=== PATIENT | female | born 1985 | race Caucasian/White ===

== ENCOUNTER 2017-03-15 10:36 | Inpatient (IN) | payer OTHER ==
[2017-03-15] MEDS ORDERED: Sodium Chloride 0.9% 1000 ML 1,000 ML IV STA ×2 (10:55→11:39)
[2017-03-15] MEDS ORDERED: Zofran 4 MG/2 ML VIAL IV ONE (10:57)
[2017-03-15] MEDS ORDERED: Sodium Chloride 0.9% 1000 ML 1,000 ML ONE ×2 (10:57→11:47)
--- NOTE | 2017-03-15 11:00 | ERPHSYRPT ---
- History of Present Illness Time Seen by Provider: 03/15/17 10:54 Source: patient Exam Limitations: no limitations Patient Subjective Stated Complaint: pt here for n/v today and high blood sugar over 400, has not been checking her blood sugar at home, took 6 u of humalog at home, co abd pain, and dizziness Triage Nursing Assessment: pt alert, walked in,sob, skin w/d,pink,abd soft Physician History: The patient is a 31-year-old female complaining of abdominal pain, nausea, and vomiting today. She didn't feel well yesterday either. She is a type I diabetic for several years and states that her blood glucose monitoring machine broke several weeks ago. She has not been taking her daily blood glucose readings. She has been taking her routine Lantus 40 units in the morning. She did not take Lantus this morning. She was afraid she would bottom out. She borrowed her sister's blood glucose machine and found her blood glucose to be in the 400s this morning. She has been in DKA in the past as well as being hypoglycemic in the past. Her past medical history is significant for diabetes. Timing/Duration: today Severity: moderate Modifying Factors: Improves With: nothing Associated Symptoms: nausea, vomiting Allergies/Adverse Reactions: No Known Drug Allergies Allergy (Verified 02/28/15 18:26) Home Medications: Insulin Glargine,Hum.rec.anlog [Lantus] 40 units SQ HS 06/02/12 [History] Insulin Lispro [Humalog] 1 units SQ UD 06/02/12 [History] Hx Tetanus, Diphtheria Vaccination/Date Given: Yes Hx Influenza Vaccination/Date Given: No Hx Pneumococcal Vaccination/Date Given: No Immunizations Up to Date: Yes - Review of Systems Constitutional: No Fever, No Chills Eyes: No Symptoms Ears, Nose, & Throat: No Symptoms Respiratory: No Cough, No Dyspnea Cardiac: No Chest Pain, No Edema, No Syncope Abdominal/Gastrointestinal: Abdominal Pain, Nausea, Vomiting Genitourinary Symptoms: No Dysuria Musculoskeletal: No Back Pain, No Neck Pain Skin: No Rash Neurological: No Dizziness, No Focal Weakness, No Sensory Changes Psychological: No Symptoms Endocrine: No Symptoms Hematologic/Lymphatic: No Symptoms Immunological/Allergic: No Symptoms All Other Systems: Reviewed and Negative - Past Medical History Pertinent Past Medical History: Yes Neurological History: No Pertinent History ENT History: No Pertinent History Cardiac History: No Pertinent History Respiratory History: No Pertinent History Endocrine Medical History: Diabetes Type I Musculoskeletal History: No Pertinent History GI Medical History: No Pertinent History History: No Pertinent History Psycho-Social History: Depression Female Reproductive Disorders: No Pertinent History Other Medical History: HAS BEEN TYPE 1 SINCE 10 MONTHS OLD. - Past Surgical History Past Surgical History: Yes Neuro Surgical History: No Pertinent History Cardiac: No Pertinent History Respiratory: No Pertinent History Gastrointestinal: No Pertinent History Genitourinary: No Pertinent History Musculoskeletal: Orthopedic Surgery Female Surgical History: Section, Tubal Ligation Other Surgical History: TONSILS. X 4 - Social History Smoking Status: Never smoker Exposure to second hand smoke: No Drug Use: none Patient Lives Alone: No - Female History Hx Last Menstrual Period: feb Hx Now: Yes (18 weeks) - Nursing Vital Signs Nursing Vital Signs: Initial Vital Signs Temperature 97.5 F 03/15/17 10:45 Pulse Rate 104 H 03/15/17 10:45 Respiratory Rate 30 H 03/15/17 10:45 Blood Pressure 118/84 03/15/17 10:45 O2 Sat by Pulse Oximetry 100 03/15/17 10:45 Pain Scale Pain Intensity 3 - Physical Exam General Appearance: moderate distress Eye Exam: PERRL/EOMI, eyes nml inspection Ears, Nose, Throat Exam: normal ENT inspection, TMs normal, pharynx normal, moist mucous membranes Neck Exam: normal inspection, non-tender, supple, full range of motion Respiratory Exam: normal breath sounds, lungs clear, No respiratory distress Cardiovascular Exam: tachycardia Gastrointestinal/Abdomen Exam: tenderness Pelvic Exam: not done Rectal Exam: not done Back Exam: normal inspection, normal range of motion, No CVA tenderness, No vertebral tenderness Extremity Exam: normal inspection, normal range of motion, pelvis stable Neurologic Exam: alert, oriented x 3, cooperative, normal mood/affect, nml cerebellar function, nml station & gait, sensation nml, No motor deficits Skin Exam: normal color, warm, dry, No rash Lymphatic Exam: No adenopathy SpO2 Interpretation: normal SpO2: 100 Oxygen Delivery: Room Air Ordered Tests: Active Orders 24 hr Category Date Time Status ACCUCHECK [Accucheck] STAT Care 03/15/17 11:37 Active IV Insertion STAT Care 03/15/17 10:55 Active IV Insertion-2nd Peripheral STAT Care 03/15/17 10:55 Active ARTERIAL BLOOD GASES Urgent Lab 03/15/17 10:58 Completed CBC W DIFF Stat Lab 03/15/17 10:59 Completed CMP Stat Lab 03/15/17 10:59 Completed ETHYL ALCOHOL Stat Lab 03/15/17 10:59 Completed HCG QUALITATIVE,SERUM Stat Lab 03/15/17 10:59 Completed LIPASE Stat Lab 03/15/17 10:59 Completed Lactic Acid Urgent Lab 03/15/17 10:58 Completed MAGNESIUM Stat Lab 03/15/17 10:59 Completed UA W/ MICROSCOPIC Stat Lab 03/15/17 10:45 Completed Urine Triage Profile Stat Lab 03/15/17 10:45 Completed Medication Summary Discontinued Medications Generic Name Dose Route Start Last Admin Trade Name Freq PRN Reason Stop Dose Admin Sodium Chloride 1,000 mls @ 999 mls/hr 03/15/17 10:55 03/15/17 10:59 Sodium Chloride 0.9% 1000 Ml IV 03/15/17 11:55 999 mls/hr .Q1H1M STA Administration Sodium Chloride Confirm 03/15/17 10:57 Sodium Chloride 0.9% 1000 Ml Administered 03/15/17 10:58 Dose 1,000 mls @ ud .ROUTE .STK-MED ONE Sodium Chloride 1,000 mls @ 999 mls/hr 03/15/17 11:39 03/15/17 11:49 Sodium Chloride 0.9% 1000 Ml IV 03/15/17 12:39 999 mls/hr .Q1H1M STA Administration Sodium Chloride Confirm 03/15/17 11:47 Sodium Chloride 0.9% 1000 Ml Administered 03/15/17 11:48 Dose 1,000 mls @ ud .ROUTE .STK-MED ONE Ondansetron HCl 4 mg 03/15/17 10:57 03/15/17 11:02 Zofran 4 Mg/2 Ml Vial IV 03/15/17 10:58 4 mg STAT ONE Administration Ondansetron HCl Confirm 03/15/17 11:01 Zofran 4 Mg/2 Ml Vial Administered 03/15/17 11:02 Dose 4 mg .ROUTE .STK-MED ONE Lab/Rad Data: Laboratory Result Diagrams 03/15/17 10:59 03/15/17 10:59 Laboratory Results 03/15/17 03/15/17 03/15/17 Range/Units 10:59 10:59 10:59 WBC 5.4 (4.0-10.5) K/mm3 RBC 5.99 H (4.1-5.4) M/mm3 Hgb 15.7 (12.0-16.0) gm/dl Hct 47.8 H (35-47) % MCV 79.8 (78-100) fl MCH 26.2 (26-32) pg MCHC 32.8 (32-36) g/dl RDW 13.3 (11.5-14.0) % Plt Count 324 (150-450) K/mm3 MPV 11.2 H (6-9.5) fl Gran % 67.5 H (36.0-66.0) % Lymphocytes % 24.4 (24.0-44.0) % Monocytes % 6.9 (0.0-12.0) % Eosinophils % 0.6 (0.00-5.0) % Basophils % 0.6 (0.0-0.4) % Basophils # 0.03 (0-0.4) Puncture Site pCO2 (35-45) mmHg pO2 (75-100) mmHg Base Excess (-2.0-2.0) O2 Saturation (94-100) g/dF ABG pH (7.35-7.45) ABG HCO3 (22-28) ABG O2 Sat (Measured) (95-100) % Ruel Test A-a Gradient a/A Ratio Hemoglobin Carboxyhemoglobin (0.0-6.9) % THgb Methemoglobin (1.4-1.5) % Potassium 5.0 (3.5-5.1) Temperature C POC O2 Flow Rate % Sodium 128 L (136-145) mEq/L Chloride 91 L (98-107) mEq/L Carbon Dioxide 10.3 L* (21-32) mEq/L Anion Gap 31.7 H (5-15) MEQ/L BUN 16 (9-20) mg/dL Creatinine 1.14 (0.55-1.30) mg/dl Estimated GFR 59 ML/MIN Glucose 417 H (70-110) MG/DL Lactic Acid (0.4-2.0) Calcium 9.2 (8.5-10.1) mg/dL Magnesium 1.9 (1.8-2.4) mg/dL Total Bilirubin 0.80 (0.2-1.0) mg/dL AST 23 (15-37) U/L ALT 21 (12-78) U/L Alkaline Phosphatase 99 (46-116) U/L Serum Total Protein 8.7 H (6.4-8.2) gm/dL Albumin 4.9 (3.4-5.0) g/dL Lipase 77 (73-393) U/L Serum , Qual NEGATIVE (Negative) Ur Collection Type Urine Color (YELLOW) Urine Appearance (CLEAR) Urine pH (5-6) Ur Specific [place] (1.005-1.025) Urine Protein (Negative) Urine Ketones (NEGATIVE) Urine Blood (0-5) Shashank/ul Urine Nitrite (NEGATIVE) Urine Bilirubin (NEGATIVE) Urine Urobilinogen (0-1) mg/dL Ur Leukocyte Esterase (NEGATIVE) Urine Microscopic RBC (0-2) /HPF Urine Microscopic WBC (0-5) /HPF Ur Epithelial Cells (FEW) /HPF Urine Bacteria (NEGATIVE) /HPF Urine Culture Reflexed (NO) Urine Glucose (NEGATIVE) mg/dL Urine Opiates Level (NEGATIVE) Ur Methadone (NEGATIVE) Urine Barbiturates (NEGATIVE) Ur Phencyclidine (PCP) (NEGATIVE) Urine Amphetamine (NEGATIVE) U Benzodiazepine Level (NEGATIVE) Urine Cocaine (NEGATIVE) Urine Marijuana (THC) (NEGATIVE) Ethyl Alcohol < 0.010 (0.00-0.01) % Specimen Received 03/15/17 03/15/17 03/15/17 Range/Units 10:58 10:45 10:45 WBC (4.0-10.5) K/mm3 RBC (4.1-5.4) M/mm3 Hgb (12.0-16.0) gm/dl Hct (35-47) % MCV (78-100) fl MCH (26-32) pg MCHC (32-36) g/dl RDW (11.5-14.0) % Plt Count (150-450) K/mm3 MPV (6-9.5) fl Gran % (36.0-66.0) % Lymphocytes % (24.0-44.0) % Monocytes % (0.0-12.0) % Eosinophils % (0.00-5.0) % Basophils % (0.0-0.4) % Basophils # (0-0.4) Puncture Site LEFT RADIAL pCO2 17 L* (35-45) mmHg pO2 120 H (75-100) mmHg Base Excess -19.3 L (-2.0-2.0) O2 Saturation 96.7 (94-100) g/dF ABG pH 7.19 L* (7.35-7.45) ABG HCO3 6.5 L* (22-28) ABG O2 Sat (Measured) 98.8 (95-100) % Ruel Test YES A-a Gradient 8 a/A Ratio 0.94 Hemoglobin 15.3 Carboxyhemoglobin 1.2 (0.0-6.9) % THgb Methemoglobin 1.0 L (1.4-1.5) % Potassium 5.0 (3.5-5.1) Temperature 37.0 C POC O2 Flow Rate 21 % Sodium (136-145) mEq/L Chloride (98-107) mEq/L Carbon Dioxide (21-32) mEq/L Anion Gap (5-15) MEQ/L BUN (9-20) mg/dL Creatinine (0.55-1.30) mg/dl Estimated GFR ML/MIN Glucose (70-110) MG/DL Lactic Acid 1.6 (0.4-2.0) Calcium (8.5-10.1) mg/dL Magnesium (1.8-2.4) mg/dL Total Bilirubin (0.2-1.0) mg/dL AST (15-37) U/L ALT (12-78) U/L Alkaline Phosphatase (46-116) U/L Serum Total Protein (6.4-8.2) gm/dL Albumin (3.4-5.0) g/dL Lipase (73-393) U/L Serum , Qual (Negative) Ur Collection Type CCMS Urine Color YELLOW (YELLOW) Urine Appearance CLEAR (CLEAR) Urine pH 5.0 (5-6) Ur Specific [place] 1.020 (1.005-1.025) Urine Protein TRACE (Negative) Urine Ketones LARGE (NEGATIVE) Urine Blood TRACE NON-HEM (0-5) Shashank/ul Urine Nitrite NEGATIVE (NEGATIVE) Urine Bilirubin NEGATIVE (NEGATIVE) Urine Urobilinogen NORMAL (0-1) mg/dL Ur Leukocyte Esterase NEGATIVE (NEGATIVE) Urine Microscopic RBC 0-2 (0-2) /HPF Urine Microscopic WBC 0-2 (0-5) /HPF Ur Epithelial Cells FEW (FEW) /HPF Urine Bacteria RARE (NEGATIVE) /HPF Urine Culture Reflexed NO (NO) Urine Glucose 1000 (NEGATIVE) mg/dL Urine Opiates Level NEG. (NEGATIVE) Ur Methadone NEG. (NEGATIVE) Urine Barbiturates NEG. (NEGATIVE) Ur Phencyclidine (PCP) NEG. (NEGATIVE) Urine Amphetamine NEG. (NEGATIVE) U Benzodiazepine Level NEG. (NEGATIVE) Urine Cocaine NEG. (NEGATIVE) Urine Marijuana (THC) NEG. (NEGATIVE) Ethyl Alcohol (0.00-0.01) % Specimen Received 03/15/17 1100 - Progress Progress: improved Discussed with : Vidal Will see patient in: hospital (full admit) Counseled pt/family regarding: lab results, diagnosis, rad results - Departure Time of Disposition: 12:51 Departure Disposition: In-patient Admission Clinical Impression: DKA (diabetic ketoacidoses) Condition: Stable Critical Care Time: No Referrals: STU KEATING [Primary Care Provider] -
[2017-03-15] MEDS ORDERED: Zofran 4 MG/2 ML VIAL ONE (11:01)
[2017-03-15 11:05] LABS: A-aADO2 8; ARTERIAL BLD GAS O2 SATURATION 98.8 % (95-100); ARTERIAL BLOOD GAS BASE EXCESS -19.3 (-2.0-2.0); ARTERIAL BLOOD GAS FIO2 21 %; ARTERIAL BLOOD GAS PO2 120 mmHg (75-100); ARTERIAL BLOOD GAS pH 7.19 (7.35-7.45); Lactic Acid 1.6 (0.4-2.0)
[2017-03-15 11:06] LABS: ALLEN TEST OK? YES
[2017-03-15 11:06] LABS: BASOPHIL % 0.6 % (0.0-0.4); Eosinophil % 0.6 % (0.00-5.0); Granulocytes % 67.5 % (36.0-66.0); Lymphocytes % 24.4 % (24.0-44.0); Mean Cell Volume 79.8 fl (78-100); Mean Corpuscular Hemoglobin 26.2 pg (26-32); Mean Platelet Volume 11.2 fl (6-9.5); Monocytes % 6.9 % (0.0-12.0); Platelet Count 324 K/mm3 (150-450); Red Blood Count 5.99 M/mm3 (4.1-5.4); Red Cell Distribution Width 13.3 % (11.5-14.0); White Blood Count 5.4 K/mm3 (4.0-10.5)
[2017-03-15 11:14] LABS: Collection Type CCMS; Glucose 1000 mg/dL (NEGATIVE); Leukocyte Esterase NEGATIVE (NEGATIVE)
[2017-03-15 11:15] LABS: Bilirubin NEGATIVE (NEGATIVE); Blood TRACE NON-HEM Ery/ul (0-5)
[2017-03-15 11:16] LABS: COMPLETE URINE MICROSCOPIC? YES; Epithelial Cells FEW /HPF (FEW); WBC 0-2 /HPF (0-5)
[2017-03-15 11:17] LABS: ADD URINE CULTURE? NO (NO); Bacteria RARE /HPF (NEGATIVE)
[2017-03-15 11:33] LABS: ALBUMIN 4.9 g/dL (3.4-5.0); ALKALINE PHOSPHATASE 99 U/L (46-116); ANION GAP 31.7 MEQ/L (5-15); BLOOD UREA NITROGEN 16 mg/dL (9-20); CHLORIDE 91 mEq/L (98-107); ETHYL ALCOHOL < 0.010 % (0.00-0.01); Glucose 417 MG/DL (70-110); LIPASE 77 U/L (73-393); MAGNESIUM 1.9 mg/dL (1.8-2.4); SGOT/AST 23 U/L (15-37); SGPT/ALT 21 U/L (12-78); SODIUM 128 mEq/L (136-145); Total Protein 8.7 gm/dL (6.4-8.2)
[2017-03-15 11:36] LABS: Carbon Dioxide 10.3 mEq/L (21-32)
[2017-03-15] MEDS: Sodium Chloride 0.9% 1000 ML 1,000 ML IV SCH ×3 (14:23→23:22)
[2017-03-15] MEDS: Zofran 4 MG/2 ML VIAL IV PRN (14:26)
[2017-03-15] MEDS: NovoLOG Insulin SQ PRN ×5 (16:23→23:19)
[2017-03-15] MEDS: Norco 10/325 MG Tablet PO PRN ×2 (16:30→21:18)
[2017-03-15 16:41] LABS: ANION GAP 24.3 MEQ/L (5-15); BLOOD UREA NITROGEN 11 mg/dL (9-20); CHLORIDE 100 mEq/L (98-107); Glucose 212 MG/DL (70-110); Potassium 5.3 mEq/L (3.5-5.1); SODIUM 133 mEq/L (136-145)
[2017-03-15 16:42] LABS: Carbon Dioxide 14.4 mEq/L (21-32)
[2017-03-15 21:02] LABS: ANION GAP 15.7 MEQ/L (5-15); BLOOD UREA NITROGEN 11 mg/dL (9-20); CHLORIDE 106 mEq/L (98-107); Carbon Dioxide 18.5 mEq/L (21-32); Glucose 157 MG/DL (70-110); Potassium 4.2 mEq/L (3.5-5.1); SODIUM 136 mEq/L (136-145)
[2017-03-16] MEDS: NovoLOG Insulin SQ PRN ×3 (01:18→11:21)
[2017-03-16 03:28] LABS: ANION GAP 11.8 MEQ/L (5-15); BLOOD UREA NITROGEN 11 mg/dL (9-20); CHLORIDE 109 mEq/L (98-107); Carbon Dioxide 20.4 mEq/L (21-32); Glucose 114 MG/DL (70-110); Potassium 3.9 mEq/L (3.5-5.1); SODIUM 137 mEq/L (136-145)
[2017-03-16] MEDS: Norco 10/325 MG Tablet PO PRN (04:59)
[2017-03-16 06:05] LABS: BASOPHIL % 0.5 % (0.0-0.4); Granulocytes % 47.4 % (36.0-66.0); Lymphocytes % 38.8 % (24.0-44.0); Mean Cell Volume 80.6 fl (78-100); Mean Platelet Volume 11.4 fl (6-9.5); Monocytes % 11.3 % (0.0-12.0); Platelet Count 215 K/mm3 (150-450); Red Blood Count 4.17 M/mm3 (4.1-5.4); White Blood Count 4.1 K/mm3 (4.0-10.5)
[2017-03-16 06:17] LABS: Mean Corpuscular Hemoglobin 26.8 pg (26-32)
[2017-03-16] MEDS: Zofran 4 MG/2 ML VIAL IV PRN (07:26)
[2017-03-16] MEDS ORDERED: TYLENOL 325 MG PO PRN (08:34)
[2017-03-16] MEDS ORDERED: Phenergan 25 MG INJ IV PRN (08:34)
[2017-03-16] MEDS ORDERED: DIFLUCAN PO SCH (09:00)
[2017-03-16] MEDS: Lantus Insulin SQ SCH (09:19)
[2017-03-16] MEDS: Sodium Chloride 0.9% 1000 ML 1,000 ML IV SCH ×2 (09:25→20:40)
--- NOTE | 2017-03-16 09:41 | HP ---
HISTORY OF PRESENT ILLNESS: This is a 31 year-old patient with diabetes mellitus type 1. I last saw her in October 2015 and asked her to see an clearance cutter at that time. She was given a list and was to pick out a name. However she never got back to us. It appears that she has been getting her insulin refilled by nurse practitioner, Haydee Haile, this year. The patient is unsure when her last hemoglobin A1C was checked. She thinks it may have been last year. She states that she was not feeling well for the past two to three days and also reported that her blood glucose meter was not working for one and a half weeks so she was not checking her blood sugars. She reports yesterday she started feeling dizzy, lightheaded, nauseated and started vomiting. I checked her blood sugar and it 452. I am not sure how she checked that if her meter was not working but she told me that both that her meter was not working and that she checked her blood sugar. She states she has not seen an clearance cutter and would like a referral for one. She reports that she is feeling better now. She has a little bit of breakfast in front of her. The pharmacy reports that she has not received any Lantus yet. She usually gets 40 units every evening. She has received 27 units of sliding scale coverage since her admission yesterday. REVIEW OF SYSTEMS: She reports abdominal pain, vaginal itching otherwise the review of systems is negative. PAST MEDICAL HISTORY: Diabetes mellitus type 1. PAST SURGICAL HISTORY: Bilateral carpal tunnel surgery. Tonsillectomy. section x4. MEDICATIONS: Lantus 40 units q.h.s. and she also reports that she uses a sliding scale and counts carbs 15 to 1 for short-acting insulin which was Humalog. ALLERGIES: NKDA. SOCIAL HISTORY: No tobacco use. No alcohol use. FAMILY HISTORY: Mother has anemia. PHYSICAL EXAMINATION: VITAL SIGNS: Temperature current 97.5F, temperature max 97.5F, heart rate 69 to 104 currently 69, respiratory rate 12 to 30 currently 12, blood pressure 103 to 122 over 55 to 77 currently 110/61. GENERAL: The patient is lying in bed in no acute distress. CVS: She has a regular rate and rhythm. No murmurs, gallops or rubs are appreciated. CHEST: Clear to auscultation bilaterally. No crackles or wheezes. ABDOMEN: Soft, nontender, nondistended with normal bowel sounds. EXTREMITIES: No clubbing, cyanosis or edema. SKIN: Warm, dry and intact without rashes. LABORATORY DATA AND TESTS: Her most recent BMP revealed carbon dioxide of 20.4, sodium 137, glucose 114, calcium 7.1. These are from 0245 hours today. White blood cell count within normal limits. Hemoglobin 11.2. Urine tox is negative. UA revealed 1,000 glucose on admission and large ketones. On admission she was asked acidotic with a pH of 7.19 and a pCO2 of 17. ASSESSMENT AND PLAN: 1) DIABETES MELLITUS TYPE 1 WITH KETOACIDOSIS: The patient was given fluids overnight as well as short-acting insulin. She was not on a drip. It appears she has corrected. She has not yet been restarted on her home dose of Lantus so will have to change that to the morning. Will continue to check her blood sugars before meals and q.h.s. I have ordered 6 units of NovoLog before meals. She reports she usually gives herself somewhere around 8 units at her meals she thinks on average. Again, she uses a sliding scale that she does on her own. I have also ordered a low dose sliding scale to help cover for hyperglycemia. I have asked the patient to see an clearance cutter. The discharge plan is to get her a list of endocrinologists so she can pick one that she is comfortable with going to. Will check her hemoglobin A1C, will check her fasting lipid profile if she is still here in the morning. Continue with IV fluids. 2) VAGINAL YEAST INFECTION: Will give her Diflucan 150 mg p.o. once.
[2017-03-16] MEDS ORDERED: NovoLOG Insulin SQ SCH (11:30)
[2017-03-16 15:26] LABS: ANION GAP 14.6 MEQ/L (5-15); BLOOD UREA NITROGEN 9 mg/dL (9-20); CHLORIDE 106 mEq/L (98-107); Carbon Dioxide 21.9 mEq/L (21-32); Glucose 245 MG/DL (70-110); Potassium 4.3 mEq/L (3.5-5.1); SODIUM 138 mEq/L (136-145)
[2017-03-16] MEDS: NovoLOG Insulin SQ SCH (17:09)
[2017-03-17 03:29] LABS: ANION GAP 10.9 MEQ/L (5-15); BLOOD UREA NITROGEN 9 mg/dL (9-20); CHLORIDE 106 mEq/L (98-107); Carbon Dioxide 27.8 mEq/L (21-32); Glucose 78 MG/DL (70-110); Potassium 3.5 mEq/L (3.5-5.1); SODIUM 141 mEq/L (136-145)
[2017-03-17] MEDS: Sodium Chloride 0.9% 1000 ML 1,000 ML IV SCH (06:41)
[2017-03-17] MEDS: Lantus Insulin SQ SCH (07:49)
[2017-03-17] MEDS: NovoLOG Insulin SQ SCH (07:51)
[2017-03-17] MEDS: NovoLOG Insulin SQ PRN (07:51)
[2017-03-17 08:00] VITALS: O2SAT 97
[2017-03-17] MEDS ORDERED: MORPHINE SULFATE 4 MG INJ IV ONE (10:17)
[2017-03-17] MEDS ORDERED: Augmentin 875-125 Tablet PO SCH (11:45)
[2017-03-17] MEDS ORDERED: NovoLOG Insulin SQ SCH (11:46)
[2017-03-17] MEDS ORDERED: TORAdol 30 mg Injection IV ONE (12:00)
[2017-03-17 12:04] VITALS: BP 141/86; PULSE 103
--- NOTE | 2017-03-17 15:39 | PCM.DCORD ---
- Discharge Discharge Date: 03/17/17 Disposition: Home, Self-Care Condition: Good Prescriptions: New Amox Tr/Potass Clav. 875 mg [Augmentin 875-125 Tablet] 875 mg PO BID # 19 tablet Acetaminophen 325 mg [Tylenol 325 mg] 650 mg PO Q4H PRN PRN tablet PRN Reason: Pain And/Or Fever Continue Insulin Lispro [Humalog] 1 units SQ UD Insulin Glargine,Hum.rec.anlog [Lantus] 40 units SQ HS Additional Instructions: Take 6 units short acting insulin with each of your meals. Follow up with: STU KEATING [Primary Care Provider] -
[2017-03-17] MEDS ORDERED: Adacel Vial IM ONE (16:00)
--- NOTE | 2017-03-19 13:41 | DS ---
DISCHARGE DIAGNOSES: 1) DIABETIC KETOACIDOSIS NOW RESOLVED. 2) DIABETES MELLITUS TYPE 1 OUT OF CONTROL. 3) A 1 CM LACERATION OF HER LOWER LIP NOT INVOLVING THE REYNOLD BORDER. DISCHARGE PHYSICAL EXAMINATION: VITALS: Temperature current 98.4F, temperature max 99F, heart rate 69 to 103, respiratory rate 16, blood pressure 97 to 141 over 58 to 86. Oxygen saturation 94 to 97% on room air. GENERAL: The patient is lying in bed in no acute distress. She has an abrasion over her right eye with some bruising and nose has a small abrasion. Her lower lip just above her chin had a 1 cm laceration of the skin on the outside all the way through approximately 0.5 cm in length all the way through full thickness. CVS: Her heart has a regular rate and rhythm. No murmurs, gallops or rubs. CHEST: Clear to auscultation bilaterally. No crackles or wheezes. ABDOMEN: Soft, nontender, nondistended with normal bowel sounds. EXTREMITIES: No clubbing, cyanosis or edema. NEURO: Cranial nerves II-XII intact. Strength 5/5 in all four extremities. Finger to nose normal. Gait normal. HOSPITAL COURSE: 1) DIABETIC KETOACIDOSIS. She was given subcutaneous insulin in the ICU under the management of Dr. Drake when she first came in. The diabetic ketoacidosis corrected well. The morning I saw her she was eating breakfast. She started long-acting insulin 40 units daily which is what she takes at home and continued short-acting insulin ranging from 4 to 8 units with each of her meals. At the time of discharge she ate all of her lunch without any problems and her blood sugar was 72. 2) DIABETES MELLITUS TYPE 1 OUT OF CONTROL: She has not been following up with repairer welding equipment and plan to make this referral as an outpatient. Her hemoglobin A1C was over 10. The importance of good glycemic control was stressed with the patient. 3) FALL: She had a fall when she was taking a shower and said she had gotten out of the bath tub and was getting back in and fell and hit her chin and face on the grab bar in the shower. She cried immediately. Her boyfriend was in the room and came and got the nurse and then I also saw her once her pain was under better control and the laceration could be better examined it was evident that it was deeper than we initially thought. After informed consent the area was numbed and three sutures were placed on the inside of her lower lip with 4-0 Vicryl after numbing with 1% Lidocaine 1 ml without any complications. The 1 cm laceration on the outside of her lip was cleaned, numbed and three sutures were placed with 4-0 Prolene in a sterile manner without any complications after being numbed with 1 ml of Lidocaine. The edges were well approximated after suturing. The case had also been discussed with ENT doctor service station attendant, Dr. Che, [place] [facility] She had already been started on Augmentin after her fall at 875 mg b.i.d. which will plan to finish out a ten day course. I will also give her a TDAP before her discharge. 4) A 1 CM LACERATION OF HER LOWER LIP NOT INVOLVING THE REYNOLD BORDER: This was sutured as explained above without complications after informed consent was obtained. DISCHARGE MEDICATIONS: She is to resume her home medications as well as take Augmentin 875 mg p.o. b.i.d. for nine and a half more days. She has already received her first dose here. FOLLOW UP: She is to follow up with myself this coming Sunday for suture removal and follow up and also work on getting her endocrinology follow up. DISPOSITION: The patient was discharged to home in good condition.
== END 2017-03-17 14:15 | disposition home or self-care (01) | DRG 989 ==
LOC: ED 10:36 → ICU 13:41 → MED SURG 03-16 09:40
PROVIDERS: ADMIT Internal Medicine; ATTEND Internal Medicine
PROC: 0CQ10ZZ Repair Lower Lip, Open Approach (ICD-10-PCS; principal; 2017-03-17)
DX: E10.10 Type 1 diabetes mellitus with ketoacidosis without coma (principal); Z79.4 Long term (current) use of insulin; B37.3 Candidiasis of vulva and vagina; W18.2XXA Fall in (into) shower or empty bathtub, initial encounter; Y92.231 Patient bathroom in hospital as the place of occurrence of the external cause; S01.511A Laceration without foreign body of lip, initial encounter
CPT/HCPCS: 36000; 36415; 36600; 80048; 80053; 80061; 80307; 81000; 82375; 82803; 82962; 83036; 83605; 83690; 83721; 83735; 84443; 84703; 85025; 90471; 90715; 96360; 96361; 96374; 99285; G0481; J1885; J2270; J2405; A9270-GY

== ENCOUNTER 2017-05-23 16:58 | Emergency (ER) | payer OTHER ==
--- NOTE | 2017-05-23 17:23 | ERPHSYRPT ---
- History of Present Illness Source: patient, EMS Exam Limitations: no limitations Patient Subjective Stated Complaint: pt co high blood sugar today, aches, headache, nausea and vomited x1 .last blood sugar 348 Triage Nursing Assessment: pt alert, mild distress, resp easy, skin w/d pink. abd soft. lips dry Timing/Duration: day(s) (4) Severity: moderate Associated Symptoms: nausea, vomiting, malaise Hx Tetanus, Diphtheria Vaccination/Date Given: Yes Hx Influenza Vaccination/Date Given: No Hx Pneumococcal Vaccination/Date Given: No Immunizations Up to Date: Yes <DERIK HAHN - Last Filed: 05/23/17 19:02> <JORGE CODY - Last Filed: 05/23/17 20:31> - History of Present Illness Time Seen by Provider: 05/23/17 17:17 Physician History: The patient is a 31-year-old female brought in by MS from home where she complains of feeling nauseated since Sunday. She also had a sore throat on Sunday. Sunday and today she has been nauseated. She did vomit once today. She's not eating or drinking very much. Her abdomen doesn't hurt, it just feels queasy. She is a type I diabetic. She took very little insulin this morning because she wasn't eating. EMS says her blood sugar is 348. EMS gave her Zofran. She has muscle aches and pains. She did not receive an influenza vaccination this year. Her past medical history is significant for diabetes, diabetic ketoacidosis. (DERIK HAHN) Allergies/Adverse Reactions: No Known Drug Allergies Allergy (Verified 05/23/17 17:05) Home Medications: Insulin Glargine,Hum.rec.anlog [Lantus] 40 units SQ HS 06/02/12 [History] Insulin Lispro [Humalog] 1 units SQ UD 06/02/12 [History] - Review of Systems Constitutional: Malaise Eyes: No Symptoms Ears, Nose, & Throat: Throat Pain Respiratory: No Cough, No Dyspnea Cardiac: No Chest Pain, No Edema, No Syncope Abdominal/Gastrointestinal: Nausea, Vomiting, No Diarrhea, No Constipation Genitourinary Symptoms: No Dysuria Musculoskeletal: Myalgias, No Back Pain, No Neck Pain Skin: No Rash Neurological: No Dizziness, No Focal Weakness, No Sensory Changes Psychological: No Symptoms Endocrine: No Symptoms Hematologic/Lymphatic: No Symptoms Immunological/Allergic: No Symptoms All Other Systems: Reviewed and Negative <DERIK HAHN - Last Filed: 05/23/17 19:02> - Past Medical History Pertinent Past Medical History: Yes Neurological History: No Pertinent History ENT History: No Pertinent History Cardiac History: No Pertinent History Respiratory History: No Pertinent History Endocrine Medical History: Diabetes Type I Musculoskeletal History: No Pertinent History GI Medical History: No Pertinent History History: No Pertinent History Psycho-Social History: Anxiety, Depression Female Reproductive Disorders: No Pertinent History Other Medical History: HAS BEEN TYPE 1 SINCE 11 MONTHS OLD. - Past Surgical History Past Surgical History: Yes Neuro Surgical History: No Pertinent History Cardiac: No Pertinent History Respiratory: No Pertinent History Gastrointestinal: No Pertinent History Genitourinary: No Pertinent History Musculoskeletal: Orthopedic Surgery Female Surgical History: Section, Tubal Ligation Other Surgical History: TONSILS. X 4 - Social History Smoking Status: Never smoker Exposure to second hand smoke: No Drug Use: none Patient Lives Alone: No - Female History Hx Last Menstrual Period: nov Hx Now: No <DERIK HAHN - Last Filed: 05/23/17 19:02> - Physical Exam General Appearance: mild distress Eye Exam: PERRL/EOMI, eyes nml inspection Ears, Nose, Throat Exam: normal ENT inspection, TMs normal, pharynx normal, moist mucous membranes Neck Exam: normal inspection, non-tender, supple, full range of motion Respiratory Exam: normal breath sounds, lungs clear, No respiratory distress Cardiovascular Exam: regular rate/rhythm, normal heart sounds, normal peripheral pulses Gastrointestinal/Abdomen Exam: soft, normal bowel sounds, No tenderness, No mass Pelvic Exam: not done Rectal Exam: not done Back Exam: normal inspection, normal range of motion, No CVA tenderness, No vertebral tenderness Extremity Exam: normal inspection, normal range of motion, pelvis stable Neurologic Exam: alert, oriented x 3, cooperative, normal mood/affect, nml cerebellar function, nml station & gait, sensation nml, No motor deficits Skin Exam: normal color, warm, dry, No rash Lymphatic Exam: No adenopathy SpO2 Interpretation: normal SpO2: 100 Oxygen Delivery: Room Air <DERIK HAHN - Last Filed: 05/23/17 19:02> - Nursing Vital Signs Nursing Vital Signs: Initial Vital Signs Temperature 97.5 F 05/23/17 17:00 Pulse Rate 96 H 05/23/17 17:00 Respiratory Rate 16 05/23/17 17:00 Blood Pressure 118/68 05/23/17 17:00 O2 Sat by Pulse Oximetry 100 05/23/17 17:00 Pain Scale Pain Intensity 0 - Radiology Exams Abdomen X-ray Interpretation: Interpreted by me, Negative, No Pneumonia <JORGE CODY - Last Filed: 05/23/17 20:31> Ordered Tests: Active Orders 24 hr Category Date Time Status Accucheck STAT Care 05/23/17 17:28 Active Clean Catch Urine Specimen STAT Care 05/23/17 19:22 Active IV Insertion STAT Care 05/23/17 17:28 Active Pulse Oximetry (ED) STAT Care 05/23/17 17:28 Active OBSTR/ACUTE ABDOMEN SERIES Stat Exams 05/23/17 19:24 Ordered ARTERIAL BLOOD GASES Urgent Lab 05/23/17 17:28 Ordered CBC W DIFF Stat Lab 05/23/17 17:50 Completed CMP Stat Lab 05/23/17 17:50 Completed CULTURE, THROAT Stat Lab 05/23/17 17:50 Received ETHYL ALCOHOL Stat Lab 05/23/17 17:50 Completed HCG QUALITATIVE,SERUM Stat Lab 05/23/17 17:50 Completed Lactic Acid Stat Lab 05/23/17 18:11 Completed Lactic Acid Urgent Lab 05/23/17 17:28 Ordered STREP SCREEN-BETA A Stat Lab 05/23/17 17:50 Completed UA W/ MICROSCOPIC Stat Lab 05/23/17 20:00 Completed VBG [VENOUS BLOOD GAS] Stat Lab 05/23/17 18:11 Completed Medication Summary Generic Name Dose Route Start Last Admin Trade Name Freq PRN Reason Stop Dose Admin Cephalexin HCl 500 mg 05/23/17 20:24 Keflex 500 Mg PO 05/23/17 20:25 STAT ONE Discontinued Medications Generic Name Dose Route Start Last Admin Trade Name Freq PRN Reason Stop Dose Admin Sodium Chloride 1,000 mls @ 999 mls/hr 05/23/17 17:28 05/23/17 17:35 Sodium Chloride 0.9% 1000 Ml IV 05/23/17 18:28 999 mls/hr .Q1H1M STA Administration Sodium Chloride Confirm 05/23/17 17:34 Sodium Chloride 0.9% 1000 Ml Administered 05/23/17 17:35 Dose 1,000 mls @ ud .ROUTE .STK-MED ONE Sodium Chloride 1,000 mls @ 999 mls/hr 05/23/17 19:23 05/23/17 19:29 Sodium Chloride 0.9% 1000 Ml IV 05/23/17 20:23 999 mls/hr .Q1H1M STA Administration Sodium Chloride Confirm 05/23/17 19:28 Sodium Chloride 0.9% 1000 Ml Administered 05/23/17 19:29 Dose 1,000 mls @ ud .ROUTE .STK-MED ONE Promethazine HCl 12.5 mg 05/23/17 17:28 05/23/17 17:35 Phenergan 25 Mg Inj IV 05/23/17 17:29 12.5 mg STAT ONE Administration Promethazine HCl Confirm 05/23/17 17:33 Phenergan 25 Mg Inj Administered 05/23/17 17:34 Dose 25 mg .ROUTE .STK-MED ONE Lab/Rad Data: Laboratory Result Diagrams 05/23/17 17:50 05/23/17 17:50 Laboratory Results 05/23/17 05/23/17 05/23/17 Range/Units 20:00 18:11 18:11 WBC (4.0-10.5) K/mm3 RBC (4.1-5.4) M/mm3 Hgb (12.0-16.0) gm/dl Hct (35-47) % MCV (78-100) fl MCH (26-32) pg MCHC (32-36) g/dl RDW (11.5-14.0) % Plt Count (150-450) K/mm3 MPV (6-9.5) fl Gran % (36.0-66.0) % Lymphocytes % (24.0-44.0) % Monocytes % (0.0-12.0) % Eosinophils % (0.00-5.0) % Basophils % (0.0-0.4) % Basophils # (0-0.4) VBG pH 7.37 (7.32-7.42) VBG pCO2 at Pat Temp 49 (42-55) mm/Hg VBG pO2 at Pat Temp 25 (25-40) mm/Hg VBG HCO3 28.3 H (22-28) meq/L VBG O2 Sat (Kali) 45.7 L (95-100) VBG Base Excess 2.2 H (-2.0-2.0) VBG Hemoglobin 13.5 VBG Carboxyhemoglobin 3.1 (0.0-6.9) % T HGB POC Potassium 4.3 (3.5-5.1) Sodium (136-145) mEq/L Potassium (3.5-5.1) mEq/L Chloride (98-107) mEq/L Carbon Dioxide (21-32) mEq/L Anion Gap (5-15) MEQ/L BUN (9-20) mg/dL Creatinine (0.55-1.30) mg/dl Estimated GFR ML/MIN Glucose (70-110) MG/DL Lactic Acid 1.2 (0.4-2.0) Calcium (8.5-10.1) mg/dL Total Bilirubin (0.2-1.0) mg/dL AST (15-37) U/L ALT (12-78) U/L Alkaline Phosphatase (46-116) U/L Serum Total Protein (6.4-8.2) gm/dL Albumin (3.4-5.0) g/dL Serum , Qual (Negative) Ur Collection Type CCMS Urine Color YELLOW (YELLOW) Urine Appearance CLEAR (CLEAR) Urine pH 6.0 (5-6) Ur Specific [place] 1.010 (1.005-1.025) Urine Protein NEGATIVE (Negative) Urine Ketones NEGATIVE (NEGATIVE) Urine Blood NEGATIVE (0-5) Shashank/ul Urine Nitrite NEGATIVE (NEGATIVE) Urine Bilirubin NEGATIVE (NEGATIVE) Urine Urobilinogen NORMAL (0-1) mg/dL Ur Leukocyte Esterase TRACE (NEGATIVE) Urine Microscopic WBC 2-5 (0-5) /HPF Ur Epithelial Cells FEW (FEW) /HPF Urine Bacteria RARE (NEGATIVE) /HPF Urine Culture Reflexed NO (NO) Urine Glucose 50 (NEGATIVE) mg/dL Ethyl Alcohol (0.00-0.01) % Influenza Type A Ag (NEGATIVE) Influenza Type B Ag (NEGATIVE) RSV (PCR) (Negative) Streptococcus Screen (Negative) Specimen Received 05-23-17199905/23/17 05/23/17 05/23/17 Range/Units 17:50 17:50 17:50 WBC (4.0-10.5) K/mm3 RBC (4.1-5.4) M/mm3 Hgb (12.0-16.0) gm/dl Hct (35-47) % MCV (78-100) fl MCH (26-32) pg MCHC (32-36) g/dl RDW (11.5-14.0) % Plt Count (150-450) K/mm3 MPV (6-9.5) fl Gran % (36.0-66.0) % Lymphocytes % (24.0-44.0) % Monocytes % (0.0-12.0) % Eosinophils % (0.00-5.0) % Basophils % (0.0-0.4) % Basophils # (0-0.4) VBG pH (7.32-7.42) VBG pCO2 at Pat Temp (42-55) mm/Hg VBG pO2 at Pat Temp (25-40) mm/Hg VBG HCO3 (22-28) meq/L VBG O2 Sat (Kali) (95-100) VBG Base Excess (-2.0-2.0) VBG Hemoglobin VBG Carboxyhemoglobin (0.0-6.9) % T HGB POC Potassium (3.5-5.1) Sodium (136-145) mEq/L Potassium (3.5-5.1) mEq/L Chloride (98-107) mEq/L Carbon Dioxide (21-32) mEq/L Anion Gap (5-15) MEQ/L BUN (9-20) mg/dL Creatinine (0.55-1.30) mg/dl Estimated GFR ML/MIN Glucose (70-110) MG/DL Lactic Acid (0.4-2.0) Calcium (8.5-10.1) mg/dL Total Bilirubin (0.2-1.0) mg/dL AST (15-37) U/L ALT (12-78) U/L Alkaline Phosphatase (46-116) U/L Serum Total Protein (6.4-8.2) gm/dL Albumin (3.4-5.0) g/dL Serum , Qual NEGATIVE (Negative) Ur Collection Type Urine Color (YELLOW) Urine Appearance (CLEAR) Urine pH (5-6) Ur Specific [place] (1.005-1.025) Urine Protein (Negative) Urine Ketones (NEGATIVE) Urine Blood (0-5) Shashank/ul Urine Nitrite (NEGATIVE) Urine Bilirubin (NEGATIVE) Urine Urobilinogen (0-1) mg/dL Ur Leukocyte Esterase (NEGATIVE) Urine Microscopic WBC (0-5) /HPF Ur Epithelial Cells (FEW) /HPF Urine Bacteria (NEGATIVE) /HPF Urine Culture Reflexed (NO) Urine Glucose (NEGATIVE) mg/dL Ethyl Alcohol (0.00-0.01) % Influenza Type A Ag NEGATIVE (NEGATIVE) Influenza Type B Ag NEGATIVE (NEGATIVE) RSV (PCR) NEGATIVE (Negative) Streptococcus Screen NEGATIVE (Negative) Specimen Received 05/23/17 05/23/17 Range/Units 17:50 17:50 WBC 6.5 (4.0-10.5) K/mm3 RBC 4.89 (4.1-5.4) M/mm3 Hgb 12.5 (12.0-16.0) gm/dl Hct 38.9 (35-47) % MCV 79.6 (78-100) fl MCH 25.6 L (26-32) pg MCHC 32.1 (32-36) g/dl RDW 13.4 (11.5-14.0) % Plt Count 265 (150-450) K/mm3 MPV 10.4 H (6-9.5) fl Gran % 71.4 H (36.0-66.0) % Lymphocytes % 20.0 L (24.0-44.0) % Monocytes % 7.7 (0.0-12.0) % Eosinophils % 0.6 (0.00-5.0) % Basophils % 0.3 (0.0-0.4) % Basophils # 0.02 (0-0.4) VBG pH (7.32-7.42) VBG pCO2 at Pat Temp (42-55) mm/Hg VBG pO2 at Pat Temp (25-40) mm/Hg VBG HCO3 (22-28) meq/L VBG O2 Sat (Kali) (95-100) VBG Base Excess (-2.0-2.0) VBG Hemoglobin VBG Carboxyhemoglobin (0.0-6.9) % T HGB POC Potassium (3.5-5.1) Sodium 136 (136-145) mEq/L Potassium 4.2 (3.5-5.1) mEq/L Chloride 101 (98-107) mEq/L Carbon Dioxide 25.8 (21-32) mEq/L Anion Gap 13.0 (5-15) MEQ/L BUN 12 (9-20) mg/dL Creatinine 0.80 (0.55-1.30) mg/dl Estimated GFR > 60 ML/MIN Glucose 261 H (70-110) MG/DL Lactic Acid (0.4-2.0) Calcium 8.5 (8.5-10.1) mg/dL Total Bilirubin 0.90 (0.2-1.0) mg/dL AST 13 L (15-37) U/L ALT 11 L (12-78) U/L Alkaline Phosphatase 76 (46-116) U/L Serum Total Protein 7.0 (6.4-8.2) gm/dL Albumin 3.5 (3.4-5.0) g/dL Serum , Qual (Negative) Ur Collection Type Urine Color (YELLOW) Urine Appearance (CLEAR) Urine pH (5-6) Ur Specific [place] (1.005-1.025) Urine Protein (Negative) Urine Ketones (NEGATIVE) Urine Blood (0-5) Shashank/ul Urine Nitrite (NEGATIVE) Urine Bilirubin (NEGATIVE) Urine Urobilinogen (0-1) mg/dL Ur Leukocyte Esterase (NEGATIVE) Urine Microscopic WBC (0-5) /HPF Ur Epithelial Cells (FEW) /HPF Urine Bacteria (NEGATIVE) /HPF Urine Culture Reflexed (NO) Urine Glucose (NEGATIVE) mg/dL Ethyl Alcohol < 0.010 (0.00-0.01) % Influenza Type A Ag (NEGATIVE) Influenza Type B Ag (NEGATIVE) RSV (PCR) (Negative) Streptococcus Screen (Negative) Specimen Received <DERIK HAHN - Last Filed: 05/23/17 19:02> - Progress Progress: improved <JORGE CODY - Last Filed: 05/23/17 20:31> - Progress Progress Note: 05/23/17 18:41 Pt care discussed and care transferred to Dr Baird at 19:00. (DERIK HAHN) 05/23/17 20:25 Improved, did not vomit, afebrile, BS 136, denies abdominal pain, or nausea, feels much better. Abdomen re-examined: soft, nontender, no mass or guarding, normal bowel sounds. (JORGE CODY) <DERIK HAHN - Last Filed: 05/23/17 19:02> - Departure Time of Disposition: 20:26 Departure Disposition: Home Critical Care Time: No <JORGE CODY - Last Filed: 05/23/17 20:31> - Departure Clinical Impression: Hyperglycemia Vomiting Qualifiers: Vomiting type: unspecified Vomiting Intractability: non-intractable Nausea presence: with nausea Qualified Code(s): R11.2 - Nausea with vomiting, unspecified UTI (urinary tract infection) Qualifiers: Urinary tract infection type: site unspecified Hematuria presence: without hematuria Qualified Code(s): N39.0 - Urinary tract infection, site not specified Condition: Stable Referrals: STU KEATING [Primary Care Provider] - Additional Instructions: Rest x 1-2 days, drink plenty of fluids, return if severe pain, vomiting, fever > 103F, or blood sugar> 400, < 60, severe dizziness, weakness! Prescriptions: Cephalexin Mh 500 mg [Keflex 500 mg] 500 mg PO QID 7 Days #28 capsule Promethazine HCl 25 mg [Phenergan 25 mg] 25 mg PO Q6-8HPRN PRN 5 Days #10 tablet PRN Reason: Nausea/Vomiting
[2017-05-23] MEDS ORDERED: Sodium Chloride 0.9% 1000 ML 1,000 ML IV STA ×2 (17:28→19:23)
[2017-05-23] MEDS ORDERED: Phenergan 25 MG INJ IV ONE (17:28)
[2017-05-23] MEDS ORDERED: Phenergan 25 MG INJ ONE (17:33)
[2017-05-23] MEDS ORDERED: Sodium Chloride 0.9% 1000 ML 1,000 ML ONE ×2 (17:34→19:28)
[2017-05-23 18:00] LABS: BASOPHIL % 0.3 % (0.0-0.4); Eosinophil % 0.6 % (0.00-5.0); Granulocytes % 71.4 % (36.0-66.0); Mean Cell Volume 79.6 fl (78-100); Mean Corpuscular Hemoglobin 25.6 pg (26-32); Mean Platelet Volume 10.4 fl (6-9.5); Monocytes % 7.7 % (0.0-12.0); Platelet Count 265 K/mm3 (150-450); Red Blood Count 4.89 M/mm3 (4.1-5.4); Red Cell Distribution Width 13.4 % (11.5-14.0); White Blood Count 6.5 K/mm3 (4.0-10.5)
[2017-05-23 18:16] LABS: VBG BASE EXCESS 2.2 (-2.0-2.0); VBG CARBOXYHEMOGLOBIN 3.1 % T HGB (0.0-6.9); VBG HCO3- 28.3 meq/L (22-28); VBG HEMOGLOBIN 13.5; VBG O2 SATURATION 45.7 (95-100); VBG POTASSIUM 4.3 (3.5-5.1); VBG pH 7.37 (7.32-7.42)
[2017-05-23 18:39] LABS: ALBUMIN 3.5 g/dL (3.4-5.0); ALKALINE PHOSPHATASE 76 U/L (46-116); BLOOD UREA NITROGEN 12 mg/dL (9-20); CHLORIDE 101 mEq/L (98-107); Carbon Dioxide 25.8 mEq/L (21-32); ETHYL ALCOHOL < 0.010 % (0.00-0.01); Glucose 261 MG/DL (70-110); Potassium 4.2 mEq/L (3.5-5.1); SGOT/AST 13 U/L (15-37); SGPT/ALT 11 U/L (12-78); SODIUM 136 mEq/L (136-145)
[2017-05-23 20:13] LABS: ADD URINE CULTURE? NO (NO); Bacteria RARE /HPF (NEGATIVE); Bilirubin NEGATIVE (NEGATIVE); Blood NEGATIVE Ery/ul (0-5); COMPLETE URINE MICROSCOPIC? YES; Collection Type CCMS; Epithelial Cells FEW /HPF (FEW); Glucose 50 mg/dL (NEGATIVE); Leukocyte Esterase TRACE (NEGATIVE)
[2017-05-23] MEDS ORDERED: KEFLEX 500 MG PO ONE (20:24)
[2017-05-23 20:26] VITALS: BP 99/59; PULSE 89; O2SAT 99
[2017-05-23] MEDS ORDERED: KEFLEX 500 MG ONE (20:27)
--- NOTE | 2017-05-24 08:49 | XRAY ---
Indication: High blood sugar. Comparison: Chest exam August 07, 2012. 2 views of the abdomen nonacute nonobstructed. Tiny right pelvic phlebolith. Solid organs and osseous structures unremarkable. Single PA chest again demonstrates normal heart, lungs, and bony thorax with incidental new bilateral nipple ornaments. Impression: Negative abdomen. Normal 1 view chest.
== END 2017-05-23 20:42 | disposition home or self-care (01) ==
LOC: ED 16:58
DX: R11.2 Nausea with vomiting, unspecified (principal); N39.0 Urinary tract infection, site not specified; R73.9 Hyperglycemia, unspecified
CPT/HCPCS: 36415; 74022; 80053; 81000; 82805; 82962; 83605; 84703; 85025; 87070; 87430; 87631; 96360; 96361; 96374; 99284; G0481; J2550; A9270-GY

== ENCOUNTER 2017-07-24 19:25 | Emergency (ER) | payer OTHER ==
[2017-07-24] MEDS ORDERED: Sodium Chloride 0.9% 1000 ML 1,000 ML IV STA (20:41)
[2017-07-24] MEDS ORDERED: Phenergan 25 MG INJ IV ONE (20:41)
[2017-07-24] MEDS ORDERED: SUBLIMAZE 100 MCG/2 ML IV ONE ×2 (20:41→22:20)
[2017-07-24] MEDS ORDERED: Phenergan 25 MG INJ ONE (20:44)
[2017-07-24] MEDS ORDERED: SUBLIMAZE 100 MCG/2 ML ONE ×2 (20:45→22:24)
[2017-07-24] MEDS ORDERED: Sodium Chloride 0.9% 1000 ML 1,000 ML ONE (20:45)
--- NOTE | 2017-07-24 20:46 | ERPHSYRPT ---
- History of Present Illness Time Seen by Provider: 07/24/17 20:36 Historian: patient Exam Limitations: no limitations Patient Subjective Stated Complaint: Flank Pain Triage Nursing Assessment: Pt presents to the ED with complaints of right flank pain x2 weeks. Pt states she believes she had a UTI but states no improvement since onset. Pt is A&O x4, bed in low position, call light in reach, no distress noted. Physician History: FOR THE PAST 2 WEEKS PT HAS HAD INTERMITTENT RIGHT SIDED FLANK/MID BACK PAIN, INCREASED URINARY FREQUENCY AND CLOUDY URINE; FOR THE PAST 2 DAYS DIAPHORESIS; TODAY VOMITING X1 WITHOUT BLOOD. LAST BM WAS TODAY & WNL. Allergies/Adverse Reactions: No Known Drug Allergies Allergy (Verified 05/23/17 17:05) Home Medications: Insulin Glargine,Hum.rec.anlog [Lantus] 40 units SQ HS 06/02/12 [History] Insulin Lispro [Humalog] 1 units SQ UD 06/02/12 [History] Aripiprazole 10 mg [Abilify 10 MG] 5 mg PO 07/24/17 [History] Levothyroxine Sodium 50 Mcg [Synthroid 50 Mcg] 50 mcg PO DAILY 07/24/17 [ History] Hx Tetanus, Diphtheria Vaccination/Date Given: Yes Hx Influenza Vaccination/Date Given: No Hx Pneumococcal Vaccination/Date Given: No Immunizations Up to Date: No - Review of Systems Abdominal/Gastrointestinal: Vomiting Genitourinary Symptoms: Frequency, Other (CLOUDY URINE) Musculoskeletal: Back Pain Endocrine: Excessive Sweating All Other Systems: Reviewed and Negative - Past Medical History Pertinent Past Medical History: Yes Neurological History: No Pertinent History ENT History: No Pertinent History Cardiac History: No Pertinent History Respiratory History: No Pertinent History Endocrine Medical History: Diabetes Type I Musculoskeletal History: No Pertinent History GI Medical History: No Pertinent History History: No Pertinent History Psycho-Social History: Anxiety, Depression Female Reproductive Disorders: No Pertinent History Other Medical History: HAS BEEN TYPE 1 SINCE 11 MONTHS OLD. - Past Surgical History Past Surgical History: Yes Neuro Surgical History: No Pertinent History Cardiac: No Pertinent History Respiratory: No Pertinent History Gastrointestinal: No Pertinent History Genitourinary: No Pertinent History Musculoskeletal: Orthopedic Surgery Female Surgical History: Section, Tubal Ligation Other Surgical History: TONSILS. X 4 - Social History Smoking Status: Never smoker Exposure to second hand smoke: No Drug Use: none Patient Lives Alone: No - Female History Hx Last Menstrual Period: 07/05/2017 Hx Now: No - Nursing Vital Signs Nursing Vital Signs: Initial Vital Signs Temperature 97.6 F 07/24/17 19:35 Pulse Rate 116 H 07/24/17 19:35 Respiratory Rate 16 07/24/17 19:35 Blood Pressure 132/89 07/24/17 19:35 O2 Sat by Pulse Oximetry 99 07/24/17 19:35 Pain Scale Pain Intensity 7 - Physical Exam General Appearance: alert Eye Exam: PERRL/EOMI Ears, Nose, Throat Exam: TMs normal, dry mucous membranes Neck Exam: normal inspection Respiratory Exam: lungs clear Cardiovascular Exam: normal heart sounds Gastrointestinal/Abdomen Exam: soft, other (B.S. MODERATELY HYPERACTIVE AND NORMOTONIC) Back Exam: normal range of motion, CVA tenderness (MILD RIGHT CVA TENDERNESS) Extremity Exam: normal inspection, No pedal edema Neurologic Exam: alert, cooperative Skin Exam: warm, dry SpO2 Interpretation: normal SpO2: 97 Oxygen Delivery: Room Air - Course Nursing assessment & vital signs reviewed: Yes Ordered Tests: Active Orders 24 hr Category Date Time Status Clean Catch Urine Specimen STAT Care 07/24/17 20:15 Active IV Insertion STAT Care 07/24/17 20:15 Active AMYLASE Stat Lab 07/24/17 20:00 Completed CBC W DIFF Stat Lab 07/24/17 20:00 Completed CMP Stat Lab 07/24/17 20:00 Completed CULTURE,URINE Stat Lab 07/24/17 21:00 Received HCG QUALITATIVE,SERUM Stat Lab 07/24/17 20:00 Completed LIPASE Stat Lab 07/24/17 20:00 Completed MAG [MAGNESIUM] Stat Lab 07/24/17 20:00 Completed UA W/ MICROSCOPIC Stat Lab 07/24/17 21:00 Completed Medication Summary Generic Name Dose Route Start Last Admin Trade Name Freq PRN Reason Stop Dose Admin Ceftriaxone Sodium/Dextrose 1 g in 50 mls @ 100 mls/hr 07/24/17 22:15 Rocephin 1 Gm-D5w 50 Ml Bag IV 07/24/17 22:44 STAT STA Discontinued Medications Generic Name Dose Route Start Last Admin Trade Name Freq PRN Reason Stop Dose Admin Dextrose 50 ml 07/24/17 21:27 07/24/17 21:35 D50w 50 Ml Abboject IV 07/24/17 21:28 Not Given STAT ONE Fentanyl Citrate 50 mcg 07/24/17 20:41 07/24/17 20:46 Sublimaze 100 Mcg/2 Ml IV 07/24/17 20:42 50 mcg STAT ONE Administration Fentanyl Citrate Confirm 07/24/17 20:45 Sublimaze 100 Mcg/2 Ml Administered 07/24/17 20:46 Dose 100 mcg .ROUTE .STK-MED ONE Sodium Chloride 1,000 mls @ 999 mls/hr 07/24/17 20:41 07/24/17 20:46 Sodium Chloride 0.9% 1000 Ml IV 07/24/17 21:41 999 mls/hr .Q1H1M STA Administration Sodium Chloride Confirm 07/24/17 20:45 Sodium Chloride 0.9% 1000 Ml Administered 07/24/17 20:46 Dose 1,000 mls @ ud .ROUTE .STK-MED ONE Promethazine HCl 12.5 mg 07/24/17 20:41 07/24/17 20:46 Phenergan 25 Mg Inj IV 07/24/17 20:42 12.5 mg STAT ONE Administration Promethazine HCl Confirm 07/24/17 20:44 Phenergan 25 Mg Inj Administered 07/24/17 20:45 Dose 25 mg .ROUTE .STK-MED ONE Lab/Rad Data: Laboratory Result Diagrams 07/24/17 20:00 07/24/17 20:00 Laboratory Results 07/24/17 07/24/17 07/24/17 Range/Units 21:00 20:00 20:00 WBC (4.0-10.5) K/mm3 RBC (4.1-5.4) M/mm3 Hgb (12.0-16.0) gm/dl Hct (35-47) % MCV (78-100) fl MCH (26-32) pg MCHC (32-36) g/dl RDW (11.5-14.0) % Plt Count (150-450) K/mm3 MPV (6-9.5) fl Gran % (36.0-66.0) % Lymphocytes % (24.0-44.0) % Monocytes % (0.0-12.0) % Eosinophils % (0.00-5.0) % Basophils % (0.0-0.4) % Basophils # (0-0.4) Sodium (136-145) mEq/L Potassium (3.5-5.1) mEq/L Chloride (98-107) mEq/L Carbon Dioxide (21-32) mEq/L Anion Gap (5-15) MEQ/L BUN (9-20) mg/dL Creatinine (0.55-1.30) mg/dl Estimated GFR ML/MIN Glucose (70-110) MG/DL Calcium (8.5-10.1) mg/dL Magnesium 1.9 (1.8-2.4) mg/dL Total Bilirubin (0.2-1.0) mg/dL AST (15-37) U/L ALT (12-78) U/L Alkaline Phosphatase (46-116) U/L Serum Total Protein (6.4-8.2) gm/dL Albumin (3.4-5.0) g/dL Amylase (25-115) U/L Lipase (73-393) U/L Serum , Qual NEGATIVE (Negative) Ur Collection Type CCMS Urine Color YELLOW (YELLOW) Urine Appearance SLIGHTLY CLOUDY (CLEAR) Urine pH 7.0 (5-6) Ur Specific [place] 1.010 (1.005-1.025) Urine Protein NEGATIVE (Negative) Urine Ketones NEGATIVE (NEGATIVE) Urine Blood NEGATIVE (0-5) Shashank/ul Urine Nitrite POSITIVE (NEGATIVE) Urine Bilirubin NEGATIVE (NEGATIVE) Urine Urobilinogen NORMAL (0-1) mg/dL Ur Leukocyte Esterase 1+ (NEGATIVE) Urine Microscopic WBC >100 (0-5) /HPF Ur Epithelial Cells FEW (FEW) /HPF Urine Bacteria RARE (NEGATIVE) /HPF Urine Culture Reflexed YES (NO) Urine Glucose NEGATIVE (NEGATIVE) mg/dL Specimen Received [id number]/17 07/24/17 Range/Units 20:00 20:00 WBC 7.8 (4.0-10.5) K/mm3 RBC 4.85 (4.1-5.4) M/mm3 Hgb 12.2 (12.0-16.0) gm/dl Hct 39.3 (35-47) % MCV 81.0 (78-100) fl MCH 25.2 L (26-32) pg MCHC 31.0 L (32-36) g/dl RDW 13.7 (11.5-14.0) % Plt Count 393 (150-450) K/mm3 MPV 10.3 H (6-9.5) fl Gran % 63.7 (36.0-66.0) % Lymphocytes % 25.5 (24.0-44.0) % Monocytes % 10.8 (0.0-12.0) % Eosinophils % 0.0 (0.00-5.0) % Basophils % 0.0 (0.0-0.4) % Basophils # 0 (0-0.4) Sodium 139 (136-145) mEq/L Potassium 4.2 (3.5-5.1) mEq/L Chloride 104 (98-107) mEq/L Carbon Dioxide 26.6 (21-32) mEq/L Anion Gap 12.9 (5-15) MEQ/L BUN 13 (9-20) mg/dL Creatinine 1.28 (0.55-1.30) mg/dl Estimated GFR 51 ML/MIN Glucose 49 L (70-110) MG/DL Calcium 8.5 (8.5-10.1) mg/dL Magnesium (1.8-2.4) mg/dL Total Bilirubin 0.40 (0.2-1.0) mg/dL AST 18 (15-37) U/L ALT 17 (12-78) U/L Alkaline Phosphatase 78 (46-116) U/L Serum Total Protein 7.2 (6.4-8.2) gm/dL Albumin 3.6 (3.4-5.0) g/dL Amylase 54 (25-115) U/L Lipase 96 (73-393) U/L Serum , Qual (Negative) Ur Collection Type Urine Color (YELLOW) Urine Appearance (CLEAR) Urine pH (5-6) Ur Specific [place] (1.005-1.025) Urine Protein (Negative) Urine Ketones (NEGATIVE) Urine Blood (0-5) Shashank/ul Urine Nitrite (NEGATIVE) Urine Bilirubin (NEGATIVE) Urine Urobilinogen (0-1) mg/dL Ur Leukocyte Esterase (NEGATIVE) Urine Microscopic WBC (0-5) /HPF Ur Epithelial Cells (FEW) /HPF Urine Bacteria (NEGATIVE) /HPF Urine Culture Reflexed (NO) Urine Glucose (NEGATIVE) mg/dL Specimen Received - Departure Time of Disposition: 22:20 Departure Disposition: Home Clinical Impression: UTI, HYPOGLYCEMIA Condition: Stable Critical Care Time: No Referrals: STU KEATING [Primary Care Provider] - Instructions: Urinary Tract Infections in Adults, Low Blood Sugar, Adult (DC) Additional Instructions: FOLLOW UP WITH PRIVATE DOCTOR TOMORROW. Prescriptions: Promethazine HCl 25 mg [Phenergan 25 mg] 25 mg PO Q4H PRN PRN #14 tablet PRN Reason: Nausea/Vomiting Smz/Tmp Ds Tablet [Bactrim Ds Tablet] 1 udtab PO BID #20 tablet
[2017-07-24 20:50] LABS: Basophil (Absolute #) 0 (0-0.4); Eosinophil (Absolute #) 0 (0-0.5); Granulocyte Absolute (ANC) 4.97 (1.4-6.9); Granulocytes % 63.7 % (36.0-66.0); Hematocrit 39.3 % (35-47); Hemoglobin 12.2 gm/dl (12.0-16.0); Lymphocyte (Absolute #) 1.99 (1.0-4.6); Lymphocytes % 25.5 % (24.0-44.0); Mean Corpuscular Hemoglobin 25.2 pg (26-32); Mean Platelet Volume 10.3 fl (6-9.5); Monocyte (Absolute #) 0.84 (0.0-1.3); Monocytes % 10.8 % (0.0-12.0); Platelet Count 393 K/mm3 (150-450); Red Blood Count 4.85 M/mm3 (4.1-5.4); Red Cell Distribution Width 13.7 % (11.5-14.0); White Blood Count 7.8 K/mm3 (4.0-10.5)
[2017-07-24 21:03] LABS: ALBUMIN 3.6 g/dL (3.4-5.0); ANION GAP 12.9 MEQ/L (5-15); BILIRUBIN,TOTAL 0.4 mg/dL (0.2-1.0); Calcium 8.5 mg/dL (8.5-10.1); Carbon Dioxide 26.6 mEq/L (21-32); Creatinine 1 1.28 mg/dl (0.55-1.30); Potassium 4.2 mEq/L (3.5-5.1); Total Protein 7.2 gm/dL (6.4-8.2)
[2017-07-24] MEDS ORDERED: D50W 50 ml Abboject IV ONE ×3 (21:27→22:21)
[2017-07-24 21:45] LABS: Appearance SLIGHTLY CLOUDY (CLEAR); Bilirubin NEGATIVE (NEGATIVE); Blood NEGATIVE Ery/ul (0-5); Glucose NEGATIVE (NEGATIVE); Ketones NEGATIVE (NEGATIVE); Leukocyte Esterase 1+ (NEGATIVE); Nitrite POSITIVE (NEGATIVE); Protein,Urine Dip NEGATIVE (Negative); Urobilinogen NORMAL mg/dL (0-1)
[2017-07-24 21:46] LABS: Bacteria RARE /HPF (NEGATIVE); Epithelial Cells FEW /HPF (FEW); WBC >100 /HPF (0-5)
[2017-07-24] MEDS ORDERED: ROCEPHIN 1 Gm-D5w 50 ml Bag** 1 G/50 ML IVPB IV STA (22:15)
[2017-07-24] MEDS ORDERED: ROCEPHIN 1 Gm-D5w 50 ml Bag** 1 G/50 ML IVPB IV ONE (22:19)
[2017-07-24 22:20] VITALS: O2SAT 97
[2017-07-24] MEDS ORDERED: Zofran 4 MG/2 ML VIAL IV ONE (22:20)
[2017-07-24] MEDS ORDERED: Zofran 4 MG/2 ML VIAL ONE (22:24)
[2017-07-24 23:06] VITALS: BP 102/65; PULSE 116
== END 2017-07-24 23:10 | disposition home or self-care (01) ==
LOC: ED 19:25
DX: N39.0 Urinary tract infection, site not specified (principal); E16.2 Hypoglycemia, unspecified; Z79.4 Long term (current) use of insulin
CPT/HCPCS: 36000; 36415; 80053; 81000; 82150; 82962; 83690; 83735; 84703; 85025; 87077; 87086; 87186; 96360; 96365; 96374; 96375; 96376; 99284; J0696; J2405; J2550; J3010

== ENCOUNTER 2017-08-01 13:04 | Inpatient (IN) | payer OTHER ==
--- NOTE | 2017-08-01 13:34 | ERPHSYRPT ---
- History of Present Illness Time Seen by Provider: 08/01/17 13:20 Source: patient Exam Limitations: no limitations Patient Subjective Stated Complaint: pt states that her accu check was 486 at [place] today-took 10 units-states that ehr blood sugars have been running high -currenlty taking antibiotics for a uti-states that she feels sob at times- states she has been in dka before and feels like she is now Triage Nursing Assessment: pt pink warm and [id number]-mwhp fast but nonlabored- lungs clear-pt answering all questions with no signs of confusion-pt ambulatory with no difficulty to ed rm Physician History: 31 y/o female with history of DM comes to the ER with complaints of having high blood glucose. Pt states that she has been having multiple episodes of nausea and vomiting and unable to keep anything down. Pt is currently on cipro for a UTI. Pt says she has been having shortness of breath but believes that it is from being in DKA. Pt has noemy compliant on her diabetes medications. Today, patient checked her finger stick and it was 486 at which time, she gave herself 10 units of regular insulin. Timing/Duration: day(s) Severity: severe Associated Symptoms: nausea, vomiting, loss of appetite Allergies/Adverse Reactions: No Known Drug Allergies Allergy (Verified 08/01/17 13:28) Home Medications: Insulin Glargine,Hum.rec.anlog [Lantus] 40 units SQ HS 06/02/12 [History] Insulin Lispro [Humalog] 1 units SQ UD 06/02/12 [History] Aripiprazole 10 mg [Abilify 10 MG] 5 mg PO UD 07/24/17 [History] Levothyroxine Sodium 50 Mcg [Synthroid 50 Mcg] 50 mcg PO DAILY 07/24/17 [ History] Hx Tetanus, Diphtheria Vaccination/Date Given: Yes Hx Influenza Vaccination/Date Given: No Hx Pneumococcal Vaccination/Date Given: No - Review of Systems Constitutional: Fatigue, Lethargy, Weakness, No Fever, No Chills Eyes: No Symptoms Ears, Nose, & Throat: No Symptoms Respiratory: No Cough, No Dyspnea Cardiac: No Chest Pain, No Edema, No Syncope Abdominal/Gastrointestinal: Nausea, Vomiting, No Abdominal Pain, No Diarrhea Genitourinary Symptoms: No Dysuria Musculoskeletal: No Back Pain, No Neck Pain Skin: No Rash Neurological: No Dizziness, No Focal Weakness, No Sensory Changes Psychological: No Symptoms Endocrine: No Symptoms All Other Systems: Reviewed and Negative - Past Medical History Pertinent Past Medical History: Yes Neurological History: No Pertinent History ENT History: No Pertinent History Cardiac History: No Pertinent History Respiratory History: No Pertinent History Endocrine Medical History: Diabetes Type I Musculoskeletal History: No Pertinent History GI Medical History: No Pertinent History History: No Pertinent History Psycho-Social History: Anxiety, Depression Female Reproductive Disorders: No Pertinent History Other Medical History: HAS BEEN TYPE 1 SINCE 11 MONTHS OLD. - Past Surgical History Past Surgical History: Yes Neuro Surgical History: No Pertinent History Cardiac: No Pertinent History Respiratory: No Pertinent History Gastrointestinal: No Pertinent History Genitourinary: No Pertinent History Musculoskeletal: Orthopedic Surgery Female Surgical History: Section, Tubal Ligation Other Surgical History: TONSILS. X 4 - Social History Smoking Status: Never smoker Exposure to second hand smoke: No Drug Use: none Patient Lives Alone: No - Female History Hx Last Menstrual Period: month ago Hx Now: No (tubal) - Nursing Vital Signs Nursing Vital Signs: Initial Vital Signs Temperature 98.1 F 08/01/17 13:23 Pulse Rate 115 H 08/01/17 13:23 Respiratory Rate 22 08/01/17 13:23 Blood Pressure 132/87 08/01/17 13:23 O2 Sat by Pulse Oximetry 100 08/01/17 13:23 Pain Scale Pain Intensity 4 - Physical Exam General Appearance: alert, lethargy Eye Exam: PERRL/EOMI, eyes nml inspection Ears, Nose, Throat Exam: normal ENT inspection, TMs normal, pharynx normal, moist mucous membranes Neck Exam: normal inspection, non-tender, supple, full range of motion Respiratory Exam: normal breath sounds, lungs clear, No respiratory distress Cardiovascular Exam: regular rate/rhythm, normal heart sounds, normal peripheral pulses, tachycardia Gastrointestinal/Abdomen Exam: soft, normal bowel sounds, No tenderness, No distention, No mass Back Exam: normal inspection, normal range of motion, No CVA tenderness, No vertebral tenderness Extremity Exam: normal inspection, normal range of motion, pelvis stable Neurologic Exam: alert, oriented x 3, cooperative, normal mood/affect, nml cerebellar function, nml station & gait, sensation nml, No motor deficits Skin Exam: normal color, warm, dry, No rash Lymphatic Exam: No adenopathy SpO2: 100 Oxygen Delivery: Room Air - Course Nursing assessment & vital signs reviewed: Yes Ordered Tests: Active Orders 24 hr Category Date Time Status EKG-ER Only STAT Care 08/01/17 13:36 Active IV Insertion STAT Care 08/01/17 13:54 Active CHEST 1 VIEW (PORTABLE) Stat Exams 08/01/17 13:37 Completed BLOOD CULTURE Stat Lab 08/01/17 14:05 Received CBC W DIFF Stat Lab 08/01/17 14:05 Completed CK-Creatinine Phosphokinase Stat Lab 08/01/17 14:05 Results CMP Stat Lab 08/01/17 14:05 Results HCG,QUALITATIVE URINE Routine Lab 08/01/17 14:05 Completed HCG,QUALITATIVE URINE Stat Lab 08/01/17 Uncollected Lactic Acid Stat Lab 08/01/17 13:35 Results Manual Differential NC Stat Lab 08/01/17 14:05 Completed UA W/RFX UR CULTURE Stat Lab 08/01/17 14:05 Completed Medication Summary Generic Name Dose Route Start Last Admin Trade Name Freq PRN Reason Stop Dose Admin Insulin Human Regular 100 101 mls @ 6.87 mls/hr 08/01/17 14:43 units/ Sodium Chloride IV 08/31/17 14:42 .[id number] PRN DKA/HYPERGYCEMIA Protocol 0.1 UNITS/KG/HR Discontinued Medications Generic Name Dose Route Start Last Admin Trade Name Freq PRN Reason Stop Dose Admin Sodium Chloride 1,000 mls @ 999 mls/hr 08/01/17 13:36 08/01/17 13:57 Sodium Chloride 0.9% 1000 Ml IV 08/01/17 14:36 999 mls/hr .[id number] STA Administration Sodium Chloride Confirm 08/01/17 13:56 Sodium Chloride 0.9% 1000 Ml Administered 08/01/17 13:57 Dose 1,000 mls @ ud .ROUTE .STK-MED ONE Insulin Human Regular 10 unit 08/01/17 14:43 Novolin R IV 08/01/17 14:44 STAT ONE Lab/Rad Data: Laboratory Result Diagrams 08/01/17 14:05 08/01/17 14:05 Laboratory Results 08/01/17 08/01/17 08/01/17 Range/Units 14:05 14:05 14:05 WBC (4.0-10.5) K/mm3 RBC (4.1-5.4) M/mm3 Hgb (12.0-16.0) gm/dl Hct (35-47) % MCV (78-100) fl MCH (26-32) pg MCHC (32-36) g/dl RDW (11.5-14.0) % Plt Count (150-450) K/mm3 MPV (6-9.5) fl Sodium 125 L (136-145) mEq/L Potassium 5.8 H (3.5-5.1) mEq/L Chloride 90 L (98-107) mEq/L Carbon Dioxide 8.0 L* (21-32) mEq/L Anion Gap 32.0 H (5-15) MEQ/L BUN 14 (9-20) mg/dL Creatinine 1.21 (0.55-1.30) mg/dl Estimated GFR 55 ML/MIN Glucose Pending Lactic Acid (0.4-2.0) Calcium 9.0 (8.5-10.1) mg/dL Total Bilirubin 0.80 (0.2-1.0) mg/dL AST 21 (15-37) U/L ALT 15 (12-78) U/L Alkaline Phosphatase 119 H (46-116) U/L Creatine Kinase 62 (26-192) U/L Serum Total Protein 8.5 H (6.4-8.2) gm/dL Albumin 4.4 (3.4-5.0) g/dL Ur Collection Type VOID Urine Color YELLOW (YELLOW) Urine Appearance CLEAR (CLEAR) Urine pH 5.0 (5-6) Ur Specific [place] 1.010 (1.005-1.025) Urine Protein NEGATIVE (Negative) Urine Ketones LARGE (NEGATIVE) Urine Blood NEGATIVE (0-5) Shashank/ul Urine Nitrite NEGATIVE (NEGATIVE) Urine Bilirubin NEGATIVE (NEGATIVE) Urine Urobilinogen NORMAL (0-1) mg/dL Ur Leukocyte Esterase NEGATIVE (NEGATIVE) Urine Culture Reflexed NO (NO) Urine Glucose 1000 (NEGATIVE) mg/dL Urine HCG, Qual NEGATIVE (Negative) Specimen Received 08/01/17 1336 08/01/17 08/01/17 Range/Units 14:05 13:35 WBC 6.6 (4.0-10.5) K/mm3 RBC 5.40 (4.1-5.4) M/mm3 Hgb 14.2 (12.0-16.0) gm/dl Hct 44.6 (35-47) % MCV 82.6 (78-100) fl MCH 26.3 (26-32) pg MCHC 31.8 L (32-36) g/dl RDW 14.2 H (11.5-14.0) % Plt Count 341 (150-450) K/mm3 MPV 10.3 H (6-9.5) fl Sodium (136-145) mEq/L Potassium (3.5-5.1) mEq/L Chloride (98-107) mEq/L Carbon Dioxide (21-32) mEq/L Anion Gap (5-15) MEQ/L BUN (9-20) mg/dL Creatinine (0.55-1.30) mg/dl Estimated GFR ML/MIN Glucose Lactic Acid 2.5 H (0.4-2.0) Calcium (8.5-10.1) mg/dL Total Bilirubin (0.2-1.0) mg/dL AST (15-37) U/L ALT (12-78) U/L Alkaline Phosphatase (46-116) U/L Creatine Kinase (26-192) U/L Serum Total Protein (6.4-8.2) gm/dL Albumin (3.4-5.0) g/dL Ur Collection Type Urine Color (YELLOW) Urine Appearance (CLEAR) Urine pH (5-6) Ur Specific [place] (1.005-1.025) Urine Protein (Negative) Urine Ketones (NEGATIVE) Urine Blood (0-5) Shashank/ul Urine Nitrite (NEGATIVE) Urine Bilirubin (NEGATIVE) Urine Urobilinogen (0-1) mg/dL Ur Leukocyte Esterase (NEGATIVE) Urine Culture Reflexed (NO) Urine Glucose (NEGATIVE) mg/dL Urine HCG, Qual (Negative) Specimen Received - Progress Progress: improved Progress Note: 08/01/17 14:47 Pt has a glucose over 500, an anion gap of 27, bicarb of 8 and a lactic acid of 2.5. Pt has received a liter of NS fluids and will be started on insulin drip. The CXR and the UA is negative. The patient has been admitted to Dr Keating for DKA. - Departure Time of Disposition: 14:50 Departure Disposition: In-patient Admission Clinical Impression: DKA (diabetic ketoacidoses) Qualifiers: Diabetes mellitus type: type 1 Diabetes mellitus complication detail: without coma Qualified Code(s): E10.10 - Type 1 diabetes mellitus with ketoacidosis without coma Condition: Serious Critical Care Time: Yes Critical Care Time(excluding separately billable procedures): 30-74 minutes Referrals: STU KEATING [Primary Care Provider] -
[2017-08-01] MEDS ORDERED: Sodium Chloride 0.9% 1000 ML 1,000 ML IV STA ×2 (13:36→17:01)
[2017-08-01] MEDS ORDERED: Sodium Chloride 0.9% 1000 ML 1,000 ML ONE (13:56)
--- NOTE | 2017-08-01 13:57 | XRAY ---
Indication: Possible diabetic ketoacidosis. Comparison: May 23, 2017. Portable chest again demonstrates normal heart, lungs, and bony thorax with incidental bilateral nipple ornaments.
[2017-08-01 14:02] LABS: Lactic Acid 2.5 (0.4-2.0)
[2017-08-01 14:14] LABS: Granulocyte Absolute (ANC) 5.53 (1.4-6.9); Hematocrit 44.6 % (35-47); Hemoglobin 14.2 gm/dl (12.0-16.0); Mean Cell Volume 82.6 fl (78-100); Mean Corpuscular Hemoglobin 26.3 pg (26-32); Mean Corpuscular Hgb Concent. 31.8 g/dl (32-36); Mean Platelet Volume 10.3 fl (6-9.5); Platelet Count 341 K/mm3 (150-450); Red Cell Distribution Width 14.2 % (11.5-14.0); White Blood Count 6.6 K/mm3 (4.0-10.5)
[2017-08-01 14:24] LABS: Appearance CLEAR (CLEAR); Bilirubin NEGATIVE (NEGATIVE); Blood NEGATIVE Ery/ul (0-5); Glucose 1000 mg/dL (NEGATIVE); Ketones LARGE (NEGATIVE); Leukocyte Esterase NEGATIVE (NEGATIVE); Nitrite NEGATIVE (NEGATIVE); Protein,Urine Dip NEGATIVE (Negative); Urobilinogen NORMAL mg/dL (0-1)
[2017-08-01 14:33] LABS: ALBUMIN 4.4 g/dL (3.4-5.0); BILIRUBIN,TOTAL 0.8 mg/dL (0.2-1.0); Creatinine 1 1.21 mg/dl (0.55-1.30); Potassium 5.8 mEq/L (3.5-5.1); Total Protein 8.5 gm/dL (6.4-8.2)
[2017-08-01] MEDS ORDERED: NovoLIN R IV ONE (14:43)
[2017-08-01] MEDS ORDERED: NOVOLIN R INSULIN (FOR DRIPS)** 100 UNITS in Sodium Chloride 0.9% 100 ML IVPB 100 ML IV PRN (14:43)
[2017-08-01 14:47] LABS: Lymphocytes 11 % (24-44); Neutrophils 89 % (36.0-66.0); Platelet Estimate NORMAL (NORMAL); Total Cells Counted 100; Toxic Granulation 1+
[2017-08-01] MEDS ORDERED: NovoLOG Insulin SQ PRN (14:50)
[2017-08-01] MEDS ORDERED: Zofran 4 MG/2 ML VIAL IV PRN (14:50)
[2017-08-01] MEDS ORDERED: NovoLIN R ONE (14:53)
[2017-08-01] MEDS ORDERED: Sodium Chloride 0.9% 1000 ML 1,000 ML IV SCH ×2 (15:00)
[2017-08-01 16:45] LABS: A-aADO2 3; ABG HEMOGLOBIN 13.2; ABG POTASSIUM 4.2 (3.5-5.1); ARTERIAL BLD GAS O2 SATURATION 97.1 % (95-100); ARTERIAL BLOOD GAS BASE EXCESS -18.8 (-2.0-2.0); ARTERIAL BLOOD GAS FIO2 21 %; ARTERIAL BLOOD GAS PO2 124 mmHg (75-100); HGB O2 SAT 96.9 g/dF (94-100); Methhemoglobin 0.3 % (1.4-1.5); paO2 pAO1 0.98
[2017-08-01] MEDS ORDERED: PHARMACY DOSING REQUEST MC ONE (16:45)
[2017-08-01 16:46] LABS: ABG SITE LEFT RADIAL; ALLEN TEST OK? YES; ARTERIAL BLOOD GAS PCO2 18 mmHg (35-45)
[2017-08-01] MEDS ORDERED: TYLENOL 325 MG PO PRN (16:55)
[2017-08-01] MEDS ORDERED: MEDICATION INTERVENTION PO SCH (17:15)
[2017-08-01] MEDS: Levofloxacin 500MG/100ML D5W 500 MG/100 ML BAG IV SCH (17:24)
[2017-08-01 19:01] LABS: ANION GAP 21.2 MEQ/L (5-15); BLOOD UREA NITROGEN 10 mg/dL (9-20); CHLORIDE 102 mEq/L (98-107); Calcium 7.4 mg/dL (8.5-10.1); Creatinine 1 0.98 mg/dl (0.55-1.30); EST GLOMERULAR FILTRATION RATE > 60 ML/MIN; Glucose 116 MG/DL (70-110); Potassium 4.7 mEq/L (3.5-5.1); SODIUM 133 mEq/L (136-145)
[2017-08-01] MEDS ORDERED: D50W 50 ml Abboject IV ONE (19:01)
[2017-08-01 19:04] LABS: Carbon Dioxide 14.9 mEq/L (21-32)
[2017-08-01] MEDS: D5W/0.45NS W/ 20mEq KCl 1000 ML 1,000 ML IV SCH (19:10)
[2017-08-01] MEDS: D50W 50 ml Abboject IV PRN ×2 (19:12→23:52)
[2017-08-01] MEDS: Magnesium 1 Gm / 100 Ml D5W*** 100 ML IV SCH ×2 (19:31→20:50)
[2017-08-01] MEDS ORDERED: CLOMIPRAMINE HCL 75 MG PO SCH (22:00)
[2017-08-01] MEDS ORDERED: Lantus Insulin SQ SCH (22:00)
[2017-08-01 22:24] LABS: ANION GAP 18.2 MEQ/L (5-15); BLOOD UREA NITROGEN 7 mg/dL (9-20); CHLORIDE 100 mEq/L (98-107); Calcium 7.1 mg/dL (8.5-10.1); Carbon Dioxide 16.1 mEq/L (21-32); Creatinine 1 0.99 mg/dl (0.55-1.30); EST GLOMERULAR FILTRATION RATE > 60 ML/MIN; Glucose 173 MG/DL (70-110); Potassium 4.3 mEq/L (3.5-5.1); SODIUM 130 mEq/L (136-145)
[2017-08-02] MEDS: D5W/0.45NS W/ 20mEq KCl 1000 ML 1,000 ML IV SCH ×2 (01:08→05:58)
[2017-08-02 02:54] LABS: ANION GAP 18.8 MEQ/L (5-15); BLOOD UREA NITROGEN 4 mg/dL (9-20); CHLORIDE 103 mEq/L (98-107); Calcium 7.1 mg/dL (8.5-10.1); Carbon Dioxide 16.2 mEq/L (21-32); Creatinine 1 1.06 mg/dl (0.55-1.30); EST GLOMERULAR FILTRATION RATE > 60 ML/MIN; Glucose 285 MG/DL (70-110); Potassium 4.4 mEq/L (3.5-5.1); SODIUM 134 mEq/L (136-145)
[2017-08-02 06:21] LABS: Basophil (Absolute #) 0 (0-0.4); Eosinophil (Absolute #) 0 (0-0.5); Granulocyte Absolute (ANC) 3.22 (1.4-6.9); Granulocytes % 71.1 % (36.0-66.0); Hematocrit 34.9 % (35-47); Hemoglobin 11.3 gm/dl (12.0-16.0); Lymphocyte (Absolute #) 0.76 (1.0-4.6); Lymphocytes % 16.8 % (24.0-44.0); Mean Cell Volume 79.7 fl (78-100); Mean Corpuscular Hgb Concent. 32.4 g/dl (32-36); Mean Platelet Volume 9.7 fl (6-9.5); Monocyte (Absolute #) 0.55 (0.0-1.3); Monocytes % 12.1 % (0.0-12.0); Platelet Count 346 K/mm3 (150-450); Red Blood Count 4.38 M/mm3 (4.1-5.4); Red Cell Distribution Width 14.2 % (11.5-14.0); White Blood Count 4.5 K/mm3 (4.0-10.5)
[2017-08-02 06:27] LABS: ALKALINE PHOSPHATASE 84 U/L (46-116); ANION GAP 12.5 MEQ/L (5-15); BLOOD UREA NITROGEN 3 mg/dL (9-20); CHLORIDE 105 mEq/L (98-107); Calcium 7.4 mg/dL (8.5-10.1); Carbon Dioxide 22.8 mEq/L (21-32); Creatinine 1 0.96 mg/dl (0.55-1.30); EST GLOMERULAR FILTRATION RATE > 60 ML/MIN; Glucose 138 MG/DL (70-110); Potassium 4.4 mEq/L (3.5-5.1); SGOT/AST 15 U/L (15-37); SGPT/ALT 13 U/L (12-78); SODIUM 136 mEq/L (136-145); Total Protein 5.9 gm/dL (6.4-8.2)
[2017-08-02 06:29] LABS: Mean Corpuscular Hemoglobin 25.7 pg (26-32)
[2017-08-02] MEDS ORDERED: Lantus Insulin SQ ONE (06:47)
--- NOTE | 2017-08-02 07:50 | HP ---
HISTORY OF PRESENT ILLNESS: This is a 31 year-old with long standing diabetes type 1. She recently started following with Dr. Sheppard. She reports that he decreased her Lantus from 40 units to 20 units and also changed her Humalog. She reports her blood sugars have been running high. Over the past two days she started to feel worse. She was recently in the emergency department 07/24/2017 and diagnosed with a urinary tract infection. She was originally started on Bactrim but the culture the bacteria it grew was resistant to this so we changed her to ciprofloxacin. She reports that over the past two days she started vomiting at home. She gave herself 10 units of short-acting insulin at home when her blood sugar was in the mid-400 range but then when she came to the emergency room it was even higher she reports in the 500's. She just generally felt poorly. She also reports some sharp chest pain which she states started yesterday, too. She said she had some chills and felt like she had a fever at home yesterday. She has been unable to keep fluids down. REVIEW OF SYSTEMS: No shortness of breath. No cough. No diarrhea. She had some abdominal pain. No lower extremity edema. No rashes. PAST MEDICAL HISTORY: Diabetes mellitus type 1, depression, hypothyroidism. PAST SURGICAL HISTORY: Bilateral carpal tunnel, tonsillectomy, section x4. MEDICATIONS: Abilify 5 mg daily, clomipramine 75 mg p.o. b.i.d., Lantus she reports 20 units subcutaneously q.h.s. but told the nurses 40 units. Humalog on a sliding scale but she is unsure of the exact scale that she uses. Levothyroxine 50 mcg p.o. daily, Phenergan 25 mg p.o. every four hours as needed. She told the nurses that she was on Bactrim but that was discontinued because she was resistant to it and she was started on Cipro. ALLERGIES: NKDA. SOCIAL HISTORY: She denies tobacco or alcohol use. She is and lives at home with her and four children. FAMILY HISTORY: Her mother is and had leukemia. Her father is living and healthy. PHYSICAL EXAMINATION: VITAL SIGNS: Temperature current 99.8F, temperature max 99.8F, heart rate 100 to 123, respiratory rate 18 to 20, blood pressure 105 to 132 over 81 to 89, weight 61.3 kg. Oxygen saturation 99 to 100% on room air. GENERAL: The patient is a lying in bed a pleasant talkative lady in no acute distress although she appears she is tired. CVS: She has a regular rate and rhythm. No murmurs, gallops or rubs. CHEST: Clear to auscultation bilaterally. No crackles or wheezes. ABDOMEN: Soft, nontender, nondistended with normal bowel sounds. EXTREMITIES: No clubbing, cyanosis or edema. SKIN: Warm, dry and intact. LABORATORY DATA AND TESTS: On admission her glucose was 478, carbon dioxide 8, sodium 125, potassium 5.8, chloride 90, alkaline phosphatase 119. UA with 1,000 glucose. The pH was 7.2 that was ABG done at 1644 hours, pCO2 18, pO2 124, HCO3 of 7.0. Chest x-ray was read as normal. Blood cultures are in lab. Urine culture is ordered. ASSESSMENT AND PLAN: 1) DIABETES MELLITUS TYPE 1 UNCONTROLLED CURRENTLY IN DIABETIC KETOACIDOSIS: She has been placed on diabetic ketoacidosis protocol. The emergency room reported they gave her a liter of fluids. She has normal saline running at 100 ml/hour. She is on insulin drip at 4 units/hour currently. Will plan to check BMP every four hours the magnesium. I plan to change her to D5 half normal at 20 mEq potassium chloride when her blood sugar is less than 250. Will keep her NPO until she is out of diabetic ketoacidosis. 2) URINARY TRACT INFECTION: Will ask pharmacy to dose Levaquin for her and will check troponin and EKG. 3) DEPRESSION: Will continue with her home dose of medication.
--- NOTE | 2017-08-02 08:34 | PCM.NOTE ---
Date and Time: 08/02/17828 Subjective Assessment: Patient reports she feels tired but her chest no longer hurts. She would like to eat. She denies abdominal pain. She reports before her lantus was cut in half, she would usually give herself 40 units of lantus and also 40-60 units of short acting insulin a day to cover her meals. - Review of Systems Constitutional: Fatigue Eyes: No Symptoms Ears, Nose, & Throat: No Symptoms Respiratory: No Symptoms Cardiac: No Symptoms Abdominal/Gastrointestinal: No Symptoms Genitourinary Symptoms: No Symptoms Musculoskeletal: No Symptoms Objective Exam General Appearance: no apparent distress, alert Neurologic Exam: alert, cooperative, normal mood/affect Skin Exam: normal color, warm, dry, No rash Respiratory Exam: normal breath sounds, lungs clear, No crackles/rales, No rhonchi, No wheezing Cardiovascular Exam: regular rate/rhythm, No murmur, No friction rub, No gallop Gastrointestinal/Abdomen Exam: soft, normal bowel sounds, No tenderness, No distention, No mass, No guarding Extremity Exam: other (no c/c/e) OBJECTIVE DATA Vital Signs: Vital Signs - 24 hr Temp Pulse Resp BP Pulse Ox 08/02/17 07:00 98.7 F 98 H 17 119/77 99 08/02/17 05:55 91 H 15 112/72 99 08/02/17 04:56 99 H 14 97/62 98 08/02/17 04:00 103 H 17 97/62 97 08/02/17 03:00 99 H 16 115/57 98 08/02/17 02:00 98.4 F 106 H 19 98/60 97 08/02/17 01:00 105 H 18 104/58 96 08/02/17 00:01 106 H 08/02/17 00:00 98.2 F 105 H 16 106/62 99 08/01/17 23:00 115 H 16 106/63 99 08/01/17 22:00 104 H 19 109/67 100 08/01/17 21:00 108 H 18 94/44 100 08/01/17 20:00 98.5 F 112 H 22 111/58 100 08/01/17 19:55 15 08/01/17 18:58 113 H 23 113/71 100 08/01/17 17:50 119 H 19 114/71 100 08/01/17 17:00 120 H 18 124/72 99 08/01/17 16:32 122 H 18 105/89 99 08/01/17 16:05 99.8 F 123 H 20 129/85 100 08/01/17 15:19 100 H 20 118/81 99 08/01/17 14:50 100 08/01/17 13:23 98.1 F 115 H 22 132/87 100 Pain Assessment - Last Documented Pain Intensity 0 Pain Scale Used 0-10 Pain Scale Intake and Output: Intake & Output 07/31/17 08/01/17 08/02/17 08/03/17 06:59 06:59 06:59 06:59 Intake Total 3866 452 Output Total 3200 900 Balance 666 -448 Weight 61.3 kg Lab Results: Accuchecks Date 08/02/17 Date 08/02/17 Date 08/02/17 Date 08/02/17 Date 08/02/17 Date 08/02/17 Date 08/02/17 Date 08/02/17 Date 08/02/17 Date 08/01/17 Date 08/01/17 Date 08/01/17 Date 08/01/17 Date 08/01/17 Date 08/01/17 Date 08/01/17 Time 08:00 Time 07:06 Time 05:55 Time 05:06 Time 00:17 Time 23:03 Time 22:10 Time 21:13 Time 20:19 Time 18:58 Time 17:50 Time 16:20 Accucheck Value: 201 Accucheck Value: 146 Accucheck Value: 132 Accucheck Value: 142 Accucheck Value: 161 Accucheck Value: 219 Accucheck Value: 254 Accucheck Value: 281 Accucheck Value: 91 Accucheck Value: 101 Accucheck Value: 173 Accucheck Value: 162 Accucheck Value: 171 Accucheck Value: 81 Accucheck Value: 126 Accucheck Value: 219 Lab Results-Last 24 Hours 08/01/17 08/01/17 08/01/17 Range/Units 16:02 16:44 18:30 WBC (4.0-10.5) K/mm3 RBC (4.1-5.4) M/mm3 Hgb (12.0-16.0) gm/dl Hct (35-47) % MCV (78-100) fl MCH (26-32) pg MCHC (32-36) g/dl RDW (11.5-14.0) % Plt Count (150-450) K/mm3 MPV (6-9.5) fl Gran % (36.0-66.0) % Lymphocytes % (24.0-44.0) % Monocytes % (0.0-12.0) % Eosinophils % (0.00-5.0) % Basophils % (0.0-0.4) % Basophils # (0-0.4) Puncture Site LEFT RADIAL pCO2 18 L* (35-45) mmHg pO2 124 H* (75-100) mmHg Base Excess -18.8 L (-2.0-2.0) O2 Saturation 96.9 (94-100) g/dF ABG pH 7.20 L* (7.35-7.45) ABG HCO3 7.0 L* (22-28) ABG O2 Sat (Measured) 97.1 (95-100) % Ruel Test YES A-a Gradient 3 a/A Ratio 0.98 Hemoglobin 13.2 Carboxyhemoglobin 0.0 (0.0-6.9) % THgb Methemoglobin 0.3 L (1.4-1.5) % Potassium 4.2 4.7 (3.5-5.1) Temperature 37.0 C POC O2 Flow Rate 21 % Sodium 133 L (136-145) mEq/L Chloride 102 (98-107) mEq/L Carbon Dioxide 14.9 L* (21-32) mEq/L Anion Gap 21.2 H (5-15) MEQ/L BUN 10 (9-20) mg/dL Creatinine 0.98 (0.55-1.30) mg/dl Estimated GFR > 60 ML/MIN Glucose 116 H (70-110) MG/DL Lactic Acid 1.2 (0.4-2.0) Calcium 7.4 L (8.5-10.1) mg/dL Magnesium 1.7 L (1.8-2.4) mg/dL Total Bilirubin (0.2-1.0) mg/dL AST (15-37) U/L ALT (12-78) U/L Alkaline Phosphatase (46-116) U/L Troponin I (0.000-0.056) ng/ml Serum Total Protein (6.4-8.2) gm/dL Albumin (3.4-5.0) g/dL Urine HCG, Qual (Negative) 08/01/17 08/01/17 08/01/17 Range/Units 22:00 Unknown Unknown WBC (4.0-10.5) K/mm3 RBC (4.1-5.4) M/mm3 Hgb (12.0-16.0) gm/dl Hct (35-47) % MCV (78-100) fl MCH (26-32) pg MCHC (32-36) g/dl RDW (11.5-14.0) % Plt Count (150-450) K/mm3 MPV (6-9.5) fl Gran % (36.0-66.0) % Lymphocytes % (24.0-44.0) % Monocytes % (0.0-12.0) % Eosinophils % (0.00-5.0) % Basophils % (0.0-0.4) % Basophils # (0-0.4) Puncture Site pCO2 (35-45) mmHg pO2 (75-100) mmHg Base Excess (-2.0-2.0) O2 Saturation (94-100) g/dF ABG pH (7.35-7.45) ABG HCO3 (22-28) ABG O2 Sat (Measured) (95-100) % Ruel Test A-a Gradient a/A Ratio Hemoglobin Carboxyhemoglobin (0.0-6.9) % THgb Methemoglobin (1.4-1.5) % Potassium 4.3 (3.5-5.1) Temperature C POC O2 Flow Rate % Sodium 130 L (136-145) mEq/L Chloride 100 (98-107) mEq/L Carbon Dioxide 16.1 L (21-32) mEq/L Anion Gap 18.2 H (5-15) MEQ/L BUN 7 L (9-20) mg/dL Creatinine 0.99 (0.55-1.30) mg/dl Estimated GFR > 60 ML/MIN Glucose 173 H (70-110) MG/DL Lactic Acid (0.4-2.0) Calcium 7.1 L (8.5-10.1) mg/dL Magnesium (1.8-2.4) mg/dL Total Bilirubin (0.2-1.0) mg/dL AST (15-37) U/L ALT (12-78) U/L Alkaline Phosphatase (46-116) U/L Troponin I < 0.017 (0.000-0.056) ng/ml Serum Total Protein (6.4-8.2) gm/dL Albumin (3.4-5.0) g/dL Urine HCG, Qual NEGATIVE (Negative) 08/02/17 08/02/17 08/02/17 Range/Units 02:30 05:50 05:50 WBC 4.5 (4.0-10.5) K/mm3 RBC 4.38 (4.1-5.4) M/mm3 Hgb 11.3 L (12.0-16.0) gm/dl Hct 34.9 L (35-47) % MCV 79.7 (78-100) fl MCH 25.7 L (26-32) pg MCHC 32.4 (32-36) g/dl RDW 14.2 H (11.5-14.0) % Plt Count 346 (150-450) K/mm3 MPV 9.7 H (6-9.5) fl Gran % 71.1 H (36.0-66.0) % Lymphocytes % 16.8 L (24.0-44.0) % Monocytes % 12.1 H (0.0-12.0) % Eosinophils % 0.0 (0.00-5.0) % Basophils % 0.0 (0.0-0.4) % Basophils # 0 (0-0.4) Puncture Site pCO2 (35-45) mmHg pO2 (75-100) mmHg Base Excess (-2.0-2.0) O2 Saturation (94-100) g/dF ABG pH (7.35-7.45) ABG HCO3 (22-28) ABG O2 Sat (Measured) (95-100) % Ruel Test A-a Gradient a/A Ratio Hemoglobin Carboxyhemoglobin (0.0-6.9) % THgb Methemoglobin (1.4-1.5) % Potassium 4.4 4.4 (3.5-5.1) Temperature C POC O2 Flow Rate % Sodium 134 L 136 (136-145) mEq/L Chloride 103 105 (98-107) mEq/L Carbon Dioxide 16.2 L 22.8 (21-32) mEq/L Anion Gap 18.8 H 12.5 (5-15) MEQ/L BUN 4 L 3 L (9-20) mg/dL Creatinine 1.06 0.96 (0.55-1.30) mg/dl Estimated GFR > 60 > 60 ML/MIN Glucose 285 H 138 H (70-110) MG/DL Lactic Acid (0.4-2.0) Calcium 7.1 L 7.4 L (8.5-10.1) mg/dL Magnesium (1.8-2.4) mg/dL Total Bilirubin 0.30 (0.2-1.0) mg/dL AST 15 (15-37) U/L ALT 13 (12-78) U/L Alkaline Phosphatase 84 (46-116) U/L Troponin I (0.000-0.056) ng/ml Serum Total Protein 5.9 L (6.4-8.2) gm/dL Albumin 3.0 L (3.4-5.0) g/dL Urine HCG, Qual (Negative) 08/02/17 Range/Units 06:40 WBC (4.0-10.5) K/mm3 RBC (4.1-5.4) M/mm3 Hgb (12.0-16.0) gm/dl Hct (35-47) % MCV (78-100) fl MCH (26-32) pg MCHC (32-36) g/dl RDW (11.5-14.0) % Plt Count (150-450) K/mm3 MPV (6-9.5) fl Gran % (36.0-66.0) % Lymphocytes % (24.0-44.0) % Monocytes % (0.0-12.0) % Eosinophils % (0.00-5.0) % Basophils % (0.0-0.4) % Basophils # (0-0.4) Puncture Site pCO2 (35-45) mmHg pO2 (75-100) mmHg Base Excess (-2.0-2.0) O2 Saturation (94-100) g/dF ABG pH (7.35-7.45) ABG HCO3 (22-28) ABG O2 Sat (Measured) (95-100) % Ruel Test A-a Gradient a/A Ratio Hemoglobin Carboxyhemoglobin (0.0-6.9) % THgb Methemoglobin (1.4-1.5) % Potassium (3.5-5.1) Temperature C POC O2 Flow Rate % Sodium (136-145) mEq/L Chloride (98-107) mEq/L Carbon Dioxide (21-32) mEq/L Anion Gap (5-15) MEQ/L BUN (9-20) mg/dL Creatinine (0.55-1.30) mg/dl Estimated GFR ML/MIN Glucose (70-110) MG/DL Lactic Acid (0.4-2.0) Calcium (8.5-10.1) mg/dL Magnesium 2.1 (1.8-2.4) mg/dL Total Bilirubin (0.2-1.0) mg/dL AST (15-37) U/L ALT (12-78) U/L Alkaline Phosphatase (46-116) U/L Troponin I (0.000-0.056) ng/ml Serum Total Protein (6.4-8.2) gm/dL Albumin (3.4-5.0) g/dL Urine HCG, Qual (Negative) Assessment/Plan (1) DKA (diabetic ketoacidoses) Current Visit: Yes Status: Acute Qualifiers: Diabetes mellitus type: type 1 Diabetes mellitus complication detail: without coma Qualified Code(s): E10.10 - Type 1 diabetes mellitus with ketoacidosis without coma Assessment & Plan: She will be coming off the insulin drip today. Her gap closed. She was given 40 units of lantus this AM. Will give short acting insulin with meals. I called Dr. Sheppard's office and spoke with his PA, Sandra Wayne, as he was not in the office. She reports that she is the one that saw her and had cut her lantus in half. She reports she can see her tomorrow at 1:45 pm if she is discharged tomorrow. Code(s): E13.10 - OTH DIABETES MELLITUS WITH KETOACIDOSIS WITHOUT COMA (2) UTI (urinary tract infection) Current Visit: Yes Status: Acute Assessment & Plan: Continue levofloxacin, urine culture in lab. Code(s): N39.0 - URINARY TRACT INFECTION, SITE NOT SPECIFIED (3) Depression Current Visit: Yes Status: Acute Assessment & Plan: Continue home medication. Code(s): F32.9 - MAJOR DEPRESSIVE DISORDER, SINGLE EPISODE, UNSPECIFIED
[2017-08-02] MEDS: Abilify 10 MG PO SCH (09:25)
[2017-08-02] MEDS: SYNTHROID 50 MCG PO SCH (09:27)
[2017-08-02] MEDS: NovoLOG Insulin SQ SCH ×3 (09:27→16:52)
[2017-08-02] MEDS: Levofloxacin 500MG/100ML D5W 500 MG/100 ML BAG IV SCH (09:29)
[2017-08-02] MEDS: NovoLOG Insulin SQ PRN ×2 (16:53→20:17)
[2017-08-03 00:21] VITALS: O2SAT 97
[2017-08-03] MEDS: NovoLOG Insulin SQ PRN (06:51)
[2017-08-03] MEDS ORDERED: NovoLOG Insulin SQ SCH (07:19)
[2017-08-03 07:29] VITALS: BP 127/68
[2017-08-03] MEDS ORDERED: Sodium Chloride 0.9% 10 ML FLUSH Syringe IV PRN (07:29)
--- NOTE | 2017-08-03 07:31 | PCM.DCORD ---
- Discharge Discharge Date: 08/03/17 Disposition: Home, Self-Care Condition: Good Prescriptions: New Insulin Lispro [Humalog] 10 unit SQ TID #1 ml Continue Insulin Glargine,Hum.rec.anlog [Lantus] 40 units SQ HS Aripiprazole 10 mg [Abilify 10 MG] 5 mg PO DAILY Promethazine HCl 25 mg [Phenergan 25 mg] 25 mg PO Q4H PRN PRN #14 tablet PRN Reason: Nausea/Vomiting Clomipramine HCl 75 mg PO BID Levothyroxine Sodium 50 Mcg [Synthroid 50 Mcg] 50 mcg PO DAILY #30 tablet Discontinued Insulin Lispro [Humalog] 1 units SQ UD Smz/Tmp Ds Tablet [Bactrim Ds Tablet] 1 tab PO Q12H Additional Instructions: Finish the ciprofloxacin that you have at home for your UTI. Please keep appointment with Boris ZAVALA at Dr Sheppard's office today () at 1:45 pm. Follow up with: BORIS WHITE PA [NON-STAFF PHY W/O PRIVILEGES] - 08/03/17 1:45 pm (At Dr Sheppard's office)
[2017-08-03 07:35] VITALS: PULSE 95
[2017-08-03] MEDS: Abilify 10 MG PO SCH (08:16)
[2017-08-03] MEDS: Levofloxacin 500MG/100ML D5W 500 MG/100 ML BAG IV SCH (08:16)
[2017-08-03] MEDS: SYNTHROID 50 MCG PO SCH (08:16)
[2017-08-03] MEDS ORDERED: Lantus Insulin SQ SCH (10:00)
[2017-08-03] MEDS ORDERED: Sodium Chloride 0.9% 10 ML FLUSH Syringe IV SCH (14:00)
--- NOTE | 2017-08-07 15:08 | DS ---
DISCHARGE DIAGNOSES: 1) DIABETIC KETOACIDOSIS AND UNCONTROLLED TYPE 1 DIABETIC. 2) URINARY TRACT INFECTION. 3) HYPOTHYROIDISM. 4) DEPRESSION. DISCHARGE PHYSICAL EXAMINATION: VITALS: Temperature current 99.0F, temperature max 99.0F, heart rate 82 to 112 currently 95, respiratory rate 18 to 20, blood pressure 106 to 125 over 65 to 94. Oxygen saturation 97% on room air. GENERAL: The patient is a pleasant talkative lady lying in bed in no acute distress. CVS: She has a regular rate and rhythm. No murmurs, gallops or rubs are appreciated. CHEST: Clear to auscultation bilaterally. No crackles or wheezes. ABDOMEN: Soft, nontender, nondistended with normal bowel sounds. EXTREMITIES: No clubbing, cyanosis or edema. SKIN: Warm, dry and intact. HOSPITAL COURSE: 1) DIABETIC KETOACIDOSIS AND UNCONTROLLED TYPE 1 DIABETIC: The patient was initially placed on insulin drip and also given fluids. She started out with 2 liter normal saline bolus. The insulin drip was titrated. She did have two episodes of hypoglycemia that were non-symptomatic but she was given amp of D54. She was taken off the insulin drip when her anion gap closed in the a.m. of 07/02/2017. She was transitioned to Lantus. She was given 40 units of Lantus in the morning and started on NovoLog 4 units subcutaneously with meals along with her low dose sliding scale. She did well yesterday. Her blood sugar was 400 this a.m. I changed her short-acting insulin to 10 units with her meals and continue the Lantus 40 units subcutaneously daily in the a.m. She is going to see her endocrinology provider who is a physician nurses assistant at Dr[facility] today. She has an appointment already set up. The patient states that she can get to that appointment. 2) HYPOTHYROIDISM: She requested a refill on her Synthroid and so this was written. 3) URINARY TRACT INFECTION: She had a urine culture that has been no growth to date. I asked her to finish out her ciprofloxacin at home. 4) DEPRESSION: She was continued on her home medication. DISCHARGE MEDICATIONS: Please see the discharge list. FOLLOW UP: She is to follow up with myself in one week and her appointment with her endocrinology provider. DISPOSITION: The patient was discharged home in fair condition.
== END 2017-08-03 09:10 | disposition home or self-care (01) | DRG 638 ==
LOC: ED 13:04 → ICU 15:46
PROVIDERS: ADMIT Internal Medicine; ATTEND Internal Medicine
DX: E10.10 Type 1 diabetes mellitus with ketoacidosis without coma (principal); N39.0 Urinary tract infection, site not specified; E03.9 Hypothyroidism, unspecified; F32.9 Major depressive disorder, single episode, unspecified; Z79.899 Other long term (current) drug therapy
CPT/HCPCS: 36000; 36415; 36600; 71045; 80048; 80053; 81002; 82375; 82550; 82803; 82962; 83605; 83735; 84484; 84703; 85025; 87040; 87086; 93005; 96360; 96361; 96365; 96374; 99285; J1815; J1956; J2405; J3475; A9270-GY

== ENCOUNTER 2018-03-12 05:49 | Observation (INO) | payer BC ==
[2018-03-12] MEDS ORDERED: MORPHINE SULFATE 4 MG INJ IV ONE (06:14)
[2018-03-12] MEDS ORDERED: Pepcid 20 MG VIAL IV ONE ×2 (06:14→06:19)
[2018-03-12] MEDS ORDERED: Sodium Chloride 0.9% 1000 ML 1,000 ML IV STA (06:14)
[2018-03-12] MEDS ORDERED: D50W 50ML Vial IV ONE (06:16)
[2018-03-12] MEDS ORDERED: D50W 50 ml Abboject IV ONE (06:16)
[2018-03-12] MEDS ORDERED: Reglan 10 MG/2 ML IV ONE (06:16)
[2018-03-12] MEDS ORDERED: MORPHINE SULFATE 4 MG INJ ONE (06:19)
[2018-03-12] MEDS ORDERED: Sodium Chloride 0.9% 1000 ML 1,000 ML ONE ×2 (06:19→08:02)
[2018-03-12] MEDS ORDERED: Reglan 10 MG/2 ML ONE (06:19)
--- NOTE | 2018-03-12 06:43 | ERPHSYRPT ---
- History of Present Illness Historian: patient Exam Limitations: no limitations Patient Subjective Stated Complaint: N&V for 2 days Triage Nursing Assessment: Pt c/o of hurting all over and having nausea and vomiting for 2 days, diarrhea, pain with palpation of upper right quadrant of abdomen, denies fever, type 1 diabetic, BS 66, rates pain 9/10, headache, pulses normal, bowel sounds heard in all 4 quadrants, appears to be very uncomfortable Timing/Duration: day(s) (2) Activities at Onset: none Quality: cramping Abdominal Pain Onset Location: generalized abdomen Pain Radiation: no radiation Severity of Pain-Max: severe Severity of Pain-Current: moderate Modifying Factors: Improves With: nothing Associated Symptoms: diarrhea, loss of appetite, nausea, vomiting Previous symptoms: no prior history Hx Tetanus, Diphtheria Vaccination/Date Given: Yes Hx Influenza Vaccination/Date Given: No Hx Pneumococcal Vaccination/Date Given: No <JORGE CODY - Last Filed: 03/12/18 07:00> <ELA LOVE - Last Filed: 03/12/18 08:06> - History of Present Illness Time Seen by Provider: 03/12/18 06:10 Physician History: Pt started c/o diffuse abdominal pain, nausea , vomiting and diarrhea 2-3 days ago, denies fever, chills, bloody or back stools, or vomiting coffee ground material, denies urinary complaints. She is insulin dependent diabetic her current BS is 66. (JORGE CODY) Allergies/Adverse Reactions: No Known Drug Allergies Allergy (Verified 03/12/18 06:06) Home Medications: Insulin Glargine,Hum.rec.anlog [Lantus] 50 units SQ HS 06/02/12 [History] Clonazepam 1 mg PO DAILY 03/12/18 [History] Fluoxetine HCl 20 mg [Prozac 20 MG] 20 mg PO DAILY 03/12/18 [History] Gabapentin 300 mg PO TID 03/12/18 [History] - Review of Systems Constitutional: No Symptoms Abdominal/Gastrointestinal: Abdominal Pain, Nausea, Vomiting, Diarrhea All Other Systems: Reviewed and Negative <JORGE CODY - Last Filed: 03/12/18 07:00> - Past Medical History Pertinent Past Medical History: Yes Neurological History: No Pertinent History ENT History: No Pertinent History Cardiac History: No Pertinent History Respiratory History: No Pertinent History Endocrine Medical History: Diabetes Type I Musculoskeletal History: No Pertinent History GI Medical History: No Pertinent History History: No Pertinent History Psycho-Social History: Anxiety, Depression Female Reproductive Disorders: No Pertinent History Other Medical History: HAS BEEN TYPE 1 SINCE 10 MONTHS OLD. - Past Surgical History Past Surgical History: Yes Neuro Surgical History: No Pertinent History Cardiac: No Pertinent History Respiratory: No Pertinent History Gastrointestinal: No Pertinent History Genitourinary: No Pertinent History Musculoskeletal: Orthopedic Surgery Female Surgical History: Section, Tubal Ligation Other Surgical History: TONSILS. X 4 - Social History Smoking Status: Never smoker Exposure to second hand smoke: No Drug Use: none Patient Lives Alone: No - Female History Hx Last Menstrual Period: 03/02/2018 Hx Now: No <JORGE CODY - Last Filed: 03/12/18 07:00> - Physical Exam General Appearance: no apparent distress Eye Exam: eyes nml inspection Ears, Nose, Throat Exam: normal ENT inspection, pharynx normal, moist mucous membranes Neck Exam: normal inspection, non-tender, supple Respiratory Exam: normal breath sounds, lungs clear Cardiovascular Exam: regular rate/rhythm, normal heart sounds, normal peripheral pulses, No murmur Gastrointestinal/Abdomen Exam: soft, tenderness (RUQ, mild), other (diminished bowel sounds), No distention, No mass, No guarding, No ecchymosis, No pulsatile mass, No rebound, No hernia, No organomegaly Back Exam: normal inspection, No CVA tenderness, No vertebral tenderness Extremity Exam: normal inspection, No calf tenderness Neurologic Exam: alert, oriented x 3, normal mood/affect Skin Exam: normal color, warm, dry, No rash Lymphatic Exam: No adenopathy SpO2 Interpretation: normal SpO2: 100 Oxygen Delivery: Room Air <JORGE CODY - Filed: 03/12/18 07:00> - Nursing Vital Signs Nursing Vital Signs: Initial Vital Signs Temperature 98.3 F 03/12/18 05:51 Pulse Rate 102 H 03/12/18 05:51 Blood Pressure 106/83 03/12/18 05:51 O2 Sat by Pulse Oximetry 100 03/12/18 05:51 Pain Scale Pain Intensity 9 - Course Nursing assessment & vital signs reviewed: Yes EKG Interpreted by Me: RATE (68/min), NORMAL AXIS, NORMAL INTERVALS, Non- specific ST Changes <JILLFRANKLINJORGE - Last Filed: 03/12/18 07:00> - Radiology Exams Chest X-ray Interpretation: Interpreted by me (no acute disease process) - CT Exams Abdomen/Pelvis CT Interpretation: Discussed w/radiologist (negative ct abdomen and pelvis) <ELA LOVE - Last Filed: 03/12/18 08:06> Ordered Tests: Active Orders 24 hr Category Date Time Status Accucheck STAT Care 03/12/18 07:45 Active EKG-ER Only STAT Care 03/12/18 06:14 Active IV Insertion STAT Care 03/12/18 06:14 Active NPO (ED) STAT Care 03/12/18 06:14 Active ABDOMEN AND PELVIS W CONTRAST [CT] Stat Exams 03/12/18 06:43 Taken CHEST 1 VIEW (PORTABLE) Stat Exams 03/12/18 06:15 Taken ABG [ARTERIAL BLOOD GASES] Stat Lab 03/12/18 06:43 Ordered AMYLASE Stat Lab 03/12/18 06:25 Completed CBC W DIFF Stat Lab 03/12/18 06:25 Completed CMP Stat Lab 03/12/18 06:25 Completed CULTURE,URINE Stat Lab 03/12/18 06:38 Received LIPASE Stat Lab 03/12/18 06:25 Completed Lactic Acid Stat Lab 03/12/18 06:14 Ordered Manual Differential NC Stat Lab 03/12/18 06:25 Completed TROPONIN Q3H Lab 03/12/18 06:25 Completed TROPONIN Q3H Lab 03/12/18 09:15 Ordered TROPONIN Q3H Lab 03/12/18 12:15 Ordered TROPONIN Q3H Lab 03/12/18 15:15 Ordered TROPONIN Q3H Lab 03/12/18 18:15 Ordered UA W/RFX UR CULTURE Stat Lab 03/12/18 06:38 Completed Urine Triage Profile Stat Lab 03/12/18 06:38 Completed Transfer Order Routine Transfer 03/12/18 Ordered Medication Summary Discontinued Medications Generic Name Dose Route Start Last Admin Trade Name Freq PRN Reason Stop Dose Admin Dextrose 50 ml 03/12/18 06:16 03/12/18 06:25 D50w 50ml Vial IV 03/12/18 06:17 50 ml ONCE ONE Administration Dextrose Confirm 03/12/18 06:16 D50w 50 Ml Abboject Administered 03/12/18 06:17 Dose 50 ml IV .STK-MED ONE Famotidine 20 mg 03/12/18 06:14 03/12/18 06:25 Pepcid 20 Mg Vial IV 03/12/18 06:15 20 mg STAT ONE Administration Famotidine Confirm 03/12/18 06:19 Pepcid 20 Mg Vial Administered 03/12/18 06:20 Dose 20 mg IV .STK-MED ONE Sodium Chloride 1,000 mls @ 999 mls/hr 03/12/18 06:14 03/12/18 08:01 Sodium Chloride 0.9% 1000 Ml IV 03/12/18 07:14 Infused .Q1H1M STA Infusion Sodium Chloride Confirm 03/12/18 06:19 Sodium Chloride 0.9% 1000 Ml Administered 03/12/18 06:20 Dose 1,000 mls @ ud .ROUTE .STK-MED ONE Metoclopramide HCl 10 mg 03/12/18 06:16 03/12/18 06:25 Reglan 10 Mg/2 Ml IV 03/12/18 06:17 10 mg STAT ONE Administration Metoclopramide HCl Confirm 03/12/18 06:19 Reglan 10 Mg/2 Ml Administered 03/12/18 06:20 Dose 10 mg .ROUTE .STK-MED ONE Morphine Sulfate 4 mg 03/12/18 06:14 03/12/18 06:25 Morphine Sulfate 4 Mg Inj IV 03/12/18 06:15 4 mg STAT ONE Administration Morphine Sulfate Confirm 03/12/18 06:19 Morphine Sulfate 4 Mg Inj Administered 03/12/18 06:20 Dose 4 mg .ROUTE .STK-MED ONE Lab/Rad Data: Laboratory Result Diagrams 03/12/18 06:25 03/12/18 06:25 Laboratory Results 03/12/18 03/12/18 03/12/18 Range/Units 06:38 06:38 06:25 WBC (4.0-10.5) K/mm3 RBC (4.1-5.4) M/mm3 Hgb (12.0-16.0) gm/dl Hct (35-47) % MCV (78-100) fl MCH (26-32) pg MCHC (32-36) g/dl RDW (11.5-14.0) % Plt Count (150-450) K/mm3 MPV (6-9.5) fl Absolute Granulocytes (1.4-6.9) Segmented Neutrophils (36.0-66.0) % Lymphocytes (Manual) (24-44) % Monocytes (Manual) (0.0-12.0) % Platelet Estimate (NORMAL) RBC Morphology Sodium (137-145) mmol/L Potassium (3.5-5.1) mmol/L Chloride (98-107) mmol/L Carbon Dioxide (22-30) mmol/L Anion Gap (5-15) MEQ/L BUN (7-17) mg/dL Creatinine (0.52-1.04) mg/dL Estimated GFR ML/MIN Glucose (74-106) mg/dL Calcium (8.4-10.2) mg/dL Total Bilirubin (0.2-1.3) mg/dL AST (14-36) U/L ALT (0-35) U/L Alkaline Phosphatase (38-126) U/L Troponin I < 0.012 (0.000-0.034) ng/mL Serum Total Protein (6.3-8.2) g/dL Albumin (3.5-5.0) g/dL Amylase (30-110) U/L Lipase (23-300) U/L Urine Color YELLOW (YELLOW) Urine Appearance SLIGHTLY CLOUDY (CLEAR) Urine pH 6.0 (5-6) Ur Specific Thelma 1.018 (1.005-1.025) Urine Protein NEGATIVE (Negative) Urine Ketones SMALL (NEGATIVE) Urine Blood NEGATIVE (0-5) Shashank/ul Urine Nitrite NEGATIVE (NEGATIVE) Urine Bilirubin NEGATIVE (NEGATIVE) Urine Urobilinogen 4 (0-1) mg/dL Ur Leukocyte Esterase NEGATIVE (NEGATIVE) Urine WBC (Auto) 0-2 (0-5) /HPF Urine RBC (Auto) 0-2 (0-2) /HPF U Epithel Cells (Auto) RARE (FEW) /HPF Urine Mucus (Auto) SLIGHT (NEGATIVE) /HPF Urine Culture Reflexed YES (NO) Urine Glucose NEGATIVE (NEGATIVE) mg/dL Urine Opiates Level NEGATIVE (NEGATIVE) Ur Methadone NEGATIVE (NEGATIVE) Urine Barbiturates NEGATIVE (NEGATIVE) Ur Phencyclidine (PCP) NEGATIVE (NEGATIVE) Urine Amphetamine NEGATIVE (NEGATIVE) U Benzodiazepine Level NEGATIVE (NEGATIVE) Urine Cocaine NEGATIVE (NEGATIVE) Urine Marijuana (THC) POSITIVE (NEGATIVE) 03/12/18 03/12/18 Range/Units 06:25 06:25 WBC 8.8 (4.0-10.5) K/mm3 RBC 5.64 H (4.1-5.4) M/mm3 Hgb 14.5 (12.0-16.0) gm/dl Hct 44.6 (35-47) % MCV 79.1 (78-100) fl MCH 25.7 L (26-32) pg MCHC 32.5 (32-36) g/dl RDW 14.1 H (11.5-14.0) % Plt Count 95 L (150-450) K/mm3 MPV 12.6 H (6-9.5) fl Absolute Granulocytes 7.03 H (1.4-6.9) Segmented Neutrophils 75 H (36.0-66.0) % Lymphocytes (Manual) 22 L (24-44) % Monocytes (Manual) 3 (0.0-12.0) % Platelet Estimate NORMAL (NORMAL) RBC Morphology NORMAL Sodium 139 (137-145) mmol/L Potassium 4.4 (3.5-5.1) mmol/L Chloride 102 (98-107) mmol/L Carbon Dioxide 23 (22-30) mmol/L Anion Gap 18.7 H (5-15) MEQ/L BUN 13 (7-17) mg/dL Creatinine 0.64 (0.52-1.04) mg/dL Estimated GFR > 60.0 ML/MIN Glucose 63 L (74-106) mg/dL Calcium 9.5 (8.4-10.2) mg/dL Total Bilirubin 0.70 (0.2-1.3) mg/dL AST 28 (14-36) U/L ALT 15 (0-35) U/L Alkaline Phosphatase 77 (38-126) U/L Troponin I (0.000-0.034) ng/mL Serum Total Protein 7.8 (6.3-8.2) g/dL Albumin 4.8 (3.5-5.0) g/dL Amylase 65 (30-110) U/L Lipase 23 (23-300) U/L Urine Color (YELLOW) Urine Appearance (CLEAR) Urine pH (5-6) Ur Specific Thelma (1.005-1.025) Urine Protein (Negative) Urine Ketones (NEGATIVE) Urine Blood (0-5) Shashank/ul Urine Nitrite (NEGATIVE) Urine Bilirubin (NEGATIVE) Urine Urobilinogen (0-1) mg/dL Ur Leukocyte Esterase (NEGATIVE) Urine WBC (Auto) (0-5) /HPF Urine RBC (Auto) (0-2) /HPF U Epithel Cells (Auto) (FEW) /HPF Urine Mucus (Auto) (NEGATIVE) /HPF Urine Culture Reflexed (NO) Urine Glucose (NEGATIVE) mg/dL Urine Opiates Level (NEGATIVE) Ur Methadone (NEGATIVE) Urine Barbiturates (NEGATIVE) Ur Phencyclidine (PCP) (NEGATIVE) Urine Amphetamine (NEGATIVE) U Benzodiazepine Level (NEGATIVE) Urine Cocaine (NEGATIVE) Urine Marijuana (THC) (NEGATIVE) <JORGE CODY - Last Filed: 03/12/18 07:00> - Progress Progress: improved <ELA LOVE - Last Filed: 03/12/18 08:06> - Progress Progress Note: 03/12/18 07:47 This is a 32-year-old white female initially seen by Dr. Jimbo david, Patient arrives with complaint of nausea vomiting 2 -3 days today right upper quadrant abdominal pain states she's had a headache Patient arrives to noted to have a blood sugar of a 63 a noted to have right upper quadrant pain by Dr. Cody Patient given 1 L of normal saline, Reglan 10 mg morphine 4 mg and Pepcid. Also given one amp of D50 States she is somewhat better but still not feeling well Patient's physical examination Head atraumatic normocephalic. Eyes PERRLA EOMI fundi are unremarkable. Ears TMs avila intact bilaterally. Nose clear. Throat clear. Neck supple. Lungs clear. Heart regular rate and rhythm with out murmur. Abdomen mild right upper quadrant tenderness. Extremities full range of motion pulse equal symmetrical 2 over 4. Neuro cranial nerves II through XII are intact DTRs symmetrical 2 over 4 [place] Coma Scale is 15. Chest x-ray no acute disease process noted. CT abdomen and pelvis with contrast negative CT abdomen. EKG normal sinus rhythm 68 bpm normal axis no acute ST or T wave changes Labs CBC White blood cell 8.8 hemoglobin 14.5 hematocrit 44.6 platelets are 95 Chemistry sodium 139 potassium 4.4 chloride 102 bicarbonate 23 BUN 13 creatinine 0.64 glucose 63 Troponin less than 0.012 Amylase 65 lipase 23 Urinalysis is negative Repeat Accu-Chek after return from CT 133 Patient states she still doesn't feel well she states she feels nauseous. Patient initially was somnolent after being given her morphine and Reglan she is alert now. Will discuss case with Dr. keating 03/12/18 07:55 the patient's case was discussed with Dr keating will place on observation , provide antiemetics, iv fluids , monitor blood sugars. (ELA LOVE) <JORGE CODY - Last Filed: 03/12/18 07:00> - Departure Time of Disposition: 07:58 Departure Disposition: Observation Critical Care Time: No <ELA LOVE - Last Filed: 03/12/18 08:06> - Departure Clinical Impression: Hypoglycemia Nausea and vomiting Qualifiers: Vomiting type: unspecified Vomiting Intractability: unspecified Qualified Code( s): R11.2 - Nausea with vomiting, unspecified Abdominal pain Qualifiers: Abdominal location: right upper quadrant Qualified Code(s): R10.11 - Right upper quadrant pain Condition: Fair Referrals: STU KEATING [Primary Care Provider] -
[2018-03-12 06:46] LABS: Granulocyte Absolute (ANC) 7.03 (1.4-6.9); Hematocrit 44.6 % (35-47); Hemoglobin 14.5 gm/dl (12.0-16.0); Mean Cell Volume 79.1 fl (78-100); Mean Corpuscular Hemoglobin 25.7 pg (26-32); Mean Corpuscular Hgb Concent. 32.5 g/dl (32-36); Mean Platelet Volume 12.6 fl (6-9.5); Red Blood Count 5.64 M/mm3 (4.1-5.4); Red Cell Distribution Width 14.1 % (11.5-14.0); White Blood Count 8.8 K/mm3 (4.0-10.5)
[2018-03-12 06:52] LABS: Appearance SLIGHTLY CLOUDY (CLEAR); Bilirubin NEGATIVE (NEGATIVE); Blood NEGATIVE Ery/ul (0-5); Glucose NEGATIVE (NEGATIVE); Ketones SMALL (NEGATIVE); Leukocyte Esterase NEGATIVE (NEGATIVE); Nitrite NEGATIVE (NEGATIVE); Protein,Urine Dip NEGATIVE (Negative); Specific Gravity 1.018 (1.005-1.025); Urobilinogen 4 mg/dL (0-1)
[2018-03-12 06:58] LABS: ALBUMIN 4.8 g/dL (3.5-5.0); ALKALINE PHOSPHATASE 77 U/L (38-126); AMYLASE 65 U/L (30-110); ANION GAP 18.7 MEQ/L (5-15); BLOOD UREA NITROGEN 13 mg/dL (7-17); CHLORIDE 102 mmol/L (98-107); Calcium 9.5 mg/dL (8.4-10.2); Carbon Dioxide 23 mmol/L (22-30); Creatinine 1 0.64 mg/dL (0.52-1.04); Glucose 63 mg/dL (74-106); LIPASE 23 U/L (23-300); Potassium 4.4 mmol/L (3.5-5.1); SGOT/AST 28 U/L (14-36); SGPT/ALT 15 U/L (0-35); SODIUM 139 mmol/L (137-145); Total Protein 7.8 g/dL (6.3-8.2)
[2018-03-12 07:10] LABS: Amphetamine,Urine NEGATIVE (NEGATIVE); Barbiturate,Urine NEGATIVE (NEGATIVE); Benzodiazepine,Urine NEGATIVE (NEGATIVE); Cocaine,Urine NEGATIVE (NEGATIVE); Methadone,Urine NEGATIVE (NEGATIVE); Opiate,Urine NEGATIVE (NEGATIVE); PCP,Urine NEGATIVE (NEGATIVE); THC,Urine POSITIVE (NEGATIVE)
[2018-03-12 07:42] LABS: Lymphocytes 22 % (24-44); Monocyte 3 % (0.0-12.0); Neutrophils 75 % (36.0-66.0); Total Cells Counted 100
[2018-03-12 07:43] LABS: Platelet Estimate NORMAL (NORMAL)
[2018-03-12 07:45] LABS: Platelet Count 95 K/mm3 (150-450)
--- NOTE | 2018-03-12 08:49 | XRAY ---
Indication: Right upper quadrant pain with palpation. Bodyache, nausea, vomiting, and diarrhea. Multiple contiguous axial images obtained through the abdomen and pelvis using 80 cc Isovue 370 contrast only. Comparison: [place], 2013 Lung bases demonstrates minimal bibasilar dependent atelectasis with stable tiny right base calcified granuloma. No infiltrate or effusion. Heart is not enlarged. Noncontrasted stomach and bowel loops appear nonobstructed. Normal appendix. Small cul-de-sac fluid presumed physiologic from rupture/leaking cyst. Again calcified splenic granulomas. Remaining liver, gallbladder, pancreas, adrenal glands, kidneys, ureters, bladder, uterus, and aorta appear unremarkable. No pathologic retroperitoneal lymphadenopathy. Osseous structures intact. No ventral or inguinal hernias. Impression: 1. Cul-de-sac fluid presumed physiologic from rupture/leaking cyst. 2. Again evidence for old granulomatous disease. 2. Remaining CT abdomen/pelvis with contrast exam is negative. CTDI 13.27
--- NOTE | 2018-03-12 08:51 | XRAY ---
Indication: Emesis. Comparison: August 01, 2017. Portable chest again demonstrates normal heart, lungs, and bony thorax with bilateral nipple ornaments.
[2018-03-12] MEDS ORDERED: MORPHINE SULFATE 4 MG INJ IV PRN (08:54)
[2018-03-12] MEDS ORDERED: Zofran 4 MG/2 ML VIAL IV PRN (08:54)
[2018-03-12] MEDS ORDERED: Sodium Chloride 0.9% 1000 ML 1,000 ML IV SCH (08:54)
[2018-03-12] MEDS ORDERED: TYLENOL 325 MG PO PRN (09:22)
[2018-03-12] MEDS ORDERED: ANTIVERT 25 MG PO PRN (09:22)
[2018-03-12] MEDS ORDERED: GlucaGen 1 MG IM PRN (09:30)
[2018-03-12] MEDS ORDERED: D50W 50 ml Abboject IV PRN (09:30)
[2018-03-12] MEDS ORDERED: Glutose 15 GM ORAL GEL PO PRN (09:30)
--- NOTE | 2018-03-12 10:25 | XRAY ---
Indication: Right upper quadrant pain. Two-dimensional gallbladder sonogram performed. Comparison: None Gallbladder normally distended without gallstones, wall thickening, or pericholecystic fluid. Common bile duct measures 2.5 mm. Remaining visualized portions of the liver, pancreas, and right kidney appear sonographically normal. Right kidney measures 10.8 cm in length. No ascites. Impression: Negative gallbladder sonogram.
[2018-03-12] MEDS: NEURONTIN 300 MG PO SCH ×3 (11:10→21:21)
[2018-03-12] MEDS: PROTONIX 40 MG IV IV SCH (12:30)
[2018-03-12] MEDS: Dextrose 5%-NS IV Solution 1000 ML 1,000 ML IV SCH ×2 (12:36→21:21)
--- NOTE | 2018-03-12 13:35 | HP ---
HISTORY OF PRESENT ILLNESS: This is a 32 year-old patient with history of type 1 diabetes who presented to the emergency department complaining of stomach pain in the middle and radiating to the right for the past two to three days. She reports she has not eaten much and that she has been dizzy lately especially with changes in position. She reports nausea and some dry heaving. She reports diarrhea a few days ago. She reports her appetite has been down for one to two weeks. She reports she has continued to take her Lantus 50 units daily but has not been taking any other insulin due to not eating well. She reports that her periods have been regular and she had one last week. She denies any sick contacts. REVIEW OF SYSTEMS: No fever. No rashes. No increased stress. Otherwise review of systems as noted in the history of present illness. PAST MEDICAL HISTORY: Depression, diabetes mellitus type 1, anxiety, diabetic neuropathy. PAST SURGICAL HISTORY: section x4. Bilateral carpal tunnel surgery. Tonsillectomy. Tubal ligation. MEDICATIONS: Please see the medication reconciliation list which I have reviewed. ALLERGIES: NKDA. SOCIAL HISTORY: No tobacco use. She worked at [employer] but reports she has missed a lot of work. FAMILY HISTORY: Her mother is . Her father is living. PHYSICAL EXAMINATION: VITAL SIGNS: Temperature current 98.5F, temperature max 98.5F, heart rate 67 to 102 currently 72, respiratory rate 18, blood pressure 106 to 121 over 68 to 83 currently 119/68, weight 70.5 kg. Oxygen saturation 100% on room air. GENERAL: The patient is lying in bed in no acute distress. Her father is at the bedside. HEENT: Pupils are equal, round and reactive to light. NEURO: Strength is 5/5 in all four extremities. CVS: She has a regular rate and rhythm. No murmurs, gallops or rubs are appreciated. CHEST: Clear to auscultation bilaterally. No crackles or wheezes. ABDOMEN: Mildly tender in the epigastric and right upper quadrant. There is no guarding, no Rigidity. Normal bowel sounds. EXTREMITIES: No clubbing, cyanosis or edema. SKIN: Warm, dry. She has a scrape on her right foot without any surrounding erythema. LABORATORY DATA AND TESTS: On admission her white blood cell count was 8.8 with 75% neutrophils, 22% lymphocytes, 3% monocytes. Anion gap was 18.7. Glucose 63. Troponin negative. Amylase and lipase within normal limits. UA negative. Serum test was negative. Urine tox positive for marijuana. She has a urine culture in lab. She had CT scan of her abdomen and pelvis that was read as cul-de-sac fluid presumed physiologic from ruptured/leaking cyst. No acute findings. Please see the radiologist dictation for the full report. She had portable chest x-ray with no acute findings. Please see the radiologist dictation for full report. ASSESSMENT AND PLAN: 1) NAUSEA, VOMITING WITH ABDOMINAL PAIN: No etiology could be found. I ordered a gallbladder ultrasound that has already been done now and was read as negative. The emergency room doctor has ordered morphine for her as needed for pain. We started fluids and will continue with these and plan to repeat a CBC and BMP in the morning. 2) HYPOGLYCEMIA: Due to her poor oral intake. Currently has held her insulin. She does have a low dose sliding scale ordered if needed. If her blood sugars are better this evening I will probably start a low dose of Lantus once daily. She has diabetes type 1 so she will need some kind of insulin on board at baseline. 3) ILLICIT DRUG USE: Her urine tox came back positive for marijuana. I will need to discuss this with the [id number]. 4) HISTORY OF ANXIETY/DEPRESSION: She most recently saw Haydee Haile in the clinic on 03/04/2018 and was given a prescription fluoxetine as well as clonazepam. However her urine tox screen was negative for benzodiazepines.
[2018-03-12] MEDS ORDERED: Lantus Insulin SQ SCH (22:00)
[2018-03-13 06:13] LABS: ALBUMIN 2.9 g/dL (3.5-5.0); ALKALINE PHOSPHATASE 48 U/L (38-126); ANION GAP 9.3 MEQ/L (5-15); BLOOD UREA NITROGEN 7 mg/dL (7-17); CHLORIDE 108 mmol/L (98-107); Calcium 7.9 mg/dL (8.4-10.2); Carbon Dioxide 27 mmol/L (22-30); Creatinine 1 0.56 mg/dL (0.52-1.04); Glucose 72 mg/dL (74-106); Potassium 3.7 mmol/L (3.5-5.1); SGOT/AST 16 U/L (14-36); SGPT/ALT 12 U/L (0-35); SODIUM 140 mmol/L (137-145); Total Protein 5.3 g/dL (6.3-8.2)
[2018-03-13 06:39] LABS: BASOPHIL % 0.5 % (0.0-0.4); Basophil (Absolute #) 0.02 (0-0.4); Eosinophil (Absolute #) 0.08 (0-0.5); Granulocyte Absolute (ANC) 2.01 (1.4-6.9); Granulocytes % 50.6 % (36.0-66.0); Hematocrit 37.2 % (35-47); Hemoglobin 11.8 gm/dl (12.0-16.0); Lymphocyte (Absolute #) 1.48 (1.0-4.6); Lymphocytes % 37.3 % (24.0-44.0); Mean Cell Volume 81.8 fl (78-100); Mean Corpuscular Hemoglobin 25.9 pg (26-32); Mean Corpuscular Hgb Concent. 31.7 g/dl (32-36); Monocyte (Absolute #) 0.38 (0.0-1.3); Monocytes % 9.6 % (0.0-12.0); Platelet Count 206 K/mm3 (150-450); Red Blood Count 4.55 M/mm3 (4.1-5.4); Red Cell Distribution Width 13.7 % (11.5-14.0)
[2018-03-13] MEDS: Dextrose 5%-NS IV Solution 1000 ML 1,000 ML IV SCH ×2 (08:38→19:52)
--- NOTE | 2018-03-13 08:44 | PCM.NOTE ---
Date and Time: 03/13/18 08 Subjective Assessment: Patient reports her headache and abdominal pain are better. She continues to not have much of an appetite and feels nauseated and dizzy but not exactly like she is going to throw up. She reports she usually doesn't use THC but did to help with her anxiety. She reports feeling nauseated and dizzy before starting the fluoxetine that RAMONA Haile prescribed her last in February. - Review of Systems Constitutional: No Symptoms Eyes: Other (Patient reports some double vision but states she had eye exam 3 months ago that was normal; wears contacts) Ears, Nose, & Throat: No Symptoms Respiratory: No Symptoms Cardiac: No Symptoms Abdominal/Gastrointestinal: Nausea, No Vomiting, No Diarrhea Genitourinary Symptoms: No Symptoms Musculoskeletal: No Symptoms Neurological: Dizziness Objective Exam General Appearance: no apparent distress, alert Neurologic Exam: alert, cooperative, other (moving all 4 ext) Skin Exam: normal color, warm, dry, other (tatoos) Respiratory Exam: normal breath sounds, lungs clear, No crackles/rales, No rhonchi, No wheezing Cardiovascular Exam: regular rate/rhythm, normal heart sounds, No murmur, No friction rub, No gallop Gastrointestinal/Abdomen Exam: soft, normal bowel sounds, No tenderness, No distention, No mass Extremity Exam: other (no c/c/e) OBJECTIVE DATA Vital Signs: Vital Signs - 24 hr Temp Pulse Resp BP Pulse Ox 03/13/18 07:28 98.1 F 75 20 99/54 100 03/13/18 04:26 98.3 F 64 16 104/56 98 03/12/18 23:44 98.9 F 69 16 106/53 99 03/12/18 20:03 98.7 F 73 15 91/47 98 03/12/18 16:00 98.2 F 66 16 97/51 99 03/12/18 11:58 97.5 F 60 16 110/69 100 03/12/18 09:14 98.3 F 62 18 117/63 100 Pain Assessment - Last Documented Pain Intensity 4 Pain Scale Used 0-10 Pain Scale Intake and Output: Intake & Output 03/11/18 03/12/18 03/13/18 03/14/18 06:59 06:59 06:59 06:59 Intake Total 3899 Output Total 9930 Balance 1499 Weight 72.575 kg 70.5 kg 70.8 kg Lab Results: Accuchecks Date 03/13/18 Date 03/12/18 Date 03/12/18 Date 03/12/18 Time 07:30 Time 22:00 Time 16:30 Time 11:30 Accucheck Value: 174 Accucheck Value: 130 Accucheck Value: 52 Lab Results-Last 24 Hours 03/12/18 03/13/18 03/13/18 Range/Units 09:10 05:28 05:28 WBC 4.0 (4.0-10.5) K/mm3 RBC 4.55 (4.1-5.4) M/mm3 Hgb 11.8 L (12.0-16.0) gm/dl Hct 37.2 (35-47) % MCV 81.8 (78-100) fl MCH 25.9 L (26-32) pg MCHC 31.7 L (32-36) g/dl RDW 13.7 (11.5-14.0) % Plt Count 206 (150-450) K/mm3 MPV 12.0 H (6-9.5) fl Gran % 50.6 (36.0-66.0) % Eos # (Auto) 0.08 (0-0.5) Absolute Lymphs (auto) 1.48 (1.0-4.6) Absolute Monos (auto) 0.38 (0.0-1.3) Lymphocytes % 37.3 (24.0-44.0) % Monocytes % 9.6 (0.0-12.0) % Eosinophils % 2.0 (0.00-5.0) % Basophils % 0.5 (0.0-0.4) % Absolute Granulocytes 2.01 (1.4-6.9) Basophils # 0.02 (0-0.4) Sodium 140 (137-145) mmol/L Potassium 3.7 (3.5-5.1) mmol/L Chloride 108 H (98-107) mmol/L Carbon Dioxide 27 (22-30) mmol/L Anion Gap 9.3 (5-15) MEQ/L BUN 7 (7-17) mg/dL Creatinine 0.56 (0.52-1.04) mg/dL Estimated GFR > 60.0 ML/MIN Glucose 72 L (74-106) mg/dL Calcium 7.9 L (8.4-10.2) mg/dL Total Bilirubin 0.30 (0.2-1.3) mg/dL AST 16 (14-36) U/L ALT 12 (0-35) U/L Alkaline Phosphatase 48 (38-126) U/L Serum Total Protein 5.3 L (6.3-8.2) g/dL Albumin 2.9 L (3.5-5.0) g/dL Urine HCG, Qual NEGATIVE (Negative) Radiology Exams: Radiology Procedures Category Date Time Status ABDOMEN AND PELVIS W CONTRAST [CT] Stat Exams 03/12/18 06:43 Completed CHEST 1 VIEW (PORTABLE) Stat Exams 03/12/18 06:15 Completed GALLBLADDER [US] Routine Exams 03/12/18 09:56 Completed Assessment/Plan (1) Nausea and vomiting Current Visit: Yes Status: Acute Qualifiers: Vomiting type: unspecified Vomiting Intractability: unspecified Qualified Code(s): R11.2 - Nausea with vomiting, unspecified Assessment & Plan: Continue with IV fluids and zofran as needed. Patient is on a regular diet but not eating as much. Vomiting has resolved but still some nausea. Code(s): R11.2 - NAUSEA WITH VOMITING, UNSPECIFIED (2) Type 1 diabetes mellitus Current Visit: Yes Status: Acute Qualifiers: Diabetes mellitus complication status: with hypoglycemia Assessment & Plan: Continue with 20 units of lantus daily at night and low dose sliding scale ordered if needed. Her oral intake is still poor. (3) Illicit drug use Current Visit: Yes Status: Acute Assessment & Plan: Counseled to not use illicit drugs. Code(s): F19.90 - OTHER PSYCHOACTIVE SUBSTANCE USE, UNSPECIFIED, UNCOMPLICATED (4) Dizziness Current Visit: Yes Status: Acute Assessment & Plan: Check orthostatic blood pressures and hr. Code(s): R42 - DIZZINESS AND GIDDINESS (5) Anxiety Current Visit: Yes Status: Acute Code(s): F41.9 - ANXIETY DISORDER, UNSPECIFIED (6) Abdominal pain Current Visit: Yes Status: Resolved Qualifiers: Abdominal location: right upper quadrant Qualified Code(s): R10.11 - Right upper quadrant pain Assessment & Plan: Resolved. CT scan and gallbladder US normal. Code(s): R10.9 - UNSPECIFIED ABDOMINAL PAIN
[2018-03-13] MEDS: NEURONTIN 300 MG PO SCH ×3 (09:48→21:57)
[2018-03-13] MEDS: PROTONIX 40 MG IV IV SCH (12:35)
[2018-03-13] MEDS: NovoLOG Insulin SQ PRN ×2 (16:52→21:56)
[2018-03-13] MEDS ORDERED: Lantus Insulin SQ SCH (22:00)
[2018-03-14 04:08] VITALS: O2SAT 99
[2018-03-14 06:01] LABS: BASOPHIL % 0.4 % (0.0-0.4); Basophil (Absolute #) 0.02 (0-0.4); Eosinophil % 2.6 % (0.00-5.0); Eosinophil (Absolute #) 0.14 (0-0.5); Granulocytes % 58.5 % (36.0-66.0); Hematocrit 40.6 % (35-47); Hemoglobin 13.2 gm/dl (12.0-16.0); Lymphocyte (Absolute #) 1.57 (1.0-4.6); Lymphocytes % 28.8 % (24.0-44.0); Mean Cell Volume 80.4 fl (78-100); Mean Corpuscular Hemoglobin 26.1 pg (26-32); Mean Corpuscular Hgb Concent. 32.5 g/dl (32-36); Mean Platelet Volume 11.9 fl (6-9.5); Monocyte (Absolute #) 0.53 (0.0-1.3); Monocytes % 9.7 % (0.0-12.0); Platelet Count 236 K/mm3 (150-450); Red Blood Count 5.05 M/mm3 (4.1-5.4); Red Cell Distribution Width 13.7 % (11.5-14.0); White Blood Count 5.5 K/mm3 (4.0-10.5)
[2018-03-14 06:01] LABS: ANION GAP 10.2 MEQ/L (5-15); BLOOD UREA NITROGEN 11 mg/dL (7-17); CHLORIDE 103 mmol/L (98-107); Calcium 8.5 mg/dL (8.4-10.2); Carbon Dioxide 29 mmol/L (22-30); Creatinine 1 0.55 mg/dL (0.52-1.04); Glucose 162 mg/dL (74-106); Potassium 4.1 mmol/L (3.5-5.1); SODIUM 139 mmol/L (137-145)
[2018-03-14 07:30] VITALS: BP 109/59; PULSE 72
--- NOTE | 2018-03-14 08:54 | PCM.DCORD ---
- Discharge Discharge Date: 03/14/18 Disposition: Home, Self-Care Condition: Fair Prescriptions: New Meclizine HCl 25 mg [Antivert 25 mg] 12.5 mg PO Q4H PRN PRN #20 tablet PRN Reason: Dizziness Insulin Lispro [Humalog] 4 unit SQ TIDWM #1 ml Insulin Glargine,Hum.rec.anlog [Lantus] 20 unit SQ QPM #1 vial Continue Fluoxetine HCl 20 mg [Prozac 20 MG] 20 mg PO DAILY Gabapentin 300 mg PO TID Clonazepam 1 mg PO DAILY Discontinued Insulin Glargine,Hum.rec.anlog [Lantus] 50 units SQ HS Insulin Lispro [Humalog] 10 unit SQ TID #1 ml Follow up with: STU KEATING [Primary Care Provider] - 1 Week
--- NOTE | 2018-03-14 09:27 | DS ---
DISCHARGE DIAGNOSES: 1) NAUSEA AND VOMITING. 2) ABDOMINAL PAIN. 3) DIABETES MELLITUS TYPE 1. 4) HYPOGLYCEMIA. 5) ILLICIT DRUG USE. 6) HISTORY OF ANXIETY AND DEPRESSION. 7) DIZZINESS. DISCHARGE PHYSICAL EXAMINATION: VITALS: Temperature current 98.6F, temperature max 98.6F, heart rate 59 to 72, respiratory rate 14 to 18, blood pressure 93 to 117 over 50 to 59, weight 72.5 kg. Oxygen saturation 98 to 99% on room air. GENERAL: The patient is lying in bed a pleasant lady in no acute distress. CVS: She has a regular rate and rhythm. No murmurs, gallops or rubs are appreciated. CHEST: Clear to auscultation bilaterally. ABDOMEN: Soft, nontender, nondistended with normal bowel sounds. EXTREMITIES: No clubbing, cyanosis or edema. SKIN: Warm, dry and intact. HOSPITAL COURSE: 1) NAUSEA AND VOMITING: This has resolved during the hospitalization. She reports she has been able to tolerate her evening meal. She has not started her breakfast yet. 2) ABDOMINAL PAIN: This has completely resolved. She had a CT scan of her abdomen and gallbladder ultrasound which were both without any reason for her epigastric and right upper quadrant abdominal pain. Please see the radiologist dictation for the full report on both. 3) DIABETES MELLITUS TYPE 1: She uses Lantus at home and reports at home she had not been using much short-acting insulin. I suggested that she start back with about 20 units of Lantus each night and then use short-acting insulin with her meals. I have written her discharge order for 4 units with her meals, this will need to be adjusted as her diet changes. In the past I had recommended that she see an dynamics ax solution architect but she has declined to do this and has continued to ask me for her refills. 4) HYPOGLYCEMIA: This resolved during the hospitalization. Her blood sugars were good before her discharge. 5) HISTORY OF ANXIETY AND DEPRESSION: I will have her continue the clonazepam and fluoxetine as prescribed by nurse practitioner, Haydee Haile. 6) ILLICIT DRUG USE: The patient was counseled that she should not be using illicit drugs. 7) DIZZINESS: The patient reports that she continues to have dizziness. She is willing to try meclizine as an outpatient. We also had ordered this during her hospitalization as well. We discussed benign paroxysmal positional vertigo. DISCHARGE MEDICATIONS: Please see the discharge order. DISPOSITION: The patient was discharged to home in fair condition to follow up with myself in one week.
== END 2018-03-14 09:43 | disposition home or self-care (01) ==
LOC: ED 05:49 → MED SURG 08:51
PROVIDERS: ADMIT Internal Medicine; ATTEND Internal Medicine
DX: R11.2 Nausea with vomiting, unspecified (principal); E10.649 Type 1 diabetes mellitus with hypoglycemia without coma; F12.90 Cannabis use, unspecified, uncomplicated; F41.9 Anxiety disorder, unspecified; F32.9 Major depressive disorder, single episode, unspecified; R42 Dizziness and giddiness; R10.9 Unspecified abdominal pain
CPT/HCPCS: 36415; 71045; 74177; 76705; 80048; 80053; 80307; 81001; 82150; 82962; 83690; 84484; 84703; 85025; 87086; 93005; 93268; 96360; 96374; 96375; 99285; G0378; J2270; J2405; A9270-GY

== ENCOUNTER 2018-07-05 09:07 | Emergency (ER) | payer BC, OTHER ==
[2018-07-05] MEDS ORDERED: TYLENOL 325 MG PO STA (09:28)
[2018-07-05] MEDS ORDERED: TYLENOL 325 MG ONE (09:29)
[2018-07-05] MEDS ORDERED: Sodium Chloride 0.9% 1000 ML 1,000 ML IV STA ×2 (09:48→10:38)
[2018-07-05] MEDS ORDERED: Levofloxacin 500MG/100ML D5W 500 MG/100 ML BAG IV STA (09:48)
[2018-07-05] MEDS ORDERED: Sodium Chloride 0.9% 1000 ML 2,000 ML ONE (09:55)
[2018-07-05 10:11] LABS: Lactic Acid 1.7 (0.4-2.0); VBG BASE EXCESS 1.7 (-2.0-2.0); VBG CARBOXYHEMOGLOBIN 1.8 % T HGB (0.0-6.9); VBG HCO3- 26.6 meq/L (22-28); VBG O2 SATURATION 34.4 (95-100); VBG pH 7.41 (7.32-7.42)
--- NOTE | 2018-07-05 10:26 | XRAY ---
Indication: Fever and cough. Comparison: March 12, 2018. Portable chest again demonstrates normal heart, lungs, and bony thorax with bilateral nipple ornaments.
[2018-07-05 10:38] LABS: BASOPHIL % 0.3 % (0.0-0.4); Basophil (Absolute #) 0.01 (0-0.4); Eosinophil (Absolute #) 0 (0-0.5); Granulocyte Absolute (ANC) 2.39 (1.4-6.9); Granulocytes % 76.6 % (36.0-66.0); Hematocrit 45.7 % (35-47); Hemoglobin 14.6 gm/dl (12.0-16.0); Lymphocyte (Absolute #) 0.29 (1.0-4.6); Lymphocytes % 9.3 % (24.0-44.0); Mean Cell Volume 83.4 fl (78-100); Mean Corpuscular Hemoglobin 26.6 pg (26-32); Mean Corpuscular Hgb Concent. 31.9 g/dl (32-36); Monocyte (Absolute #) 0.43 (0.0-1.3); Monocytes % 13.8 % (0.0-12.0); Platelet Count 266 K/mm3 (150-450); Red Blood Count 5.48 M/mm3 (4.1-5.4); White Blood Count 3.1 K/mm3 (4.0-10.5)
--- NOTE | 2018-07-05 10:38 | ERPHSYRPT ---
- History of Present Illness Time Seen by Provider: 07/05/18 09:30 Source: patient Exam Limitations: clinical condition Patient Subjective Stated Complaint: Pt states "I hurt all over, I have had a fever, I am a bad diabetic, I cannot eat." Triage Nursing Assessment: Pt alert and oriented X 3, skin pwd. PT ambulates with an upright steady gait, able to speak in clear full sentences. PT in no apparent respiratory distress. Physician History: PATIENT WITH A HISTORY OF TYPE 1 DIABETES, AND DEPRESSION COMPLAINS OF FLU LIKE SYMPTOMS NONPRODUCTIVE COUGH, FEVER, CHILLS, SORE THROAT AND GENERALIZED ACHES ALL OVER FOR THE PAST 2 DAYS. PATIENT DENIES DIFFICULTY BREATHING, SHORTNESS OF BREATH, VOMITING, OR DIARRHEA. Timing/Duration: yesterday Activities at Onset: none Severity of Dyspnea-Max: mild Severity of Dyspnea-Current: mild Possible Cause: no prior episodes Modifying Factors: Improves With: coughing Associated Symptoms: fever, loss of appetite, chills International travel in last 2 weeks: No Allergies/Adverse Reactions: No Known Drug Allergies Allergy (Verified 03/12/18 06:06) Hx Tetanus, Diphtheria Vaccination/Date Given: Yes Hx Influenza Vaccination/Date Given: No Hx Pneumococcal Vaccination/Date Given: No Immunizations Up to Date: Yes - Review of Systems Constitutional: Fever, Chills Eyes: No Symptoms Ears, Nose, & Throat: Throat Pain Respiratory: Cough Cardiac: No Chest Pain, No Edema, No Syncope Abdominal/Gastrointestinal: Nausea Genitourinary Symptoms: No Dysuria Musculoskeletal: Arthralgias, Myalgias Skin: No Rash Neurological: No Dizziness, No Focal Weakness, No Sensory Changes Psychological: No Symptoms Endocrine: No Symptoms - Past Medical History Pertinent Past Medical History: Yes Neurological History: No Pertinent History ENT History: No Pertinent History Cardiac History: No Pertinent History Respiratory History: No Pertinent History Endocrine Medical History: Diabetes Type I, Hypothyroidism Musculoskeletal History: No Pertinent History GI Medical History: No Pertinent History History: No Pertinent History Psycho-Social History: Anxiety, Depression Female Reproductive Disorders: No Pertinent History Other Medical History: HAS BEEN TYPE 1 SINCE 10 MONTHS OLD. - Past Surgical History Past Surgical History: Yes Neuro Surgical History: No Pertinent History Cardiac: No Pertinent History Respiratory: No Pertinent History Gastrointestinal: No Pertinent History Genitourinary: No Pertinent History Musculoskeletal: Orthopedic Surgery Female Surgical History: Section, Tubal Ligation Other Surgical History: TONSILS. X 4. carpal tunnel surgery - Social History Smoking Status: Never smoker Exposure to second hand smoke: Yes Drug Use: none Patient Lives Alone: No - Female History Hx Last Menstrual Period: 06/04/2018 Hx Now: No - Nursing Vital Signs Nursing Vital Signs: Initial Vital Signs Temperature 101.9 F 07/05/18 09:13 Pulse Rate 130 H 07/05/18 09:13 Respiratory Rate 18 07/05/18 09:13 Blood Pressure 142/80 07/05/18 09:13 O2 Sat by Pulse Oximetry 99 07/05/18 09:13 Pain Scale Pain Intensity 8 - Physical Exam General Appearance: no apparent distress, alert Eye Exam: PERRL/EOMI Ears, Nose, Throat Exam: hearing grossly normal Neck Exam: normal inspection, supple Respiratory Exam: normal breath sounds Cardiovascular/Chest Exam: normal heart sounds, regular rate/rhythm, tachycardia Abdominal/Gastrointestinal Exam: soft, No tenderness, No distention, No mass Extremity Exam: non-tender, normal range of motion, normal inspection, no calf tenderness, no pedal edema Peripheral Pulses Exam: carotid (R): 2+, carotid (L): 2+, femoral (R): 2+, femoral (L): 2+, dorsalis-pedis (R): 2+, dorsalis-pedis (L): 2+ Neurologic Exam: alert, oriented x 3, cooperative, dust handler II-XII nml as tested, sensation nml, No motor deficits Skin Exam: normal color, warm, No dry SpO2 Interpretation: normal SpO2: 99 - Course EKG Interpreted by Me: RATE, Sinus Rhythm, Sinus Tach - Radiology Exams Chest X-ray Interpretation: Discussed w/ radiologist, Negative Ordered Tests: Active Orders 24 hr Category Date Time Status Clinic Licensed Practical Nurse STAT Care 07/05/18 09:49 Active Clinic Licensed Practical Nurse STAT Care 07/05/18 09:50 Active Clean Catch Urine Specimen STAT Care 07/05/18 09:48 Active EKG-ER Only STAT Care 07/05/18 09:48 Active IV Insertion STAT Care 07/05/18 09:50 Active Pulse Oximetry (ED) STAT Care 07/05/18 09:50 Active CHEST 1 VIEW (PORTABLE) Stat Exams 07/05/18 09:51 Completed BLOOD CULTURE Stat Lab 07/05/18 10:10 Received CBC W DIFF Stat Lab 07/05/18 10:03 Completed CMP Stat Lab 07/05/18 10:03 Completed Lactic Acid Stat Lab 07/05/18 10:08 Completed PROTIME WITH INR Stat Lab 07/05/18 10:03 Completed PTT Stat Lab 07/05/18 10:03 Completed TROPONIN Q3H Lab 07/05/18 10:03 Completed TROPONIN Q3H Lab 07/05/18 13:00 Ordered TROPONIN Q3H Lab 07/05/18 16:00 Ordered TROPONIN Q3H Lab 07/05/18 19:00 Ordered TROPONIN Q3H Lab 07/05/18 22:00 Ordered UA W/RFX UR CULTURE Stat Lab 07/05/18 10:56 Completed VENOUS BLOOD GAS Stat Lab 07/05/18 10:08 Completed Medication Summary Discontinued Medications Generic Name Dose Route Start Last Admin Trade Name Freq PRN Reason Stop Dose Admin Acetaminophen 650 mg 07/05/18 09:28 07/05/18 09:51 Tylenol 325 Mg PO 07/05/18 09:29 650 mg STAT STA Administration Acetaminophen Confirm 07/05/18 09:29 Tylenol 325 Mg Administered 07/05/18 09:30 Dose 650 mg .ROUTE .STK-MED ONE Levofloxacin/Dextrose 500 mg in 100 mls @ 100 mls/hr 07/05/18 09:48 07/05/18 10:42 Levofloxacin 500mg/100ml D5w IV 07/05/18 10:47 100 mls/hr STAT STA 100 mls/hr Administration Sodium Chloride 1,000 mls @ 999 mls/hr 07/05/18 09:48 07/05/18 09:55 Sodium Chloride 0.9% 1000 Ml IV 07/05/18 10:48 999 mls/hr .Q1H1M STA Administration Sodium Chloride Confirm 07/05/18 09:55 Sodium Chloride 0.9% 1000 Ml Administered 07/05/18 09:56 Dose 2,000 mls @ ud .ROUTE .STK-MED ONE Sodium Chloride 1,000 mls @ 999 mls/hr 07/05/18 10:38 07/05/18 10:43 Sodium Chloride 0.9% 1000 Ml IV 07/05/18 11:38 999 mls/hr .Q1H1M STA Administration Levofloxacin/Dextrose Confirm 07/05/18 10:41 Levofloxacin 500mg/100ml D5w Administered 07/05/18 10:42 Dose 500 mg in 100 mls @ ud IV .K-MED ONE Ketorolac Tromethamine 30 mg 07/05/18 10:49 07/05/18 10:51 Toradol 30 Mg Injection IV 07/05/18 10:50 30 mg STAT ONE Administration Ketorolac Tromethamine Confirm 07/05/18 10:51 Toradol 30 Mg Injection Administered 07/05/18 10:52 Dose 30 mg .ROUTE .[facility] ONE Lab/Rad Data: Laboratory Result Diagrams 07/05/18 10:03 07/05/18 10:03 Laboratory Results 07/05/18 07/05/18 07/05/18 Range/Units 10:56 10:08 10:03 WBC (4.0-10.5) K/mm3 RBC (4.1-5.4) M/mm3 Hgb (12.0-16.0) gm/dl Hct (35-47) % MCV (78-100) fl MCH (26-32) pg MCHC (32-36) g/dl RDW (11.5-14.0) % Plt Count (150-450) K/mm3 MPV (6-9.5) fl Gran % (36.0-66.0) % Eos # (Auto) (0-0.5) Absolute Lymphs (auto) (1.0-4.6) Absolute Monos (auto) (0.0-1.3) Lymphocytes % (24.0-44.0) % Monocytes % (0.0-12.0) % Eosinophils % (0.00-5.0) % Basophils % (0.0-0.4) % Absolute Granulocytes (1.4-6.9) Basophils # (0-0.4) PT (9.95-12.35) SECONDS INR (0.8-3.0) APTT (25.3-37.0) SECONDS pO2/FiO2 Ratio 21.0 % VBG pH 7.41 (7.32-7.42) VBG pCO2 at Pat Temp 42 (42-55) mm/Hg VBG pO2 at Pat Temp 17 L (25-40) mm/Hg VBG HCO3 26.6 (22-28) meq/L VBG O2 Sat (Kali) 34.4 L (95-100) VBG Base Excess 1.7 (-2.0-2.0) VBG Hemoglobin 15.0 VBG Carboxyhemoglobin 1.8 (0.0-6.9) % T HGB POC Potassium 4.0 (3.5-5.1) Sodium (137-145) mmol/L Potassium (3.5-5.1) mmol/L Chloride (98-107) mmol/L Carbon Dioxide (22-30) mmol/L Anion Gap (5-15) MEQ/L BUN (7-17) mg/dL Creatinine (0.52-1.04) mg/dL Estimated GFR ML/MIN Glucose (74-106) mg/dL Lactic Acid 1.7 (0.4-2.0) Calcium (8.4-10.2) mg/dL Total Bilirubin (0.2-1.3) mg/dL AST (14-36) U/L ALT (0-35) U/L Alkaline Phosphatase (38-126) U/L Troponin I < 0.012 (0.000-0.034) ng/mL Serum Total Protein (6.3-8.2) g/dL Albumin (3.5-5.0) g/dL Urine Color YELLOW (YELLOW) Urine Appearance CLEAR (CLEAR) Urine pH 7.0 (5-6) Ur Specific Wesley 1.017 (1.005-1.025) Urine Protein 30 (Negative) Urine Ketones SMALL (NEGATIVE) Urine Blood NEGATIVE (0-5) Shashank/ul Urine Nitrite NEGATIVE (NEGATIVE) Urine Bilirubin NEGATIVE (NEGATIVE) Urine Urobilinogen 2 (0-1) mg/dL Ur Leukocyte Esterase NEGATIVE (NEGATIVE) Urine WBC (Auto) 0-2 (0-5) /HPF Urine RBC (Auto) NONE (0-2) /HPF U Epithel Cells (Auto) RARE (FEW) /HPF Urine Bacteria (Auto) NONE SEEN (NEGATIVE) /HPF Urine Mucus (Auto) SLIGHT (NEGATIVE) /HPF Urine Culture Reflexed NO (NO) Urine Glucose NEGATIVE (NEGATIVE) mg/dL Influenza Type A Ag (NEGATIVE) Influenza Type B Ag (NEGATIVE) RSV (PCR) (Negative) Group A Strep Antibody (NEGATIVE) 07/05/18 07/05/18 07/05/18 Range/Units 10:03 10:03 10:03 WBC 3.1 L (4.0-10.5) K/mm3 RBC 5.48 H (4.1-5.4) M/mm3 Hgb 14.6 (12.0-16.0) gm/dl Hct 45.7 (35-47) % MCV 83.4 (78-100) fl MCH 26.6 (26-32) pg MCHC 31.9 L (32-36) g/dl RDW 14.0 (11.5-14.0) % Plt Count 266 (150-450) K/mm3 MPV 11.0 H (6-9.5) fl Gran % 76.6 H (36.0-66.0) % Eos # (Auto) 0 (0-0.5) Absolute Lymphs (auto) 0.29 L (1.0-4.6) Absolute Monos (auto) 0.43 (0.0-1.3) Lymphocytes % 9.3 L (24.0-44.0) % Monocytes % 13.8 H (0.0-12.0) % Eosinophils % 0.0 (0.00-5.0) % Basophils % 0.3 (0.0-0.4) % Absolute Granulocytes 2.39 (1.4-6.9) Basophils # 0.01 (0-0.4) PT 12.1 (9.95-12.35) SECONDS INR 1.04 (0.8-3.0) APTT 30.6 (25.3-37.0) SECONDS pO2/FiO2 Ratio % VBG pH (7.32-7.42) VBG pCO2 at Pat Temp (42-55) mm/Hg VBG pO2 at Pat Temp (25-40) mm/Hg VBG HCO3 (22-28) meq/L VBG O2 Sat (Kali) (95-100) VBG Base Excess (-2.0-2.0) VBG Hemoglobin VBG Carboxyhemoglobin (0.0-6.9) % T HGB POC Potassium (3.5-5.1) Sodium 136 L (137-145) mmol/L Potassium 4.3 (3.5-5.1) mmol/L Chloride 97 L (98-107) mmol/L Carbon Dioxide 26 (22-30) mmol/L Anion Gap 16.9 H (5-15) MEQ/L BUN 11 (7-17) mg/dL Creatinine 0.86 (0.52-1.04) mg/dL Estimated GFR > 60.0 ML/MIN Glucose 125 H (74-106) mg/dL Lactic Acid (0.4-2.0) Calcium 8.8 (8.4-10.2) mg/dL Total Bilirubin 0.60 (0.2-1.3) mg/dL AST 20 (14-36) U/L ALT 15 (0-35) U/L Alkaline Phosphatase 71 (38-126) U/L Troponin I (0.000-0.034) ng/mL Serum Total Protein 7.9 (6.3-8.2) g/dL Albumin 4.7 (3.5-5.0) g/dL Urine Color (YELLOW) Urine Appearance (CLEAR) Urine pH (5-6) Ur Specific Wesley (1.005-1.025) Urine Protein (Negative) Urine Ketones (NEGATIVE) Urine Blood (0-5) Shashank/ul Urine Nitrite (NEGATIVE) Urine Bilirubin (NEGATIVE) Urine Urobilinogen (0-1) mg/dL Ur Leukocyte Esterase (NEGATIVE) Urine WBC (Auto) (0-5) /HPF Urine RBC (Auto) (0-2) /HPF U Epithel Cells (Auto) (FEW) /HPF Urine Bacteria (Auto) (NEGATIVE) /HPF Urine Mucus (Auto) (NEGATIVE) /HPF Urine Culture Reflexed (NO) Urine Glucose (NEGATIVE) mg/dL Influenza Type A Ag (NEGATIVE) Influenza Type B Ag (NEGATIVE) RSV (PCR) (Negative) Group A Strep Antibody (NEGATIVE) 07/05/18 Range/Units 10:00 WBC (4.0-10.5) K/mm3 RBC (4.1-5.4) M/mm3 Hgb (12.0-16.0) gm/dl Hct (35-47) % MCV (78-100) fl MCH (26-32) pg MCHC (32-36) g/dl RDW (11.5-14.0) % Plt Count (150-450) K/mm3 MPV (6-9.5) fl Gran % (36.0-66.0) % Eos # (Auto) (0-0.5) Absolute Lymphs (auto) (1.0-4.6) Absolute Monos (auto) (0.0-1.3) Lymphocytes % (24.0-44.0) % Monocytes % (0.0-12.0) % Eosinophils % (0.00-5.0) % Basophils % (0.0-0.4) % Absolute Granulocytes (1.4-6.9) Basophils # (0-0.4) PT (9.95-12.35) SECONDS INR (0.8-3.0) APTT (25.3-37.0) SECONDS pO2/FiO2 Ratio % VBG pH (7.32-7.42) VBG pCO2 at Pat Temp (42-55) mm/Hg VBG pO2 at Pat Temp (25-40) mm/Hg VBG HCO3 (22-28) meq/L VBG O2 Sat (Kali) (95-100) VBG Base Excess (-2.0-2.0) VBG Hemoglobin VBG Carboxyhemoglobin (0.0-6.9) % T HGB POC Potassium (3.5-5.1) Sodium (137-145) mmol/L Potassium (3.5-5.1) mmol/L Chloride (98-107) mmol/L Carbon Dioxide (22-30) mmol/L Anion Gap (5-15) MEQ/L BUN (7-17) mg/dL Creatinine (0.52-1.04) mg/dL Estimated GFR ML/MIN Glucose (74-106) mg/dL Lactic Acid (0.4-2.0) Calcium (8.4-10.2) mg/dL Total Bilirubin (0.2-1.3) mg/dL AST (14-36) U/L ALT (0-35) U/L Alkaline Phosphatase (38-126) U/L Troponin I (0.000-0.034) ng/mL Serum Total Protein (6.3-8.2) g/dL Albumin (3.5-5.0) g/dL Urine Color (YELLOW) Urine Appearance (CLEAR) Urine pH (5-6) Ur Specific Wesley (1.005-1.025) Urine Protein (Negative) Urine Ketones (NEGATIVE) Urine Blood (0-5) Shashank/ul Urine Nitrite (NEGATIVE) Urine Bilirubin (NEGATIVE) Urine Urobilinogen (0-1) mg/dL Ur Leukocyte Esterase (NEGATIVE) Urine WBC (Auto) (0-5) /HPF Urine RBC (Auto) (0-2) /HPF U Epithel Cells (Auto) (FEW) /HPF Urine Bacteria (Auto) (NEGATIVE) /HPF Urine Mucus (Auto) (NEGATIVE) /HPF Urine Culture Reflexed (NO) Urine Glucose (NEGATIVE) mg/dL Influenza Type A Ag POSITIVE (NEGATIVE) Influenza Type B Ag NEGATIVE (NEGATIVE) RSV (PCR) NEGATIVE (Negative) Group A Strep Antibody NEGATIVE (NEGATIVE) - Progress Progress: improved, re-examined Progress Note: 07/05/18 10:36 PLACED ON SEPSIS PROTOCOL INITIALLY FOR FEVER, TACHYCARDIA, BOLUS NORMAL SALINE 2000ML OVER 2 HOURS, LACTIC ACID 1.6, AFTER 2 SETS OF BLOOD CULTURES ADMINISTERED LEVAQUIN 500MG IVPB 07/05/18 11:12, TORADOL 30MG IV Counseled pt/family regarding: drug and/or alcohol abuse, lab results, diagnosis , need for follow-up - Departure Time of Disposition: 11:45 Departure Disposition: Home Clinical Impression: INFLUENZA-A, Acute bronchitis Condition: Stable Critical Care Time: No Referrals: STU KEATING [Primary Care Provider] - Additional Instructions: ANTIBIOTIC LEVAQUIN 500MG DAILY FOR 7 DAYS. DRINK PLENTY OF FLUIDS. TYLENOL OR MOTRIN FOR FEVER AND GENERALIZED ACHES. FOLLOWUP WITH YOUR PRIMARY CARE PROVIDER IN 1 WEEK. Prescriptions: Levofloxacin [Levaquin] 500 mg PO DAILY #7 tablet
[2018-07-05] MEDS ORDERED: Levofloxacin 500MG/100ML D5W 500 MG/100 ML BAG IV ONE (10:41)
[2018-07-05 10:43] LABS: ALBUMIN 4.7 g/dL (3.5-5.0); ALKALINE PHOSPHATASE 71 U/L (38-126); ANION GAP 16.9 MEQ/L (5-15); BLOOD UREA NITROGEN 11 mg/dL (7-17); CHLORIDE 97 mmol/L (98-107); Calcium 8.8 mg/dL (8.4-10.2); Carbon Dioxide 26 mmol/L (22-30); Creatinine 1 0.86 mg/dL (0.52-1.04); Glucose 125 mg/dL (74-106); Potassium 4.3 mmol/L (3.5-5.1); SGOT/AST 20 U/L (14-36); SGPT/ALT 15 U/L (0-35); SODIUM 136 mmol/L (137-145); Total Protein 7.9 g/dL (6.3-8.2)
[2018-07-05 10:48] LABS: Group A Strep NEGATIVE (NEGATIVE)
[2018-07-05] MEDS ORDERED: TORAdol 30 mg Injection IV ONE (10:49)
[2018-07-05] MEDS ORDERED: TORAdol 30 mg Injection ONE (10:51)
[2018-07-05 11:00] LABS: INFLUENZA B NEGATIVE (NEGATIVE); RESPIRATORY SYNCTIAL VIRUS NEGATIVE (Negative)
[2018-07-05 11:00] LABS: INR 1.04 (0.8-3.0); PROTIME 12.1 SECONDS (9.95-12.35)
[2018-07-05 11:01] LABS: INFLUENZA A POSITIVE (NEGATIVE)
[2018-07-05 11:02] LABS: PTT 30.6 SECONDS (25.3-37.0)
[2018-07-05 11:05] LABS: Appearance CLEAR (CLEAR); Bilirubin NEGATIVE (NEGATIVE); Blood NEGATIVE Ery/ul (0-5); Epithelial Cells RARE /HPF (FEW); Glucose NEGATIVE (NEGATIVE); Ketones SMALL (NEGATIVE); Leukocyte Esterase NEGATIVE (NEGATIVE); Mucus SLIGHT /HPF (NEGATIVE); Nitrite NEGATIVE (NEGATIVE); Protein,Urine Dip 30 (Negative); Specific Gravity 1.017 (1.005-1.025); Urobilinogen 2 mg/dL (0-1); WBC 0-2 /HPF (0-5)
[2018-07-05 11:07] LABS: Bacteria NONE SEEN /HPF (NEGATIVE)
[2018-07-05 12:06] VITALS: BP 102/65; PULSE 100; O2SAT 98
== END 2018-07-05 12:17 | disposition home or self-care (01) ==
LOC: ED 09:07
DX: J10.1 Influenza due to other identified influenza virus with other respiratory manifestations (principal); J20.9 Acute bronchitis, unspecified; E10.9 Type 1 diabetes mellitus without complications; E03.9 Hypothyroidism, unspecified; F41.8 Other specified anxiety disorders
CPT/HCPCS: 36000; 36415; 71045; 80053; 81001; 82805; 83605; 84484; 85025; 85610; 85730; 87040; 87631; 87651; 93005; 93041; 96360; 96361; 96365; 96374; 96375; 99285; J1885; J1956; A9270-GY

== ENCOUNTER 2018-07-08 08:40 | Emergency (ER) | payer OTHER ==
[2018-07-08] MEDS ORDERED: Sodium Chloride 0.9% 1000 ML 1,000 ML IV STA ×2 (09:01→10:37)
[2018-07-08] MEDS ORDERED: Zofran 4 MG/2 ML VIAL IV ONE (09:01)
--- NOTE | 2018-07-08 09:07 | ERPHSYRPT ---
- History of Present Illness Time Seen by Provider: 07/08/18 09:03 Source: patient Exam Limitations: no limitations Physician History: 32-year-old white female with history of diabetes, hypothyroidism, anxiety, depression. Who was diagnosed with influenza A 3 days ago and placed on Rocephin. Arrives with complaint of general malaise and dizziness symptoms since today at work. Patient states she is having nauseousness. She states she had a fever several days ago none today. Past medical history includes diabetes type 1, hypothyroidism, anxiety, depression. Past surgical history includes , tubal ligation, tonsils, carpal tunnel. Timing/Duration: today Severity: moderate Modifying Factors: Improves With: other (patient diagnosed with influenza A 3 days ago on Cipro) Associated Symptoms: nausea, malaise, other (dizziness), No vomiting, No abdominal pain, No shortness of breath, No heartburn, No diaphoresis, No cough, No chills, No chest pain, No fever, No headaches, No loss of appetite, No rash, No syncope, No seizure, No weakness Allergies/Adverse Reactions: No Known Drug Allergies Allergy (Verified 03/12/18 06:06) Hx Tetanus, Diphtheria Vaccination/Date Given: Yes Hx Influenza Vaccination/Date Given: No Hx Pneumococcal Vaccination/Date Given: No - Review of Systems Constitutional: No Fever, No Chills Eyes: No Symptoms Ears, Nose, & Throat: No Symptoms Respiratory: No Cough, No Dyspnea Cardiac: No Chest Pain, No Edema, No Syncope Abdominal/Gastrointestinal: Nausea, No Abdominal Pain, No Vomiting, No Diarrhea , No Constipation, No Hematemesis, No Hematochezia, No Melena, No Dysphagia, No Appetite Changes Genitourinary Symptoms: No Dysuria Musculoskeletal: No Back Pain, No Neck Pain Skin: No Rash Neurological: Dizziness, No Focal Weakness, No Gait Changes, No Headache, No Irritability, No Lethargy, No Paralysis, No Parasthesia, No Seizure, No Sensory Changes, No Speech Changes, No Tics, No Tremors, No Vertigo Psychological: No Symptoms Endocrine: No Symptoms All Other Systems: Reviewed and Negative - Past Medical History Pertinent Past Medical History: Yes Neurological History: No Pertinent History ENT History: No Pertinent History Cardiac History: No Pertinent History Respiratory History: No Pertinent History Endocrine Medical History: Diabetes Type I, Hypothyroidism Musculoskeletal History: No Pertinent History GI Medical History: No Pertinent History History: No Pertinent History Psycho-Social History: Anxiety, Depression Female Reproductive Disorders: No Pertinent History Other Medical History: HAS BEEN TYPE 1 SINCE 11 MONTHS OLD. - Past Surgical History Past Surgical History: Yes Neuro Surgical History: No Pertinent History Cardiac: No Pertinent History Respiratory: No Pertinent History Gastrointestinal: No Pertinent History Genitourinary: No Pertinent History Musculoskeletal: Orthopedic Surgery Female Surgical History: Section, Tubal Ligation Other Surgical History: TONSILS. X 4. carpal tunnel surgery - Social History Smoking Status: Never smoker Exposure to second hand smoke: Yes Drug Use: none Patient Lives Alone: No - Nursing Vital Signs Nursing Vital Signs: Initial Vital Signs Temperature 97.0 F 07/08/18 08:54 Pulse Rate 93 H 07/08/18 08:54 Respiratory Rate 18 07/08/18 08:54 Blood Pressure 125/79 07/08/18 08:54 O2 Sat by Pulse Oximetry 100 07/08/18 08:54 Pain Scale Pain Intensity 4 - Physical Exam General Appearance: mild distress, alert Eye Exam: PERRL/EOMI, eyes nml inspection Ears, Nose, Throat Exam: normal ENT inspection, TMs normal, pharynx normal, moist mucous membranes Neck Exam: normal inspection, non-tender, supple, full range of motion Respiratory Exam: normal breath sounds, lungs clear, No respiratory distress Cardiovascular Exam: regular rate/rhythm, normal heart sounds, normal peripheral pulses, capillary refill <2 sec Gastrointestinal/Abdomen Exam: soft, normal bowel sounds, No tenderness, No mass Back Exam: normal inspection, normal range of motion, No CVA tenderness, No vertebral tenderness Extremity Exam: normal inspection, normal range of motion, pelvis stable Neurologic Exam: alert, oriented x 3, cooperative, 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, normal mood/affect, nml cerebellar function, nml station & gait, sensation nml, No motor deficits Skin Exam: normal color, warm, dry, No rash SpO2 Interpretation: normal (1 unit check10%) - Course Nursing assessment & vital signs reviewed: Yes EKG Interpreted by Me: RATE (84 bpm), Sinus Rhythm, NORMAL AXIS, Other (EKG: Sinus rhythm, 84 bpm, normal axis, no acute ST or T wave changes noted) Ordered Tests: Active Orders 24 hr Category Date Time Status EKG-ER Only STAT Care 07/08/18 09:01 Active IV Insertion STAT Care 07/08/18 09:01 Active Orthostatic Vital Signs STAT Care 07/08/18 09:01 Active CBC W DIFF Stat Lab 07/08/18 09:24 Completed CMP Stat Lab 07/08/18 09:24 Completed HCG QUALITATIVE,SERUM Stat Lab 07/08/18 09:24 Completed UA W/RFX UR CULTURE Stat Lab 07/08/18 09:24 Completed Medication Summary Generic Name Dose Route Start Last Admin Trade Name Freq PRN Reason Stop Dose Admin Sodium Chloride 1,000 mls @ 999 mls/hr 07/08/18 10:37 07/08/18 10:43 Sodium Chloride 0.9% 1000 Ml IV 07/08/18 11:37 999 mls/hr .Q1H1M STA Administration Discontinued Medications Generic Name Dose Route Start Last Admin Trade Name Luzmaria PRN Reason Stop Dose Admin Acetaminophen 650 mg 07/08/18 10:07 07/08/18 10:10 Tylenol 325 Mg PO 07/08/18 10:08 650 mg STAT ONE Administration Acetaminophen Confirm 07/08/18 10:09 Tylenol 325 Mg Administered 07/08/18 10:10 Dose 650 mg .ROUTE .STK-MED ONE Sodium Chloride 1,000 mls @ 999 mls/hr 07/08/18 09:01 07/08/18 09:35 Sodium Chloride 0.9% 1000 Ml IV 07/08/18 10:01 999 mls/hr .Q1H1M STA Administration Sodium Chloride Confirm 07/08/18 09:33 Sodium Chloride 0.9% 1000 Ml Administered 07/08/18 09:34 Dose 1,000 mls @ ud .ROUTE .STK-MED ONE Sodium Chloride Confirm 07/08/18 10:41 Sodium Chloride 0.9% 1000 Ml Administered 07/08/18 10:42 Dose 1,000 mls @ ud .ROUTE .STK-MED ONE Ondansetron HCl 4 mg 07/08/18 09:01 07/08/18 09:35 Zofran 4 Mg/2 Ml Vial IV 07/08/18 09:02 4 mg STAT ONE Administration Ondansetron HCl Confirm 07/08/18 09:33 Zofran 4 Mg/2 Ml Vial Administered 07/08/18 09:34 Dose 4 mg .ROUTE .STK-MED ONE Lab/Rad Data: Laboratory Result Diagrams 07/08/18 09:24 07/08/18 09:24 Laboratory Results 07/08/18 07/08/18 07/08/18 Range/Units 09:24 09:24 09:24 WBC (4.0-10.5) K/mm3 RBC (4.1-5.4) M/mm3 Hgb (12.0-16.0) gm/dl Hct (35-47) % MCV (78-100) fl MCH (26-32) pg MCHC (32-36) g/dl RDW (11.5-14.0) % Plt Count (150-450) K/mm3 MPV (6-9.5) fl Gran % (36.0-66.0) % Eos # (Auto) (0-0.5) Absolute Lymphs (auto) (1.0-4.6) Absolute Monos (auto) (0.0-1.3) Lymphocytes % (24.0-44.0) % Monocytes % (0.0-12.0) % Eosinophils % (0.00-5.0) % Basophils % (0.0-0.4) % Absolute Granulocytes (1.4-6.9) Basophils # (0-0.4) Sodium 136 L (137-145) mmol/L Potassium 4.5 (3.5-5.1) mmol/L Chloride 96 L (98-107) mmol/L Carbon Dioxide 27 (22-30) mmol/L Anion Gap 17.0 H (5-15) MEQ/L BUN 8 (7-17) mg/dL Creatinine 0.65 (0.52-1.04) mg/dL Estimated GFR > 60.0 ML/MIN Glucose 236 H (74-106) mg/dL Calcium 8.7 (8.4-10.2) mg/dL Total Bilirubin 0.40 (0.2-1.3) mg/dL AST 24 (14-36) U/L ALT 15 (0-35) U/L Alkaline Phosphatase 76 (38-126) U/L Serum Total Protein 7.4 (6.3-8.2) g/dL Albumin 4.3 (3.5-5.0) g/dL Serum , Qual NEGATIVE (Negative) Urine Color RED (YELLOW) Urine Appearance CLOUDY (CLEAR) Urine pH 6.0 (5-6) Ur Specific [place] 1.014 (1.005-1.025) Urine Protein 100 (Negative) Urine Ketones TRACE (NEGATIVE) Urine Blood LARGE (0-5) Shashank/ul Urine Nitrite NEGATIVE (NEGATIVE) Urine Bilirubin NEGATIVE (NEGATIVE) Urine Urobilinogen NEGATIVE (0-1) mg/dL Ur Leukocyte Esterase NEGATIVE (NEGATIVE) Urine WBC (Auto) 0-2 (0-5) /HPF Urine RBC (Auto) >101 (0-2) /HPF U Epithel Cells (Auto) RARE (FEW) /HPF Urine Bacteria (Auto) FEW (NEGATIVE) /HPF Unidentified Crystals 25-50 (NEGATIVE) /HPF Urine Culture Reflexed NO (NO) Urine Glucose >=500 (NEGATIVE) mg/dL 07/08/18 Range/Units 09:24 WBC 4.4 (4.0-10.5) K/mm3 RBC 5.20 (4.1-5.4) M/mm3 Hgb 13.8 (12.0-16.0) gm/dl Hct 43.4 (35-47) % MCV 83.5 (78-100) fl MCH 26.5 (26-32) pg MCHC 31.8 L (32-36) g/dl RDW 13.8 (11.5-14.0) % Plt Count 226 (150-450) K/mm3 MPV 11.0 H (6-9.5) fl Gran % 72.2 H (36.0-66.0) % Eos # (Auto) 0 (0-0.5) Absolute Lymphs (auto) 0.85 L (1.0-4.6) Absolute Monos (auto) 0.37 (0.0-1.3) Lymphocytes % 19.2 L (24.0-44.0) % Monocytes % 8.4 (0.0-12.0) % Eosinophils % 0.0 (0.00-5.0) % Basophils % 0.2 (0.0-0.4) % Absolute Granulocytes 3.19 (1.4-6.9) Basophils # 0.01 (0-0.4) Sodium (137-145) mmol/L Potassium (3.5-5.1) mmol/L Chloride (98-107) mmol/L Carbon Dioxide (22-30) mmol/L Anion Gap (5-15) MEQ/L BUN (7-17) mg/dL Creatinine (0.52-1.04) mg/dL Estimated GFR ML/MIN Glucose (74-106) mg/dL Calcium (8.4-10.2) mg/dL Total Bilirubin (0.2-1.3) mg/dL AST (14-36) U/L ALT (0-35) U/L Alkaline Phosphatase (38-126) U/L Serum Total Protein (6.3-8.2) g/dL Albumin (3.5-5.0) g/dL Serum , Qual (Negative) Urine Color (YELLOW) Urine Appearance (CLEAR) Urine pH (5-6) Ur Specific [place] (1.005-1.025) Urine Protein (Negative) Urine Ketones (NEGATIVE) Urine Blood (0-5) Shashank/ul Urine Nitrite (NEGATIVE) Urine Bilirubin (NEGATIVE) Urine Urobilinogen (0-1) mg/dL Ur Leukocyte Esterase (NEGATIVE) Urine WBC (Auto) (0-5) /HPF Urine RBC (Auto) (0-2) /HPF U Epithel Cells (Auto) (FEW) /HPF Urine Bacteria (Auto) (NEGATIVE) /HPF Unidentified Crystals (NEGATIVE) /HPF Urine Culture Reflexed (NO) Urine Glucose (NEGATIVE) mg/dL - Progress Progress: improved Progress Note: 07/08/18 11:33 Patient feeling better after 2 L of normal saline still some dizziness. Will discharge. Patient to return home plenty of fluids Cipro as prescribed 3 days ago. Follow-up with her family doctor. - Departure Time of Disposition: 11:34 Departure Disposition: Home Clinical Impression: Dizziness, Orthostatic hypotension, Influenza A Condition: Fair Critical Care Time: No Referrals: STU KEATING [Primary Care Provider] - Additional Instructions: Return home. Plenty of fluids. Tylenol every 4 hours as needed for pain. Finished Cipro as prescribed. Follow-up with your family doctor symptoms are worse, no better in 48 hours, or persist longer than 72 hours. Return for acute distress or for severe symptoms.
[2018-07-08] MEDS ORDERED: Zofran 4 MG/2 ML VIAL ONE (09:33)
[2018-07-08] MEDS ORDERED: Sodium Chloride 0.9% 1000 ML 1,000 ML ONE ×2 (09:33→10:41)
[2018-07-08 09:41] LABS: BASOPHIL % 0.2 % (0.0-0.4); Basophil (Absolute #) 0.01 (0-0.4); Eosinophil (Absolute #) 0 (0-0.5); Granulocyte Absolute (ANC) 3.19 (1.4-6.9); Granulocytes % 72.2 % (36.0-66.0); Hematocrit 43.4 % (35-47); Hemoglobin 13.8 gm/dl (12.0-16.0); Lymphocyte (Absolute #) 0.85 (1.0-4.6); Lymphocytes % 19.2 % (24.0-44.0); Mean Cell Volume 83.5 fl (78-100); Mean Corpuscular Hemoglobin 26.5 pg (26-32); Mean Corpuscular Hgb Concent. 31.8 g/dl (32-36); Monocyte (Absolute #) 0.37 (0.0-1.3); Monocytes % 8.4 % (0.0-12.0); Platelet Count 226 K/mm3 (150-450); Red Cell Distribution Width 13.8 % (11.5-14.0); White Blood Count 4.4 K/mm3 (4.0-10.5)
[2018-07-08 09:52] LABS: ALBUMIN 4.3 g/dL (3.5-5.0); ALKALINE PHOSPHATASE 76 U/L (38-126); BLOOD UREA NITROGEN 8 mg/dL (7-17); CHLORIDE 96 mmol/L (98-107); Calcium 8.7 mg/dL (8.4-10.2); Carbon Dioxide 27 mmol/L (22-30); Creatinine 1 0.65 mg/dL (0.52-1.04); Glucose 236 mg/dL (74-106); Potassium 4.5 mmol/L (3.5-5.1); SGOT/AST 24 U/L (14-36); SGPT/ALT 15 U/L (0-35); SODIUM 136 mmol/L (137-145); Total Protein 7.4 g/dL (6.3-8.2)
[2018-07-08 09:53] LABS: Bilirubin NEGATIVE (NEGATIVE); Crystals Unidentified 25-50 /HPF (NEGATIVE); Glucose >=500 mg/dL (NEGATIVE); Ketones TRACE (NEGATIVE); Nitrite NEGATIVE (NEGATIVE); Protein,Urine Dip 100 (Negative); Specific Gravity 1.014 (1.005-1.025); Urobilinogen NEGATIVE mg/dL (0-1); WBC 0-2 /HPF (0-5)
[2018-07-08 09:54] LABS: Appearance CLOUDY (CLEAR)
[2018-07-08 09:55] LABS: Bacteria FEW /HPF (NEGATIVE); Blood LARGE Ery/ul (0-5); Epithelial Cells RARE /HPF (FEW); Leukocyte Esterase NEGATIVE (NEGATIVE); RBC >101 /HPF (0-2)
[2018-07-08] MEDS ORDERED: TYLENOL 325 MG PO ONE (10:07)
[2018-07-08] MEDS ORDERED: TYLENOL 325 MG ONE (10:09)
[2018-07-08 11:55] VITALS: BP 128/74; PULSE 78; O2SAT 97
== END 2018-07-08 11:54 | disposition home or self-care (01) ==
LOC: ED 08:40
DX: R42 Dizziness and giddiness (principal); I95.1 Orthostatic hypotension; J10.1 Influenza due to other identified influenza virus with other respiratory manifestations; E10.9 Type 1 diabetes mellitus without complications; E03.9 Hypothyroidism, unspecified; F41.8 Other specified anxiety disorders; R53.81 Other malaise
CPT/HCPCS: 36000; 36415; 80053; 81001; 81025; 85025; 93005; 96360; 96361; 96374; 99284; J2405; A9270-GY

== ENCOUNTER 2018-11-14 15:06 | Emergency (ER) | payer OTHER ==
[2018-11-14] MEDS ORDERED: Zofran 4 MG/2 ML VIAL IV ONE ×2 (15:17→18:04)
[2018-11-14] MEDS ORDERED: Sodium Chloride 0.9% 1000 ML 1,000 ML IV STA ×2 (15:17→15:18)
--- NOTE | 2018-11-14 15:22 | ERPHSYRPT ---
- History of Present Illness Time Seen by Provider: 11/14/18 15:19 Source: patient Exam Limitations: no limitations Physician History: 33-year-old white female arrives with complaint of nausea vomiting dizziness symptoms since 9:00 last night when she took 75 mg of Topamax. Past medical history includes diabetes type 1, hypothyroidism, anxiety, depression. Past surgical history includes , tubal ligation, tonsillectomy, C- section x4. , Carpal tunnel Timing/Duration: yesterday Severity: moderate Modifying Factors: Improves With: medication (patient took Topamax for the first time last night) Associated Symptoms: nausea, vomiting, other (dizziness), No abdominal pain, No shortness of breath, No heartburn, No diaphoresis, No cough, No chills, No chest pain, No fever, No headaches, No loss of appetite, No malaise, No rash, No syncope, No seizure, No weakness Allergies/Adverse Reactions: No Known Drug Allergies Allergy (Verified 03/12/18 06:06) Hx Tetanus, Diphtheria Vaccination/Date Given: Yes Hx Influenza Vaccination/Date Given: No Hx Pneumococcal Vaccination/Date Given: No - Review of Systems Constitutional: No Fever, No Chills Eyes: No Symptoms Ears, Nose, & Throat: No Symptoms Respiratory: No Cough, No Dyspnea Cardiac: No Chest Pain, No Edema, No Syncope Abdominal/Gastrointestinal: Nausea, Vomiting, No Abdominal Pain, No Diarrhea, No Constipation, No Hematemesis, No Hematochezia, No Melena, No Dysphagia, No Appetite Changes Genitourinary Symptoms: No Dysuria Musculoskeletal: No Back Pain, No Neck Pain Skin: No Rash Neurological: Dizziness, No Focal Weakness, No Gait Changes, No Headache, No Irritability, No Lethargy, No Paralysis, No Parasthesia, No Seizure, No Sensory Changes, No Speech Changes, No Tics, No Tremors, No Vertigo Psychological: No Symptoms Endocrine: No Symptoms All Other Systems: Reviewed and Negative - Past Medical History Pertinent Past Medical History: Yes Neurological History: No Pertinent History ENT History: No Pertinent History Cardiac History: No Pertinent History Respiratory History: No Pertinent History Endocrine Medical History: Diabetes Type I, Hypothyroidism Musculoskeletal History: No Pertinent History GI Medical History: No Pertinent History History: No Pertinent History Psycho-Social History: Anxiety, Depression Female Reproductive Disorders: No Pertinent History Other Medical History: HAS BEEN TYPE 1 SINCE 11 MONTHS OLD. - Past Surgical History Past Surgical History: Yes Neuro Surgical History: No Pertinent History Cardiac: No Pertinent History Respiratory: No Pertinent History Gastrointestinal: No Pertinent History Genitourinary: No Pertinent History Musculoskeletal: Orthopedic Surgery Female Surgical History: Section, Tubal Ligation Other Surgical History: TONSILS. X 4. carpal tunnel surgery - Social History Smoking Status: Never smoker Exposure to second hand smoke: Yes Drug Use: none Patient Lives Alone: No - Nursing Vital Signs Nursing Vital Signs: Initial Vital Signs Temperature 97.5 F 11/14/18 15:15 Pulse Rate 107 H 11/14/18 15:15 Respiratory Rate 20 11/14/18 15:15 Blood Pressure 131/91 11/14/18 15:15 O2 Sat by Pulse Oximetry 100 11/14/18 15:15 Pain Scale Pain Intensity 0 - Physical Exam General Appearance: mild distress, alert Eye Exam: PERRL/EOMI, eyes nml inspection Ears, Nose, Throat Exam: normal ENT inspection, TMs normal, pharynx normal, moist mucous membranes Neck Exam: normal inspection, non-tender, supple, full range of motion Respiratory Exam: normal breath sounds, lungs clear, No respiratory distress Cardiovascular Exam: regular rate/rhythm, normal heart sounds, normal peripheral pulses, capillary refill <2 sec Gastrointestinal/Abdomen Exam: soft, normal bowel sounds, No tenderness, No mass Back Exam: normal inspection, normal range of motion, No CVA tenderness, No vertebral tenderness Extremity Exam: normal inspection, normal range of motion, pelvis stable Neurologic Exam: alert, oriented x 3, cooperative, 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, normal mood/affect, nml cerebellar function, nml station & gait, sensation nml, No motor deficits Skin Exam: normal color, warm, dry, No rash Lymphatic Exam: No adenopathy SpO2 Interpretation: normal (100%) - Course Nursing assessment & vital signs reviewed: Yes EKG Interpreted by Me: RATE (bpm), Sinus Rhythm, NORMAL AXIS, Other (EKG: Sinus rhythm, 86 beats per minute, normal axis, no acute ST or T wave changes, normal EKG) Ordered Tests: Active Orders 24 hr Category Date Time Status EKG-ER Only STAT Care 11/14/18 15:17 Active IV Insertion STAT Care 11/14/18 15:17 Active AMYLASE Stat Lab 11/14/18 15:45 Completed CBC W DIFF Stat Lab 11/14/18 15:45 Completed CMP Stat Lab 11/14/18 15:45 Completed HCG QUALITATIVE,SERUM Stat Lab 11/14/18 15:45 Completed LIPASE Stat Lab 11/14/18 15:45 Completed UA W/RFX UR CULTURE Stat Lab 11/14/18 17:30 Completed VENOUS BLOOD GAS Urgent Lab 11/14/18 15:40 Completed Medication Summary Discontinued Medications Generic Name Dose Route Start Last Admin Trade Name Luzmaria PRN Reason Stop Dose Admin Acetaminophen 650 mg 11/14/18 16:21 11/14/18 16:30 Tylenol 325 Mg PO 11/14/18 16:22 650 mg STAT ONE Administration Acetaminophen Confirm 11/14/18 16:30 Tylenol 325 Mg Administered 11/14/18 16:31 Dose 650 mg .ROUTE .STK-MED ONE Sodium Chloride 1,000 mls @ 999 mls/hr 11/14/18 15:17 11/14/18 15:49 Sodium Chloride 0.9% 1000 Ml IV 11/14/18 16:17 999 mls/hr .Q1H1M STA Administration Sodium Chloride 1,000 mls @ 999 mls/hr 11/14/18 15:18 11/14/18 16:44 Sodium Chloride 0.9% 1000 Ml IV 11/14/18 16:18 999 mls/hr .Q1H1M STA Administration Sodium Chloride Confirm 11/14/18 15:39 Sodium Chloride 0.9% 1000 Ml Administered 11/14/18 15:40 Dose 2,000 mls @ ud .ROUTE .STK-MED ONE Ondansetron HCl 4 mg 11/14/18 15:17 11/14/18 15:49 Zofran 4 Mg/2 Ml Vial IV 11/14/18 15:18 4 mg STAT ONE Administration Ondansetron HCl Confirm 11/14/18 15:39 Zofran 4 Mg/2 Ml Vial Administered 11/14/18 15:40 Dose 4 mg .ROUTE .STK-MED ONE Ondansetron HCl 4 mg 11/14/18 18:04 11/14/18 18:07 Zofran 4 Mg/2 Ml Vial IV 11/14/18 18:05 4 mg STAT ONE Administration Ondansetron HCl Confirm 11/14/18 18:06 Zofran 4 Mg/2 Ml Vial Administered 11/14/18 18:07 Dose 4 mg .ROUTE .STK-MED ONE Lab/Rad Data: Laboratory Result Diagrams 11/14/18 15:45 11/14/18 15:45 Laboratory Results 11/14/18 11/14/18 11/14/18 Range/Units 17:30 15:45 15:45 WBC (4.0-10.5) K/mm3 RBC (4.1-5.4) M/mm3 Hgb (12.0-16.0) gm/dl Hct (35-47) % MCV (78-100) fl MCH (26-32) pg MCHC (32-36) g/dl RDW (11.5-14.0) % Plt Count (150-450) K/mm3 MPV (6-9.5) fl Gran % (36.0-66.0) % Eos # (Auto) (0-0.5) Absolute Lymphs (auto) (1.0-4.6) Absolute Monos (auto) (0.0-1.3) Lymphocytes % (24.0-44.0) % Monocytes % (0.0-12.0) % Eosinophils % (0.00-5.0) % Basophils % (0.0-0.4) % Absolute Granulocytes (1.4-6.9) Basophils # (0-0.4) pO2/FiO2 Ratio % VBG pH (7.32-7.42) VBG pCO2 at Pat Temp (42-55) mm/Hg VBG pO2 at Pat Temp (25-40) mm/Hg VBG HCO3 (22-28) meq/L VBG O2 Sat (Kali) (95-100) VBG Base Excess (-2.0-2.0) VBG Hemoglobin VBG Carboxyhemoglobin (0.0-6.9) % T HGB POC Potassium (3.5-5.1) Sodium 136 L (137-145) mmol/L Potassium 4.1 (3.5-5.1) mmol/L Chloride 100 (98-107) mmol/L Carbon Dioxide 21 L (22-30) mmol/L Anion Gap 19.9 H (5-15) MEQ/L BUN 14 (7-17) mg/dL Creatinine 0.94 (0.52-1.04) mg/dL Estimated GFR > 60.0 ML/MIN Glucose 117 H (74-106) mg/dL Calcium 9.8 (8.4-10.2) mg/dL Total Bilirubin 1.00 (0.2-1.3) mg/dL AST 26 (14-36) U/L ALT 17 (0-35) U/L Alkaline Phosphatase 89 (38-126) U/L Serum Total Protein 8.5 H (6.3-8.2) g/dL Albumin 4.9 (3.5-5.0) g/dL Amylase 70 (30-110) U/L Lipase 56 (23-300) U/L Serum , Qual NEGATIVE (Negative) Urine Color YELLOW (YELLOW) Urine Appearance CLEAR (CLEAR) Urine pH 8.0 (5-6) Ur Specific [place] 1.013 (1.005-1.025) Urine Protein NEGATIVE (Negative) Urine Ketones SMALL (NEGATIVE) Urine Blood MODERATE (0-5) Shashank/ul Urine Nitrite NEGATIVE (NEGATIVE) Urine Bilirubin NEGATIVE (NEGATIVE) Urine Urobilinogen NEGATIVE (0-1) mg/dL Ur Leukocyte Esterase NEGATIVE (NEGATIVE) Urine WBC (Auto) NONE (0-5) /HPF Urine RBC (Auto) NONE (0-2) /HPF U Epithel Cells (Auto) RARE (FEW) /HPF Urine Bacteria (Auto) NONE (NEGATIVE) /HPF Urine Culture Reflexed NO (NO) Urine Glucose NEGATIVE (NEGATIVE) mg/dL 11/14/18 11/14/18 Range/Units 15:45 15:40 WBC 7.5 (4.0-10.5) K/mm3 RBC 6.30 H* (4.1-5.4) M/mm3 Hgb 16.3 H (12.0-16.0) gm/dl Hct 48.3 H (35-47) % MCV 76.7 L (78-100) fl MCH 25.8 L (26-32) pg MCHC 33.7 (32-36) g/dl RDW 15.5 H (11.5-14.0) % Plt Count 351 (150-450) K/mm3 MPV 11.5 H (6-9.5) fl Gran % 63.0 (36.0-66.0) % Eos # (Auto) 0.01 (0-0.5) Absolute Lymphs (auto) 2.18 (1.0-4.6) Absolute Monos (auto) 0.55 (0.0-1.3) Lymphocytes % 29.2 (24.0-44.0) % Monocytes % 7.4 (0.0-12.0) % Eosinophils % 0.1 (0.00-5.0) % Basophils % 0.3 (0.0-0.4) % Absolute Granulocytes 4.70 (1.4-6.9) Basophils # 0.02 (0-0.4) pO2/FiO2 Ratio 21.0 % VBG pH 7.41 (7.32-7.42) VBG pCO2 at Pat Temp 34 L (42-55) mm/Hg VBG pO2 at Pat Temp 23 L (25-40) mm/Hg VBG HCO3 21.6 L (22-28) meq/L VBG O2 Sat (Kali) 43.6 L (95-100) VBG Base Excess -2.2 L (-2.0-2.0) VBG Hemoglobin 16.4 VBG Carboxyhemoglobin 1.1 (0.0-6.9) % T HGB POC Potassium 4.1 (3.5-5.1) Sodium (137-145) mmol/L Potassium (3.5-5.1) mmol/L Chloride (98-107) mmol/L Carbon Dioxide (22-30) mmol/L Anion Gap (5-15) MEQ/L BUN (7-17) mg/dL Creatinine (0.52-1.04) mg/dL Estimated GFR ML/MIN Glucose (74-106) mg/dL Calcium (8.4-10.2) mg/dL Total Bilirubin (0.2-1.3) mg/dL AST (14-36) U/L ALT (0-35) U/L Alkaline Phosphatase (38-126) U/L Serum Total Protein (6.3-8.2) g/dL Albumin (3.5-5.0) g/dL Amylase (30-110) U/L Lipase (23-300) U/L Serum , Qual (Negative) Urine Color (YELLOW) Urine Appearance (CLEAR) Urine pH (5-6) Ur Specific [place] (1.005-1.025) Urine Protein (Negative) Urine Ketones (NEGATIVE) Urine Blood (0-5) Shashank/ul Urine Nitrite (NEGATIVE) Urine Bilirubin (NEGATIVE) Urine Urobilinogen (0-1) mg/dL Ur Leukocyte Esterase (NEGATIVE) Urine WBC (Auto) (0-5) /HPF Urine RBC (Auto) (0-2) /HPF U Epithel Cells (Auto) (FEW) /HPF Urine Bacteria (Auto) (NEGATIVE) /HPF Urine Culture Reflexed (NO) Urine Glucose (NEGATIVE) mg/dL - Progress Progress: improved Progress Note: 11/14/18 18:04 33-year-old white female arrives with complaint of nausea dizziness vomiting symptoms since taking Topamax last night. Patient's labs show increased hemoglobin hematocrit of 16.3 and 40.3 white count 7.5 platelets was 351 venous gases pH 7.41 PCO2 34 hCG is negative urinalysis is essentially normal chemistry essentially normal Patient EKG sinus rhythm 86 beats per minute normal axis no acute ST or T wave changes normal EKG. Patient is stable she sits still she has some nausea. Will give patient a second dose of Zofran she has received 2 L of normal saline. Patient is asking for a work slip we'll give her off today and tomorrow. 11/14/18 18:12 The patient's fianc had expressed concern about the patient going home he felt that she was not acting himself patient is alert oriented x3 she has a normal neurologic exam. Labs are as documented. I have offered to keep the patient here in the emergency room for several more hours if they're concerned however the patient states she wants to go home. Will go ahead and release patient. - Departure Departure Disposition: Home Clinical Impression: Dizziness, Dehydration, Nausea, Medication side effect Vomiting Qualifiers: Vomiting type: unspecified Vomiting Intractability: non-intractable Nausea presence: with nausea Qualified Code(s): R11.2 - Nausea with vomiting, unspecified Condition: Fair Critical Care Time: No Referrals: STU KEATING [Primary Care Provider] - Additional Instructions: Return home. Plenty of fluids. Clear fluids only 24-48 hours if nausea and vomiting. Zofran as prescribed. Contact your family doctor to discuss Topamax before taking further doses. Return for acute distress or for severe symptoms. Prescriptions: Ondansetron ODT 4 MG [Zofran Odt 4 mg] 4 mg PO Q6H PRN PRN #10 tab.rapdis PRN Reason: nausea and vomiting
[2018-11-14] MEDS ORDERED: Zofran 4 MG/2 ML VIAL ONE ×2 (15:39→18:06)
[2018-11-14] MEDS ORDERED: Sodium Chloride 0.9% 1000 ML 2,000 ML ONE (15:39)
[2018-11-14 15:43] LABS: VBG BASE EXCESS -2.2 (-2.0-2.0); VBG CARBOXYHEMOGLOBIN 1.1 % T HGB (0.0-6.9); VBG HCO3- 21.6 meq/L (22-28); VBG HEMOGLOBIN 16.4; VBG O2 SATURATION 43.6 (95-100); VBG POTASSIUM 4.1 (3.5-5.1); VBG pH 7.41 (7.32-7.42)
[2018-11-14 16:00] LABS: BASOPHIL % 0.3 % (0.0-0.4); Basophil (Absolute #) 0.02 (0-0.4); Eosinophil % 0.1 % (0.00-5.0); Eosinophil (Absolute #) 0.01 (0-0.5); Hematocrit 48.3 % (35-47); Hemoglobin 16.3 gm/dl (12.0-16.0); Lymphocyte (Absolute #) 2.18 (1.0-4.6); Lymphocytes % 29.2 % (24.0-44.0); Mean Cell Volume 76.7 fl (78-100); Mean Corpuscular Hgb Concent. 33.7 g/dl (32-36); Mean Platelet Volume 11.5 fl (6-9.5); Monocyte (Absolute #) 0.55 (0.0-1.3); Monocytes % 7.4 % (0.0-12.0); Platelet Count 351 K/mm3 (150-450); Red Cell Distribution Width 15.5 % (11.5-14.0); White Blood Count 7.5 K/mm3 (4.0-10.5)
[2018-11-14 16:02] LABS: Mean Corpuscular Hemoglobin 25.8 pg (26-32)
[2018-11-14 16:11] LABS: ALBUMIN 4.9 g/dL (3.5-5.0); ALKALINE PHOSPHATASE 89 U/L (38-126); AMYLASE 70 U/L (30-110); ANION GAP 19.9 MEQ/L (5-15); BLOOD UREA NITROGEN 14 mg/dL (7-17); CHLORIDE 100 mmol/L (98-107); Calcium 9.8 mg/dL (8.4-10.2); Carbon Dioxide 21 mmol/L (22-30); Creatinine 1 0.94 mg/dL (0.52-1.04); Glucose 117 mg/dL (74-106); LIPASE 56 U/L (23-300); Potassium 4.1 mmol/L (3.5-5.1); SGOT/AST 26 U/L (14-36); SGPT/ALT 17 U/L (0-35); SODIUM 136 mmol/L (137-145); Total Protein 8.5 g/dL (6.3-8.2)
[2018-11-14] MEDS ORDERED: TYLENOL 325 MG PO ONE (16:21)
[2018-11-14] MEDS ORDERED: TYLENOL 325 MG ONE (16:30)
[2018-11-14 17:59] LABS: Appearance CLEAR (CLEAR); Bilirubin NEGATIVE (NEGATIVE); Blood MODERATE Ery/ul (0-5); Epithelial Cells RARE /HPF (FEW); Glucose NEGATIVE (NEGATIVE); Ketones SMALL (NEGATIVE); Leukocyte Esterase NEGATIVE (NEGATIVE); Nitrite NEGATIVE (NEGATIVE); Protein,Urine Dip NEGATIVE (Negative); Specific Gravity 1.013 (1.005-1.025); Urobilinogen NEGATIVE mg/dL (0-1)
[2018-11-14 18:24] VITALS: BP 128/82; PULSE 82; O2SAT 100
== END 2018-11-14 18:25 | disposition home or self-care (01) ==
LOC: ED 15:06
DX: R42 Dizziness and giddiness (principal); E86.0 Dehydration; R11.2 Nausea with vomiting, unspecified; T42.6X5A Adverse effect of other antiepileptic and sedative-hypnotic drugs, initial encounter; E10.9 Type 1 diabetes mellitus without complications; E03.9 Hypothyroidism, unspecified; Z79.899 Other long term (current) drug therapy
CPT/HCPCS: 36000; 36415; 80053; 81001; 81025; 82150; 82805; 83690; 85025; 93005; 96360; 96361; 96374; 96375; 96376; 99284; J2405; A9270-GY

== ENCOUNTER 2019-01-27 22:39 | Emergency (ER) | payer OTHER ==
--- NOTE | 2019-01-27 23:39 | ERPHSYRPT ---
- History of Present Illness Time Seen by Provider: 01/27/19 23:00 Source: patient Exam Limitations: no limitations Patient Subjective Stated Complaint: suicidal ideation Triage Nursing Assessment: Patient brought into ED via EMS and transferred to bed per self. Patient A+O X 3. Patient complains of suicidal ideation. Patient states she took a loaded gun and locked herself into her bedroom but boyfriend broke into bedroom and took gun away. Patient stated lately she has been having daily suicidal thoughts. Patient states she also had goodbye letters written to her children. Patient denies pain or discomfort. Patient occasionally tearful. Physician History: 33 y/o white female presents with suicidal ideation. pt brought into ED by ems. pt wants to and has repeatedly said so in the ED. she has had these thoughts for several years. she states she has finally had enough so she took a loaded gun and was going to shoot herself in a locked bathroom but her sig other broke down door then called ems. no 911 call. pt has h/o diabetes and depression. pt has a headache but denies cp, denies soa and denies abd pain. Timing/Duration: today, worse Severity of Symptoms-Max: moderate Severity of Symptoms-Current: moderate Context related to: living circumstances Suicidal thoughts: gesture, specific plan Associated Symptoms: depressed, frustrated, impaired concentration, suicidal ideation Previous symptoms: same symptoms as today Allergies/Adverse Reactions: No Known Drug Allergies Allergy (Verified 01/27/19 23:19) Hx Tetanus, Diphtheria Vaccination/Date Given: Yes Hx Influenza Vaccination/Date Given: No Hx Pneumococcal Vaccination/Date Given: No Immunizations Up to Date: Yes - Past Medical History Pertinent Past Medical History: Yes Neurological History: No Pertinent History ENT History: No Pertinent History Cardiac History: No Pertinent History Respiratory History: No Pertinent History Endocrine Medical History: Diabetes Type I, Hypothyroidism Musculoskeletal History: No Pertinent History GI Medical History: No Pertinent History History: No Pertinent History Psycho-Social History: Anxiety, Depression Female Reproductive Disorders: No Pertinent History Other Medical History: HAS BEEN TYPE 1 SINCE 11 MONTHS OLD. - Past Surgical History Past Surgical History: Yes Neuro Surgical History: No Pertinent History Cardiac: No Pertinent History Respiratory: No Pertinent History Gastrointestinal: No Pertinent History Genitourinary: No Pertinent History Musculoskeletal: Orthopedic Surgery Female Surgical History: Section, Tubal Ligation Other Surgical History: TONSILS. X 4. carpal tunnel surgery - Social History Smoking Status: Never smoker Exposure to second hand smoke: No Drug Use: marijuana Patient Lives Alone: No - Female History Hx Last Menstrual Period: end of last month Hx Now: No - Review of Systems Constitutional: No Symptoms Eyes: No Symptoms Ears, Nose, & Throat: No Symptoms Respiratory: No Symptoms Cardiac: No Symptoms Abdominal/Gastrointestinal: No Symptoms Genitourinary Symptoms: No Symptoms Musculoskeletal: No Symptoms Skin: No Symptoms Neurological: No Symptoms Psychological: Depression, Suicidal Ideations Endocrine: No Symptoms Hematologic/Lymphatic: No Symptoms Immunological/Allergic: No Symptoms All Other Systems: Reviewed and Negative - Nursing Vital Signs Nursing Vital Signs: Initial Vital Signs Temperature 98.1 F 01/27/19 22:55 Pulse Rate 99 H 01/27/19 22:55 Respiratory Rate 18 01/27/19 22:55 Blood Pressure 109/79 01/27/19 22:55 O2 Sat by Pulse Oximetry 99 01/27/19 22:55 Pain Scale Pain Intensity 0 - Physical Exam General Appearance: mild distress, alert, anxiety Eyes, Ears, Nose, Throat Exam: normal ENT inspection, moist mucous membranes Neck Exam: normal inspection, non-tender, supple, full range of motion Respiratory Exam: normal breath sounds, lungs clear, airway intact, No chest tenderness, No respiratory distress Cardiovascular Exam: regular rate/rhythm, normal heart sounds, normal peripheral pulses Gastrointestinal/Abdominal Exam: soft, normal bowel sounds, No tenderness Extremities Exam: normal inspection, normal range of motion, No evidence of injury Current Suicidality: has suicide plan Neurological Exam: alert, calm, 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, anxious, depressed affect Appearance: appropriate appearance, appropriate insight Behavior/Eye Contact/Speech: alert & cooperative, cooperative, avoids eye contact Thoughts/Hallucinations: normal thought pattern, no apparent hallucination Skin Exam: normal color, warm, dry SpO2 Interpretation: normal SpO2: 99 O2 Delivery: Room Air Ordered Tests: Active Orders 24 hr Category Date Time Status ACCUCHECK [Accucheck] STAT Care 01/27/19 22:55 Active EKG-ER Only STAT Care 01/27/19 23:22 Active ACETAMINOPHEN Stat Lab 01/27/19 23:40 Completed CBC W DIFF Stat Lab 01/27/19 23:40 Completed CMP Stat Lab 01/27/19 23:40 Completed ETHYL ALCOHOL Stat Lab 01/27/19 23:40 Completed HCG,QUALITATIVE URINE Stat Lab 01/27/19 23:30 Completed SALICYLATE Stat Lab 01/27/19 23:40 Completed TROPONIN Q3H Lab 01/28/19 00:10 Completed TROPONIN Q3H Lab 01/28/19 05:00 Ordered TROPONIN Q3H Lab 01/28/19 08:00 Ordered TROPONIN Q3H Lab 01/28/19 11:00 Ordered TROPONIN Q3H Lab 01/28/19 14:00 Ordered TROPONIN Q3H Lab 01/28/19 17:00 Ordered TROPONIN Q3H Lab 01/28/19 20:00 Ordered TROPONIN Q3H Lab 01/28/19 23:00 Ordered UA W/RFX UR CULTURE Stat Lab 01/27/19 23:30 Completed Urine Triage Profile Stat Lab 01/27/19 23:30 Completed Lab/Rad Data: Laboratory Result Diagrams 01/27/19 23:40 01/27/19 23:40 Laboratory Results 01/28/19 01/27/19 01/27/19 Range/Units 00:10 23:40 23:40 WBC 9.3 (4.0-10.5) K/mm3 RBC 4.56 (4.1-5.4) M/mm3 Hgb 12.2 (12.0-16.0) gm/dl Hct 37.6 (35-47) % MCV 82.5 (78-100) fl MCH 26.8 (26-32) pg MCHC 32.4 (32-36) g/dl RDW 13.5 (11.5-14.0) % Plt Count 188 (150-450) K/mm3 MPV 10.8 H (6-9.5) fl Gran % 74.5 H (36.0-66.0) % Eos # (Auto) 0 (0-0.5) Absolute Lymphs (auto) 1.71 (1.0-4.6) Absolute Monos (auto) 0.66 (0.0-1.3) Lymphocytes % 18.4 L (24.0-44.0) % Monocytes % 7.1 (0.0-12.0) % Eosinophils % 0.0 (0.00-5.0) % Basophils % 0.0 (0.0-0.4) % Absolute Granulocytes 6.90 (1.4-6.9) Basophils # 0 (0-0.4) Sodium 137 (137-145) mmol/L Potassium 4.1 (3.5-5.1) mmol/L Chloride 102 (98-107) mmol/L Carbon Dioxide 27 (22-30) mmol/L Anion Gap 11.7 (5-15) MEQ/L BUN 13 (7-17) mg/dL Creatinine 0.55 (0.52-1.04) mg/dL Estimated GFR > 60.0 ML/MIN Glucose 255 H (74-106) mg/dL Calcium 8.9 (8.4-10.2) mg/dL Total Bilirubin 0.50 (0.2-1.3) mg/dL AST 19 (14-36) U/L ALT 14 (0-35) U/L Alkaline Phosphatase 63 (38-126) U/L Troponin I < 0.012 (0.000-0.034) ng/mL Serum Total Protein 6.4 (6.3-8.2) g/dL Albumin 3.6 (3.5-5.0) g/dL Urine Color (YELLOW) Urine Appearance (CLEAR) Urine pH (5-6) Ur Specific [place] (1.005-1.025) Urine Protein (Negative) Urine Ketones (NEGATIVE) Urine Blood (0-5) Shashank/ul Urine Nitrite (NEGATIVE) Urine Bilirubin (NEGATIVE) Urine Urobilinogen (0-1) mg/dL Ur Leukocyte Esterase (NEGATIVE) Urine WBC (Auto) (0-5) /HPF Urine RBC (Auto) (0-2) /HPF U Epithel Cells (Auto) (FEW) /HPF Urine Bacteria (Auto) (NEGATIVE) /HPF Urine Culture Reflexed (NO) Urine Glucose (NEGATIVE) mg/dL Urine HCG, Qual (Negative) Salicylates < 1.0 L (2-20) mg/dL Urine Opiates Level (NEGATIVE) Ur Methadone (NEGATIVE) Acetaminophen < 10 L (10-30) ug/ml Urine Barbiturates (NEGATIVE) Ur Phencyclidine (PCP) (NEGATIVE) Urine Amphetamine (NEGATIVE) U Benzodiazepine Level (NEGATIVE) Urine Cocaine (NEGATIVE) Urine Marijuana (THC) (NEGATIVE) Ethyl Alcohol < 10 (0-10) mg/dL 01/27/19 01/27/19 01/27/19 Range/Units 23:30 23:30 23:30 WBC (4.0-10.5) K/mm3 RBC (4.1-5.4) M/mm3 Hgb (12.0-16.0) gm/dl Hct (35-47) % MCV (78-100) fl MCH (26-32) pg MCHC (32-36) g/dl RDW (11.5-14.0) % Plt Count (150-450) K/mm3 MPV (6-9.5) fl Gran % (36.0-66.0) % Eos # (Auto) (0-0.5) Absolute Lymphs (auto) (1.0-4.6) Absolute Monos (auto) (0.0-1.3) Lymphocytes % (24.0-44.0) % Monocytes % (0.0-12.0) % Eosinophils % (0.00-5.0) % Basophils % (0.0-0.4) % Absolute Granulocytes (1.4-6.9) Basophils # (0-0.4) Sodium (137-145) mmol/L Potassium (3.5-5.1) mmol/L Chloride (98-107) mmol/L Carbon Dioxide (22-30) mmol/L Anion Gap (5-15) MEQ/L BUN (7-17) mg/dL Creatinine (0.52-1.04) mg/dL Estimated GFR ML/MIN Glucose (74-106) mg/dL Calcium (8.4-10.2) mg/dL Total Bilirubin (0.2-1.3) mg/dL AST (14-36) U/L ALT (0-35) U/L Alkaline Phosphatase (38-126) U/L Troponin I (0.000-0.034) ng/mL Serum Total Protein (6.3-8.2) g/dL Albumin (3.5-5.0) g/dL Urine Color STRAW (YELLOW) Urine Appearance CLEAR (CLEAR) Urine pH 6.0 (5-6) Ur Specific [place] 1.022 (1.005-1.025) Urine Protein NEGATIVE (Negative) Urine Ketones MODERATE (NEGATIVE) Urine Blood NEGATIVE (0-5) Shashank/ul Urine Nitrite NEGATIVE (NEGATIVE) Urine Bilirubin NEGATIVE (NEGATIVE) Urine Urobilinogen NEGATIVE (0-1) mg/dL Ur Leukocyte Esterase NEGATIVE (NEGATIVE) Urine WBC (Auto) NONE (0-5) /HPF Urine RBC (Auto) NONE (0-2) /HPF U Epithel Cells (Auto) RARE (FEW) /HPF Urine Bacteria (Auto) NONE (NEGATIVE) /HPF Urine Culture Reflexed NO (NO) Urine Glucose >=500 (NEGATIVE) mg/dL Urine HCG, Qual NEGATIVE (Negative) Salicylates (2-20) mg/dL Urine Opiates Level NEGATIVE (NEGATIVE) Ur Methadone NEGATIVE (NEGATIVE) Acetaminophen (10-30) ug/ml Urine Barbiturates NEGATIVE (NEGATIVE) Ur Phencyclidine (PCP) NEGATIVE (NEGATIVE) Urine Amphetamine NEGATIVE (NEGATIVE) U Benzodiazepine Level NEGATIVE (NEGATIVE) Urine Cocaine NEGATIVE (NEGATIVE) Urine Marijuana (THC) NEGATIVE (NEGATIVE) Ethyl Alcohol (0-10) mg/dL - Progress Progress: unchanged Counseled pt/family regarding: lab results, diagnosis, need for follow-up - Departure Departure Disposition: Home Clinical Impression: Suicide gesture, Suicidal ideation Condition: Stable Critical Care Time: No Referrals: STU KEATING [Primary Care Provider] -
[2019-01-27 23:46] LABS: Basophil (Absolute #) 0 (0-0.4); Eosinophil (Absolute #) 0 (0-0.5); Granulocytes % 74.5 % (36.0-66.0); Hematocrit 37.6 % (35-47); Hemoglobin 12.2 gm/dl (12.0-16.0); Lymphocyte (Absolute #) 1.71 (1.0-4.6); Lymphocytes % 18.4 % (24.0-44.0); Mean Cell Volume 82.5 fl (78-100); Mean Corpuscular Hemoglobin 26.8 pg (26-32); Mean Corpuscular Hgb Concent. 32.4 g/dl (32-36); Mean Platelet Volume 10.8 fl (6-9.5); Monocyte (Absolute #) 0.66 (0.0-1.3); Monocytes % 7.1 % (0.0-12.0); Platelet Count 188 K/mm3 (150-450); Red Blood Count 4.56 M/mm3 (4.1-5.4); Red Cell Distribution Width 13.5 % (11.5-14.0); White Blood Count 9.3 K/mm3 (4.0-10.5)
[2019-01-27 23:54] LABS: Appearance CLEAR (CLEAR); Bilirubin NEGATIVE (NEGATIVE); Blood NEGATIVE Ery/ul (0-5); Epithelial Cells RARE /HPF (FEW); Glucose >=500 mg/dL (NEGATIVE); Ketones MODERATE (NEGATIVE); Leukocyte Esterase NEGATIVE (NEGATIVE); Nitrite NEGATIVE (NEGATIVE); Protein,Urine Dip NEGATIVE (Negative); Specific Gravity 1.022 (1.005-1.025); Urobilinogen NEGATIVE mg/dL (0-1)
[2019-01-27 23:58] LABS: ALBUMIN 3.6 g/dL (3.5-5.0); ALKALINE PHOSPHATASE 63 U/L (38-126); ANION GAP 11.7 MEQ/L (5-15); BLOOD UREA NITROGEN 13 mg/dL (7-17); CHLORIDE 102 mmol/L (98-107); Calcium 8.9 mg/dL (8.4-10.2); Carbon Dioxide 27 mmol/L (22-30); Creatinine 1 0.55 mg/dL (0.52-1.04); Glucose 255 mg/dL (74-106); Potassium 4.1 mmol/L (3.5-5.1); SGOT/AST 19 U/L (14-36); SGPT/ALT 14 U/L (0-35); SODIUM 137 mmol/L (137-145); Total Protein 6.4 g/dL (6.3-8.2)
[2019-01-27 23:59] LABS: ACETAMINOPHEN < 10 ug/ml (10-30); ETHYL ALCOHOL < 10 mg/dL (0-10); SALICYLATE < 1.0 mg/dL (2-20)
[2019-01-28 00:09] LABS: Amphetamine,Urine NEGATIVE (NEGATIVE); Barbiturate,Urine NEGATIVE (NEGATIVE); Benzodiazepine,Urine NEGATIVE (NEGATIVE); Cocaine,Urine NEGATIVE (NEGATIVE); Methadone,Urine NEGATIVE (NEGATIVE); Opiate,Urine NEGATIVE (NEGATIVE); PCP,Urine NEGATIVE (NEGATIVE); THC,Urine NEGATIVE (NEGATIVE)
[2019-01-28 03:53] VITALS: BP 108/75; PULSE 107; O2SAT 98
== END 2019-01-28 04:15 | disposition short-term general hospital (02) ==
LOC: ED 22:39
DX: R45.851 Suicidal ideations (principal); F32.9 Major depressive disorder, single episode, unspecified
CPT/HCPCS: 36415; 80053; 80307; 81001; 82962; 84484; 84703; 85025; 93005; 99285; G0480; G0481

== ENCOUNTER 2019-07-19 13:05 | Emergency (ER) | payer BC, OTHER ==
[2019-07-19] MEDS ORDERED: Zofran 4 MG/2 ML VIAL IV STA (13:18)
[2019-07-19] MEDS ORDERED: TYLENOL 325 MG PO STA (13:18)
[2019-07-19] MEDS ORDERED: Sodium Chloride 0.9% 1000 ML 1,000 ML IV STA (13:18)
[2019-07-19] MEDS ORDERED: TYLENOL 325 MG ONE (13:24)
[2019-07-19] MEDS ORDERED: Sodium Chloride 0.9% 1000 ML 1,000 ML ONE (13:24)
[2019-07-19] MEDS ORDERED: Zofran 4 MG/2 ML VIAL ONE ×2 (13:24→14:41)
--- NOTE | 2019-07-19 13:30 | ERPHSYRPT ---
- History of Present Illness Time Seen by Provider: 07/19/19 13:29 Source: patient Exam Limitations: no limitations Patient Subjective Stated Complaint: pt here for headache, dizziness and vomiting for 2 days now, denies fever or sorethroatbut states he daughter has strep, she states her BS are running good Triage Nursing Assessment: pt alert, resp easy, walked in, skin w/d/p. has chills, no edema, pt has insulin pump, Physician History: pt here for headache, dizziness and vomiting for 2 days now, denies fever or sorethroatbut states he daughter has strep, she states her BS are running good Timing/Duration: day(s) (two days) Cough Quality/Degree: no cough Associated Symptoms: dizziness, headache, lightheadedness, muscle aches International travel in last 2 weeks: No Allergies/Adverse Reactions: No Known Drug Allergies Allergy (Verified 01/27/19 23:19) Home Medications: Clonazepam 0.5 mg [Klonopin 0.5 MG] 1 tab PO DAILY 01/28/19 [History] Insulin Lispro [Admelog Solostar] 1 unit SQ DAILY 01/28/19 [History] Trazodone HCl [Desyrel] 1 tab PO HS 01/28/19 [History] Venlafaxine HCl ER 75 mg [Effexor XR 75 MG] 75 mg PO DAILY 01/28/19 [ History] Venlafaxine HCl [Effexor Xr] 1 tab PO DAILY 01/28/19 [History] Oxcarbazepine [Trileptal] 150 mg BID 07/19/19 [History] Hx Tetanus, Diphtheria Vaccination/Date Given: Yes Hx Influenza Vaccination/Date Given: Yes Hx Pneumococcal Vaccination/Date Given: No Immunizations Up to Date: Yes - Review of Systems Constitutional: No Fever, No Chills Eyes: No Symptoms Ears, Nose, & Throat: No Symptoms Respiratory: No Cough, No Dyspnea Cardiac: No Chest Pain, No Edema, No Syncope Abdominal/Gastrointestinal: No Abdominal Pain, No Nausea, No Vomiting, No Diarrhea Genitourinary Symptoms: No Dysuria Musculoskeletal: No Back Pain, No Neck Pain Skin: No Rash Neurological: Headache, No Dizziness, No Focal Weakness, No Sensory Changes Psychological: No Symptoms Endocrine: No Symptoms All Other Systems: Reviewed and Negative - Past Medical History Pertinent Past Medical History: Yes Neurological History: No Pertinent History ENT History: No Pertinent History Cardiac History: No Pertinent History Respiratory History: No Pertinent History Endocrine Medical History: Diabetes Type I, Hypothyroidism Musculoskeletal History: No Pertinent History GI Medical History: No Pertinent History History: No Pertinent History Psycho-Social History: Anxiety, Depression Female Reproductive Disorders: No Pertinent History Other Medical History: HAS BEEN TYPE 1 SINCE 11 MONTHS OLD. - Past Surgical History Past Surgical History: Yes Neuro Surgical History: No Pertinent History Cardiac: No Pertinent History Respiratory: No Pertinent History Gastrointestinal: No Pertinent History Genitourinary: No Pertinent History Musculoskeletal: Orthopedic Surgery Female Surgical History: Section, Tubal Ligation Other Surgical History: TONSILS. X 4. carpal tunnel surgery - Social History Smoking Status: Never smoker Exposure to second hand smoke: No Drug Use: marijuana Patient Lives Alone: No - Female History Hx Last Menstrual Period: month ago Hx Now: No - Nursing Vital Signs Nursing Vital Signs: Initial Vital Signs Temperature 98.8 F 07/19/19 13:14 Pulse Rate 104 H 07/19/19 13:14 Respiratory Rate 16 07/19/19 13:14 Blood Pressure 117/79 07/19/19 13:14 O2 Sat by Pulse Oximetry 100 07/19/19 13:14 Pain Scale Pain Intensity 8 - Physical Exam General Appearance: no apparent distress, alert Eye Exam: PERRL/EOMI, eyes nml inspection Ears, Nose, Throat Exam: normal ENT inspection, TMs normal, moist mucous membranes, pharyngeal erythema Neck Exam: normal inspection, non-tender, supple, full range of motion Respiratory Exam: normal breath sounds, lungs clear, No respiratory distress Cardiovascular Exam: regular rate/rhythm, normal heart sounds Gastrointestinal/Abdomen Exam: soft, No tenderness Back Exam: normal inspection, No CVA tenderness, No vertebral tenderness Extremity Exam: normal inspection, normal range of motion Neurologic Exam: alert, oriented x 3, cooperative, normal mood/affect, sensation nml, No motor deficits Skin Exam: normal color, warm, dry, No rash Lymphatic Exam: No adenopathy SpO2: 100 - Course Nursing assessment & vital signs reviewed: Yes Ordered Tests: Active Orders 24 hr Category Date Time Status CBC W DIFF Stat Lab 07/19/19 14:00 Completed CMP Stat Lab 07/19/19 14:00 Completed CULTURE,URINE Stat Lab 07/19/19 14:00 Received HCG,QUALITATIVE URINE Stat Lab 07/19/19 14:00 Completed UA W/RFX UR CULTURE Stat Lab 07/19/19 14:00 Completed Medication Summary Discontinued Medications Generic Name Dose Route Start Last Admin Trade Name Luzmaria PRN Reason Stop Dose Admin Acetaminophen 975 mg 07/19/19 13:18 07/19/19 13:34 Tylenol 325 Mg PO 07/19/19 13:19 975 mg STAT STA Administration Acetaminophen Confirm 07/19/19 13:24 Tylenol 325 Mg Administered 07/19/19 13:25 Dose 975 mg .ROUTE .STK-MED ONE Ceftriaxone Sodium 1,000 mg 07/19/19 14:21 07/19/19 14:28 Rocephin 1000 Mg Inj IV 07/19/19 14:22 1,000 mg STAT ONE Administration Sodium Chloride 1,000 mls @ 999 mls/hr 07/19/19 13:18 07/19/19 14:34 Sodium Chloride 0.9% 1000 Ml IV 07/19/19 14:18 Infused .Q1H1M STA Infusion Sodium Chloride Confirm 07/19/19 13:24 Sodium Chloride 0.9% 1000 Ml Administered 07/19/19 13:25 Dose 1,000 mls @ ud .ROUTE .STK-MED ONE Ceftriaxone Sodium/Dextrose Confirm 07/19/19 14:25 Rocephin 1 Gm-D5w 50 Ml Bag Administered 07/19/19 14:26 Dose 1 g in 50 mls @ ud IV .STK-MED ONE Ondansetron HCl 4 mg 07/19/19 13:18 07/19/19 13:34 Zofran 4 Mg/2 Ml Vial IV 07/19/19 13:19 4 mg STAT STA Administration Ondansetron HCl Confirm 07/19/19 13:24 Zofran 4 Mg/2 Ml Vial Administered 07/19/19 13:25 Dose 4 mg .ROUTE .STK-MED ONE Ondansetron HCl 4 mg 07/19/19 14:40 Zofran 4 Mg/2 Ml Vial IV 07/19/19 14:41 STAT ONE Lab/Rad Data: Laboratory Result Diagrams 07/19/19 14:00 07/19/19 14:00 Laboratory Results 07/19/19 07/19/1920 Range/Units 14:00 14:00 14:00 WBC (4.0-10.5) K/mm3 RBC (4.1-5.4) M/mm3 Hgb (12.0-16.0) gm/dl Hct (35-47) % MCV (78-100) fl MCH (26-32) pg MCHC (32-36) g/dl RDW (11.5-14.0) % Plt Count (150-450) K/mm3 MPV (7.5-11.0) fl Gran % (36.0-66.0) % Eos # (Auto) (0-0.5) Absolute Lymphs (auto) (1.0-4.6) Absolute Monos (auto) (0.0-1.3) Lymphocytes % (24.0-44.0) % Monocytes % (0.0-12.0) % Eosinophils % (0.00-5.0) % Basophils % (0.0-0.4) % Absolute Granulocytes (1.4-6.9) Basophils # (0-0.4) Sodium (137-145) mmol/L Potassium (3.5-5.1) mmol/L Chloride (98-107) mmol/L Carbon Dioxide (22-30) mmol/L Anion Gap (5-15) MEQ/L BUN (7-17) mg/dL Creatinine (0.52-1.04) mg/dL Estimated GFR ML/MIN Glucose (74-106) mg/dL Calcium (8.4-10.2) mg/dL Total Bilirubin (0.2-1.3) mg/dL AST (14-36) U/L ALT (0-35) U/L Alkaline Phosphatase (38-126) U/L Serum Total Protein (6.3-8.2) g/dL Albumin (3.5-5.0) g/dL Urine Color YELLOW (YELLOW) Urine Appearance CLOUDY (CLEAR) Urine pH 6.0 (5-6) Ur Specific [place] 1.008 (1.005-1.025) Urine Protein NEGATIVE (Negative) Urine Ketones SMALL (NEGATIVE) Urine Blood NEGATIVE (0-5) Shashank/ul Urine Nitrite NEGATIVE (NEGATIVE) Urine Bilirubin NEGATIVE (NEGATIVE) Urine Urobilinogen NEGATIVE (0-1) mg/dL Ur Leukocyte Esterase LARGE (NEGATIVE) Urine WBC (Auto) >100 (0-5) /HPF Urine RBC (Auto) 3-5 (0-2) /HPF U Epithel Cells (Auto) RARE (FEW) /HPF Urine Bacteria (Auto) FEW (NEGATIVE) /HPF Urine Mucus (Auto) SLIGHT (NEGATIVE) /HPF Urine Culture Reflexed YES (NO) Urine Glucose NEGATIVE (NEGATIVE) mg/dL Urine HCG, Qual NEGATIVE (Negative) Influenza Type A Ag NEGATIVE (NEGATIVE) Influenza Type B Ag NEGATIVE (NEGATIVE) RSV (PCR) NEGATIVE (Negative) Group A Strep Antibody NEGATIVE (NEGATIVE) 07/19/19 07/19/19 Range/Units 14:00 14:00 WBC 7.5 (4.0-10.5) K/mm3 RBC 5.45 H (4.1-5.4) M/mm3 Hgb 15.1 (12.0-16.0) gm/dl Hct 45.7 (35-47) % MCV 83.9 (78-100) fl MCH 27.7 (26-32) pg MCHC 33.0 (32-36) g/dl RDW 12.9 (11.5-14.0) % Plt Count 333 (150-450) K/mm3 MPV 10.3 (7.5-11.0) fl Gran % 75.1 H (36.0-66.0) % Eos # (Auto) 0 (0-0.5) Absolute Lymphs (auto) 1.34 (1.0-4.6) Absolute Monos (auto) 0.52 (0.0-1.3) Lymphocytes % 17.9 L (24.0-44.0) % Monocytes % 7.0 (0.0-12.0) % Eosinophils % 0.0 (0.00-5.0) % Basophils % 0.0 (0.0-0.4) % Absolute Granulocytes 5.62 (1.4-6.9) Basophils # 0 (0-0.4) Sodium 135 L (137-145) mmol/L Potassium 4.1 (3.5-5.1) mmol/L Chloride 101 (98-107) mmol/L Carbon Dioxide 25 (22-30) mmol/L Anion Gap 14.0 (5-15) MEQ/L BUN 9 (7-17) mg/dL Creatinine 0.78 (0.52-1.04) mg/dL Estimated GFR > 60.0 ML/MIN Glucose 114 H (74-106) mg/dL Calcium 9.4 (8.4-10.2) mg/dL Total Bilirubin 0.80 (0.2-1.3) mg/dL AST 24 (14-36) U/L ALT 15 (0-35) U/L Alkaline Phosphatase 87 (38-126) U/L Serum Total Protein 8.3 H (6.3-8.2) g/dL Albumin 4.7 (3.5-5.0) g/dL Urine Color (YELLOW) Urine Appearance (CLEAR) Urine pH (5-6) Ur Specific [place] (1.005-1.025) Urine Protein (Negative) Urine Ketones (NEGATIVE) Urine Blood (0-5) Shashank/ul Urine Nitrite (NEGATIVE) Urine Bilirubin (NEGATIVE) Urine Urobilinogen (0-1) mg/dL Ur Leukocyte Esterase (NEGATIVE) Urine WBC (Auto) (0-5) /HPF Urine RBC (Auto) (0-2) /HPF U Epithel Cells (Auto) (FEW) /HPF Urine Bacteria (Auto) (NEGATIVE) /HPF Urine Mucus (Auto) (NEGATIVE) /HPF Urine Culture Reflexed (NO) Urine Glucose (NEGATIVE) mg/dL Urine HCG, Qual (Negative) Influenza Type A Ag (NEGATIVE) Influenza Type B Ag (NEGATIVE) RSV (PCR) (Negative) Group A Strep Antibody (NEGATIVE) - Progress Progress: improved Blood Culture(s) Obtained: No Antibiotics given: Yes Counseled pt/family regarding: lab results, diagnosis, need for follow-up - Departure Departure Disposition: Home Clinical Impression: Urinary tract bacterial infections Condition: Stable Critical Care Time: No Referrals: STU KEATING [Primary Care Provider] - Instructions: Headache, Adult, Urinary Tract Infection, Adult (DC) Additional Instructions: Discharge/Care Plan VEE GAMBLE was seen on 07/19/19 in the Emergency Room. The patient was counseled regarding Diagnosis,Lab results, Imaging studies, need for follow up and when to return to the Emergency Room. Prescriptions given: Discharge Note I have spoken with the patient and/or caregivers. I have explained the patient' s condition, diagnosis and treatment plan based on the information available to me at this time. I have answered the patient's and/or caregiver's questions and addressed any concerns. The patient and/or caregivers have as good understanding of the patient's diagnosis, condition and treatment plan as can be expected at this point. The vital signs have been stable. The patient's condition is stable and appropriate for discharge from the emergency department. The patient will pursue further outpatient evaluation with the primary care physician or other designated or consulting physician as outlined in the discharge instructions. The patient and/or caregivers are agreeable to this plan of care and follow-up instructions have been explained in detail. The patient and/or caregivers have received these instruction. The patient/and or caregivers are aware that any significant change in condition or worsening of symptoms should prompt an immediate return to this or the closest emergency department or call 911. TYEVEE JEFFERSON was seen on 07/19/19 n the Emergency Room. At that time you were treated for an emergent condition, during your visit Laboratory, Radiology and/or other procedures may have been ordered. It is very important that you follow-up with your Primary Care Physician STU KEATING within the next 24- 48 hours to review your Emergency Room visit and the final results of testing that was ordered. Some test results such as Urine Cultures, Blood Cultures, and other cultures if ordered will not be finalized for 24-48 hours. If you do not have a Primary Care Provider please call the medical records department at [phone] to obtain a copy of your results or you may sign into our patient portal to obtain these results by visiting us @ [email or web address] and completing the following steps: 1. Click on the Patient Portal link 2. Click the Patient Self Enrollment Link to complete the enrollment form and entering your 3. Once the enrollment form is completed you will receive an email with a temporary ID and password at the email address you provided. 4. Next choose a user name and password. Your user name must be at least 4 characters long and your password must be at least 4 characters long. 5. Choose a security question from the list and provide your answer to the question. If you already have signed into the Health Portal you may access your Health Care Information 01/01 by the following steps: 1. Login to our website @ [email or web address] 2. Enter your original user name and password. FAQS The [facility] Health Portal is an online tool that contains your Lab Results, Radiology Reports, Visit History, Discharge Instructions and Health Summary Lab and Radiology Results will not be available for 72 hours on the portal. The Portal is a secure site, passwords are encryted and URLs are re-written so they cannot be copied and pasted. You and authorized family members are the only ones who can access your Portal. Also there is a timeout feature that protects your information if you leave the Portal page open. If you have technical difficulty please use the Contact Us link on the page this will allow you to submit any questions you have regarding the Portal or you may contact the Medical Record Department at [phone]. Prescriptions: Ciprofloxacin [Cipro 500 MG] 500 mg PO BIDAC #20 tablet Promethazine HCl 25 mg [Phenergan 25 mg] 25 mg PO QID #20 tablet
[2019-07-19 13:51] LABS: Absolute Neutrophil Ct (ANC) 5.62 (1.4-6.9); Basophil (Absolute #) 0 (0-0.4); Eosinophil (Absolute #) 0 (0-0.5); Hematocrit 45.7 % (35-47); Hemoglobin 15.1 gm/dl (12.0-16.0); Lymphocyte (Absolute #) 1.34 (1.0-4.6); Lymphocytes % 17.9 % (24.0-44.0); Mean Cell Volume 83.9 fl (78-100); Mean Corpuscular Hemoglobin 27.7 pg (26-32); Mean Platelet Volume 10.3 fl (7.5-11.0); Monocyte (Absolute #) 0.52 (0.0-1.3); Neutrophil % 75.1 % (36.0-66.0); Platelet Count 333 K/mm3 (150-450); Red Blood Count 5.45 M/mm3 (4.1-5.4); Red Cell Distribution Width 12.9 % (11.5-14.0); White Blood Count 7.5 K/mm3 (4.0-10.5)
[2019-07-19 14:03] LABS: ALBUMIN 4.7 g/dL (3.5-5.0); ALKALINE PHOSPHATASE 87 U/L (38-126); BLOOD UREA NITROGEN 9 mg/dL (7-17); CHLORIDE 101 mmol/L (98-107); Calcium 9.4 mg/dL (8.4-10.2); Carbon Dioxide 25 mmol/L (22-30); Creatinine 1 0.78 mg/dL (0.52-1.04); Glucose 114 mg/dL (74-106); Potassium 4.1 mmol/L (3.5-5.1); SGOT/AST 24 U/L (14-36); SGPT/ALT 15 U/L (0-35); SODIUM 135 mmol/L (137-145); Total Protein 8.3 g/dL (6.3-8.2)
[2019-07-19 14:08] LABS: Appearance CLOUDY (CLEAR); Bacteria FEW /HPF (NEGATIVE); Bilirubin NEGATIVE (NEGATIVE); Blood NEGATIVE Ery/ul (0-5); Epithelial Cells RARE /HPF (FEW); Glucose NEGATIVE (NEGATIVE); Ketones SMALL (NEGATIVE); Leukocyte Esterase LARGE (NEGATIVE); Mucus SLIGHT /HPF (NEGATIVE); Nitrite NEGATIVE (NEGATIVE); Protein,Urine Dip NEGATIVE (Negative); Specific Gravity 1.008 (1.005-1.025); Urobilinogen NEGATIVE mg/dL (0-1); WBC >100 /HPF (0-5)
[2019-07-19] MEDS ORDERED: Rocephin 1000 MG INJ IV ONE (14:21)
[2019-07-19] MEDS ORDERED: ROCEPHIN 1 Gm-D5w 50 ml Bag** 1 G/50 ML IVPB IV ONE (14:25)
[2019-07-19 14:26] LABS: INFLUENZA A NEGATIVE (NEGATIVE); INFLUENZA B NEGATIVE (NEGATIVE); RESPIRATORY SYNCTIAL VIRUS NEGATIVE (Negative)
[2019-07-19 14:40] VITALS: BP 107/68; PULSE 81
[2019-07-19] MEDS ORDERED: Zofran 4 MG/2 ML VIAL IV ONE (14:40)
[2019-07-19 14:44] VITALS: O2SAT 100
== END 2019-07-19 15:27 | disposition home or self-care (01) ==
LOC: ED 13:05
DX: N39.0 Urinary tract infection, site not specified (principal)
CPT/HCPCS: 36415; 80053; 81001; 84703; 85025; 87077; 87086; 87186; 87631; 87651; 96360; 96372; 96374; 96376; 99284; J0696; J2405; A9270-GY

== ENCOUNTER 2019-08-04 12:27 | Emergency (ER) | payer OTHER ==
[2019-08-04] MEDS ORDERED: Sodium Chloride 0.9% 1000 ML 1,000 ML ONE ×2 (12:42→13:47)
[2019-08-04] MEDS: Sodium Chloride 0.9% 1000 ML 1,000 ML IV STA ×2 (12:43→13:52)
[2019-08-04 12:59] LABS: VBG CARBOXYHEMOGLOBIN 1.9 % T HGB (0.0-6.9); VBG HCO3- 10.7 meq/L (22-28); VBG HEMOGLOBIN 13.1; VBG O2 SATURATION 97.5 (95-100); VBG POTASSIUM 6.1 (3.5-5.1); VBG pH 7.19 (7.32-7.42)
[2019-08-04 13:02] LABS: ALBUMIN 4.4 g/dL (3.5-5.0); ANION GAP 33.4 MEQ/L (5-15); BILIRUBIN,TOTAL 0.8 mg/dL (0.2-1.3); Calcium 9.8 mg/dL (8.4-10.2); Creatinine 1 1.14 mg/dL (0.52-1.04); MAGNESIUM 2.1 mg/dL (1.6-2.3); Potassium 5.7 mmol/L (3.5-5.1); Total Protein 7.3 g/dL (6.3-8.2)
--- NOTE | 2019-08-04 13:04 | ERPHSYRPT ---
- History of Present Illness Time Seen by Provider: 08/04/19 12:40 Source: patient Exam Limitations: no limitations Patient Subjective Stated Complaint: elevated blood sugars since last night. today at home it was 599. uses insulin pump and states that her paticular pump has a recall. Triage Nursing Assessment: to room per w/c. lethargic, skin w/d, color sallow. resp nonlabored. bs registering "hi" in er. a/o times four. Physician History: Patient is a 33-year-old female with a history of type 1 diabetes on the insulin pump presents to our ED with complaints of hyperglycemia. Patient observed hypoglycemia last night. Patient checked her sugar this morning and it was 599. Patient states she feels weak. Patient reports she has been bolusing herself using the insulin pump after meals however her sugars remain high. Patient believes that there may be a recall on her insulin pump and believes that her insulin pump may be malfunctioning. Patient denies pain. She denies any source of infection. No cough. No fever. No trauma. Patient voices no other complaints at this time. Timing/Duration: yesterday Severity: moderate Modifying Factors: Improves With: nothing Associated Symptoms: nausea, No vomiting, No abdominal pain, No shortness of breath, No heartburn, No diaphoresis, No cough, No chills, No fever, No headaches, No loss of appetite, No malaise, No rash Allergies/Adverse Reactions: No Known Drug Allergies Allergy (Verified 08/04/19 12:38) Home Medications: Clonazepam 0.5 mg [Klonopin 0.5 MG] 1 tab PO TID 01/28/19 [History] Insulin Lispro [Admelog Solostar] 1 unit SQ DAILY 01/28/19 [History] Trazodone HCl [Desyrel] 1 tab PO HS 01/28/19 [History] Venlafaxine HCl [Effexor Xr] 300 mg PO DAILY 01/28/19 [History] Oxcarbazepine [Trileptal] 150 mg PO TID 07/19/19 [History] Hx Tetanus, Diphtheria Vaccination/Date Given: Yes Hx Influenza Vaccination/Date Given: Yes Hx Pneumococcal Vaccination/Date Given: No - Review of Systems Constitutional: No Symptoms, No Fever, No Chills Eyes: No Symptoms Ears, Nose, & Throat: No Symptoms Respiratory: No Symptoms, No Cough, No Dyspnea Cardiac: No Symptoms, No Chest Pain, No Edema, No Syncope Abdominal/Gastrointestinal: Constipation, No Abdominal Pain, No Nausea, No Vomiting, No Diarrhea Genitourinary Symptoms: No Symptoms, No Dysuria Musculoskeletal: No Symptoms, No Back Pain, No Neck Pain Skin: No Symptoms, No Rash Neurological: No Symptoms, Other (Patient complains of generalized weakness.), No Dizziness, No Focal Weakness, No Sensory Changes Psychological: No Symptoms Endocrine: No Symptoms Hematologic/Lymphatic: No Symptoms All Other Systems: Reviewed and Negative - Past Medical History Pertinent Past Medical History: Yes Neurological History: No Pertinent History ENT History: No Pertinent History Cardiac History: No Pertinent History Respiratory History: No Pertinent History Endocrine Medical History: Diabetes Type I, Hypothyroidism Musculoskeletal History: No Pertinent History GI Medical History: No Pertinent History History: No Pertinent History Psycho-Social History: Anxiety, Depression Female Reproductive Disorders: No Pertinent History Other Medical History: HAS BEEN TYPE 1 SINCE 11 MONTHS OLD. - Past Surgical History Past Surgical History: Yes Neuro Surgical History: No Pertinent History Cardiac: No Pertinent History Respiratory: No Pertinent History Gastrointestinal: No Pertinent History Genitourinary: No Pertinent History Musculoskeletal: Orthopedic Surgery Female Surgical History: Section, Tubal Ligation Other Surgical History: TONSILS. X 4. carpal tunnel surgery - Social History Smoking Status: Never smoker Exposure to second hand smoke: Yes Drug Use: marijuana Patient Lives Alone: No - Female History Hx Last Menstrual Period: one week ago Hx Now: No - Nursing Vital Signs Nursing Vital Signs: Initial Vital Signs Temperature 97.4 F 08/04/19 12:32 Pulse Rate 125 H 08/04/19 12:32 Respiratory Rate 18 08/04/19 12:32 Blood Pressure 105/66 08/04/19 12:32 O2 Sat by Pulse Oximetry 99 08/04/19 12:32 Pain Scale Pain Intensity 7 - Physical Exam General Appearance: no apparent distress, alert, other (Patient is sitting up in bed. She is conversant. Patient appears weak and dehydrated.) Eye Exam: PERRL/EOMI, eyes nml inspection Ears, Nose, Throat Exam: normal ENT inspection, TMs normal, pharynx normal, moist mucous membranes Neck Exam: normal inspection, non-tender, supple, full range of motion Respiratory Exam: normal breath sounds, lungs clear, No respiratory distress Cardiovascular Exam: regular rate/rhythm, normal heart sounds, normal peripheral pulses Gastrointestinal/Abdomen Exam: soft, normal bowel sounds, No tenderness, No mass Back Exam: normal inspection, normal range of motion, No CVA tenderness, No vertebral tenderness Extremity Exam: normal inspection, normal range of motion, pelvis stable Neurologic Exam: alert, oriented x 3, cooperative, normal mood/affect, nml cerebellar function, nml station & gait, sensation nml, No motor deficits Skin Exam: normal color, warm, dry, No rash Lymphatic Exam: No adenopathy SpO2 Interpretation: normal SpO2: 97 O2 Delivery: Room Air - Course EKG Interpreted by Me: Sinus Tach, NORMAL AXIS, NORMAL QRS - Radiology Exams Chest X-ray Interpretation: Teleradiologist Report (Normal heart lungs and bony thorax.) Ordered Tests: Active Orders 24 hr Category Date Time Status [employer] STAT Care 08/04/19 12:46 Active EKG-ER Only STAT Care 08/04/19 12:45 Active IV Insertion STAT Care 08/04/19 12:45 Active IV Insertion-2nd Peripheral STAT Care 08/04/19 12:45 Active Pulse Oximetry (ED) STAT Care 08/04/19 12:45 Active CHEST 1 VIEW (PORTABLE) Stat Exams 08/04/19 12:45 Completed CBC W DIFF Stat Lab 08/04/19 12:45 Completed CMP Stat Lab 08/04/19 12:45 Completed CULTURE,URINE Stat Lab 08/04/19 12:46 Ordered Lactic Acid Stat Lab 08/04/19 13:33 Completed MAGNESIUM Stat Lab 08/04/19 12:45 Completed Manual Differential NC Stat Lab 08/04/19 12:45 Completed TROPONIN Q3H Lab 08/04/19 13:00 Completed TROPONIN Q3H Lab 08/04/19 16:00 Ordered TROPONIN Q3H Lab 08/04/19 19:00 Ordered TROPONIN Q3H Lab 08/04/19 22:00 Ordered VENOUS BLOOD GAS Urgent Lab 08/04/19 12:55 Completed Medication Summary Discontinued Medications Generic Name Dose Route Start Last Admin Trade Name Freq PRN Reason Stop Dose Admin Sodium Chloride 1,000 mls @ 999 mls/hr 08/04/19 12:42 08/04/19 13:44 Sodium Chloride 0.9% 1000 Ml IV 08/04/19 13:42 Infused .Q1H1M STA Infusion Sodium Chloride Confirm 08/04/19 12:42 Sodium Chloride 0.9% 1000 Ml Administered 08/04/19 12:43 Dose 1,000 mls @ ud .ROUTE .STK-MED ONE Insulin Human Regular 100 101 mls @ 7.07 mls/hr 08/04/19 13:45 08/04/19 13:52 units/ Sodium Chloride IV 09/03/19 13:44 7 units/hr .[id number] INGA 7.07 mls/hr Administration 7 UNITS/HR Sodium Chloride Confirm 08/04/19 13:47 Sodium Chloride 0.9% 100 Ml Ivpb Administered 08/04/19 13:48 Dose 100 mls @ ud IV .STK-MED ONE Sodium Chloride Confirm 08/04/19 13:47 Sodium Chloride 0.9% 1000 Ml Administered 08/04/19 13:48 Dose 1,000 mls @ ud .ROUTE .STK-MED ONE Sodium Chloride 1,000 mls @ 999 mls/hr 08/04/19 13:51 08/04/19 13:52 Sodium Chloride 0.9% 1000 Ml IV 08/04/19 14:51 999 mls/hr .Q1H1M STA Administration Insulin Human Regular Confirm 08/04/19 13:47 Humulin R Administered 08/04/19 13:48 Dose 100 unit .ROUTE .STK-MED ONE Ondansetron HCl Confirm 08/04/19 13:36 Zofran 4 Mg/2 Ml Vial Administered 08/04/19 13:37 Dose 4 mg .ROUTE .STK-MED ONE Ondansetron HCl 4 mg 08/04/19 13:37 08/04/19 13:43 Zofran 4 Mg/2 Ml Vial IV 08/04/19 13:38 4 mg STAT ONE Administration Promethazine HCl 12.5 mg 08/04/19 14:39 08/04/19 14:43 Phenergan 25 Mg Inj IM 08/04/19 14:40 12.5 mg STAT ONE Administration Promethazine HCl Confirm 08/04/19 14:40 Phenergan 25 Mg Inj Administered 08/04/19 14:41 Dose 25 mg .ROUTE .STK-MED ONE Lab/Rad Data: Laboratory Result Diagrams 08/04/19 12:45 08/04/19 12:45 Laboratory Results 08/04/19 08/04/19 08/04/19 Range/Units 13:33 13:00 12:55 WBC (4.0-10.5) K/mm3 RBC (4.1-5.4) M/mm3 Hgb (12.0-16.0) gm/dl Hct (35-47) % MCV (78-100) fl MCH (26-32) pg MCHC (32-36) g/dl RDW (11.5-14.0) % Plt Count (150-450) K/mm3 MPV (7.5-11.0) fl pO2/FiO2 Ratio 21.0 % VBG pH 7.19 L* (7.32-7.42) VBG pCO2 at Pat Temp 28 L (42-55) mm/Hg VBG pO2 at Pat Temp 88 H (25-40) mm/Hg VBG HCO3 10.7 L* (22-28) meq/L VBG O2 Sat (Kali) 97.5 (95-100) VBG Base Excess -16.0 L (-2.0-2.0) VBG Hemoglobin 13.1 VBG Carboxyhemoglobin 1.9 (0.0-6.9) % T HGB POC Potassium 6.1 H* (3.5-5.1) Sodium (137-145) mmol/L Potassium (3.5-5.1) mmol/L Chloride (98-107) mmol/L Carbon Dioxide (22-30) mmol/L Anion Gap (5-15) MEQ/L BUN (7-17) mg/dL Creatinine (0.52-1.04) mg/dL Estimated GFR ML/MIN Glucose (74-106) mg/dL Lactic Acid 4.6 H (0.4-2.0) Calcium (8.4-10.2) mg/dL Magnesium (1.6-2.3) mg/dL Total Bilirubin (0.2-1.3) mg/dL AST (14-36) U/L ALT (0-35) U/L Alkaline Phosphatase (38-126) U/L Troponin I < 0.012 (0.000-0.034) ng/mL Serum Total Protein (6.3-8.2) g/dL Albumin (3.5-5.0) g/dL 08/04/19 08/04/19 Range/Units 12:45 12:45 WBC 17.5 H (4.0-10.5) K/mm3 RBC 4.54 (4.1-5.4) M/mm3 Hgb 12.4 (12.0-16.0) gm/dl Hct 39.1 (35-47) % MCV 86.1 (78-100) fl MCH 27.3 (26-32) pg MCHC 31.7 L (32-36) g/dl RDW 12.6 (11.5-14.0) % Plt Count 435 (150-450) K/mm3 MPV 11.4 H (7.5-11.0) fl pO2/FiO2 Ratio % VBG pH (7.32-7.42) VBG pCO2 at Pat Temp (42-55) mm/Hg VBG pO2 at Pat Temp (25-40) mm/Hg VBG HCO3 (22-28) meq/L VBG O2 Sat (Kali) (95-100) VBG Base Excess (-2.0-2.0) VBG Hemoglobin VBG Carboxyhemoglobin (0.0-6.9) % T HGB POC Potassium (3.5-5.1) Sodium 126 L (137-145) mmol/L Potassium 5.7 H (3.5-5.1) mmol/L Chloride 88 L (98-107) mmol/L Carbon Dioxide 11 L* (22-30) mmol/L Anion Gap 33.4 H (5-15) MEQ/L BUN 25 H (7-17) mg/dL Creatinine 1.14 H (0.52-1.04) mg/dL Estimated GFR 58.0 ML/MIN Glucose 653 H* (74-106) mg/dL Lactic Acid (0.4-2.0) Calcium 9.8 (8.4-10.2) mg/dL Magnesium 2.1 (1.6-2.3) mg/dL Total Bilirubin 0.80 (0.2-1.3) mg/dL AST 21 (14-36) U/L ALT 15 (0-35) U/L Alkaline Phosphatase 118 (38-126) U/L Troponin I (0.000-0.034) ng/mL Serum Total Protein 7.3 (6.3-8.2) g/dL Albumin 4.4 (3.5-5.0) g/dL - Progress Progress Note: 08/04/19 14:12 Patient reassessed. She feels better. Patient is found to be in profound DKA. Insulin drip initiated. Case discussed with Dr. Sanches covering Dr. Keating. Dr. Sanches advises transfer to location staff by Dr. Sheppard our patient ordnance officer. Patient will be transferred to [facility]. Dr. Cason is accepting ER physician. Plan of care discussed with patient. She agrees to transfer to [facility] for further evaluation and treatment. Counseled pt/family regarding: lab results, diagnosis, rad results - Departure Departure Disposition: Home, Transfer Clinical Impression: DKA, type 1, Metabolic acidosis, Sinus tachycardia, Hyperkalemia, Hyponatremia , Leukocytosis Condition: Stable Critical Care Time: Yes Critical Care Time(excluding separately billable procedures): Critical 75-104 mins Referrals: STU KEATING [Primary Care Provider] -
[2019-08-04 13:15] LABS: Hematocrit 39.1 % (35-47); Hemoglobin 12.4 gm/dl (12.0-16.0); Mean Cell Volume 86.1 fl (78-100); Mean Corpuscular Hemoglobin 27.3 pg (26-32); Mean Corpuscular Hgb Concent. 31.7 g/dl (32-36); Mean Platelet Volume 11.4 fl (7.5-11.0); Platelet Count 435 K/mm3 (150-450); Red Blood Count 4.54 M/mm3 (4.1-5.4); Red Cell Distribution Width 12.6 % (11.5-14.0); White Blood Count 17.5 K/mm3 (4.0-10.5)
--- NOTE | 2019-08-04 13:18 | XRAY ---
Indication: Pneumonia. Comparison: July 05, 2018. Portable chest again demonstrates normal heart, lungs, and bony thorax with incidental bilateral nipple jewelry.
[2019-08-04] MEDS ORDERED: Zofran 4 MG/2 ML VIAL ONE (13:36)
[2019-08-04] MEDS: Zofran 4 MG/2 ML VIAL IV ONE (13:43)
[2019-08-04 13:47] VITALS: O2SAT 97
[2019-08-04] MEDS ORDERED: Sodium Chloride 0.9% 100 ML IVPB 100 ML IV ONE (13:47)
[2019-08-04] MEDS ORDERED: HUMULIN R ONE (13:47)
[2019-08-04] MEDS: NOVOLIN R INSULIN (FOR DRIPS)** 100 UNITS in Sodium Chloride 0.9% 100 ML IVPB 100 ML IV SCH (13:52)
[2019-08-04 14:25] VITALS: BP 103/54; PULSE 106
[2019-08-04] MEDS ORDERED: Phenergan 25 MG INJ ONE (14:40)
[2019-08-04] MEDS: Phenergan 25 MG INJ IM ONE (14:43)
[2019-08-04 15:16] LABS: BAND 4 % (0.0-2.0); Lymphocytes 2 % (24-44); Monocyte 3 % (0.0-12.0); Neutrophils 91 % (36.0-66.0); Platelet Estimate NORMAL (NORMAL); Total Cells Counted 100
== END 2019-08-04 14:47 | disposition short-term general hospital (02) ==
LOC: ED 12:27
DX: E10.10 Type 1 diabetes mellitus with ketoacidosis without coma (principal); E87.2 Acidosis; R00.0 Tachycardia, unspecified; E87.5 Hyperkalemia; D72.829 Elevated white blood cell count, unspecified
CPT/HCPCS: 36000; 36415; 71045; 80053; 82805; 83605; 83735; 83930; 84484; 85025; 93005; 93041; 94760; 96360; 96365; 96372; 96374; 99285; 99291; 99292; J1815; J2405; J2550

== ENCOUNTER 2019-08-10 00:38 | Emergency (ER) | payer OTHER ==
[2019-08-10] MEDS ORDERED: Pepcid 20 MG VIAL IV ONE (01:17)
[2019-08-10] MEDS ORDERED: Zofran 4 MG/2 ML VIAL IV ONE (01:17)
[2019-08-10] MEDS ORDERED: GI COCKTAIL 45 ML (Maalox/Lidocaine) PO ONE (01:17)
[2019-08-10] MEDS ORDERED: Sodium Chloride 0.9% 1000 ML 1,000 ML IV STA ×2 (01:17→06:15)
[2019-08-10] MEDS ORDERED: MAALOX ES 30 ML UNIT DOSE ONE (01:27)
[2019-08-10] MEDS ORDERED: XYLOCAINE HCl Viscous ONE (01:27)
[2019-08-10 02:34] LABS: Absolute Neutrophil Ct (ANC) 4.72 (1.4-6.9); Basophil (Absolute #) 0 (0-0.4); Eosinophil (Absolute #) 0 (0-0.5); Hematocrit 36.7 % (35-47); Hemoglobin 11.5 gm/dl (12.0-16.0); Lymphocyte (Absolute #) 1.36 (1.0-4.6); Lymphocytes % 20.4 % (24.0-44.0); Mean Cell Volume 85.9 fl (78-100); Mean Corpuscular Hemoglobin 26.9 pg (26-32); Mean Corpuscular Hgb Concent. 31.3 g/dl (32-36); Mean Platelet Volume 10.8 fl (7.5-11.0); Monocyte (Absolute #) 0.58 (0.0-1.3); Monocytes % 8.7 % (0.0-12.0); Neutrophil % 70.9 % (36.0-66.0); Platelet Count 262 K/mm3 (150-450); Red Blood Count 4.27 M/mm3 (4.1-5.4); White Blood Count 6.7 K/mm3 (4.0-10.5)
[2019-08-10] MEDS ORDERED: ZOFRAN ODT 4 MG PO ONE (02:35)
[2019-08-10] MEDS ORDERED: ZOFRAN ODT 4 MG ONE (02:37)
[2019-08-10 02:38] LABS: ALBUMIN 3.8 g/dL (3.5-5.0); ALKALINE PHOSPHATASE 66 U/L (38-126); ANION GAP 9.3 MEQ/L (5-15); BLOOD UREA NITROGEN 5 mg/dL (7-17); CHLORIDE 107 mmol/L (98-107); Carbon Dioxide 27 mmol/L (22-30); Creatinine 1 0.55 mg/dL (0.52-1.04); LIPASE 23 U/L (23-300); Potassium 3.3 mmol/L (3.5-5.1); SGOT/AST 32 U/L (14-36); SGPT/ALT 17 U/L (0-35); SODIUM 140 mmol/L (137-145); Total Protein 6.9 g/dL (6.3-8.2)
[2019-08-10 02:45] LABS: Glucose 40 mg/dL (74-106)
[2019-08-10] MEDS ORDERED: GlucaGen 1 MG IM ONE (02:55)
[2019-08-10] MEDS ORDERED: GlucaGen 1 MG ONE (02:56)
[2019-08-10] MEDS ORDERED: Klor Con 10 MEQ PO ONE ×2 (03:29→03:31)
--- NOTE | 2019-08-10 03:37 | ERPHSYRPT ---
- History of Present Illness Time Seen by Provider: 08/10/19 01:00 Source: patient Exam Limitations: no limitations Patient Subjective Stated Complaint: THROAT FOR ABOUT WEEK, PT STATES THAT IOT FEELS LIKE KNIVES IN HER THROAT. PT WAS HERE IN ER ON AND WAS TRANSFERED [facility] FOR DKA. PT STATES THAT SHE STARTED VOMITING LATE EVENING Triage Nursing Assessment: PT AMBULATED TO ROOM AND GOT INTO BED HERSELF. PT STATES THAT HER THROAT FEELS LIKE THERE IS KNIVES IN IT AND SHE STARTED VOMITING / DIARRHEA LAST NIGHT AROUND 2300 Physician History: 33 years old female type I diabetic with recent admission at [facility] for DKA presented in the ER with chief complaint of sore throat and sharp shooting moderate to severe intensity pain for the last 2 to 3 days which is progressively worsening. This evening she had one episode of nonprojectile, nonbilious vomiting and her pain in her throat got worse. Patient reported difficulty swallow because of pain. Denies any epigastric pain or acid reflux. Has mild abdominal soreness but no pain. Patient reported recently her insulin pump stopped working when she went in [place] and currently on insulin and has taken Levemir 38 units and taking 10 units regular insulin with every meal. Timing/Duration: yesterday Severity: moderate Allergies/Adverse Reactions: No Known Drug Allergies Allergy (Verified 08/04/19 12:38) Home Medications: Clonazepam 0.5 mg [Klonopin 0.5 MG] 1 tab PO TID 01/28/19 [History] Insulin Lispro [Admelog Solostar] 1 unit SQ DAILY 01/28/19 [History] Trazodone HCl [Desyrel] 1 tab PO HS 01/28/19 [History] Venlafaxine HCl [Effexor Xr] 300 mg PO DAILY 01/28/19 [History] Oxcarbazepine [Trileptal] 300 mg PO BID 07/19/19 [History] Hx Tetanus, Diphtheria Vaccination/Date Given: Yes Hx Influenza Vaccination/Date Given: Yes Hx Pneumococcal Vaccination/Date Given: No - Review of Systems Constitutional: Fatigue Eyes: No Symptoms Ears, Nose, & Throat: Throat Pain, Painful Swallowing Respiratory: No Symptoms Cardiac: No Symptoms Abdominal/Gastrointestinal: Nausea, Vomiting Genitourinary Symptoms: No Symptoms Musculoskeletal: No Symptoms Neurological: No Symptoms Psychological: Anxiety Endocrine: No Symptoms Hematologic/Lymphatic: No Symptoms Immunological/Allergic: No Symptoms - Past Medical History Pertinent Past Medical History: Yes Neurological History: No Pertinent History ENT History: No Pertinent History Cardiac History: No Pertinent History Respiratory History: No Pertinent History Endocrine Medical History: Diabetes Type I, Hypothyroidism Musculoskeletal History: No Pertinent History GI Medical History: No Pertinent History History: No Pertinent History Psycho-Social History: Anxiety, Bipolar, Depression Female Reproductive Disorders: No Pertinent History Other Medical History: HAS BEEN TYPE 1 SINCE 11 MONTHS OLD. - Past Surgical History Past Surgical History: Yes Neuro Surgical History: No Pertinent History Cardiac: No Pertinent History Respiratory: No Pertinent History Gastrointestinal: No Pertinent History Genitourinary: No Pertinent History Musculoskeletal: Orthopedic Surgery Female Surgical History: Section, Tubal Ligation Other Surgical History: TONSILS. X 4. carpal tunnel surgery - Social History Smoking Status: Never smoker Exposure to second hand smoke: Yes Drug Use: marijuana Patient Lives Alone: Yes - Female History Hx Last Menstrual Period: 08/05/19 Hx Now: No - Nursing Vital Signs Nursing Vital Signs: Initial Vital Signs Temperature 97.8 F 08/10/19 00:38 Pulse Rate 121 H 08/10/19 00:38 Respiratory Rate 22 08/10/19 00:38 Blood Pressure 136/99 08/10/19 00:38 O2 Sat by Pulse Oximetry 100 08/10/19 00:38 Pain Scale Pain Intensity 0 - Physical Exam General Appearance: no apparent distress Eye Exam: PERRL/EOMI, eyes nml inspection Ears, Nose, Throat Exam: normal ENT inspection, TMs normal, pharyngeal erythema , other Neck Exam: normal inspection Respiratory Exam: normal breath sounds Cardiovascular Exam: normal heart sounds, normal peripheral pulses, tachycardia Gastrointestinal/Abdomen Exam: soft, normal bowel sounds, No tenderness Back Exam: normal inspection Extremity Exam: normal inspection, normal range of motion Neurologic Exam: alert, oriented x 3, cooperative, motel front desk clerk II-XII nml as tested Skin Exam: normal color SpO2 Interpretation: normal SpO2: 100 O2 Delivery: Room Air - Course Nursing assessment & vital signs reviewed: Yes Ordered Tests: Active Orders 24 hr Category Date Time Status ACCUCHECK [Accucheck] STAT Care 08/10/19 01:05 Active CBC W DIFF Stat Lab 08/10/19 02:23 Completed CMP Stat Lab 08/10/19 02:23 Completed LIPASE Stat Lab 08/10/19 02:23 Completed Medication Summary Generic Name Dose Route Start Last Admin Trade Name Freq PRN Reason Stop Dose Admin Sodium Chloride 1,000 mls @ 999 mls/hr 08/10/19 06:15 08/10/19 07:00 Sodium Chloride 0.9% 1000 Ml IV 08/10/19 07:15 0 mls/hr .Q1H1M STA Infusion Dextrose 1,000 mls @ 125 mls/hr 08/10/19 07:00 08/10/19 06:59 Dextrose 5%/Water Iv Soln. 1000 Ml IV 09/09/19 06:59 125 mls/hr .Q8H INGA Administration Discontinued Medications Generic Name Dose Route Start Last Admin Trade Name Freq PRN Reason Stop Dose Admin Al Hydrox/Mg Hydrox/Simethicone Confirm 08/10/19 01:27 Maalox Es 30 Ml Unit Dose Administered 08/10/19 01:28 Dose 30 ml .ROUTE .STK-MED ONE Dextrose 50 ml 08/10/19 05:49 08/10/19 05:52 D50w 50 Ml Abboject IV 08/10/19 05:50 50 ml STAT ONE Administration Dextrose Confirm 08/10/19 05:50 D50w 50 Ml Abboject Administered 08/10/19 05:51 Dose 50 ml IV .STK-MED ONE Famotidine 20 mg 08/10/19 01:17 08/10/19 03:53 Pepcid 20 Mg Vial IV 08/10/19 01:18 Not Given STAT ONE Glucagon 1 mg 08/10/19 02:55 08/10/19 03:01 Glucagen 1 Mg IM 08/10/19 02:56 1 mg STAT ONE Administration Glucagon Confirm 08/10/19 02:56 Glucagen 1 Mg Administered 08/10/19 02:57 Dose 1 mg .ROUTE .STK-MED ONE Sodium Chloride 1,000 mls @ 999 mls/hr 08/10/19 01:17 08/10/19 03:54 Sodium Chloride 0.9% 1000 Ml IV 08/10/19 02:17 Not Given .Q1H1M STA Sodium Chloride 100 mls @ 100 mls/hr 08/10/19 06:11 08/10/19 06:21 Sodium Chloride 0.9% 100 Ml Ivpb IV 08/10/19 07:10 Not Given .Q1H ONE Sodium Chloride Confirm 08/10/19 06:12 Sodium Chloride 0.9% 1000 Ml Administered 08/10/19 06:13 Dose 1,000 mls @ ud .ROUTE .STK-MED ONE Lidocaine HCl Confirm 08/10/19 01:27 Xylocaine Hcl Viscous * Administered 08/10/19 01:28 Dose 15 ml .ROUTE .STK-MED ONE Magnesium Hydroxide 45 ml 08/10/19 01:17 08/10/19 01:33 Gi Cocktail 45 Ml (Maalox/Lidocaine) PO 08/10/19 01:18 45 ml STAT ONE Administration Ondansetron HCl 4 mg 08/10/19 01:17 08/10/19 03:54 Zofran 4 Mg/2 Ml Vial IV 08/10/19 01:18 Not Given STAT ONE Ondansetron HCl 4 mg 08/10/19 02:35 08/10/19 02:38 Zofran Odt 4 Mg PO 08/10/19 02:36 4 mg STAT ONE Administration Ondansetron HCl Confirm 08/10/19 02:37 Zofran Odt 4 Mg Administered 08/10/19 02:38 Dose 4 mg .ROUTE .STK-MED ONE Pantoprazole Sodium 40 mg 08/10/19 03:49 08/10/19 03:50 Protonix 40mg Tablet PO 08/10/19 03:50 40 mg STAT ONE Administration Pantoprazole Sodium Confirm 08/10/19 03:49 Protonix 40mg Tablet Administered 08/10/19 03:50 Dose 40 mg .ROUTE .STK-MED ONE Potassium Chloride 40 meq 08/10/19 03:29 08/10/19 03:33 Klor Con 10 Meq PO 08/10/19 03:30 40 meq STAT ONE Administration Potassium Chloride Confirm 08/10/19 03:31 Klor Con 10 Meq Administered 08/10/19 03:32 Dose 40 meq PO .STK-MED ONE Lab/Rad Data: Laboratory Result Diagrams 08/10/19 02:23 08/10/19 02:23 Laboratory Results 08/10/19 08/10/19 Range/Units 02:23 02:23 WBC 6.7 (4.0-10.5) K/mm3 RBC 4.27 (4.1-5.4) M/mm3 Hgb 11.5 L (12.0-16.0) gm/dl Hct 36.7 (35-47) % MCV 85.9 (78-100) fl MCH 26.9 (26-32) pg MCHC 31.3 L (32-36) g/dl RDW 13.0 (11.5-14.0) % Plt Count 262 (150-450) K/mm3 MPV 10.8 (7.5-11.0) fl Gran % 70.9 H (36.0-66.0) % Eos # (Auto) 0 (0-0.5) Absolute Lymphs (auto) 1.36 (1.0-4.6) Absolute Monos (auto) 0.58 (0.0-1.3) Lymphocytes % 20.4 L (24.0-44.0) % Monocytes % 8.7 (0.0-12.0) % Eosinophils % 0.0 (0.00-5.0) % Basophils % 0.0 (0.0-0.4) % Absolute Granulocytes 4.72 (1.4-6.9) Basophils # 0 (0-0.4) Sodium 140 (137-145) mmol/L Potassium 3.3 L (3.5-5.1) mmol/L Chloride 107 (98-107) mmol/L Carbon Dioxide 27 (22-30) mmol/L Anion Gap 9.3 (5-15) MEQ/L BUN 5 L (7-17) mg/dL Creatinine 0.55 (0.52-1.04) mg/dL Estimated GFR > 60.0 ML/MIN Glucose 40 L* (74-106) mg/dL Calcium 9.0 (8.4-10.2) mg/dL Total Bilirubin 0.30 (0.2-1.3) mg/dL AST 32 (14-36) U/L ALT 17 (0-35) U/L Alkaline Phosphatase 66 (38-126) U/L Serum Total Protein 6.9 (6.3-8.2) g/dL Albumin 3.8 (3.5-5.0) g/dL Lipase 23 (23-300) U/L - Progress Progress: improved, re-examined Progress Note: 08/10/19 03:35 33 years old type I diabetic is evaluated for sore throat. She is given GI cocktail along with Pepcid and Zofran, on reevaluation her throat pain is much improved. I believe patient has been vomiting recently and has some acid reflux with esophagitis. I would start her on Carafate and Protonix to go home. While in the ER patient's blood glucose is dropping repeatedly and was 40. She is given oral but not much improvement. Patient is a hard stick. She is given a dose of glucagon. I would watch her in the ER to make sure her blood glucose is stable before discharge. On repeated evaluation abdominal exam is soft nontender, nonsurgical. Do not think she needs any imaging. Patient is not in DKA otherwise. Has mildly low potassium and is given replacement for that. Once her blood glucoses stable she would be discharged with outpatient follow-up. 08/10/19 06:09 On reevaluation her blood sugars dropped to 40s again. She is given D50 1 ampoule. We will recheck again. 08/10/19 06:49 Patient blood sugar dropped again to 85 after D50 ampule. I have started her on D5 W. Discussed with Dr. Sanches for admission, recommended transfer to [facility] where she was admitted recently for DKA. 08/10/19 06:49 08/10/19 06:[address] Levine at [facility] and patient is accepted for transfer. Discussed with patient who understand and agrees with it. Discussed with .: Jadon Will see patient in: other Counseled pt/family regarding: lab results, diagnosis, need for follow-up - Departure Departure Disposition: Transfer Clinical Impression: Hypoglycemia, Hypokalemia Vomiting Qualifiers: Vomiting type: unspecified Vomiting Intractability: non-intractable Nausea presence: with nausea Qualified Code(s): R11.2 - Nausea with vomiting, unspecified Condition: Stable Critical Care Time: Yes Critical Care Time(excluding separately billable procedures): Critical 30-74 mins Referrals: STU KEATING [Primary Care Provider] -
[2019-08-10] MEDS ORDERED: Protonix 40MG Tablet ONE (03:49)
[2019-08-10] MEDS ORDERED: Protonix 40MG Tablet PO ONE (03:49)
[2019-08-10] MEDS ORDERED: D50W 50 ml Abboject IV ONE ×4 (05:49→08:34)
[2019-08-10] MEDS ORDERED: Sodium Chloride 0.9% 100 ML IVPB 100 ML IV ONE (06:11)
[2019-08-10] MEDS ORDERED: Sodium Chloride 0.9% 1000 ML 1,000 ML ONE (06:12)
[2019-08-10 06:42] VITALS: BP 133/79; PULSE 119
[2019-08-10 06:45] VITALS: O2SAT 100
[2019-08-10] MEDS ORDERED: Dextrose 5%/Water IV Soln. 1000 ML 1,000 ML IV ONE (06:58)
[2019-08-10] MEDS ORDERED: Dextrose 5%/Water IV Soln. 1000 ML 1,000 ML IV SCH (07:00)
[2019-08-10] MEDS ORDERED: D50W 50ML Vial IV STA (08:23)
== END 2019-08-10 08:43 | disposition short-term general hospital (02) ==
LOC: ED 00:38
DX: E10.649 Type 1 diabetes mellitus with hypoglycemia without coma (principal); E87.6 Hypokalemia; R11.2 Nausea with vomiting, unspecified
CPT/HCPCS: 36415; 80053; 82962; 83690; 85025; 96360; 96365; 96372; 96374; 96376; 99285; 99291; J1610; Q0162; A9270-GY

== ENCOUNTER 2019-09-16 20:07 | Emergency (ER) | payer OTHER ==
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
[2019-09-16] MEDS ORDERED: Cordarone 150 MG/3 ML Injection*** 150 MG in D5w 100ML Mini Bag 100 ML 100 ML IV ONE (20:20)
[2019-09-16] MEDS ORDERED: CLINDAMYCIN-D5W 600 MG/50 ML*** 600 MG/50 ML BAG IV STA (20:23)
[2019-09-16] MEDS ORDERED: Sodium Chloride 0.9% 1000 ML 1,000 ML IV SCH (20:30)
[2019-09-16 21:01] LABS: Absolute Neutrophil Ct (ANC) 4.41 (1.4-6.9); Basophil (Absolute #) 0 (0-0.4); Eosinophil (Absolute #) 0 (0-0.5); Hematocrit 39.3 % (35-47); Hemoglobin 12.9 gm/dl (12.0-16.0); Lymphocyte (Absolute #) 2.62 (1.0-4.6); Lymphocytes % 33.8 % (24.0-44.0); Mean Cell Volume 83.4 fl (78-100); Mean Corpuscular Hemoglobin 27.4 pg (26-32); Mean Corpuscular Hgb Concent. 32.8 g/dl (32-36); Mean Platelet Volume 10.3 fl (7.5-11.0); Monocyte (Absolute #) 0.73 (0.0-1.3); Monocytes % 9.4 % (0.0-12.0); Neutrophil % 56.8 % (36.0-66.0); Platelet Count 345 K/mm3 (150-450); Red Blood Count 4.71 M/mm3 (4.1-5.4); Red Cell Distribution Width 13.7 % (11.5-14.0); White Blood Count 7.8 K/mm3 (4.0-10.5)
[2019-09-16 21:08] LABS: ALBUMIN 4.5 g/dL (3.5-5.0); ALKALINE PHOSPHATASE 76 U/L (38-126); AMYLASE 63 U/L (30-110); ANION GAP 18.6 MEQ/L (5-15); BLOOD UREA NITROGEN 13 mg/dL (7-17); CHLORIDE 97 mmol/L (98-107); Calcium 8.7 mg/dL (8.4-10.2); Carbon Dioxide 25 mmol/L (22-30); Creatinine 1 0.63 mg/dL (0.52-1.04); Glucose 159 mg/dL (74-106); LIPASE 57 U/L (23-300); Potassium 3.5 mmol/L (3.5-5.1); SGOT/AST 41 U/L (14-36); SGPT/ALT 17 U/L (0-35); SODIUM 137 mmol/L (137-145); Total Protein 7.6 g/dL (6.3-8.2)
[2019-09-16 21:22] LABS: NT PRO BNP 16.1 pg/mL (0-450)
[2019-09-16 21:25] LABS: TROPONIN < 0.012 ng/mL (0.000-0.034)
[2019-09-16] MEDS ORDERED: Sodium Chloride 0.9% 1000 ML 1,000 ML ONE ×2 (21:27→21:34)
[2019-09-16] MEDS ORDERED: CLINDAMYCIN-D5W 600 MG/50 ML*** 600 MG/50 ML BAG IV ONE (21:34)
[2019-09-16 22:48] LABS: Appearance CLOUDY (CLEAR); Bacteria FEW /HPF (NEGATIVE); Bilirubin NEGATIVE (NEGATIVE); Blood NEGATIVE Ery/ul (0-5); Epithelial Cells MODERATE /HPF (FEW); Glucose NEGATIVE (NEGATIVE); Ketones NEGATIVE (NEGATIVE); Leukocyte Esterase TRACE (NEGATIVE); Mucus SLIGHT /HPF (NEGATIVE); Nitrite NEGATIVE (NEGATIVE); Protein,Urine Dip NEGATIVE (Negative); Urobilinogen NEGATIVE mg/dL (0-1)
[2019-09-16 22:57] LABS: Amphetamine,Urine NEGATIVE (NEGATIVE); Barbiturate,Urine NEGATIVE (NEGATIVE); Benzodiazepine,Urine NEGATIVE (NEGATIVE); Cocaine,Urine NEGATIVE (NEGATIVE); Methadone,Urine NEGATIVE (NEGATIVE); Opiate,Urine NEGATIVE (NEGATIVE); PCP,Urine NEGATIVE (NEGATIVE); THC,Urine NEGATIVE (NEGATIVE)
[2019-09-16] MEDS ORDERED: XYLOCAINE 1% HCL 20 ML MDV IJ ONE (23:43)
[2019-09-16] MEDS ORDERED: Adacel Vial IM ONE (23:43)
[2019-09-16] MEDS ORDERED: BACIGUENT PACKET TP ONE (23:43)
[2019-09-17] MEDS ORDERED: BACIGUENT PACKET ONE (02:25)
[2019-09-17] MEDS ORDERED: XYLOCAINE 1% HCL 20 ML MDV ONE (02:33)
[2019-09-17] MEDS ORDERED: Adacel Vial IM ONE (02:33)
[2019-09-17 03:08] VITALS: BP 133/76; PULSE 118; O2SAT 97
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
== END 2019-09-17 02:59 | disposition home or self-care (01) ==
LOC: ED 20:07
DX: S91.011A Laceration without foreign body, right ankle, initial encounter (principal); S00.81XA Abrasion of other part of head, initial encounter; M25.511 Pain in right shoulder; S91.311A Laceration without foreign body, right foot, initial encounter; V86.59XA Driver of other special all-terrain or other off-road motor vehicle injured in nontraffic accident, initial encounter; E10.9 Type 1 diabetes mellitus without complications; E03.9 Hypothyroidism, unspecified; F31.9 Bipolar disorder, unspecified
CPT/HCPCS: 12002; 36000; 36415; 70450; 70486; 71045; 72125; 73030; 73610; 80053; 80307; 81001; 81025; 82150; 83690; 83880; 84484; 85025; 87040; 87077; 87086; 87186; 90471; 93005; 93041; 96365; 96372; 99285; G0480; 85379; 90715; A9270-GY

== ENCOUNTER 2019-10-24 22:47 | Emergency (ER) | payer OTHER ==
[2019-10-24] MEDS ORDERED: Zofran 4 MG/2 ML VIAL IV ONE (23:00)
[2019-10-24] MEDS ORDERED: Sodium Chloride 0.9% 1000 ML 1,000 ML IV STA (23:00)
[2019-10-24] MEDS ORDERED: Zofran 4 MG/2 ML VIAL ONE (23:06)
[2019-10-24] MEDS ORDERED: Sodium Chloride 0.9% 1000 ML 1,000 ML ONE (23:06)
[2019-10-24 23:15] LABS: Absolute Neutrophil Ct (ANC) 5.59 (1.4-6.9); Basophil (Absolute #) 0 (0-0.4); Eosinophil (Absolute #) 0 (0-0.5); Hematocrit 39.6 % (35-47); Hemoglobin 13.3 gm/dl (12.0-16.0); Lymphocyte (Absolute #) 1.73 (1.0-4.6); Lymphocytes % 21.9 % (24.0-44.0); Mean Corpuscular Hemoglobin 26.9 pg (26-32); Mean Corpuscular Hgb Concent. 33.6 g/dl (32-36); Mean Platelet Volume 10.6 fl (7.5-11.0); Monocyte (Absolute #) 0.58 (0.0-1.3); Monocytes % 7.3 % (0.0-12.0); Neutrophil % 70.8 % (36.0-66.0); Platelet Count 344 K/mm3 (150-450); Red Blood Count 4.95 M/mm3 (4.1-5.4); Red Cell Distribution Width 13.6 % (11.5-14.0); White Blood Count 7.9 K/mm3 (4.0-10.5)
[2019-10-24 23:26] LABS: ALBUMIN 4.4 g/dL (3.5-5.0); ALKALINE PHOSPHATASE 89 U/L (38-126); ANION GAP 15.7 MEQ/L (5-15); BLOOD UREA NITROGEN 10 mg/dL (7-17); CHLORIDE 96 mmol/L (98-107); Calcium 9.3 mg/dL (8.4-10.2); Carbon Dioxide 26 mmol/L (22-30); Creatinine 1 0.55 mg/dL (0.52-1.04); Glucose 204 mg/dL (74-106); LIPASE 13 U/L (23-300); Potassium 3.7 mmol/L (3.5-5.1); SGOT/AST 23 U/L (14-36); SGPT/ALT 15 U/L (0-35); SODIUM 134 mmol/L (137-145); Total Protein 7.6 g/dL (6.3-8.2)
[2019-10-25] MEDS ORDERED: Ativan 2 MG/1 ML VIAL IV STA (00:08)
[2019-10-25] MEDS ORDERED: Zofran 4 MG/2 ML VIAL IV ONE (00:09)
--- NOTE | 2019-10-25 00:10 | ERPHSYRPT ---
- History of Present Illness Time Seen by Provider: 10/24/19 23:00 Source: patient Exam Limitations: no limitations Patient Subjective Stated Complaint: pt states, "I drank vodka last night, alot , and I've been vomiting all day and not voiding, only 1x today". "I know I'm dehydrated, I've been down this road before". Triage Nursing Assessment: Pt c/o vomiting off and on all day today, starting at 0500. Pt was drinking vodka last night, "alot of it", according to her. Pt has only voided x1 today. Pt is type 1 diabetic. Pt states, "I know I'm dehydrated, I've been down this road before, but I can't keep anything down, and I cant' quit puking". Physician History: Patient is a 34-year-old type I diabetic presents to our ED feeling unwell. Patient states that she drank 1/5 of vodka yesterday at approximately 4 PM. Patient states she was very intoxicated. Patient has not eaten since yesterday prior to her alcohol binge. Patient is not sure why she drank so much alcohol. Patient states "I just did". Patient began vomiting early this morning at approximately 5 AM. Patient states she is vomits every time she attempts to drink or eat. Patient urinated once today. Patient states her sugar was 278 this morning. Patient has an insulin pump. Patient has been managing her glucose using her insulin pump. Patient's glucose is currently under control per patient. Patient denies pain. Patient states she feels "jittery". Patient is hyperventilating. Patient feels she is dehydrated. Patient is requesting IV fluids and Zofran. Patient has had similar symptoms in the past. Patient states this combination of medication, IV fluids and Zofran use to resolve her symptomology. No associated chest pain or shortness of breath. No abdominal pain. No fever. Patient voices no other complaints at this time. Patient states she takes Klonopin 3 times daily for her nerves. Patient has not had her Klonopin and currently feels very nervous. Timing/Duration: yesterday Severity: moderate Modifying Factors: Improves With: nothing Associated Symptoms: nausea, vomiting, loss of appetite, No abdominal pain, No shortness of breath, No cough, No chest pain, No fever, No syncope, No seizure Allergies/Adverse Reactions: No Known Drug Allergies Allergy (Verified 10/24/19 23:01) Home Medications: Clonazepam 0.5 mg [Klonopin 0.5 MG] 1 tab PO TID 01/28/19 [History] Insulin Lispro [Admelog Solostar] 1 unit SQ DAILY 01/28/19 [History] Trazodone HCl [Desyrel] 1 tab PO HS 01/28/19 [History] Venlafaxine HCl [Effexor Xr] 220 mg PO DAILY 01/28/19 [History] OXcarbazepine [Trileptal] 300 mg PO BID 07/19/19 [History] Hx Tetanus, Diphtheria Vaccination/Date Given: Yes Hx Influenza Vaccination/Date Given: No Hx Pneumococcal Vaccination/Date Given: No Immunizations Up to Date: Yes Travel Risk - International Travel Have you traveled outside of the country in past 3 weeks: No Have you or anyone close to you been diagnosed with or: No Do your reside in a community with a known COVID-19 case?: Yes If Yes where:: [place] - Coronavirus Screening Has patient experienced Coronavirus symptoms: No - Review of Systems Constitutional: No Symptoms, No Fever, No Chills Eyes: No Symptoms Ears, Nose, & Throat: No Symptoms Respiratory: No Symptoms, No Cough, No Dyspnea Cardiac: No Symptoms, No Chest Pain, No Edema, No Syncope Abdominal/Gastrointestinal: No Symptoms, Nausea, Vomiting, Appetite Changes, No Abdominal Pain, No Diarrhea Genitourinary Symptoms: No Symptoms, No Dysuria, No Frequency Musculoskeletal: No Symptoms, No Back Pain, No Neck Pain Skin: No Symptoms, No Rash Neurological: No Symptoms, No Dizziness, No Focal Weakness, No Sensory Changes Psychological: No Symptoms Endocrine: No Symptoms Hematologic/Lymphatic: No Symptoms Immunological/Allergic: No Symptoms All Other Systems: Reviewed and Negative - Past Medical History Pertinent Past Medical History: Yes Neurological History: No Pertinent History ENT History: No Pertinent History Cardiac History: No Pertinent History Respiratory History: No Pertinent History Endocrine Medical History: Diabetes Type I, Hypothyroidism Musculoskeletal History: No Pertinent History GI Medical History: No Pertinent History History: No Pertinent History Psycho-Social History: Anxiety, Bipolar, Depression Female Reproductive Disorders: No Pertinent History Other Medical History: HAS BEEN TYPE 1 SINCE 10 MONTHS OLD. - Past Surgical History Past Surgical History: Yes Neuro Surgical History: No Pertinent History Cardiac: No Pertinent History Respiratory: No Pertinent History Gastrointestinal: No Pertinent History Genitourinary: No Pertinent History Musculoskeletal: Orthopedic Surgery Female Surgical History: Section, Tubal Ligation Other Surgical History: TONSILS. X 4. carpal tunnel surgery - Social History Smoking Status: Never smoker Exposure to second hand smoke: No Drug Use: marijuana Patient Lives Alone: No - Female History Hx Last Menstrual Period: 10/08/19 Hx Now: No - Nursing Vital Signs Nursing Vital Signs: Initial Vital Signs Temperature 97.5 F 10/24/19 22:50 Pulse Rate 103 H 10/24/19 22:50 Respiratory Rate 17 10/24/19 22:50 Blood Pressure 144/94 10/24/19 22:50 O2 Sat by Pulse Oximetry 100 10/24/19 22:50 Pain Scale Pain Intensity 4 - Physical Exam General Appearance: moderate distress, alert, anxiety Eye Exam: PERRL/EOMI, eyes nml inspection Ears, Nose, Throat Exam: normal ENT inspection, TMs normal, pharynx normal, moist mucous membranes Neck Exam: normal inspection, non-tender, supple, full range of motion Respiratory Exam: normal breath sounds, lungs clear, other (Mild tachypnea observed.), No respiratory distress Cardiovascular Exam: regular rate/rhythm, normal heart sounds, normal peripheral pulses Gastrointestinal/Abdomen Exam: soft, normal bowel sounds, No tenderness, No mass Pelvic Exam: not done Rectal Exam: deferred Back Exam: normal inspection, normal range of motion, No CVA tenderness, No vertebral tenderness Extremity Exam: normal inspection, normal range of motion, pelvis stable Neurologic Exam: alert, oriented x 3, cooperative, normal mood/affect, nml cerebellar function, nml station & gait, sensation nml, No motor deficits Skin Exam: normal color, warm, dry, No rash Lymphatic Exam: No adenopathy SpO2 Interpretation: normal SpO2: 100 O2 Delivery: Room Air - Course Nursing assessment & vital signs reviewed: Yes EKG Interpreted by Me: RATE ([id number]), Sinus Rhythm, NORMAL AXIS, NORMAL INTERVALS Ordered Tests: Active Orders 24 hr Category Date Time Status ACCUCHECK [Accucheck] STAT Care 10/24/19 23:10 Active EKG-ER Only STAT Care 10/24/19 23:00 Active IV Insertion STAT Care 10/24/19 23:00 Active Isolation, Initiate & Maintain Q4H Care 10/24/19 23:01 Active CBC W DIFF Stat Lab 10/24/19 23:11 Completed CMP Stat Lab 10/24/19 23:11 Completed HCG,QUALITATIVE URINE Stat Lab 10/25/19 00:53 Completed LIPASE Stat Lab 10/24/19 23:11 Completed TROPONIN Q3H Lab 10/24/19 23:11 Completed TROPONIN Q3H Lab 10/25/19 02:00 Ordered TROPONIN Q3H Lab 10/25/19 05:00 Ordered TROPONIN Q3H Lab 10/25/19 08:00 Ordered TROPONIN Q3H Lab 10/25/19 11:00 Ordered UA W/RFX UR CULTURE Stat Lab 10/25/19 00:53 Completed Medication Summary Generic Name Dose Route Start Last Admin Trade Name Freq PRN Reason Stop Dose Admin Ceftriaxone Sodium/Dextrose 1 g in 50 mls @ 100 mls/hr 10/25/19 01:08 01:14 Rocephin 1 Gm-D5w 50 Ml Bag IV 10/25/19 01:37 100 mls/hr STAT STA 100 mls/hr Administration Discontinued Medications Generic Name Dose Route Start Last Admin Trade Name Freq PRN Reason Stop Dose Admin Sodium Chloride 1,000 mls @ 999 mls/hr 10/24/19 23:00 10/24/19 23:07 Sodium Chloride 0.9% 1000 Ml IV 10/25/19 00:00 999 mls/hr .Q1H1M STA Administration Sodium Chloride Confirm 10/24/19 23:06 Sodium Chloride 0.9% 1000 Ml Administered 10/24/19 23:07 Dose 1,000 mls @ ud .ROUTE .STK-MED ONE Sodium Chloride 1,000 mls @ 999 mls/hr 10/25/19 00:15 10/25/19 00:31 Sodium Chloride 0.9% 1000 Ml IV 10/25/19 01:15 999 mls/hr .Q1H1M STA Administration Sodium Chloride Confirm 10/25/19 00:24 Sodium Chloride 0.9% 1000 Ml Administered 10/25/19 00:25 Dose 1,000 mls @ ud .ROUTE .STK-MED ONE Ceftriaxone Sodium/Dextrose Confirm 10/25/19 01:12 Rocephin 1 Gm-D5w 50 Ml Bag Administered 10/25/19 01:13 Dose 1 g in 50 mls @ ud IV .STK-MED ONE Lorazepam 0.5 mg 10/25/19 00:08 10/25/19 00:33 Ativan 2 Mg/1 Ml Vial IV 10/25/19 00:09 0.5 mg ONCE STA Administration Lorazepam Confirm 10/25/19 00:23 Ativan 2 Mg/1 Ml Vial Administered 10/25/19 00:24 Dose 2 mg .ROUTE .STK-MED ONE Ondansetron HCl 4 mg 10/24/19 23:00 10/24/19 23:08 Zofran 4 Mg/2 Ml Vial IV 10/24/19 23:01 4 mg STAT ONE Administration Ondansetron HCl Confirm 10/24/19 23:06 Zofran 4 Mg/2 Ml Vial Administered 10/24/19 23:07 Dose 4 mg .ROUTE .STK-MED ONE Ondansetron HCl 4 mg 10/25/19 00:09 10/25/19 00:32 Zofran 4 Mg/2 Ml Vial IV 10/25/19 00:10 4 mg STAT ONE Administration Ondansetron HCl Confirm 10/25/19 00:23 Zofran 4 Mg/2 Ml Vial Administered 10/25/19 00:24 Dose 4 mg .ROUTE .STK-MED ONE Lab/Rad Data: Laboratory Result Diagrams 10/24/19 23:11 10/24/19 23:11 Laboratory Results 10/25/19 10/25/19 10/24/19 Range/Units 00:53 00:53 23:11 WBC (4.0-10.5) K/mm3 RBC (4.1-5.4) M/mm3 Hgb (12.0-16.0) gm/dl Hct (35-47) % MCV (78-100) fl MCH (26-32) pg MCHC (32-36) g/dl RDW (11.5-14.0) % Plt Count (150-450) K/mm3 MPV (7.5-11.0) fl Gran % (36.0-66.0) % Eos # (Auto) (0-0.5) Absolute Lymphs (auto) (1.0-4.6) Absolute Monos (auto) (0.0-1.3) Lymphocytes % (24.0-44.0) % Monocytes % (0.0-12.0) % Eosinophils % (0.00-5.0) % Basophils % (0.0-0.4) % Absolute Granulocytes (1.4-6.9) Basophils # (0-0.4) Sodium 134 L (137-145) mmol/L Potassium 3.7 (3.5-5.1) mmol/L Chloride 96 L (98-107) mmol/L Carbon Dioxide 26 (22-30) mmol/L Anion Gap 15.7 H (5-15) MEQ/L BUN 10 (7-17) mg/dL Creatinine 0.55 (0.52-1.04) mg/dL Estimated GFR > 60.0 ML/MIN Glucose 204 H (74-106) mg/dL Calcium 9.3 (8.4-10.2) mg/dL Total Bilirubin 0.80 (0.2-1.3) mg/dL AST 23 (14-36) U/L ALT 15 (0-35) U/L Alkaline Phosphatase 89 (38-126) U/L Troponin I (0.000-0.034) ng/mL Serum Total Protein 7.6 (6.3-8.2) g/dL Albumin 4.4 (3.5-5.0) g/dL Lipase 13 L (23-300) U/L Urine Color YELLOW (YELLOW) Urine Appearance CLEAR (CLEAR) Urine pH 7.0 (5-6) Ur Specific [place] 1.006 (1.005-1.025) Urine Protein NEGATIVE (Negative) Urine Ketones SMALL (NEGATIVE) Urine Blood LARGE (0-5) Shashank/ul Urine Nitrite NEGATIVE (NEGATIVE) Urine Bilirubin NEGATIVE (NEGATIVE) Urine Urobilinogen NEGATIVE (0-1) mg/dL Ur Leukocyte Esterase NEGATIVE (NEGATIVE) Urine WBC (Auto) 6-10 (0-5) /HPF Urine RBC (Auto) 26-50 (0-2) /HPF U Epithel Cells (Auto) RARE (FEW) /HPF Urine Bacteria (Auto) NONE SEEN (NEGATIVE) /HPF Urine Culture Reflexed NO (NO) Urine Glucose 50 (NEGATIVE) mg/dL Urine HCG, Qual NEGATIVE (Negative) 10/24/19 10/24/19 Range/Units 23:11 23:11 WBC 7.9 (4.0-10.5) K/mm3 RBC 4.95 (4.1-5.4) M/mm3 Hgb 13.3 (12.0-16.0) gm/dl Hct 39.6 (35-47) % MCV 80.0 (78-100) fl MCH 26.9 (26-32) pg MCHC 33.6 (32-36) g/dl RDW 13.6 (11.5-14.0) % Plt Count 344 (150-450) K/mm3 MPV 10.6 (7.5-11.0) fl Gran % 70.8 H (36.0-66.0) % Eos # (Auto) 0 (0-0.5) Absolute Lymphs (auto) 1.73 (1.0-4.6) Absolute Monos (auto) 0.58 (0.0-1.3) Lymphocytes % 21.9 L (24.0-44.0) % Monocytes % 7.3 (0.0-12.0) % Eosinophils % 0.0 (0.00-5.0) % Basophils % 0.0 (0.0-0.4) % Absolute Granulocytes 5.59 (1.4-6.9) Basophils # 0 (0-0.4) Sodium (137-145) mmol/L Potassium (3.5-5.1) mmol/L Chloride (98-107) mmol/L Carbon Dioxide (22-30) mmol/L Anion Gap (5-15) MEQ/L BUN (7-17) mg/dL Creatinine (0.52-1.04) mg/dL Estimated GFR ML/MIN Glucose (74-106) mg/dL Calcium (8.4-10.2) mg/dL Total Bilirubin (0.2-1.3) mg/dL AST (14-36) U/L ALT (0-35) U/L Alkaline Phosphatase (38-126) U/L Troponin I 0.023 (0.000-0.034) ng/mL Serum Total Protein (6.3-8.2) g/dL Albumin (3.5-5.0) g/dL Lipase (23-300) U/L Urine Color (YELLOW) Urine Appearance (CLEAR) Urine pH (5-6) Ur Specific [place] (1.005-1.025) Urine Protein (Negative) Urine Ketones (NEGATIVE) Urine Blood (0-5) Shashank/ul Urine Nitrite (NEGATIVE) Urine Bilirubin (NEGATIVE) Urine Urobilinogen (0-1) mg/dL Ur Leukocyte Esterase (NEGATIVE) Urine WBC (Auto) (0-5) /HPF Urine RBC (Auto) (0-2) /HPF U Epithel Cells (Auto) (FEW) /HPF Urine Bacteria (Auto) (NEGATIVE) /HPF Urine Culture Reflexed (NO) Urine Glucose (NEGATIVE) mg/dL Urine HCG, Qual (Negative) - Progress Progress: improved Progress Note: 10/25/19 01:42 Patient reassessed. She feels well. Vitals are within normal limits. Patient tolerating p.o. Patient has urinary tract infection. Patient received a gram of Rocephin. IV fluids infused. Patient requesting discharge. Counseled pt/family regarding: drug and/or alcohol abuse, lab results, diagnosis , need for follow-up - Departure Departure Disposition: Home Clinical Impression: Nausea and vomiting, Anxiety, Alcohol use Condition: Stable Critical Care Time: No Referrals: STU KEATING [Primary Care Provider] - Instructions: Nausea -- Adult, Vomiting -- Adult Additional Instructions: Discharge/Care Plan TYEVEE JEFFERSON was seen on 10/25/19 in the Emergency Room. The patient was counseled regarding Diagnosis,Lab results, Imaging studies, need for follow up and when to return to the Emergency Room. Prescriptions given: Discharge Note I have spoken with the patient and/or caregivers. I have explained the patient' s condition, diagnosis and treatment plan based on the information available to me at this time. I have answered the patient's and/or caregiver's questions and addressed any concerns. The patient and/or caregivers have as good understanding of the patient's diagnosis, condition and treatment plan as can be expected at this point. The vital signs have been stable. The patient's condition is stable and appropriate for discharge from the emergency department. The patient will pursue further outpatient evaluation with the primary care physician or other designated or consulting physician as outlined in the discharge instructions. The patient and/or caregivers are agreeable to this plan of care and follow-up instructions have been explained in detail. The patient and/or caregivers have received these instruction. The patient/and or caregivers are aware that any significant change in condition or worsening of symptoms should prompt an immediate return to this or the closest emergency department or call 911. Prescriptions: Nitrofurantoin Macro 100 mg [Macrobid 100MG Capsule] 100 mg PO BID 7 Days #14 capsule
[2019-10-25] MEDS ORDERED: Sodium Chloride 0.9% 1000 ML 1,000 ML IV STA (00:15)
[2019-10-25] MEDS ORDERED: Zofran 4 MG/2 ML VIAL ONE (00:23)
[2019-10-25] MEDS ORDERED: Ativan 2 MG/1 ML VIAL ONE (00:23)
[2019-10-25] MEDS ORDERED: Sodium Chloride 0.9% 1000 ML 1,000 ML ONE (00:24)
[2019-10-25 01:04] LABS: Appearance CLEAR (CLEAR); Bilirubin NEGATIVE (NEGATIVE); Blood LARGE Ery/ul (0-5); Epithelial Cells RARE /HPF (FEW); Glucose 50 mg/dL (NEGATIVE); Ketones SMALL (NEGATIVE); Leukocyte Esterase NEGATIVE (NEGATIVE); Nitrite NEGATIVE (NEGATIVE); Protein,Urine Dip NEGATIVE (Negative); RBC 26-50 /HPF (0-2); Specific Gravity 1.006 (1.005-1.025); Urobilinogen NEGATIVE mg/dL (0-1)
[2019-10-25 01:05] LABS: Bacteria NONE SEEN /HPF (NEGATIVE)
[2019-10-25] MEDS ORDERED: ROCEPHIN 1 Gm-D5w 50 ml Bag** 1 G/50 ML IVPB IV STA (01:08)
[2019-10-25] MEDS ORDERED: ROCEPHIN 1 Gm-D5w 50 ml Bag** 1 G/50 ML IVPB IV ONE (01:12)
[2019-10-25 02:27] VITALS: BP 112/67; PULSE 83; O2SAT 96
== END 2019-10-25 02:40 | disposition home or self-care (01) ==
LOC: ED 22:47
DX: R11.2 Nausea with vomiting, unspecified (principal); F41.9 Anxiety disorder, unspecified; Z72.89 Other problems related to lifestyle; E10.9 Type 1 diabetes mellitus without complications; E03.9 Hypothyroidism, unspecified; F31.9 Bipolar disorder, unspecified; Z79.899 Other long term (current) drug therapy
CPT/HCPCS: 36000; 36415; 80053; 81001; 82962; 83690; 84484; 84703; 85025; 93005; 96360; 96361; 96365; 96374; 96375; 96376; 99285; J0696; J2060; J2405

== ENCOUNTER 2019-12-24 23:52 | Emergency (ER) | payer OTHER ==
[2019-12-25] MEDS ORDERED: Sodium Chloride 0.9% 1000 ML 1,000 ML IV SCH (00:15)
[2019-12-25 00:26] LABS: Absolute Neutrophil Ct (ANC) 3.06 (1.4-6.9); Basophil (Absolute #) 0 (0-0.4); Eosinophil (Absolute #) 0 (0-0.5); Hematocrit 35.4 % (35-47); Hemoglobin 11.1 gm/dl (12.0-16.0); Lymphocyte (Absolute #) 1.84 (1.0-4.6); Lymphocytes % 34.3 % (24.0-44.0); Mean Cell Volume 83.3 fl (78-100); Mean Corpuscular Hemoglobin 26.1 pg (26-32); Mean Corpuscular Hgb Concent. 31.4 g/dl (32-36); Mean Platelet Volume 10.4 fl (7.5-11.0); Monocyte (Absolute #) 0.47 (0.0-1.3); Monocytes % 8.8 % (0.0-12.0); Neutrophil % 56.9 % (36.0-66.0); Platelet Count 218 K/mm3 (150-450); Red Blood Count 4.25 M/mm3 (4.1-5.4); Red Cell Distribution Width 14.5 % (11.5-14.0); White Blood Count 5.4 K/mm3 (4.0-10.5)
[2019-12-25] MEDS ORDERED: Sodium Chloride 0.9% 1000 ML 1,000 ML ONE (00:39)
[2019-12-25 00:41] LABS: ALBUMIN 3.5 g/dL (3.5-5.0); ALKALINE PHOSPHATASE 83 U/L (38-126); ANION GAP 11.4 MEQ/L (5-15); BLOOD UREA NITROGEN 10 mg/dL (7-17); CHLORIDE 100 mmol/L (98-107); Calcium 8.5 mg/dL (8.4-10.2); Carbon Dioxide 29 mmol/L (22-30); Creatinine 1 0.65 mg/dL (0.52-1.04); Glucose 161 mg/dL (74-106); MAGNESIUM 1.7 mg/dL (1.6-2.3); Potassium 3.6 mmol/L (3.5-5.1); SGOT/AST 15 U/L (14-36); SGPT/ALT 10 U/L (0-35); SODIUM 136 mmol/L (137-145); Total Protein 6.2 g/dL (6.3-8.2)
[2019-12-25 00:46] LABS: ACETAMINOPHEN < 10 ug/ml (10-30); ETHYL ALCOHOL < 10 mg/dL (0-10); SALICYLATE < 1.0 mg/dL (2-20)
--- NOTE | 2019-12-25 02:30 | ERPHSYRPT ---
- History of Present Illness Time Seen by Provider: 12/25/19 00:10 Source: patient Exam Limitations: no limitations Patient Subjective Stated Complaint: states that pt has been having slurred speech, unsteady gait, and increased blood sugar tonight. states she had a seizure on december 12 and had the same issues prior to having seizure. whens she had seizure on she fell on her rt shoulder and has been having pain in her shoulder radiating into her neck since, rates 02/18 Triage Nursing Assessment: pt lert and oriented, answers questions approp. szpeech slow and slurred. pt back per wheelchair. gait unsteady to stretcher. respriation nonlabored with lungs cta. pupils equal and reactive. bilat upper and lower ext strength equal and wnl Physician History: Patient is a 34-year-old female presents to our ED with her for evaluation of possible seizure and slurred speech. Patient states she developed slurred speech at approximately 10am. noticed slurred speech when he arrived home at approximately 2pm. Symptoms improved somewhat but worsened at approximately 11pm. Patient walked to the bathroom and had what appeared to be a seizure. She was confused and incontinent. She appeared post ictal with an unsteady gait. She has had similar symptoms in the past. On december 12 patient experienced slurred words then later had a seizure. At that time she injured her right shoulder. Family called 911, but patient refused transport to hospital. Patient also complains of right shoulder pain that is residual from her seizure on December 12. No BHT. No fever. No nausea vomiting. No diaphoresis. No chest pain or shortness of breath. Symptoms are mild to moderate in intensity. No specific worsening or improving factors. Patient voices no other complaints at this time. Timing/Duration: yesterday Severity: moderate Modifying Factors: Improves With: nothing Associated Symptoms: syncope, No nausea, No abdominal pain, No shortness of breath, No diaphoresis, No cough, No chills, No chest pain, No fever, No headaches, No loss of appetite, No malaise Allergies/Adverse Reactions: No Known Drug Allergies Allergy (Verified 12/25/19 00:36) Home Medications: Clonazepam 0.5 mg [Klonopin 0.5 MG] 1 tab PO TID 01/28/19 [History] Insulin Lispro [Admelog Solostar] 1 unit SQ DAILY 01/28/19 [History] Venlafaxine HCl [Effexor Xr] 225 mg PO DAILY 01/28/19 [History] OXcarbazepine [Trileptal] 300 mg PO BID 07/19/19 [History] Atomoxetine HCl [Strattera] 60 mg PO DAILY 12/25/19 [History] Gabapentin 600 mg PO TID 12/25/19 [History] Quetiapine Fumarate 100 mg [Seroquel 100 MG] 100 mg PO DAILY 12/25/19 [History] Quetiapine Fumarate 100 mg [Seroquel 100 MG] 200 mg PO HS 12/25/19 [History] Hx Tetanus, Diphtheria Vaccination/Date Given: Yes Hx Influenza Vaccination/Date Given: No Hx Pneumococcal Vaccination/Date Given: No Immunizations Up to Date: Yes Travel Risk - International Travel Have you traveled outside of the country in past 3 weeks: No - Coronavirus Screening Are you exhibiting any of the following symptoms?: No Close contact with a COVID-19 positive Pt in past 14-21 Days: No - Review of Systems Constitutional: No Symptoms, No Fever, No Chills Eyes: No Symptoms Ears, Nose, & Throat: No Symptoms Respiratory: No Symptoms, No Cough, No Dyspnea Cardiac: No Symptoms, No Chest Pain, No Edema, No Syncope Abdominal/Gastrointestinal: No Symptoms, No Abdominal Pain, No Nausea, No Vomiting, No Diarrhea Genitourinary Symptoms: No Symptoms, No Dysuria Musculoskeletal: No Symptoms, No Back Pain, No Neck Pain Skin: No Symptoms, No Rash Neurological: No Symptoms, Speech Changes, No Dizziness, No Focal Weakness, No Sensory Changes Psychological: No Symptoms Endocrine: No Symptoms Hematologic/Lymphatic: No Symptoms Immunological/Allergic: No Symptoms All Other Systems: Reviewed and Negative - Past Medical History Pertinent Past Medical History: Yes Neurological History: No Pertinent History ENT History: No Pertinent History Cardiac History: No Pertinent History Respiratory History: No Pertinent History Endocrine Medical History: Diabetes Type I, Hypothyroidism Musculoskeletal History: No Pertinent History GI Medical History: No Pertinent History History: No Pertinent History Psycho-Social History: Anxiety, Bipolar, Depression Female Reproductive Disorders: No Pertinent History Other Medical History: HAS BEEN TYPE 1 SINCE 10 MONTHS OLD. - Past Surgical History Past Surgical History: Yes Neuro Surgical History: No Pertinent History Cardiac: No Pertinent History Respiratory: No Pertinent History Gastrointestinal: No Pertinent History Genitourinary: No Pertinent History Musculoskeletal: Orthopedic Surgery Female Surgical History: Section, Tubal Ligation Other Surgical History: TONSILS. X 4. carpal tunnel surgery - Social History Smoking Status: Never smoker Exposure to second hand smoke: No Drug Use: marijuana Patient Lives Alone: No - Female History Hx Last Menstrual Period: end of month Hx Now: No - Nursing Vital Signs Nursing Vital Signs: Initial Vital Signs Temperature 98.1 F 12/25/19 00:03 Pulse Rate 110 H 12/25/19 00:03 Respiratory Rate 16 12/25/19 00:03 Blood Pressure 114/74 12/25/19 00:03 O2 Sat by Pulse Oximetry 98 12/25/19 00:03 Pain Scale Pain Intensity 8 - Physical Exam General Appearance: no apparent distress, alert, other (Slurring her words. She appears very sleepy.) Eye Exam: PERRL/EOMI, eyes nml inspection Ears, Nose, Throat Exam: normal ENT inspection, TMs normal, pharynx normal, moist mucous membranes Neck Exam: normal inspection, non-tender, supple, full range of motion, other (Tenderness to palpation along the right upper trapezius musculature.) Respiratory Exam: normal breath sounds, lungs clear, No chest tenderness, No respiratory distress Cardiovascular Exam: regular rate/rhythm, normal heart sounds, normal peripheral pulses Gastrointestinal/Abdomen Exam: soft, normal bowel sounds, No tenderness, No mass Pelvic Exam: not done Rectal Exam: deferred Back Exam: normal inspection, normal range of motion, No CVA tenderness, No vertebral tenderness Extremity Exam: normal inspection, normal range of motion, pelvis stable Neurologic Exam: alert, oriented x 3, cooperative, normal mood/affect, nml cerebellar function, sensation nml, slurred speech, other (NIH score 1. Slurred speech, post ictal appearing. ), No motor deficits Skin Exam: normal color, warm, dry, No rash Lymphatic Exam: No adenopathy SpO2 Interpretation: normal SpO2: 98 O2 Delivery: Room Air - Course Nursing assessment & vital signs reviewed: Yes - CT Exams Cervical Spine CT Interpretation: Tele-radiologist Report (No acute findings.) Head CT Interpretation: Tele-radiologist Report (No acute intracranial abnormalities.) Ordered Tests: Active Orders 24 hr Category Date Time Status Accucheck STAT Care 12/25/19 00:03 Completed Preschool Associate Teacher STAT Care 12/25/19 00:04 Completed EKG-ER Only STAT Care 12/25/19 00:03 Completed EKG-ER Only STAT Care 12/25/19 00:11 Completed IV Insertion STAT Care 12/25/19 00:03 Completed Pulse Oximetry (ED) STAT Care 12/25/19 00:03 Completed Seizure Precautions -SCCHED STAT Care 12/25/19 00:03 Completed Tele-Health Consult ROUTINE Cons 12/25/19 04:30 Completed CERVICAL SPINE WO CONTRAST [CT] Stat Exams 12/25/19 00:30 Taken HEAD WITHOUT CONTRAST [CT] Stat Exams 12/25/19 00:04 Taken SHOULDER Stat Exams 12/25/19 01:00 Taken ACETAMINOPHEN Stat Lab 12/25/19 00:22 Completed CBC W DIFF Stat Lab 12/25/19 00:22 Completed CMP Stat Lab 12/25/19 00:22 Completed ETHYL ALCOHOL Stat Lab 12/25/19 00:22 Completed HCG,QUALITATIVE URINE Stat Lab 12/25/19 02:16 Completed Lactic Acid Stat Lab 12/25/19 00:09 Completed MAGNESIUM Stat Lab 12/25/19 00:22 Completed SALICYLATE Stat Lab 12/25/19 00:22 Completed TROPONIN Q3H Lab 12/25/19 00:22 Completed TROPONIN Q3H Lab 12/25/19 03:23 Completed UA W/RFX UR CULTURE Stat Lab 12/25/19 02:33 Completed Urine Triage Profile Stat Lab 12/25/19 02:33 Completed Transfer Order Routine Transfer 12/25/19 Ordered Medication Summary Discontinued Medications Generic Name Dose Route Start Last Admin Trade Name Laytonq PRN Reason Stop Dose Admin Sodium Chloride 1,000 mls @ 100 mls/hr 12/25/19 00:15 12/25/19 00:49 Sodium Chloride 0.9% 1000 Ml IV 01/24/20 00:14 100 mls/hr .Q10H INGA Administration Ceftriaxone Sodium/Dextrose 1 g in 50 mls @ 100 mls/hr 12/25/19 03:11 12/25/19 03:39 Rocephin 1 Gm-D5w 50 Ml Bag IV 12/25/19 03:40 100 ml/hr STAT STA 100 mls/hr Administration Ceftriaxone Sodium/Dextrose Confirm 12/25/19 03:36 Rocephin 1 Gm-D5w 50 Ml Bag Administered 12/25/19 03:37 Dose 1 g in 50 mls @ ud IV .STK-MED ONE Sodium Chloride Confirm 12/25/19 00:39 Sodium Chloride 0.9% 1000 Ml Administered 12/25/19 00:40 Dose 1,000 mls @ ud .ROUTE .STK-MED ONE Ketorolac Tromethamine 30 mg 12/25/19 03:22 12/25/19 03:35 Toradol 30 Mg Injection IM 12/25/19 03:23 30 mg STAT ONE Administration Ketorolac Tromethamine Confirm 12/25/19 03:32 Toradol 30 Mg Injection Administered 12/25/19 03:33 Dose 30 mg .ROUTE .STK-MED ONE Lidocaine 1 patch 12/25/19 05:06 12/25/19 05:17 Lidoderm Patch 5% TOP 12/25/19 05:07 1 patch ONCE STA Administration Lab/Rad Data: Laboratory Result Diagrams 12/25/19 00:22 12/25/19 00:22 Laboratory Results 12/25/19 12/25/19 12/25/19 Range/Units 03:23 02:33 02:33 WBC (4.0-10.5) K/mm3 RBC (4.1-5.4) M/mm3 Hgb (12.0-16.0) gm/dl Hct (35-47) % MCV (78-100) fl MCH (26-32) pg MCHC (32-36) g/dl RDW (11.5-14.0) % Plt Count (150-450) K/mm3 MPV (7.5-11.0) fl Gran % (36.0-66.0) % Eos # (Auto) (0-0.5) Absolute Lymphs (auto) (1.0-4.6) Absolute Monos (auto) (0.0-1.3) Lymphocytes % (24.0-44.0) % Monocytes % (0.0-12.0) % Eosinophils % (0.00-5.0) % Basophils % (0.0-0.4) % Absolute Granulocytes (1.4-6.9) Basophils # (0-0.4) Sodium (137-145) mmol/L Potassium (3.5-5.1) mmol/L Chloride (98-107) mmol/L Carbon Dioxide (22-30) mmol/L Anion Gap (5-15) MEQ/L BUN (7-17) mg/dL Creatinine (0.52-1.04) mg/dL Estimated GFR ML/MIN Glucose (74-106) mg/dL Lactic Acid (0.4-2.0) Calcium (8.4-10.2) mg/dL Magnesium (1.6-2.3) mg/dL Total Bilirubin (0.2-1.3) mg/dL AST (14-36) U/L ALT (0-35) U/L Alkaline Phosphatase (38-126) U/L Troponin I < 0.012 (0.000-0.034) ng/mL Serum Total Protein (6.3-8.2) g/dL Albumin (3.5-5.0) g/dL Urine Color YELLOW (YELLOW) Urine Appearance SLIGHTLY CLOUDY (CLEAR) Urine pH 6.0 (5-6) Ur Specific Wann 1.013 (1.005-1.025) Urine Protein NEGATIVE (Negative) Urine Ketones NEGATIVE (NEGATIVE) Urine Blood NEGATIVE (0-5) Shashank/ul Urine Nitrite NEGATIVE (NEGATIVE) Urine Bilirubin NEGATIVE (NEGATIVE) Urine Urobilinogen NEGATIVE (0-1) mg/dL Ur Leukocyte Esterase NEGATIVE (NEGATIVE) Urine WBC (Auto) 6-10 (0-5) /HPF Urine RBC (Auto) NONE (0-2) /HPF U Epithel Cells (Auto) FEW (FEW) /HPF Urine Bacteria (Auto) RARE (NEGATIVE) /HPF Other Casts (Auto) NEGATIVE (NEGATIVE) /LPF Urine Culture Reflexed NO (NO) Urine Glucose >=500 (NEGATIVE) mg/dL Urine HCG, Qual (Negative) Salicylates (2-20) mg/dL Urine Opiates Level NEGATIVE (NEGATIVE) Ur Methadone NEGATIVE (NEGATIVE) Acetaminophen (10-30) ug/ml Urine Barbiturates NEGATIVE (NEGATIVE) Ur Phencyclidine (PCP) NEGATIVE (NEGATIVE) Urine Amphetamine NEGATIVE (NEGATIVE) U Benzodiazepine Level NEGATIVE (NEGATIVE) Urine Cocaine NEGATIVE (NEGATIVE) Urine Marijuana (THC) NEGATIVE (NEGATIVE) Ethyl Alcohol (0-10) mg/dL 12/25/19 12/25/19 12/25/19 Range/Units 02:16 00:22 00:22 WBC (4.0-10.5) K/mm3 RBC (4.1-5.4) M/mm3 Hgb (12.0-16.0) gm/dl Hct (35-47) % MCV (78-100) fl MCH (26-32) pg MCHC (32-36) g/dl RDW (11.5-14.0) % Plt Count (150-450) K/mm3 MPV (7.5-11.0) fl Gran % (36.0-66.0) % Eos # (Auto) (0-0.5) Absolute Lymphs (auto) (1.0-4.6) Absolute Monos (auto) (0.0-1.3) Lymphocytes % (24.0-44.0) % Monocytes % (0.0-12.0) % Eosinophils % (0.00-5.0) % Basophils % (0.0-0.4) % Absolute Granulocytes (1.4-6.9) Basophils # (0-0.4) Sodium 136 L (137-145) mmol/L Potassium 3.6 (3.5-5.1) mmol/L Chloride 100 (98-107) mmol/L Carbon Dioxide 29 (22-30) mmol/L Anion Gap 11.4 (5-15) MEQ/L BUN 10 (7-17) mg/dL Creatinine 0.65 (0.52-1.04) mg/dL Estimated GFR > 60.0 ML/MIN Glucose 161 H (74-106) mg/dL Lactic Acid (0.4-2.0) Calcium 8.5 (8.4-10.2) mg/dL Magnesium 1.7 (1.6-2.3) mg/dL Total Bilirubin 0.20 (0.2-1.3) mg/dL AST 15 (14-36) U/L ALT 10 (0-35) U/L Alkaline Phosphatase 83 (38-126) U/L Troponin I < 0.012 (0.000-0.034) ng/mL Serum Total Protein 6.2 L (6.3-8.2) g/dL Albumin 3.5 (3.5-5.0) g/dL Urine Color (YELLOW) Urine Appearance (CLEAR) Urine pH (5-6) Ur Specific Wann (1.005-1.025) Urine Protein (Negative) Urine Ketones (NEGATIVE) Urine Blood (0-5) Shashank/ul Urine Nitrite (NEGATIVE) Urine Bilirubin (NEGATIVE) Urine Urobilinogen (0-1) mg/dL Ur Leukocyte Esterase (NEGATIVE) Urine WBC (Auto) (0-5) /HPF Urine RBC (Auto) (0-2) /HPF U Epithel Cells (Auto) (FEW) /HPF Urine Bacteria (Auto) (NEGATIVE) /HPF Other Casts (Auto) (NEGATIVE) /LPF Urine Culture Reflexed (NO) Urine Glucose (NEGATIVE) mg/dL Urine HCG, Qual NEGATIVE (Negative) Salicylates < 1.0 L (2-20) mg/dL Urine Opiates Level (NEGATIVE) Ur Methadone (NEGATIVE) Acetaminophen < 10 L (10-30) ug/ml Urine Barbiturates (NEGATIVE) Ur Phencyclidine (PCP) (NEGATIVE) Urine Amphetamine (NEGATIVE) U Benzodiazepine Level (NEGATIVE) Urine Cocaine (NEGATIVE) Urine Marijuana (THC) (NEGATIVE) Ethyl Alcohol < 10 (0-10) mg/dL 12/25/19 12/25/19 Range/Units 00:22 00:09 WBC 5.4 (4.0-10.5) K/mm3 RBC 4.25 (4.1-5.4) M/mm3 Hgb 11.1 L (12.0-16.0) gm/dl Hct 35.4 (35-47) % MCV 83.3 (78-100) fl MCH 26.1 (26-32) pg MCHC 31.4 L (32-36) g/dl RDW 14.5 H (11.5-14.0) % Plt Count 218 (150-450) K/mm3 MPV 10.4 (7.5-11.0) fl Gran % 56.9 (36.0-66.0) % Eos # (Auto) 0 (0-0.5) Absolute Lymphs (auto) 1.84 (1.0-4.6) Absolute Monos (auto) 0.47 (0.0-1.3) Lymphocytes % 34.3 (24.0-44.0) % Monocytes % 8.8 (0.0-12.0) % Eosinophils % 0.0 (0.00-5.0) % Basophils % 0.0 (0.0-0.4) % Absolute Granulocytes 3.06 (1.4-6.9) Basophils # 0 (0-0.4) Sodium (137-145) mmol/L Potassium (3.5-5.1) mmol/L Chloride (98-107) mmol/L Carbon Dioxide (22-30) mmol/L Anion Gap (5-15) MEQ/L BUN (7-17) mg/dL Creatinine (0.52-1.04) mg/dL Estimated GFR ML/MIN Glucose (74-106) mg/dL Lactic Acid 1.8 (0.4-2.0) Calcium (8.4-10.2) mg/dL Magnesium (1.6-2.3) mg/dL Total Bilirubin (0.2-1.3) mg/dL AST (14-36) U/L ALT (0-35) U/L Alkaline Phosphatase (38-126) U/L Troponin I (0.000-0.034) ng/mL Serum Total Protein (6.3-8.2) g/dL Albumin (3.5-5.0) g/dL Urine Color (YELLOW) Urine Appearance (CLEAR) Urine pH (5-6) Ur Specific Wann (1.005-1.025) Urine Protein (Negative) Urine Ketones (NEGATIVE) Urine Blood (0-5) Shashank/ul Urine Nitrite (NEGATIVE) Urine Bilirubin (NEGATIVE) Urine Urobilinogen (0-1) mg/dL Ur Leukocyte Esterase (NEGATIVE) Urine WBC (Auto) (0-5) /HPF Urine RBC (Auto) (0-2) /HPF U Epithel Cells (Auto) (FEW) /HPF Urine Bacteria (Auto) (NEGATIVE) /HPF Other Casts (Auto) (NEGATIVE) /LPF Urine Culture Reflexed (NO) Urine Glucose (NEGATIVE) mg/dL Urine HCG, Qual (Negative) Salicylates (2-20) mg/dL Urine Opiates Level (NEGATIVE) Ur Methadone (NEGATIVE) Acetaminophen (10-30) ug/ml Urine Barbiturates (NEGATIVE) Ur Phencyclidine (PCP) (NEGATIVE) Urine Amphetamine (NEGATIVE) U Benzodiazepine Level (NEGATIVE) Urine Cocaine (NEGATIVE) Urine Marijuana (THC) (NEGATIVE) Ethyl Alcohol (0-10) mg/dL - Progress Progress: improved Progress Note: 12/25/19 04:[address] cervical spine negative. Work-up essentially negative. Tox screen negative. However negative tox screen suggestive patient may not be taking all her medications as indicated. Tele-Neuro, Dr. Joshua Broussard adv ised discontinuing wellbutrin and strattera as these may lower seizure threshold. Dr. Broussard advised hospitalization for observation, EEG, MRI with and without gadolinium. CTA head and neck ordered but patient left AMA prior to completing studies. Repeat neuro exam shows no sensory or motor deficits. Speech continues to appear slurred. However patient is sleepy appearing possible due to jd edwards consultant time. Patient advised admission. Patient declined. Patient states she is got a court hearing today that she must attend. Patient states she will leave AMA. Patient understand that leaving AMA could result in delayed diagnosis, worsening of symptoms increased risk of morbidity, mortality, short and long-term disability including . In spite of her risks patient has decided to leave AMA. Patient is of sound mind. She is appropriate to make informed and independent medical decisions. Patient's at bedside. He also agrees to leave AMA. An AMA form was signed accordingly. Patient understand that she may return to our ED or her nearest ED at any time for further evaluation and treatment and admission. Patient agrees to follow-up with her primary care doctor within 48 hours for reevaluation if she decides not to return to our ED for evaluation. As patient is preparing to leave AMA, requested a stronger pain medication for her right shoulder pain that has been present since December 12. Patient received toradol pain medication after CT resulted as negative. I explained to patient and that I could not administer a narcotic and discharge patient home. Patient appears sleepy and slurring her words. requested a prescription for narcotic. We explained that we would not be providing a narcotic prescription. A lidoderm patch and shoulder sling was provided for comfort. Keflex prescription transmitted to patient's pharmacy 12/25/19 04:54 12/25/19 05:08 12/25/19 05:[address] DrPamela: Other - Departure Departure Disposition: AMA Clinical Impression: Seizure, Slurred speech, UTI (urinary tract infection) Condition: Stable Critical Care Time: No Referrals: STU KEATING [Primary Care Provider] - Instructions: Seizures, Adult (DC) Additional Instructions: Discharge/Care Plan VEE GAMBLE was seen on 12/25/19 in the Emergency Room. The patient was counseled regarding Diagnosis,Lab results, Imaging studies, need for follow up and when to return to the Emergency Room. Prescriptions given: Discharge Note I have spoken with the patient and/or caregivers. I have explained the patient's condition, diagnosis and treatment plan based on the information available to me at this time. I have answered the patient's and/or caregiver's questions and addressed any concerns. The patient and/or caregivers have as good understanding of the patient's diagnosis, condition and treatment plan as can be expected at this point. The vital signs have been stable. The patient's condition is stable and appropriate for discharge from the emergency department. The patient will pursue further outpatient evaluation with the primary care physician or other designated or consulting physician as outlined in the discharge instructions. The patient and/or caregivers are agreeable to this plan of care and follow-up instructions have been explained in detail. The patient and/or caregivers have received these instruction. The patient/and or caregivers are aware that any significant change in condition or worsening of symptoms should prompt an immediate return to this or the closest emergency department or call 911. Prescriptions: Cephalexin Mh 500 mg [Keflex 500 mg] 500 mg PO QID 5 Days #20 capsule
[2019-12-25 02:33] VITALS: O2SAT 98
[2019-12-25 02:46] LABS: Appearance SLIGHTLY CLOUDY (CLEAR); Bacteria RARE /HPF (NEGATIVE); Bilirubin NEGATIVE (NEGATIVE); Blood NEGATIVE Ery/ul (0-5); Epithelial Cells FEW /HPF (FEW); Glucose >=500 mg/dL (NEGATIVE); Ketones NEGATIVE (NEGATIVE); Leukocyte Esterase NEGATIVE (NEGATIVE); Nitrite NEGATIVE (NEGATIVE); Protein,Urine Dip NEGATIVE (Negative); Specific Gravity 1.013 (1.005-1.025); Urobilinogen NEGATIVE mg/dL (0-1)
[2019-12-25 02:52] LABS: Amphetamine,Urine NEGATIVE (NEGATIVE); Barbiturate,Urine NEGATIVE (NEGATIVE); Benzodiazepine,Urine NEGATIVE (NEGATIVE); Cocaine,Urine NEGATIVE (NEGATIVE); Methadone,Urine NEGATIVE (NEGATIVE); Opiate,Urine NEGATIVE (NEGATIVE); PCP,Urine NEGATIVE (NEGATIVE); THC,Urine NEGATIVE (NEGATIVE)
[2019-12-25] MEDS ORDERED: ROCEPHIN 1 Gm-D5w 50 ml Bag** 1 G/50 ML IVPB IV STA (03:11)
[2019-12-25] MEDS ORDERED: TORAdol 30 mg Injection IM ONE (03:22)
[2019-12-25] MEDS ORDERED: TORAdol 30 mg Injection ONE (03:32)
[2019-12-25] MEDS ORDERED: ROCEPHIN 1 Gm-D5w 50 ml Bag** 1 G/50 ML IVPB IV ONE (03:36)
[2019-12-25 05:06] VITALS: BP 92/58; PULSE 82
[2019-12-25] MEDS ORDERED: Lidoderm Patch 5% TOP STA (05:06)
--- NOTE | 2019-12-25 08:49 | XRAY ---
Indication: Seizure and slurred speech. Multiple contiguous axial images obtained through the head without contrast. Comparison: September 16, 2019. There remains numerous bilateral external ear jewelry producing beam artifact limiting these levels. Again no gross acute intracranial hemorrhage, abnormal extra-axial fluid collection, or mass effect. Fourth ventricle is midline without hydrocephalus. Jain-white matter differentiation preserved. Bony calvarium intact. Visualized paranasal sinuses and mastoid air cells are clear. Impression: Continued grossly negative CT head without contrast exam. Comment: Preliminary interpretation was made by [facility]. No critical discrepancy.
--- NOTE | 2019-12-25 08:58 | XRAY ---
Indication: Right neck and shoulder pain following fall. Seizure. Multiple contiguous axial images obtained through the cervical spine. Sagittal and coronal reformatted images obtained. Comparison: September 16, 2019. Axial images again negative for acute fracture, suspicious bony lesions, or spinal canal stenosis. Sagittal and coronal reformatted images again demonstrates lordotic straightening, positional versus paraspinal spasm. Vertebral body heights/disc spaces maintained. Again no acute fracture, subluxation, or jumped facet. Normal appearing craniocervical junction. Visualized noncontrasted soft tissues including lung apices are unremarkable. Impression: Again cervical lordotic straightening, positional versus paraspinal spasm. Remaining CT cervical spine is negative. Comment: Preliminary interpretation was made by [facility]. No critical discrepancy.
--- NOTE | 2019-12-25 09:00 | XRAY ---
Indication: Pain following fall. Seizure. Comparison: September 16, 2019. 3 view right shoulder obtained. Again no bony, articular, or soft tissue abnormalities.
== END 2019-12-25 05:25 | disposition left against medical advice (07) ==
LOC: ED 23:52
DX: G40.909 Epilepsy, unspecified, not intractable, without status epilepticus (principal); R47.81 Slurred speech; N39.0 Urinary tract infection, site not specified; W18.39XS Other fall on same level, sequela; Z79.899 Other long term (current) drug therapy; E10.9 Type 1 diabetes mellitus without complications; E03.9 Hypothyroidism, unspecified; F41.9 Anxiety disorder, unspecified; F31.9 Bipolar disorder, unspecified; F12.90 Cannabis use, unspecified, uncomplicated
CPT/HCPCS: 36000; 36415; 70450; 72125; 73030; 80053; 80307; 81001; 82962; 83605; 83735; 84484; 84703; 85025; 93041; 94760; 96360; 96365; 96372; 99284; G0480; Q3014; J0696; J1885; A9270-GY

== ENCOUNTER 2020-02-19 18:21 | Emergency (ER) | payer OTHER ==
[2020-02-19] MEDS ORDERED: Sodium Chloride 0.9% 1000 ML 1,000 ML IV SCH (19:00)
[2020-02-19] MEDS ORDERED: Sodium Chloride 0.9% 1000 ML 1,000 ML ONE (19:14)
[2020-02-19 19:28] LABS: Absolute Neutrophil Ct (ANC) 2.96 (1.4-6.9); Basophil (Absolute #) 0 (0-0.4); Eosinophil (Absolute #) 0 (0-0.5); Hematocrit 39.4 % (35-47); Hemoglobin 12.5 gm/dl (12.0-16.0); Lymphocyte (Absolute #) 0.89 (1.0-4.6); Lymphocytes % 20.8 % (24.0-44.0); Mean Cell Volume 82.8 fl (78-100); Mean Corpuscular Hemoglobin 26.3 pg (26-32); Mean Corpuscular Hgb Concent. 31.7 g/dl (32-36); Mean Platelet Volume 10.9 fl (7.5-11.0); Monocyte (Absolute #) 0.43 (0.0-1.3); Neutrophil % 69.2 % (36.0-66.0); Platelet Count 266 K/mm3 (150-450); Red Blood Count 4.76 M/mm3 (4.1-5.4); Red Cell Distribution Width 13.9 % (11.5-14.0); White Blood Count 4.3 K/mm3 (4.0-10.5)
[2020-02-19 19:31] LABS: ALBUMIN 4.3 g/dL (3.5-5.0); ALKALINE PHOSPHATASE 73 U/L (38-126); BLOOD UREA NITROGEN 9 mg/dL (7-17); CHLORIDE 98 mmol/L (98-107); Calcium 8.8 mg/dL (8.4-10.2); Carbon Dioxide 25 mmol/L (22-30); Creatinine 1 0.73 mg/dL (0.52-1.04); EST GLOMERULAR FILTRATION RATE > 60.0 ML/MIN; Glucose 57 mg/dL (74-106); Potassium 3.6 mmol/L (3.5-5.1); SGOT/AST 21 U/L (14-36); SGPT/ALT 12 U/L (0-35); SODIUM 136 mmol/L (137-145); Total Protein 7.2 g/dL (6.3-8.2)
[2020-02-19 19:32] LABS: Appearance CLEAR (CLEAR); Bacteria RARE /HPF (NEGATIVE); Bilirubin NEGATIVE (NEGATIVE); Blood NEGATIVE Ery/ul (0-5); Epithelial Cells RARE /HPF (FEW); Glucose NEGATIVE (NEGATIVE); Ketones NEGATIVE (NEGATIVE); Leukocyte Esterase NEGATIVE (NEGATIVE); Nitrite NEGATIVE (NEGATIVE); Protein,Urine Dip 30 (Negative); Specific Gravity 1.011 (1.005-1.025); Urobilinogen NEGATIVE mg/dL (0-1); WBC 0-2 /HPF (0-5)
[2020-02-19 19:45] LABS: Amphetamine,Urine NEGATIVE (NEGATIVE); Barbiturate,Urine NEGATIVE (NEGATIVE); Benzodiazepine,Urine NEGATIVE (NEGATIVE); Cocaine,Urine NEGATIVE (NEGATIVE); Methadone,Urine NEGATIVE (NEGATIVE); Opiate,Urine NEGATIVE (NEGATIVE); PCP,Urine NEGATIVE (NEGATIVE); THC,Urine NEGATIVE (NEGATIVE)
--- NOTE | 2020-02-19 20:30 | ERPHSYRPT ---
- History of Present Illness Time Seen by Provider: 02/19/20 19:25 Source: patient Exam Limitations: no limitations Patient Subjective Stated Complaint: seizure Triage Nursing Assessment: pt to ED c/o seizure like activity at approx 1730 today. pt states she felt her BS was getting low so she ate and then does not remember the seizure. witnesses report to EMS that seizure lasted 1 min. pt was pale and diaphoretic on EMS arrival, as reported. pt skin pink warm and dry on ED arrival, A&Ox4. only complaint is 5/10 LOPEZ that started after seizure a ctivity. unsure if she hit head, EMS reports that bystanders lowered pt to ground and she did not hit head. Physician History: Patient is a 34-year-old female with a history of type 1 diabetes on an insulin pump presents to our ED for evaluation of a seizure. Patient was at a football game watching her kids play football when she felt her blood sugar drop. Patient began to eat and then became unconscious. Patient had a generalized seizure her lips became cyanotic. It lasted approximately 1 minute. Upon EMS arrival patient was diaphoretic and pale appearing. Blood glucose at that time was 86. Upon arrival to our ED patient was alert and oriented x4. Patient only complains of mild left frontal headache. Patient states that she has had hypoglycemic seizures in the past. Her last seizure was December 122019. Patient denies chest pain. No shortness of breath. No neck pain. Cervical spine cleared clinically. No diarrhea. No nausea or vomiting. Patient voiced no other complaints or concerns at this time. Timing/Duration: today Allergies/Adverse Reactions: No Known Drug Allergies Allergy (Verified 02/19/20 18:31) Home Medications: Clonazepam 0.5 mg [Klonopin 0.5 MG] 1 tab PO TID 01/28/19 [History] Insulin Lispro [Admelog Solostar] 1 unit SQ DAILY 01/28/19 [History] Venlafaxine HCl [Effexor Xr] 225 mg PO DAILY 01/28/19 [History] OXcarbazepine [Trileptal] 300 mg PO BID 07/19/19 [History] Atomoxetine HCl [Strattera] 60 mg PO DAILY 12/25/19 [History] Gabapentin 600 mg PO TID 12/25/19 [History] Quetiapine Fumarate 100 mg [Seroquel 100 MG] 100 mg PO DAILY 12/25/19 [History] Quetiapine Fumarate 100 mg [Seroquel 100 MG] 200 mg PO HS 12/25/19 [ History] Hx Tetanus, Diphtheria Vaccination/Date Given: Yes Hx Influenza Vaccination/Date Given: Yes Hx Pneumococcal Vaccination/Date Given: No Immunizations Up to Date: Yes Travel Risk - International Travel Have you traveled outside of the country in past 3 weeks: No - Coronavirus Screening Are you exhibiting any of the following symptoms?: No Close contact with a COVID-19 positive Pt in past 14-21 Days: No - Review of Systems Constitutional: No Symptoms, No Fever, No Chills Eyes: No Symptoms Ears, Nose, & Throat: No Symptoms Respiratory: No Symptoms, No Cough, No Dyspnea Cardiac: No Symptoms, No Chest Pain, No Edema, No Syncope Abdominal/Gastrointestinal: No Symptoms, No Abdominal Pain, No Nausea, No Vomiting, No Diarrhea Genitourinary Symptoms: No Symptoms, No Dysuria Musculoskeletal: No Symptoms, No Back Pain, No Neck Pain Skin: No Symptoms, No Rash Neurological: No Symptoms, No Dizziness, No Focal Weakness, No Sensory Changes Psychological: No Symptoms Endocrine: No Symptoms Hematologic/Lymphatic: No Symptoms Immunological/Allergic: No Symptoms All Other Systems: Reviewed and Negative - Past Medical History Pertinent Past Medical History: Yes Neurological History: Seizures ENT History: No Pertinent History Cardiac History: No Pertinent History Respiratory History: No Pertinent History Endocrine Medical History: Diabetes Type I, Hypothyroidism Musculoskeletal History: No Pertinent History GI Medical History: No Pertinent History History: No Pertinent History Psycho-Social History: Anxiety, Bipolar, Depression Female Reproductive Disorders: No Pertinent History Other Medical History: HAS BEEN TYPE 1 SINCE 10 MONTHS OLD. - Past Surgical History Past Surgical History: Yes Neuro Surgical History: No Pertinent History Cardiac: No Pertinent History Respiratory: No Pertinent History Gastrointestinal: No Pertinent History Genitourinary: No Pertinent History Musculoskeletal: Orthopedic Surgery Female Surgical History: Section, Tubal Ligation Other Surgical History: TONSILS. X 4. carpal tunnel surgery - Social History Smoking Status: Never smoker Exposure to second hand smoke: No Drug Use: none Patient Lives Alone: No - Female History Hx Last Menstrual Period: 02/14/20 Hx Now: No - Nursing Vital Signs Nursing Vital Signs: Initial Vital Signs O2 Sat by Pulse Oximetry 100 02/19/20 19:14 Pain Scale Pain Intensity 5 - Physical Exam General Appearance: no apparent distress, alert Eye Exam: PERRL/EOMI, eyes nml inspection Ears, Nose, Throat Exam: normal ENT inspection, TMs normal, pharynx normal, moist mucous membranes Neck Exam: normal inspection, non-tender, supple, full range of motion Respiratory Exam: normal breath sounds, lungs clear, No respiratory distress Cardiovascular Exam: regular rate/rhythm, normal heart sounds, normal peripheral pulses Gastrointestinal/Abdomen Exam: soft, normal bowel sounds, No tenderness, No mass Back Exam: normal inspection, normal range of motion, No CVA tenderness, No vertebral tenderness Extremity Exam: normal inspection, normal range of motion, pelvis stable Neurologic Exam: alert, oriented x 3, cooperative, normal mood/affect, nml cerebellar function, nml station & gait, sensation nml, No motor deficits Skin Exam: normal color, warm, dry, No rash Lymphatic Exam: No adenopathy SpO2 Interpretation: normal SpO2: 100 O2 Delivery: Room Air - Course Nursing assessment & vital signs reviewed: Yes EKG Interpreted by Me: RATE (125), Sinus Tach, NORMAL AXIS, NORMAL INTERVALS - CT Exams Head CT Interpretation: Tele-radiologist Report (CT head as compared to 12/25/2019.) Ordered Tests: Active Orders 24 hr Category Date Time Status Post Anesthesia Nurse STAT Care 02/19/20 18:59 Active EKG-ER Only STAT Care 02/19/20 18:58 Active IV Insertion STAT Care 02/19/20 18:58 Active Pulse Oximetry (ED) STAT Care 02/19/20 18:58 Active Seizure Precautions -SCCHED STAT Care 02/19/20 18:58 Active HEAD WITHOUT CONTRAST [CT] Stat Exams 02/19/20 18:59 Taken CBC W DIFF Stat Lab 02/19/20 19:14 Completed CMP Stat Lab 02/19/20 19:14 Completed HCG,QUALITATIVE URINE Stat Lab 02/19/20 19:16 Completed Lactic Acid Stat Lab 02/19/20 19:27 Completed MAGNESIUM Stat Lab 02/19/20 19:14 Completed POCT GLUCOSE Stat Lab 02/19/20 20:36 Completed TROPONIN Q3H Lab 02/19/20 19:15 Completed TROPONIN Q3H Lab 02/20/20 00:00 Ordered TROPONIN Q3H Lab 02/20/20 03:00 Ordered TROPONIN Q3H Lab 02/20/20 06:00 Ordered TROPONIN Q3H Lab 02/20/20 09:00 Ordered UA W/RFX UR CULTURE Stat Lab 02/19/20 19:16 Completed Urine Triage Profile Stat Lab 02/19/20 19:16 Completed Medication Summary Generic Name Dose Route Start Last Admin Trade Name Luzmaria PRN Reason Stop Dose Admin Sodium Chloride 1,000 mls @ 50 mls/hr 02/19/20 19:00 02/19/20 19:14 Sodium Chloride 0.9% 1000 Ml IV 03/20/20 18:59 50 mls/hr .Q20H INGA Administration Lab/Rad Data: Laboratory Result Diagrams 02/19/20 19:14 02/19/20 19:14 Laboratory Results 02/19/20 02/19/20 02/19/20 Range/Units 20:36 19:27 19:16 WBC (4.0-10.5) K/mm3 RBC (4.1-5.4) M/mm3 Hgb (12.0-16.0) gm/dl Hct (35-47) % MCV (78-100) fl MCH (26-32) pg MCHC (32-36) g/dl RDW (11.5-14.0) % Plt Count (150-450) K/mm3 MPV (7.5-11.0) fl Gran % (36.0-66.0) % Eos # (Auto) (0-0.5) Absolute Lymphs (auto) (1.0-4.6) Absolute Monos (auto) (0.0-1.3) Lymphocytes % (24.0-44.0) % Monocytes % (0.0-12.0) % Eosinophils % (0.00-5.0) % Basophils % (0.0-0.4) % Absolute Granulocytes (1.4-6.9) Basophils # (0-0.4) Sodium (137-145) mmol/L Potassium (3.5-5.1) mmol/L Chloride (98-107) mmol/L Carbon Dioxide (22-30) mmol/L Anion Gap (5-15) MEQ/L BUN (7-17) mg/dL Creatinine (0.52-1.04) mg/dL Estimated GFR ML/MIN Glucose (74-106) mg/dL POC Glucometer 60 L (74 to 106) mg/dL Lactic Acid 5.6 H (0.4-2.0) Calcium (8.4-10.2) mg/dL Magnesium (1.6-2.3) mg/dL Total Bilirubin (0.2-1.3) mg/dL AST (14-36) U/L ALT (0-35) U/L Alkaline Phosphatase (38-126) U/L Troponin I (0.000-0.034) ng/mL Serum Total Protein (6.3-8.2) g/dL Albumin (3.5-5.0) g/dL Urine Color (YELLOW) Urine Appearance (CLEAR) Urine pH (5-6) Ur Specific [place] (1.005-1.025) Urine Protein (Negative) Urine Ketones (NEGATIVE) Urine Blood (0-5) Shashank/ul Urine Nitrite (NEGATIVE) Urine Bilirubin (NEGATIVE) Urine Urobilinogen (0-1) mg/dL Ur Leukocyte Esterase (NEGATIVE) Urine WBC (Auto) (0-5) /HPF Urine RBC (Auto) (0-2) /HPF U Epithel Cells (Auto) (FEW) /HPF Urine Bacteria (Auto) (NEGATIVE) /HPF Urine Culture Reflexed (NO) Urine Glucose (NEGATIVE) mg/dL Urine HCG, Qual NEGATIVE (Negative) Urine Opiates Level (NEGATIVE) Ur Methadone (NEGATIVE) Urine Barbiturates (NEGATIVE) Ur Phencyclidine (PCP) (NEGATIVE) Urine Amphetamine (NEGATIVE) U Benzodiazepine Level (NEGATIVE) Urine Cocaine (NEGATIVE) Urine Marijuana (THC) (NEGATIVE) 02/19/20 02/19/20 02/19/20 Range/Units 19:16 19:16 19:15 WBC (4.0-10.5) K/mm3 RBC (4.1-5.4) M/mm3 Hgb (12.0-16.0) gm/dl Hct (35-47) % MCV (78-100) fl MCH (26-32) pg MCHC (32-36) g/dl RDW (11.5-14.0) % Plt Count (150-450) K/mm3 MPV (7.5-11.0) fl Gran % (36.0-66.0) % Eos # (Auto) (0-0.5) Absolute Lymphs (auto) (1.0-4.6) Absolute Monos (auto) (0.0-1.3) Lymphocytes % (24.0-44.0) % Monocytes % (0.0-12.0) % Eosinophils % (0.00-5.0) % Basophils % (0.0-0.4) % Absolute Granulocytes (1.4-6.9) Basophils # (0-0.4) Sodium (137-145) mmol/L Potassium (3.5-5.1) mmol/L Chloride (98-107) mmol/L Carbon Dioxide (22-30) mmol/L Anion Gap (5-15) MEQ/L BUN (7-17) mg/dL Creatinine (0.52-1.04) mg/dL Estimated GFR ML/MIN Glucose (74-106) mg/dL POC Glucometer (74 to 106) mg/dL Lactic Acid (0.4-2.0) Calcium (8.4-10.2) mg/dL Magnesium (1.6-2.3) mg/dL Total Bilirubin (0.2-1.3) mg/dL AST (14-36) U/L ALT (0-35) U/L Alkaline Phosphatase (38-126) U/L Troponin I < 0.012 (0.000-0.034) ng/mL Serum Total Protein (6.3-8.2) g/dL Albumin (3.5-5.0) g/dL Urine Color YELLOW (YELLOW) Urine Appearance CLEAR (CLEAR) Urine pH 8.0 (5-6) Ur Specific [place] 1.011 (1.005-1.025) Urine Protein 30 (Negative) Urine Ketones NEGATIVE (NEGATIVE) Urine Blood NEGATIVE (0-5) Shashank/ul Urine Nitrite NEGATIVE (NEGATIVE) Urine Bilirubin NEGATIVE (NEGATIVE) Urine Urobilinogen NEGATIVE (0-1) mg/dL Ur Leukocyte Esterase NEGATIVE (NEGATIVE) Urine WBC (Auto) 0-2 (0-5) /HPF Urine RBC (Auto) NONE (0-2) /HPF U Epithel Cells (Auto) RARE (FEW) /HPF Urine Bacteria (Auto) RARE (NEGATIVE) /HPF Urine Culture Reflexed NO (NO) Urine Glucose NEGATIVE (NEGATIVE) mg/dL Urine HCG, Qual (Negative) Urine Opiates Level NEGATIVE (NEGATIVE) Ur Methadone NEGATIVE (NEGATIVE) Urine Barbiturates NEGATIVE (NEGATIVE) Ur Phencyclidine (PCP) NEGATIVE (NEGATIVE) Urine Amphetamine NEGATIVE (NEGATIVE) U Benzodiazepine Level NEGATIVE (NEGATIVE) Urine Cocaine NEGATIVE (NEGATIVE) Urine Marijuana (THC) NEGATIVE (NEGATIVE) 02/19/20 02/19/20 02/19/20 Range/Units 19:14 19:14 19:14 WBC 4.3 (4.0-10.5) K/mm3 RBC 4.76 (4.1-5.4) M/mm3 Hgb 12.5 (12.0-16.0) gm/dl Hct 39.4 (35-47) % MCV 82.8 (78-100) fl MCH 26.3 (26-32) pg MCHC 31.7 L (32-36) g/dl RDW 13.9 (11.5-14.0) % Plt Count 266 (150-450) K/mm3 MPV 10.9 (7.5-11.0) fl Gran % 69.2 H (36.0-66.0) % Eos # (Auto) 0 (0-0.5) Absolute Lymphs (auto) 0.89 L (1.0-4.6) Absolute Monos (auto) 0.43 (0.0-1.3) Lymphocytes % 20.8 L (24.0-44.0) % Monocytes % 10.0 (0.0-12.0) % Eosinophils % 0.0 (0.00-5.0) % Basophils % 0.0 (0.0-0.4) % Absolute Granulocytes 2.96 (1.4-6.9) Basophils # 0 (0-0.4) Sodium 136 L (137-145) mmol/L Potassium 3.6 (3.5-5.1) mmol/L Chloride 98 (98-107) mmol/L Carbon Dioxide 25 (22-30) mmol/L Anion Gap 16.0 H (5-15) MEQ/L BUN 9 (7-17) mg/dL Creatinine 0.73 (0.52-1.04) mg/dL Estimated GFR > 60.0 ML/MIN Glucose 57 L (74-106) mg/dL POC Glucometer (74 to 106) mg/dL Lactic Acid (0.4-2.0) Calcium 8.8 (8.4-10.2) mg/dL Magnesium 2.3 (1.6-2.3) mg/dL Total Bilirubin 0.40 (0.2-1.3) mg/dL AST 21 (14-36) U/L ALT 12 (0-35) U/L Alkaline Phosphatase 73 (38-126) U/L Troponin I (0.000-0.034) ng/mL Serum Total Protein 7.2 (6.3-8.2) g/dL Albumin 4.3 (3.5-5.0) g/dL Urine Color (YELLOW) Urine Appearance (CLEAR) Urine pH (5-6) Ur Specific [place] (1.005-1.025) Urine Protein (Negative) Urine Ketones (NEGATIVE) Urine Blood (0-5) Shashank/ul Urine Nitrite (NEGATIVE) Urine Bilirubin (NEGATIVE) Urine Urobilinogen (0-1) mg/dL Ur Leukocyte Esterase (NEGATIVE) Urine WBC (Auto) (0-5) /HPF Urine RBC (Auto) (0-2) /HPF U Epithel Cells (Auto) (FEW) /HPF Urine Bacteria (Auto) (NEGATIVE) /HPF Urine Culture Reflexed (NO) Urine Glucose (NEGATIVE) mg/dL Urine HCG, Qual (Negative) Urine Opiates Level (NEGATIVE) Ur Methadone (NEGATIVE) Urine Barbiturates (NEGATIVE) Ur Phencyclidine (PCP) (NEGATIVE) Urine Amphetamine (NEGATIVE) U Benzodiazepine Level (NEGATIVE) Urine Cocaine (NEGATIVE) Urine Marijuana (THC) (NEGATIVE) - Progress Progress: improved Progress Note: 02/19/20 21:22 Reassessed. She states she feels well. She remains tachycardic. Lactic acid elevated. Patient was hypoglycemic at time of recheck. Glucose was 60. Patient had something to eat. Dr. Cope advised admission due to seizure and hypoglycemia. Upon arrival glucose was 86. It trended downward to 57-60. Patient stated that she is got 4 children at home that she must take care of. Patient declined admission. Patient is of sound mind. Patient is appropriate to make informed and independent medical decisions. Patient has decided to leave AGAINST MEDICAL ADVICE. Patient understands that leaving AGAINST MEDICAL ADVICE may result in delayed diagnosis, worsening of symptoms, increased risk morbidity, mortality, short and long-term disability including . In spite of her risks patient has decided to leave AGAINST MEDICAL ADVICE. An AMA form was signed. Patient understand that she may return to to our ED at any time if she changes her mind. Patient agrees to follow-up with her primary care doctor within 48 hours for reevaluation. She will check her sugars every 2 hours at home. Patient states she will return if symptoms worsen. Patient voices no other complaints concerns at this time. Counseled pt/family regarding: lab results, diagnosis, need for follow-up, rad results - Departure Departure Disposition: AMA Clinical Impression: Seizure, Hypoglycemia, Lactic acidosis, Sinus tachycardia Condition: Stable Critical Care Time: No Referrals: DOCTOR,NO FAMILY [Primary Care Provider] - NICK ASHBY [ACTIVE STAFF] - Additional Instructions: Discharge/Care Plan TYEVEE JEFFERSON was seen on 02/19/20 in the Emergency Room. The patient was counseled regarding Diagnosis,Lab results, Imaging studies, need for follow up and when to return to the Emergency Room. Prescriptions given: Discharge Note I have spoken with the patient and/or caregivers. I have explained the patient's condition, diagnosis and treatment plan based on the information available to me at this time. I have answered the patient's and/or caregiver's questions and addressed any concerns. The patient and/or caregivers have as good understanding of the patient's diagnosis, condition and treatment plan as can be expected at this point. The vital signs have been stable. The patient's condition is stable and appropriate for discharge from the emergency department. The patient will pursue further outpatient evaluation with the primary care physician or other designated or consulting physician as outlined in the discharge instructions. The patient and/or caregivers are agreeable to this plan of care and follow-up instructions have been explained in detail. The patient and/or caregivers have received these instruction. The patient/and or caregivers are aware that any significant change in condition or worsening of symptoms should prompt an immediate return to this or the closest emergency department or call 911.
[2020-02-19 21:14] VITALS: BP 120/78
[2020-02-19 21:37] VITALS: PULSE 100; O2SAT 98
--- NOTE | 2020-02-20 08:42 | XRAY ---
Indication: Frontal headache following seizure. Multiple contiguous axial images obtained through the head without contrast. Comparison: December 25, 2019. There remains multiple bilateral external ear jewelry producing beam artifact limiting these levels. Again no gross acute intracranial hemorrhage, abnormal extra-axial fluid collection, or mass effect. Fourth ventricle is midline without hydrocephalus. Jain-white matter differentiation preserved. Bony calvarium intact. Visualized paranasal sinuses and mastoid air cells are clear. Impression: Continued grossly negative CT head without contrast exam.
== END 2020-02-19 21:39 | disposition home or self-care (01) ==
LOC: ED 18:21
DX: G40.909 Epilepsy, unspecified, not intractable, without status epilepticus (principal); E10.649 Type 1 diabetes mellitus with hypoglycemia without coma; E87.2 Acidosis; R00.0 Tachycardia, unspecified
CPT/HCPCS: 36000; 36415; 70450; 80053; 80307; 81001; 82962; 83605; 83735; 84484; 84703; 85025; 93005; 93041; 94760; 96360; 96361; 99284

== ENCOUNTER 2020-06-18 00:02 | Emergency (ER) | payer OTHER ==
[2020-06-18] MEDS ORDERED: Sodium Chloride 0.9% 1000 ML 1,000 ML IV STA (00:45)
[2020-06-18] MEDS ORDERED: Zofran 4 MG/2 ML VIAL IV ONE (00:45)
[2020-06-18] MEDS ORDERED: Sodium Chloride 0.9% 1000 ML 1,000 ML ONE (00:49)
[2020-06-18] MEDS ORDERED: Zofran 4 MG/2 ML VIAL ONE (00:49)
[2020-06-18 01:04] LABS: Amourphous Crystal FEW /HPF (NEGATIVE); Appearance SLIGHTLY CLOUDY (CLEAR); Bacteria FEW /HPF (NEGATIVE); Bilirubin NEGATIVE (NEGATIVE); Blood LARGE Ery/ul (0-5); Epithelial Cells RARE /HPF (FEW); Glucose NEGATIVE (NEGATIVE); Hyaline Casts 0-2 /LPF (0-2); Ketones SMALL (NEGATIVE); Leukocyte Esterase NEGATIVE (NEGATIVE); Mucus SLIGHT /HPF (NEGATIVE); Nitrite NEGATIVE (NEGATIVE); Protein,Urine Dip 100 (Negative); Specific Gravity 1.027 (1.005-1.025); Urobilinogen NEGATIVE mg/dL (0-1)
--- NOTE | 2020-06-18 01:04 | ERPHSYRPT ---
- History of Present Illness Time Seen by Provider: 06/18/20 00:20 Source: patient Exam Limitations: no limitations Patient Subjective Stated Complaint: pt c/o vomiting since last night and all day today and low back pain Triage Nursing Assessment: pt ambulated to ER rm 3, c/o vomiting since last night and all day today, every time she tries to take a drink. Pt also c/o low back pain, thinks she has a UTI. Physician History: This is a diabetic 34-year-old white female who has had flank pain as well as vomiting intermittently for the last 24 hours. Patient has had similar symptoms in the past and was found to have a urinary tract infection. Patient is currently on her menstrual period but completing it soon. Timing/Duration: yesterday Activites at Onset: none Quality: aching Onset Location: generalized flank Pain Radiation: none Severity of Pain-Max: mild Severity of Pain-Current: mild Prior abdominal problems: UTI Sexual intercourse history: non-contributory Modifying Factors: Improves With: vomiting Associated Symptoms: nausea, vomiting, lower back pain Allergies/Adverse Reactions: No Known Drug Allergies Allergy (Verified 06/18/20 00:23) Home Medications: Clonazepam 0.5 mg [Klonopin 0.5 MG] 1 tab PO TID 01/28/19 [History] Insulin Lispro [Admelog Solostar] 1 unit SQ DAILY 01/28/19 [History] Venlafaxine HCl [Effexor Xr] 225 mg PO DAILY 01/28/19 [History] Quetiapine Fumarate 100 mg [Seroquel 100 MG] 100 mg PO DAILY 12/25/19 [History] Quetiapine Fumarate 100 mg [Seroquel 100 MG] 300 mg PO HS 12/25/19 [History] Dulaglutide [Trulicity] 0.75 mg SQ WEEKLY 06/18/20 [History] Hx Tetanus, Diphtheria Vaccination/Date Given: Yes Hx Influenza Vaccination/Date Given: No Hx Pneumococcal Vaccination/Date Given: No Travel Risk - International Travel Have you traveled outside of the country in past 3 weeks: No - Coronavirus Screening Are you exhibiting any of the following symptoms?: No Close contact with a COVID-19 positive Pt in past 14-21 Days: No - Review of Systems Constitutional: No Symptoms Eyes: No Symptoms Ears, Nose, & Throat: No Symptoms Respiratory: No Symptoms Cardiac: No Symptoms Abdominal/Gastrointestinal: Nausea, Vomiting, No Abdominal Pain, No Diarrhea Genitourinary Symptoms: Flank Pain Musculoskeletal: No Symptoms Skin: No Symptoms Neurological: No Symptoms Psychological: No Symptoms Endocrine: No Symptoms Hematologic/Lymphatic: No Symptoms Immunological/Allergic: No Symptoms All Other Systems: Reviewed and Negative - Past Medical History Pertinent Past Medical History: Yes Neurological History: Seizures ENT History: No Pertinent History Cardiac History: No Pertinent History Respiratory History: No Pertinent History Endocrine Medical History: Diabetes Type I, Hypothyroidism Musculoskeletal History: No Pertinent History GI Medical History: No Pertinent History History: No Pertinent History Psycho-Social History: Anxiety, Bipolar, Depression Female Reproductive Disorders: No Pertinent History Other Medical History: HAS BEEN TYPE 1 SINCE 11 MONTHS OLD. - Past Surgical History Past Surgical History: Yes Neuro Surgical History: No Pertinent History Cardiac: No Pertinent History Respiratory: No Pertinent History Gastrointestinal: No Pertinent History Genitourinary: No Pertinent History Musculoskeletal: Orthopedic Surgery Female Surgical History: Section, Tubal Ligation Other Surgical History: TONSILS. X 4. carpal tunnel surgery - Social History Smoking Status: Never smoker Exposure to second hand smoke: No Drug Use: none Patient Lives Alone: No - Female History Hx Now: No - Nursing Vital Signs Nursing Vital Signs: Initial Vital Signs Temperature 96.6 F 06/18/20 00:11 Pulse Rate 128 H 06/18/20 00:11 Respiratory Rate 16 06/18/20 00:11 Blood Pressure 149/104 06/18/20 00:11 O2 Sat by Pulse Oximetry 100 06/18/20 00:11 Pain Scale Pain Intensity 6 - Physical Exam General Appearance: mild distress, alert, anxiety Eye Exam: PERRL/EOMI, eyes nml inspection Ears, Nose, Throat Exam: normal ENT inspection, moist mucous membranes Neck Exam: normal inspection, non-tender, supple, full range of motion Respiratory Exam: normal breath sounds, lungs clear, airway intact, No chest tenderness, No respiratory distress Cardiovascular Exam: tachycardia Gastrointestinal/Abdomen Exam: soft, normal bowel sounds, No tenderness Pelvic Exam: not done Rectal Exam: not done Back Exam: normal inspection, normal range of motion, CVA tenderness, No vertebral tenderness Extremity Exam: normal inspection, normal range of motion, pelvis stable Neurologic Exam: alert, oriented x 3, cooperative, hemodialysis charge nurse II-XII nml as tested, normal mood/affect, nml cerebellar function, nml station & gait, sensation nml Skin Exam: normal color, warm, dry Lymphatic Exam: No adenopathy SpO2 Interpretation: normal SpO2: 100 O2 Delivery: Room Air - Course Nursing assessment & vital signs reviewed: Yes Ordered Tests: Active Orders 24 hr Category Date Time Status IV Insertion STAT Care 06/18/20 00:45 Active CULTURE,URINE Stat Lab 06/18/20 00:45 Received HCG,QUALITATIVE URINE Stat Lab 06/18/20 00:46 Completed UA W/RFX UR CULTURE Stat Lab 06/18/20 00:45 Completed Medication Summary Generic Name Dose Route Start Last Admin Trade Name Freq PRN Reason Stop Dose Admin Sodium Chloride 1,000 mls @ 999 mls/hr 06/18/20 00:45 06/18/20 00:53 Sodium Chloride 0.9% 1000 Ml IV 06/18/20 01:45 999 mls/hr .Q1H1M STA Administration Discontinued Medications Generic Name Dose Route Start Last Admin Trade Name Freq PRN Reason Stop Dose Admin Hydromorphone HCl 1 mg 06/18/20 01:25 06/18/20 01:38 Hydromorphone 1 Mg/Ml Injection IV 06/18/20 01:26 1 mg STAT ONE Administration Hydromorphone HCl Confirm 06/18/20 01:38 Hydromorphone 1 Mg/Ml Injection Administered 06/18/20 01:39 Dose 1 mg .ROUTE .STK-MED ONE Sodium Chloride Confirm 06/18/20 00:49 Sodium Chloride 0.9% 1000 Ml Administered 06/18/20 00:50 Dose 1,000 mls @ ud .ROUTE .STK-MED ONE Ketorolac Tromethamine 30 mg 06/18/20 01:39 06/18/20 01:40 Toradol 30 Mg Injection IV 06/18/20 01:40 30 mg STAT ONE Administration Ondansetron HCl 4 mg 06/18/20 00:45 06/18/20 00:53 Zofran 4 Mg/2 Ml Vial IV 06/18/20 00:46 4 mg STAT ONE Administration Ondansetron HCl Confirm 06/18/20 00:49 Zofran 4 Mg/2 Ml Vial Administered 06/18/20 00:50 Dose 4 mg .ROUTE .STK-MED ONE Lab/Rad Data: Laboratory Results 06/18/20 06/18/20 Range/Units 00:46 00:45 Urine Color LINN (YELLOW) Urine Appearance SLIGHTLY CLOUDY (CLEAR) Urine pH 5.0 (5-6) Ur Specific [place] 1.027 (1.005-1.025) Urine Protein 100 (Negative) Urine Ketones SMALL (NEGATIVE) Urine Blood LARGE (0-5) Shashank/ul Urine Nitrite NEGATIVE (NEGATIVE) Urine Bilirubin NEGATIVE (NEGATIVE) Urine Urobilinogen NEGATIVE (0-1) mg/dL Ur Leukocyte Esterase NEGATIVE (NEGATIVE) Urine WBC (Auto) 6-10 (0-5) /HPF Urine RBC (Auto) NONE (0-2) /HPF U Hyaline Cast (Auto) 0-2 (0-2) /LPF U Epithel Cells (Auto) RARE (FEW) /HPF Urine Bacteria (Auto) FEW (NEGATIVE) /HPF Amorphous Crystals FEW (NEGATIVE) /HPF Urine Mucus (Auto) SLIGHT (NEGATIVE) /HPF Urine Culture Reflexed YES (NO) Urine Glucose NEGATIVE (NEGATIVE) mg/dL Urine HCG, Qual NEGATIVE (Negative) - Progress Progress: improved, re-examined Air Movement: good Blood Culture(s) Obtained: No Antibiotics given: Yes Counseled pt/family regarding: lab results, diagnosis, need for follow-up - Departure Departure Disposition: Home Clinical Impression: UTI (urinary tract infection) Condition: Stable Critical Care Time: No Referrals: DOCTOR,NO FAMILY [Primary Care Provider] - Additional Instructions: Drink plenty of fluids. Use Tylenol and ibuprofen for pain control. Follow-up with your primary care physician for persistent symptoms. Monitor your blood sugar closely. Take your medication as prescribed Prescriptions: Ciprofloxacin [Cipro 500 MG] 500 mg PO BID #14 tablet Ondansetron HCl [Zofran] 4 mg PO TID PRN #10 tablet PRN Reason: Nausea/Vomiting
[2020-06-18] MEDS ORDERED: Hydromorphone 1 mg/ml Injection IV ONE (01:25)
[2020-06-18] MEDS ORDERED: Hydromorphone 1 mg/ml Injection ONE (01:38)
[2020-06-18] MEDS ORDERED: TORAdol 30 mg Injection IV ONE (01:39)
[2020-06-18] MEDS ORDERED: TORAdol 30 mg Injection ONE (01:40)
[2020-06-18] MEDS ORDERED: ROCEPHIN 1 Gm-D5w 50 ml Bag** 1 G/50 ML IVPB IV ONE (01:46)
[2020-06-18] MEDS ORDERED: ROCEPHIN 1 Gm-D5w 50 ml Bag** 1 G/50 ML IVPB IV STA (01:47)
[2020-06-18 02:10] VITALS: BP 144/96; PULSE 94; O2SAT 99
== END 2020-06-18 02:29 | disposition home or self-care (01) ==
LOC: ED 00:02
DX: N39.0 Urinary tract infection, site not specified (principal)
CPT/HCPCS: 36000; 81001; 84703; 87086; 96360; 96374; 96375; 99284; J0696; J1170; J1885; J2405

== ENCOUNTER 2020-08-11 19:47 | Emergency (ER) | payer OTHER ==
[2020-08-11] MEDS ORDERED: Sodium Chloride 0.9% 1000 ML 1,000 ML IV STA (19:59)
[2020-08-11 20:09] VITALS: O2SAT 100
[2020-08-11] MEDS ORDERED: Sodium Chloride 0.9% 1000 ML 1,000 ML ONE (20:12)
[2020-08-11] MEDS ORDERED: Zofran 4 MG/2 ML VIAL IV ONE (20:23)
[2020-08-11] MEDS ORDERED: Zofran 4 MG/2 ML VIAL ONE (20:25)
[2020-08-11 20:30] LABS: Absolute Neutrophil Ct (ANC) 8.41 (1.4-6.9); Basophil (Absolute #) 0 (0-0.4); Eosinophil (Absolute #) 0 (0-0.5); Hematocrit 45.8 % (35-47); Hemoglobin 14.2 gm/dl (12.0-16.0); Lymphocyte (Absolute #) 0.87 (1.0-4.6); Lymphocytes % 8.8 % (24.0-44.0); Mean Cell Volume 80.1 fl (78-100); Mean Corpuscular Hemoglobin 24.8 pg (26-32); Mean Platelet Volume 11.3 fl (7.5-11.0); Monocyte (Absolute #) 0.61 (0.0-1.3); Monocytes % 6.2 % (0.0-12.0); Platelet Count 310 K/mm3 (150-450); Red Blood Count 5.72 M/mm3 (4.1-5.4); Red Cell Distribution Width 14.7 % (11.5-14.0); White Blood Count 9.9 K/mm3 (4.0-10.5)
[2020-08-11 20:38] LABS: ALBUMIN 4.7 g/dL (3.5-5.0); ALKALINE PHOSPHATASE 89 U/L (38-126); ANION GAP 15.4 MEQ/L (5-15); Appearance SLIGHTLY CLOUDY (CLEAR); BLOOD UREA NITROGEN 10 mg/dL (7-17); Bilirubin NEGATIVE (NEGATIVE); Blood NEGATIVE Ery/ul (0-5); CHLORIDE 98 mmol/L (98-107); Calcium 9.6 mg/dL (8.4-10.2); Carbon Dioxide 25 mmol/L (22-30); Creatinine 1 0.81 mg/dL (0.52-1.04); EST GLOMERULAR FILTRATION RATE > 60.0 ML/MIN; Epithelial Cells RARE /HPF (FEW); Glucose 87 mg/dL (74-106); Glucose NEGATIVE (NEGATIVE); Hyaline Casts 0-2 /LPF (0-2); Ketones TRACE (NEGATIVE); Leukocyte Esterase NEGATIVE (NEGATIVE); Mucus SLIGHT /HPF (NEGATIVE); Nitrite NEGATIVE (NEGATIVE); Potassium 3.8 mmol/L (3.5-5.1); Protein,Urine Dip 100 (Negative); SGOT/AST 20 U/L (14-36); SGPT/ALT 11 U/L (0-35); SODIUM 134 mmol/L (137-145); Specific Gravity 1.023 (1.005-1.025); Total Protein 8.3 g/dL (6.3-8.2); Urobilinogen NEGATIVE mg/dL (0-1)
--- NOTE | 2020-08-11 21:02 | ERPHSYRPT ---
- History of Present Illness Time Seen by Provider: 08/11/20 19:55 Source: patient Exam Limitations: no limitations Patient Subjective Stated Complaint: pt c/o nausea and vomiting today, headache x2 days, generalized weakness today. Triage Nursing Assessment: pt c/o nausea and vomiting today, headache x2 days, generalized weakness today. Pt states, "I'm dehydrated and probably have a UTI". Lungs clear, heart tones reg, abd soft with active bs x4 quad, nontender. Pt states, "I did just start a new med and thought maybe that was it". Physician History: Patient is a 34-year-old female with a history of diabetes presents to our ED with complaints of nausea vomiting headache generalized weakness urinary tract infection x2 days. Patient also complains of substernal chest pain that she attributes to reflux. Symptoms are constant. No specific worsening or improving factors. Patient states she feels dehydrated. Patient has had a urinary tract infection in the past and states her symptoms are similar. Emesis is nonbloody nonbilious. Patient denies chest pain. Patient's headache is frontal. No associated visual deficits. No numbness tingling or weakness. Timing/Duration: day(s) (2 days) Severity: moderate Modifying Factors: Improves With: nothing Associated Symptoms: abdominal pain, shortness of breath, chest pain, headaches, No cough, No chills, No fever, No loss of appetite, No malaise, No rash, No syncope Allergies/Adverse Reactions: No Known Drug Allergies Allergy (Verified 08/11/20 19:59) Home Medications: Clonazepam 0.5 mg [Klonopin 0.5 MG] 1 mg PO TID 01/28/19 [History] Insulin Lispro [Admelog Solostar] 1 unit SQ DAILY 01/28/19 [History] Quetiapine Fumarate 100 mg [Seroquel 100 MG] 100 mg PO DAILY 12/25/19 [History] Quetiapine Fumarate 100 mg [Seroquel 100 MG] 300 mg PO HS 12/25/19 [History] Dulaglutide [Trulicity] 0.75 mg SQ WEEKLY 06/18/20 [History] Fluvoxamine Maleate 50 mg PO HS 08/11/20 [History] Hx Tetanus, Diphtheria Vaccination/Date Given: Yes Hx Influenza Vaccination/Date Given: No Hx Pneumococcal Vaccination/Date Given: No Immunizations Up to Date: Yes Travel Risk - International Travel Have you traveled outside of the country in past 3 weeks: No - Coronavirus Screening Are you exhibiting any of the following symptoms?: No Symptoms: Vomiting/Diarrhea, Headaches/Body Aches/Fatigue Close contact with a COVID-19 positive Pt in past 14-21 Days: No - Review of Systems Constitutional: No Symptoms, No Fever, No Chills Eyes: No Symptoms Ears, Nose, & Throat: No Symptoms Respiratory: No Symptoms, No Cough, No Dyspnea Cardiac: No Symptoms, No Chest Pain, No Edema, No Syncope Abdominal/Gastrointestinal: No Symptoms, No Abdominal Pain, No Nausea, No Vomiting, No Diarrhea Genitourinary Symptoms: No Symptoms, No Dysuria Musculoskeletal: No Symptoms, No Back Pain, No Neck Pain Skin: No Symptoms, No Rash Neurological: No Symptoms, No Dizziness, No Focal Weakness, No Sensory Changes Psychological: No Symptoms Endocrine: No Symptoms Hematologic/Lymphatic: No Symptoms Immunological/Allergic: No Symptoms All Other Systems: Reviewed and Negative - Past Medical History Pertinent Past Medical History: Yes Neurological History: Seizures ENT History: No Pertinent History Cardiac History: No Pertinent History Respiratory History: No Pertinent History Endocrine Medical History: Diabetes Type I, Hypothyroidism Musculoskeletal History: No Pertinent History GI Medical History: No Pertinent History History: No Pertinent History Psycho-Social History: Anxiety, Bipolar, Depression Female Reproductive Disorders: No Pertinent History Other Medical History: HAS BEEN TYPE 1 SINCE 11 MONTHS OLD. - Past Surgical History Past Surgical History: Yes Neuro Surgical History: No Pertinent History Cardiac: No Pertinent History Respiratory: No Pertinent History Gastrointestinal: No Pertinent History Genitourinary: No Pertinent History Musculoskeletal: Orthopedic Surgery Female Surgical History: Section, Tubal Ligation Other Surgical History: TONSILS. X 4. carpal tunnel surgery - Social History Smoking Status: Never smoker Exposure to second hand smoke: No Drug Use: none Patient Lives Alone: No - Female History Hx Now: No - Nursing Vital Signs Nursing Vital Signs: Initial Vital Signs Temperature 98.6 F 08/11/20 19:49 Pulse Rate 115 H 08/11/20 19:49 Respiratory Rate 18 08/11/20 19:49 Blood Pressure 153/122 08/11/20 19:49 O2 Sat by Pulse Oximetry 99 08/11/20 19:49 Pain Scale Pain Intensity 6 - Physical Exam General Appearance: no apparent distress, alert Eye Exam: PERRL/EOMI, eyes nml inspection Ears, Nose, Throat Exam: normal ENT inspection, TMs normal, pharynx normal, moist mucous membranes Neck Exam: normal inspection, non-tender, supple, full range of motion Respiratory Exam: normal breath sounds, lungs clear, No respiratory distress Cardiovascular Exam: regular rate/rhythm, normal heart sounds, normal peripheral pulses Gastrointestinal/Abdomen Exam: soft, normal bowel sounds, No tenderness, No mass Back Exam: normal inspection, normal range of motion, No CVA tenderness, No vertebral tenderness Extremity Exam: normal inspection, normal range of motion, pelvis stable Neurologic Exam: alert, oriented x 3, cooperative, normal mood/affect, nml cerebellar function, nml station & gait, sensation nml, No motor deficits Skin Exam: normal color, warm, dry, No rash Lymphatic Exam: No adenopathy SpO2 Interpretation: normal SpO2: 100 O2 Delivery: Room Air - Course Nursing assessment & vital signs reviewed: Yes EKG Interpreted by Me: RATE (99), Sinus Rhythm, NORMAL AXIS, NORMAL INTERVALS Ordered Tests: Active Orders 24 hr Category Date Time Status AMA [Release AMA] OM.NOW Care 08/11/20 23:22 Active Sewer Contractor STAT Care 08/11/20 20:00 Active EKG-ER Only STAT Care 08/11/20 19:59 Active IV Insertion STAT Care 08/11/20 19:59 Active Pulse Oximetry (ED) STAT Care 08/11/20 19:59 Active CBC W DIFF Stat Lab 08/11/20 20:15 Completed CMP Stat Lab 08/11/20 20:15 Completed MAGNESIUM Stat Lab 08/11/20 20:15 Completed POCT GLUCOSE Stat Lab 08/11/20 19:59 Received POCT GLUCOSE Stat Lab 08/11/20 20:01 Completed TROPONIN Q3H Lab 08/11/20 20:15 Completed TROPONIN Q3H Lab 08/11/20 23:15 Received TROPONIN Q3H Lab 08/12/20 02:00 Ordered TROPONIN Q3H Lab 08/12/20 05:00 Ordered TROPONIN Q3H Lab 08/12/20 08:00 Ordered UA W/RFX UR CULTURE Stat Lab 08/11/20 20:15 Completed Medication Summary Discontinued Medications Generic Name Dose Route Start Last Admin Trade Name Freq PRN Reason Stop Dose Admin Sodium Chloride 1,000 mls @ 999 mls/hr 08/11/20 19:59 08/11/20 20:18 Sodium Chloride 0.9% 1000 Ml IV 08/11/20 20:59 999 mls/hr .Q1H1M STA Administration Sodium Chloride Confirm 08/11/20 20:12 Sodium Chloride 0.9% 1000 Ml Administered 08/11/20 20:13 Dose 1,000 mls @ ud .ROUTE .STK-MED ONE Ceftriaxone Sodium/Dextrose 1 g in 50 mls @ 100 mls/hr 08/11/20 21:46 08/11/20 21:52 Rocephin 1 Gm-D5w 50 Ml Bag IV 08/11/20 22:15 100 mls/hr STAT STA 100 mls/hr Administration Ceftriaxone Sodium/Dextrose Confirm 08/11/20 21:51 Rocephin 1 Gm-D5w 50 Ml Bag Administered 08/11/20 21:52 Dose 1 g in 50 mls @ ud IV .STK-MED ONE Ketorolac Tromethamine 30 mg 08/11/20 21:46 08/11/20 21:53 Toradol 30 Mg Injection IM 08/11/20 21:47 30 mg STAT ONE Administration Ketorolac Tromethamine Confirm 08/11/20 21:51 Toradol 30 Mg Injection Administered 08/11/20 21:52 Dose 30 mg .ROUTE .STK-MED ONE Ondansetron HCl 4 mg 08/11/20 20:23 08/11/20 20:25 Zofran 4 Mg/2 Ml Vial IV 08/11/20 20:24 4 mg STAT ONE Administration Ondansetron HCl Confirm 08/11/20 20:25 Zofran 4 Mg/2 Ml Vial Administered 08/11/20 20:26 Dose 4 mg .ROUTE .STK-MED ONE Prochlorperazine Edisylate 10 mg 08/11/20 22:47 08/11/20 22:54 Compazine 10 Mg/2 Ml IV 08/11/20 22:48 10 mg STAT ONE Administration Prochlorperazine Edisylate Confirm 08/11/20 22:54 Compazine 10 Mg/2 Ml Administered 08/11/20 22:55 Dose 10 mg .ROUTE .STK-MED ONE Lab/Rad Data: Laboratory Result Diagrams 08/11/20 20:15 08/11/20 20:15 Laboratory Results 08/11/20 08/11/20 08/11/20 Range/Units 20:15 20:15 20:15 WBC (4.0-10.5) K/mm3 RBC (4.1-5.4) M/mm3 Hgb (12.0-16.0) gm/dl Hct (35-47) % MCV (78-100) fl MCH (26-32) pg MCHC (32-36) g/dl RDW (11.5-14.0) % Plt Count (150-450) K/mm3 MPV (7.5-11.0) fl Gran % (36.0-66.0) % Eos # (Auto) (0-0.5) Absolute Lymphs (auto) (1.0-4.6) Absolute Monos (auto) (0.0-1.3) Lymphocytes % (24.0-44.0) % Monocytes % (0.0-12.0) % Eosinophils % (0.00-5.0) % Basophils % (0.0-0.4) % Absolute Granulocytes (1.4-6.9) Basophils # (0-0.4) Sodium 134 L (137-145) mmol/L Potassium 3.8 (3.5-5.1) mmol/L Chloride 98 (98-107) mmol/L Carbon Dioxide 25 (22-30) mmol/L Anion Gap 15.4 H (5-15) MEQ/L BUN 10 (7-17) mg/dL Creatinine 0.81 (0.52-1.04) mg/dL Estimated GFR > 60.0 ML/MIN Glucose 87 (74-106) mg/dL POC Glucometer (74 to 106) mg/dL Calcium 9.6 (8.4-10.2) mg/dL Magnesium 2.0 (1.6-2.3) mg/dL Total Bilirubin 0.60 (0.2-1.3) mg/dL AST 20 (14-36) U/L ALT 11 (0-35) U/L Alkaline Phosphatase 89 (38-126) U/L Troponin I < 0.012 (0.000-0.034) ng/mL Serum Total Protein 8.3 H (6.3-8.2) g/dL Albumin 4.7 (3.5-5.0) g/dL Urine Color YELLOW (YELLOW) Urine Appearance SLIGHTLY CLOUDY (CLEAR) Urine pH 5.0 (5-6) Ur Specific [place] 1.023 (1.005-1.025) Urine Protein 100 (Negative) Urine Ketones TRACE (NEGATIVE) Urine Blood NEGATIVE (0-5) Shashank/ul Urine Nitrite NEGATIVE (NEGATIVE) Urine Bilirubin NEGATIVE (NEGATIVE) Urine Urobilinogen NEGATIVE (0-1) mg/dL Ur Leukocyte Esterase NEGATIVE (NEGATIVE) Urine WBC (Auto) 6-10 (0-5) /HPF Urine RBC (Auto) 3-5 (0-2) /HPF U Hyaline Cast (Auto) 0-2 (0-2) /LPF U Epithel Cells (Auto) RARE (FEW) /HPF Urine Bacteria (Auto) NONE (NEGATIVE) /HPF Urine Mucus (Auto) SLIGHT (NEGATIVE) /HPF Urine Culture Reflexed NO (NO) Urine Glucose NEGATIVE (NEGATIVE) mg/dL 08/11/20 08/11/20 Range/Units 20:15 20:01 WBC 9.9 (4.0-10.5) K/mm3 RBC 5.72 H (4.1-5.4) M/mm3 Hgb 14.2 (12.0-16.0) gm/dl Hct 45.8 (35-47) % MCV 80.1 (78-100) fl MCH 24.8 L (26-32) pg MCHC 31.0 L (32-36) g/dl RDW 14.7 H (11.5-14.0) % Plt Count 310 (150-450) K/mm3 MPV 11.3 H (7.5-11.0) fl Gran % 85.0 H (36.0-66.0) % Eos # (Auto) 0 (0-0.5) Absolute Lymphs (auto) 0.87 L (1.0-4.6) Absolute Monos (auto) 0.61 (0.0-1.3) Lymphocytes % 8.8 L (24.0-44.0) % Monocytes % 6.2 (0.0-12.0) % Eosinophils % 0.0 (0.00-5.0) % Basophils % 0.0 (0.0-0.4) % Absolute Granulocytes 8.41 H (1.4-6.9) Basophils # 0 (0-0.4) Sodium (137-145) mmol/L Potassium (3.5-5.1) mmol/L Chloride (98-107) mmol/L Carbon Dioxide (22-30) mmol/L Anion Gap (5-15) MEQ/L BUN (7-17) mg/dL Creatinine (0.52-1.04) mg/dL Estimated GFR ML/MIN Glucose (74-106) mg/dL POC Glucometer 82 (74 to 106) mg/dL Calcium (8.4-10.2) mg/dL Magnesium (1.6-2.3) mg/dL Total Bilirubin (0.2-1.3) mg/dL AST (14-36) U/L ALT (0-35) U/L Alkaline Phosphatase (38-126) U/L Troponin I (0.000-0.034) ng/mL Serum Total Protein (6.3-8.2) g/dL Albumin (3.5-5.0) g/dL Urine Color (YELLOW) Urine Appearance (CLEAR) Urine pH (5-6) Ur Specific [place] (1.005-1.025) Urine Protein (Negative) Urine Ketones (NEGATIVE) Urine Blood (0-5) Shashank/ul Urine Nitrite (NEGATIVE) Urine Bilirubin (NEGATIVE) Urine Urobilinogen (0-1) mg/dL Ur Leukocyte Esterase (NEGATIVE) Urine WBC (Auto) (0-5) /HPF Urine RBC (Auto) (0-2) /HPF U Hyaline Cast (Auto) (0-2) /LPF U Epithel Cells (Auto) (FEW) /HPF Urine Bacteria (Auto) (NEGATIVE) /HPF Urine Mucus (Auto) (NEGATIVE) /HPF Urine Culture Reflexed (NO) Urine Glucose (NEGATIVE) mg/dL - Progress Progress: improved Progress Note: 08/11/20 23:04 Patient reassessed. Nausea improved with headache improved. Patient states she feels a little stronger. UA suggestive of UTI. Patient received a dose of Rocephin. IV fluids infused. Antiemetics administered as well. Initial troponin negative. Patient stated that her father was in the parking lot she cannot stay for the second troponin. Patient left prior to second troponin resolved. AMA form was completed. Antiemetic prescription as well as antibiotic prescription forwarded to patient's pharmacy. Patient is of sound mind. Patient is appropriate to make informed and independent medical decisions. Patient understands that leaving AGAINST MEDICAL ADVICE can result in delayed diagnosis, increased risk of morbidity, mortality, short and long-term disability including . In spite of these risks, patient has decided to leave AGAINST MEDICAL ADVICE. Patient understands that she may return to our ED at any point if he or she reconsiders. Patient agrees to follow-up with her primary care doctor within 48 hours for reevaluation. Patient voices no other complaints or concerns at this time. We will release patient AGAINST MEDICAL ADVICE per their request. Portions of this note were created with voice recognition technology. There may be grammatical, spelling, punctuation or sound alike errors 08/11/20 23:56 08/11/20 23:59 Counseled pt/family regarding: lab results, diagnosis - Departure Departure Disposition: AMA Clinical Impression: Chest pain, UTI (urinary tract infection), Generalized weakness, Nausea & vomiting Condition: Stable Critical Care Time: No Referrals: DOCTOR,NO FAMILY [Primary Care Provider] - NICOLASA REZA DO [ACTIVE STAFF] - Instructions: Urinary Tract Infection, Adult (DC), Nausea and Vomiting, Adult (DC) Additional Instructions: Discharge/Care Plan TYEVEE RONNY was seen on 08/11/20 in the Emergency Room. The patient was counseled regarding Diagnosis,Lab results, Imaging studies, need for follow up and when to return to the Emergency Room. Prescriptions given: Discharge Note I have spoken with the patient and/or caregivers. I have explained the patient's condition, diagnosis and treatment plan based on the information available to me at this time. I have answered the patient's and/or caregiver's questions and addressed any concerns. The patient and/or caregivers have as good understanding of the patient's diagnosis, condition and treatment plan as can be expected at this point. The vital signs have been stable. The patient's condition is stable and appropriate for discharge from the emergency department. The patient will pursue further outpatient evaluation with the primary care physician or other designated or consulting physician as outlined in the discharge instructions. The patient and/or caregivers are agreeable to this plan of care and follow-up instructions have been explained in detail. The patient and/or caregivers have received these instruction. The patient/and or caregivers are aware that any significant change in condition or worsening of symptoms should prompt an immediate return to this or the closest emergency department or call 911. Prescriptions: Ondansetron ODT 4 MG [Zofran Odt 4 mg] 4 mg PO Q6H PRN PRN #10 tab.rapdis PRN Reason: Vomiting Cephalexin Mh 500 mg [Keflex 500 mg] 500 mg PO BID 7 Days #14 capsule
[2020-08-11] MEDS ORDERED: ROCEPHIN 1 Gm-D5w 50 ml Bag** 1 G/50 ML IVPB IV STA (21:46)
[2020-08-11] MEDS ORDERED: TORAdol 30 mg Injection IM ONE (21:46)
[2020-08-11] MEDS ORDERED: TORAdol 30 mg Injection ONE (21:51)
[2020-08-11] MEDS ORDERED: ROCEPHIN 1 Gm-D5w 50 ml Bag** 1 G/50 ML IVPB IV ONE (21:51)
[2020-08-11] MEDS ORDERED: Compazine 10 MG/2 ML IV ONE (22:47)
[2020-08-11] MEDS ORDERED: Compazine 10 MG/2 ML ONE (22:54)
[2020-08-11 23:55] VITALS: BP 118/70; PULSE 90
== END 2020-08-11 23:50 | disposition home or self-care (01) ==
LOC: ED 19:47
DX: R11.2 Nausea with vomiting, unspecified (principal); R07.9 Chest pain, unspecified; N39.0 Urinary tract infection, site not specified; R53.1 Weakness; R51.9 Headache, unspecified; R10.9 Unspecified abdominal pain; E10.9 Type 1 diabetes mellitus without complications; E03.9 Hypothyroidism, unspecified; Z79.899 Other long term (current) drug therapy
CPT/HCPCS: 36000; 36415; 80053; 81001; 82947; 83735; 84484; 85025; 93005; 93041; 94760; 96360; 96365; 96372; 96374; 96375; 99285; J0696; J1885; J2405

== ENCOUNTER 2020-10-15 10:42 | Emergency (ER) | payer OTHER ==
[2020-10-15] MEDS ORDERED: Sodium Chloride 0.9% 1000 ML 1,000 ML IV STA (11:15)
[2020-10-15] MEDS ORDERED: Zofran 4 MG/2 ML VIAL IV ONE (11:15)
--- NOTE | 2020-10-15 11:15 | ERPHSYRPT ---
- History of Present Illness Time Seen by Provider: 10/15/20 11:15 Historian: patient Exam Limitations: no limitations Patient Subjective Stated Complaint: PAtient woke up at 0400 and threw up with a foul smell and on the way. States she also had a headache behind her eyes. Thinks she is dehydated with a kidney infection. Triage Nursing Assessment: Patient ambulatory to ER. Skin pale and states she is nauseous. Patient states she has pain as a 7 in her head behind her eyes. Physician History: This is a 35-year-old female who has a history of anxiety, bipolar disorder, depression and seizures as well as hypothyroidism and insulin-dependent diabetes who started feeling poorly yesterday went to bed early after eating a meal. Early this morning, approximately 3 AM, she started having severe nausea and just not feeling well. She has no known exposures to anyone with flu diagnosis or symptoms. She has no abdominal pain. Then a few hours later, she has had several episodes of vomiting. She has had no diarrhea. She has no abdominal pain she denies fever she denies cough she denies chest pain. She has had similar symptoms when she had a urinary tract infection. She is also concerned that maybe she has food poisoning. Timing/Duration: today Quality: aching (Mild diffuse after several episodes of vomiting and retching) Abdominal Pain Onset Location: generalized abdomen Pain Radiation: no radiation Severity of Pain-Max: mild Severity of Pain-Current: none Modifying Factors: Improves With: vomiting Associated Symptoms: loss of appetite, nausea, vomiting Previous symptoms: no prior history Allergies/Adverse Reactions: No Known Drug Allergies Allergy (Verified 08/11/20 19:59) Home Medications: Clonazepam 0.5 mg [Klonopin 0.5 MG] 1 mg PO TID 01/28/19 [History] Insulin Lispro [Admelog Solostar] 1 unit SQ DAILY 01/28/19 [History] Quetiapine Fumarate 100 mg [Seroquel 100 MG] 100 mg PO DAILY 12/25/19 [Hi story] Quetiapine Fumarate 100 mg [Seroquel 100 MG] 300 mg PO HS 12/25/19 [History] Dulaglutide [Trulicity] 0.75 mg SQ WEEKLY 06/18/20 [History] Fluvoxamine Maleate 50 mg PO HS 08/11/20 [History] Hx Tetanus, Diphtheria Vaccination/Date Given: Yes Hx Influenza Vaccination/Date Given: No Hx Pneumococcal Vaccination/Date Given: No Travel Risk - International Travel Have you traveled outside of the country in past 3 weeks: No - Coronavirus Screening Are you exhibiting any of the following symptoms?: No Close contact with a COVID-19 positive Pt in past 14-21 Days: No - Vaccine Status Have you recieved a Covid-19 vaccination: No - Review of Systems Constitutional: No Symptoms Eyes: No Symptoms Ears, Nose, & Throat: No Symptoms Respiratory: No Symptoms Cardiac: No Symptoms Abdominal/Gastrointestinal: Nausea, Vomiting, No Diarrhea Genitourinary Symptoms: No Symptoms Musculoskeletal: No Symptoms Skin: No Symptoms Neurological: No Symptoms Psychological: No Symptoms Endocrine: No Symptoms Hematologic/Lymphatic: No Symptoms Immunological/Allergic: No Symptoms All Other Systems: Reviewed and Negative - Past Medical History Pertinent Past Medical History: Yes Neurological History: Seizures ENT History: No Pertinent History Cardiac History: No Pertinent History Respiratory History: No Pertinent History Endocrine Medical History: Diabetes Type I, Hypothyroidism Musculoskeletal History: No Pertinent History GI Medical History: No Pertinent History History: No Pertinent History Psycho-Social History: Anxiety, Bipolar, Depression Female Reproductive Disorders: No Pertinent History Other Medical History: HAS BEEN TYPE 1 SINCE 10 MONTHS OLD. - Past Surgical History Past Surgical History: Yes Neuro Surgical History: No Pertinent History Cardiac: No Pertinent History Respiratory: No Pertinent History Gastrointestinal: No Pertinent History Genitourinary: No Pertinent History Musculoskeletal: Orthopedic Surgery Female Surgical History: Section, Tubal Ligation Other Surgical History: TONSILS. X 4. carpal tunnel surgery - Social History Smoking Status: Never smoker Exposure to second hand smoke: No Drug Use: none Patient Lives Alone: No - Female History Hx Last Menstrual Period: 08/28/20 Hx Now: No - Nursing Vital Signs Nursing Vital Signs: Initial Vital Signs Temperature 97.2 F 10/15/20 10:54 Pulse Rate 98 H 10/15/20 10:54 Blood Pressure 97/77 10/15/20 10:54 O2 Sat by Pulse Oximetry 98 10/15/20 10:54 Pain Scale Pain Intensity 6 - Physical Exam General Appearance: no apparent distress, alert, anxiety Eye Exam: PERRL/EOMI, eyes nml inspection Ears, Nose, Throat Exam: normal ENT inspection, moist mucous membranes Neck Exam: normal inspection, non-tender, supple, full range of motion Respiratory Exam: normal breath sounds, lungs clear, airway intact, No chest tenderness, No respiratory distress Cardiovascular Exam: regular rate/rhythm, normal heart sounds, normal peripheral pulses Gastrointestinal/Abdomen Exam: soft, normal bowel sounds, No tenderness, No guarding Pelvic Exam: not done Rectal Exam: not done Back Exam: normal inspection, normal range of motion, No CVA tenderness, No vertebral tenderness Extremity Exam: normal inspection, normal range of motion, pelvis stable Neurologic Exam: alert, oriented x 3, cooperative, advertising sales assistant II-XII nml as tested, normal mood/affect, nml cerebellar function, nml station & gait, sensation nml Skin Exam: normal color, warm, dry Lymphatic Exam: No adenopathy SpO2 Interpretation: normal SpO2: 98 - Course Nursing assessment & vital signs reviewed: Yes Ordered Tests: Active Orders 24 hr Category Date Time Status IV Insertion STAT Care 10/15/20 11:15 Active AMYLASE Stat Lab 10/15/20 11:20 Completed CBC W DIFF Stat Lab 10/15/20 11:20 Completed CMP Stat Lab 10/15/20 11:20 Completed HCG,QUALITATIVE URINE Stat Lab 10/15/20 11:32 Completed INFLUENZA A+B LETTY Stat Lab 10/15/20 11:17 Completed LIPASE Stat Lab 10/15/20 11:20 Completed Lactic Acid Stat Lab 10/15/20 11:15 Completed Petroleum Screen Stat Lab 10/15/20 11:20 Completed POCT GLUCOSE Stat Lab 10/15/20 10:59 Completed UA W/RFX UR CULTURE Stat Lab 10/15/20 11:16 Completed Medication Summary Discontinued Medications Generic Name Dose Route Start Last Admin Trade Name Luzmaria PRN Reason Stop Dose Admin Sodium Chloride 1,000 mls @ 999 mls/hr 10/15/20 11:15 10/15/20 12:27 Sodium Chloride 0.9% 1000 Ml IV 10/15/20 12:15 Infused .Q1H1M STA Infusion Sodium Chloride Confirm 10/15/20 11:22 Sodium Chloride 0.9% 1000 Ml Administered 10/15/20 11:23 Dose 1,000 mls @ ud .ROUTE .STK-MED ONE Sodium Chloride 500 mls @ 500 mls/hr 10/15/20 12:39 10/15/20 13:41 Sodium Chloride 0.9% 500 Ml IV 10/15/20 13:38 500 mls/hr .Q1H ONE Administration Sodium Chloride Confirm 10/15/20 13:40 Sodium Chloride 0.9% 500 Ml Administered 10/15/20 13:41 Dose 500 mls @ ud IV .STK-MED ONE Ondansetron HCl 4 mg 10/15/20 11:15 10/15/20 11:26 Zofran 4 Mg/2 Ml Vial IV 10/15/20 11:16 4 mg STAT ONE Administration Ondansetron HCl Confirm 10/15/20 11:22 Zofran 4 Mg/2 Ml Vial Administered 10/15/20 11:23 Dose 4 mg .ROUTE .STK-MED ONE Prochlorperazine Edisylate 10 mg 10/15/20 13:38 10/15/20 13:40 Compazine 10 Mg/2 Ml IV 10/15/20 13:39 10 mg STAT ONE Administration Prochlorperazine Edisylate Confirm 10/15/20 13:39 Compazine 10 Mg/2 Ml Administered 10/15/20 13:40 Dose 10 mg .ROUTE .STK-MED ONE Lab/Rad Data: Laboratory Result Diagrams 10/15/20 11:20 10/15/20 11:20 Laboratory Results 10/15/20 10/15/20 10/15/20 Range/Units 11:32 11:20 11:20 WBC (4.0-10.5) K/mm3 RBC (4.1-5.4) M/mm3 Hgb (12.0-16.0) gm/dl Hct (35-47) % MCV (78-100) fl MCH (26-32) pg MCHC (32-36) g/dl RDW (11.5-14.0) % Plt Count (150-450) K/mm3 MPV (7.5-11.0) fl Gran % (36.0-66.0) % Eos # (Auto) (0-0.5) Absolute Lymphs (auto) (1.0-4.6) Absolute Monos (auto) (0.0-1.3) Lymphocytes % (24.0-44.0) % Monocytes % (0.0-12.0) % Eosinophils % (0.00-5.0) % Basophils % (0.0-0.4) % Absolute Granulocytes (1.4-6.9) Basophils # (0-0.4) Sodium 134 L (137-145) mmol/L Potassium 4.2 (3.5-5.1) mmol/L Chloride 96 L (98-107) mmol/L Carbon Dioxide 27 (22-30) mmol/L Anion Gap 15.8 H (5-15) MEQ/L BUN 10 (7-17) mg/dL Creatinine 0.73 (0.52-1.04) mg/dL Estimated GFR > 60.0 ML/MIN Glucose 180 H (74-106) mg/dL POC Glucometer (74 to 106) mg/dL Lactic Acid (0.4-2.0) Calcium 9.5 (8.4-10.2) mg/dL Total Bilirubin 1.00 (0.2-1.3) mg/dL AST 23 (14-36) U/L ALT 13 (0-35) U/L Alkaline Phosphatase 83 (38-126) U/L Serum Total Protein 8.0 (6.3-8.2) g/dL Albumin 4.7 (3.5-5.0) g/dL Amylase 67 (30-110) U/L Lipase 33 (23-300) U/L Urine Color (YELLOW) Urine Appearance (CLEAR) Urine pH (5-6) Ur Specific [place] (1.005-1.025) Urine Protein (Negative) Urine Ketones (NEGATIVE) Urine Blood (0-5) Shashank/ul Urine Nitrite (NEGATIVE) Urine Bilirubin (NEGATIVE) Urine Urobilinogen (0-1) mg/dL Ur Leukocyte Esterase (NEGATIVE) Urine WBC (Auto) (0-5) /HPF Urine RBC (Auto) (0-2) /HPF U Epithel Cells (Auto) (FEW) /HPF Urine Bacteria (Auto) (NEGATIVE) /HPF Urine Mucus (Auto) (NEGATIVE) /HPF Urine Culture Reflexed (NO) Urine Glucose (NEGATIVE) mg/dL Urine HCG, Qual NEGATIVE (Negative) Monoscreen NEGATIVE (Negative) Influenza Type A Ag (NEGATIVE) Influenza Type B Ag (NEGATIVE) 10/15/20 10/15/20 10/15/20 Range/Units 11:20 11:17 11:16 WBC 5.4 (4.0-10.5) K/mm3 RBC 5.72 H (4.1-5.4) M/mm3 Hgb 14.8 (12.0-16.0) gm/dl Hct 45.6 (35-47) % MCV 79.7 (78-100) fl MCH 25.9 L (26-32) pg MCHC 32.5 (32-36) g/dl RDW 14.8 H (11.5-14.0) % Plt Count 335 (150-450) K/mm3 MPV 10.8 (7.5-11.0) fl Gran % 64.8 (36.0-66.0) % Eos # (Auto) 0.01 (0-0.5) Absolute Lymphs (auto) 1.48 (1.0-4.6) Absolute Monos (auto) 0.41 (0.0-1.3) Lymphocytes % 27.4 (24.0-44.0) % Monocytes % 7.6 (0.0-12.0) % Eosinophils % 0.2 (0.00-5.0) % Basophils % 0.0 (0.0-0.4) % Absolute Granulocytes 3.51 (1.4-6.9) Basophils # 0 (0-0.4) Sodium (137-145) mmol/L Potassium (3.5-5.1) mmol/L Chloride (98-107) mmol/L Carbon Dioxide (22-30) mmol/L Anion Gap (5-15) MEQ/L BUN (7-17) mg/dL Creatinine (0.52-1.04) mg/dL Estimated GFR ML/MIN Glucose (74-106) mg/dL POC Glucometer (74 to 106) mg/dL Lactic Acid (0.4-2.0) Calcium (8.4-10.2) mg/dL Total Bilirubin (0.2-1.3) mg/dL AST (14-36) U/L ALT (0-35) U/L Alkaline Phosphatase (38-126) U/L Serum Total Protein (6.3-8.2) g/dL Albumin (3.5-5.0) g/dL Amylase (30-110) U/L Lipase (23-300) U/L Urine Color YELLOW (YELLOW) Urine Appearance CLEAR (CLEAR) Urine pH 7.0 (5-6) Ur Specific [place] 1.017 (1.005-1.025) Urine Protein 30 (Negative) Urine Ketones MODERATE (NEGATIVE) Urine Blood NEGATIVE (0-5) Shashank/ul Urine Nitrite NEGATIVE (NEGATIVE) Urine Bilirubin NEGATIVE (NEGATIVE) Urine Urobilinogen NEGATIVE (0-1) mg/dL Ur Leukocyte Esterase NEGATIVE (NEGATIVE) Urine WBC (Auto) 0-2 (0-5) /HPF Urine RBC (Auto) NONE (0-2) /HPF U Epithel Cells (Auto) RARE (FEW) /HPF Urine Bacteria (Auto) NONE (NEGATIVE) /HPF Urine Mucus (Auto) SLIGHT (NEGATIVE) /HPF Urine Culture Reflexed NO (NO) Urine Glucose NEGATIVE (NEGATIVE) mg/dL Urine HCG, Qual (Negative) Monoscreen (Negative) Influenza Type A Ag NEGATIVE (NEGATIVE) Influenza Type B Ag NEGATIVE (NEGATIVE) 10/15/20 10/15/20 Range/Units 11:15 10:59 WBC (4.0-10.5) K/mm3 RBC (4.1-5.4) M/mm3 Hgb (12.0-16.0) gm/dl Hct (35-47) % MCV (78-100) fl MCH (26-32) pg MCHC (32-36) g/dl RDW (11.5-14.0) % Plt Count (150-450) K/mm3 MPV (7.5-11.0) fl Gran % (36.0-66.0) % Eos # (Auto) (0-0.5) Absolute Lymphs (auto) (1.0-4.6) Absolute Monos (auto) (0.0-1.3) Lymphocytes % (24.0-44.0) % Monocytes % (0.0-12.0) % Eosinophils % (0.00-5.0) % Basophils % (0.0-0.4) % Absolute Granulocytes (1.4-6.9) Basophils # (0-0.4) Sodium (137-145) mmol/L Potassium (3.5-5.1) mmol/L Chloride (98-107) mmol/L Carbon Dioxide (22-30) mmol/L Anion Gap (5-15) MEQ/L BUN (7-17) mg/dL Creatinine (0.52-1.04) mg/dL Estimated GFR ML/MIN Glucose (74-106) mg/dL POC Glucometer 161 H (74 to 106) mg/dL Lactic Acid 1.4 (0.4-2.0) Calcium (8.4-10.2) mg/dL Total Bilirubin (0.2-1.3) mg/dL AST (14-36) U/L ALT (0-35) U/L Alkaline Phosphatase (38-126) U/L Serum Total Protein (6.3-8.2) g/dL Albumin (3.5-5.0) g/dL Amylase (30-110) U/L Lipase (23-300) U/L Urine Color (YELLOW) Urine Appearance (CLEAR) Urine pH (5-6) Ur Specific [place] (1.005-1.025) Urine Protein (Negative) Urine Ketones (NEGATIVE) Urine Blood (0-5) Shashank/ul Urine Nitrite (NEGATIVE) Urine Bilirubin (NEGATIVE) Urine Urobilinogen (0-1) mg/dL Ur Leukocyte Esterase (NEGATIVE) Urine WBC (Auto) (0-5) /HPF Urine RBC (Auto) (0-2) /HPF U Epithel Cells (Auto) (FEW) /HPF Urine Bacteria (Auto) (NEGATIVE) /HPF Urine Mucus (Auto) (NEGATIVE) /HPF Urine Culture Reflexed (NO) Urine Glucose (NEGATIVE) mg/dL Urine HCG, Qual (Negative) Monoscreen (Negative) Influenza Type A Ag (NEGATIVE) Influenza Type B Ag (NEGATIVE) - Progress Progress: improved, re-examined Counseled pt/family regarding: lab results, diagnosis, need for follow-up - Departure Departure Disposition: Home Clinical Impression: Vomiting, Dehydration Condition: Stable Critical Care Time: No Referrals: DOCTOR,NO FAMILY [Primary Care Provider] - Additional Instructions: Drink plenty of fluids. Follow-up with your primary care physician for persistent symptoms. Prescriptions: Ondansetron ODT 4 MG [Zofran Odt 4 mg] 4 mg PO Q6H PRN PRN #10 tab.rapdis PRN Reason: Vomiting
[2020-10-15] MEDS ORDERED: Sodium Chloride 0.9% 1000 ML 1,000 ML ONE (11:22)
[2020-10-15] MEDS ORDERED: Zofran 4 MG/2 ML VIAL ONE (11:22)
[2020-10-15 11:23] LABS: Absolute Neutrophil Ct (ANC) 3.51 (1.4-6.9); Basophil (Absolute #) 0 (0-0.4); Eosinophil % 0.2 % (0.00-5.0); Eosinophil (Absolute #) 0.01 (0-0.5); Hematocrit 45.6 % (35-47); Hemoglobin 14.8 gm/dl (12.0-16.0); Lymphocyte (Absolute #) 1.48 (1.0-4.6); Lymphocytes % 27.4 % (24.0-44.0); Mean Cell Volume 79.7 fl (78-100); Mean Corpuscular Hemoglobin 25.9 pg (26-32); Mean Corpuscular Hgb Concent. 32.5 g/dl (32-36); Mean Platelet Volume 10.8 fl (7.5-11.0); Monocyte (Absolute #) 0.41 (0.0-1.3); Monocytes % 7.6 % (0.0-12.0); Neutrophil % 64.8 % (36.0-66.0); Platelet Count 335 K/mm3 (150-450); Red Blood Count 5.72 M/mm3 (4.1-5.4); Red Cell Distribution Width 14.8 % (11.5-14.0); White Blood Count 5.4 K/mm3 (4.0-10.5)
[2020-10-15 11:34] LABS: ALBUMIN 4.7 g/dL (3.5-5.0); ALKALINE PHOSPHATASE 83 U/L (38-126); AMYLASE 67 U/L (30-110); ANION GAP 15.8 MEQ/L (5-15); BLOOD UREA NITROGEN 10 mg/dL (7-17); CHLORIDE 96 mmol/L (98-107); Calcium 9.5 mg/dL (8.4-10.2); Carbon Dioxide 27 mmol/L (22-30); Creatinine 1 0.73 mg/dL (0.52-1.04); EST GLOMERULAR FILTRATION RATE > 60.0 ML/MIN; Glucose 180 mg/dL (74-106); LIPASE 33 U/L (23-300); Potassium 4.2 mmol/L (3.5-5.1); SGOT/AST 23 U/L (14-36); SGPT/ALT 13 U/L (0-35); SODIUM 134 mmol/L (137-145)
[2020-10-15 11:46] LABS: INFLUENZA A NEGATIVE (NEGATIVE); INFLUENZA B NEGATIVE (NEGATIVE)
[2020-10-15] MEDS ORDERED: Sodium Chloride 0.9% 500 ML 500 ML IV ONE ×2 (12:39→13:40)
[2020-10-15 13:38] VITALS: BP 155/59; PULSE 96
[2020-10-15] MEDS ORDERED: Compazine 10 MG/2 ML IV ONE (13:38)
[2020-10-15] MEDS ORDERED: Compazine 10 MG/2 ML ONE (13:39)
[2020-10-15 14:26] LABS: Appearance CLEAR (CLEAR); Bilirubin NEGATIVE (NEGATIVE); Blood NEGATIVE Ery/ul (0-5); Epithelial Cells RARE /HPF (FEW); Glucose NEGATIVE (NEGATIVE); Ketones MODERATE (NEGATIVE); Leukocyte Esterase NEGATIVE (NEGATIVE); Mucus SLIGHT /HPF (NEGATIVE); Nitrite NEGATIVE (NEGATIVE); Protein,Urine Dip 30 (Negative); Specific Gravity 1.017 (1.005-1.025); Urobilinogen NEGATIVE mg/dL (0-1); WBC 0-2 /HPF (0-5)
[2020-10-15 14:41] VITALS: O2SAT 98
== END 2020-10-15 15:05 | disposition home or self-care (01) ==
LOC: ED 10:42
DX: R11.11 Vomiting without nausea (principal); E86.0 Dehydration
CPT/HCPCS: 36000; 36415; 80053; 81001; 82150; 82947; 83605; 83690; 84703; 85025; 86308; 87400; 96360; 96374; 96375; 99284; J2405

== ENCOUNTER 2020-11-17 20:42 | Emergency (ER) | payer OTHER ==
[2020-11-17] MEDS ORDERED: D50W 50 ml Abboject IV ONE ×2 (20:49→21:15)
[2020-11-17] MEDS ORDERED: Zofran 4 MG/2 ML VIAL IV ONE (20:49)
[2020-11-17] MEDS ORDERED: Sodium Chloride 0.9% 1000 ML 1,000 ML IV SCH (21:00)
--- NOTE | 2020-11-17 21:08 | ERPHSYRPT ---
- History of Present Illness Time Seen by Provider: 11/17/20 20:50 Source: patient, EMS Exam Limitations: no limitations Patient Subjective Stated Complaint: Patient states " I was going down to get some juice from the basement because I felt my sugar was low and I fell down the stairs and I don't remember anything from that point." Triage Nursing Assessment: . Physician History: This is a 35-year-old insulin-dependent diabetic white female with history of seizure disorder, anxiety, bipolar disorder, depression and hypothyroidism who states that she was at home walking downstairs to get some juice because she felt her blood sugar was low. She fell and does not recall anything after that. Her blood sugar normally runs in the [id number] range and her blood sugar when EMS arrived was approximately 80. Mother witnessed a "mild seizure". Patient did not soil herself in any way. EMS was called and they gave the patient glucose and transported her to the emergency department where she arrives conversing but without recollection of events after recalling she fell. She has no neck pain she has no chest pain she has no headache. Patient has no nausea vomiting or diarrhea. Timing/Duration: today, resolved prior to arrival, improved Severity: mild (Moderate earlier today at home but now her symptoms have nearly completely resolved) Associated Symptoms: seizure (Very brief possibly related to the low blood sugar.) Allergies/Adverse Reactions: No Known Drug Allergies Allergy (Verified 11/17/20 20:48) Home Medications: Insulin Lispro [Admelog Solostar] 1 unit SQ DAILY 01/28/19 [History] Quetiapine Fumarate 100 mg [Seroquel 100 MG] 100 mg PO DAILY 12/25/19 [History] Quetiapine Fumarate 100 mg [Seroquel 100 MG] 300 mg PO HS 12/25/19 [History] Fluvoxamine Maleate 50 mg PO HS 08/11/20 [History] Hx Tetanus, Diphtheria Vaccination/Date Given: Yes Hx Influenza Vaccination/Date Given: No Hx Pneumococcal Vaccination/Date Given: No Immunizations Up to Date: Yes Travel Risk - International Travel Have you traveled outside of the country in past 3 weeks: No - Coronavirus Screening Are you exhibiting any of the following symptoms?: No Close contact with a COVID-19 positive Pt in past 14-21 Days: No - Vaccine Status Have you recieved a Covid-19 vaccination: No - Review of Systems Constitutional: No Symptoms Eyes: No Symptoms Ears, Nose, & Throat: No Symptoms Respiratory: No Symptoms Cardiac: No Symptoms Abdominal/Gastrointestinal: No Symptoms Genitourinary Symptoms: No Symptoms Musculoskeletal: No Symptoms Skin: No Symptoms Neurological: No Symptoms Psychological: No Symptoms Endocrine: No Symptoms Hematologic/Lymphatic: No Symptoms Immunological/Allergic: No Symptoms All Other Systems: Reviewed and Negative - Past Medical History Pertinent Past Medical History: Yes Neurological History: Seizures ENT History: No Pertinent History Cardiac History: No Pertinent History Respiratory History: No Pertinent History Endocrine Medical History: Diabetes Type I, Hypothyroidism Musculoskeletal History: No Pertinent History GI Medical History: No Pertinent History History: No Pertinent History Psycho-Social History: Anxiety, Bipolar, Depression Female Reproductive Disorders: No Pertinent History Other Medical History: HAS BEEN TYPE 1 SINCE 11 MONTHS OLD. - Past Surgical History Past Surgical History: Yes Neuro Surgical History: No Pertinent History Cardiac: No Pertinent History Respiratory: No Pertinent History Gastrointestinal: No Pertinent History Genitourinary: No Pertinent History Musculoskeletal: Orthopedic Surgery Female Surgical History: Section, Tubal Ligation Other Surgical History: HX X 4. HX Carpal Tunnel Surgery - Social History Smoking Status: Never smoker Exposure to second hand smoke: No Drug Use: none Patient Lives Alone: No - Female History Hx Last Menstrual Period: Tubal Hx Now: No - Nursing Vital Signs Nursing Vital Signs: Initial Vital Signs Temperature 98.1 F 11/17/20 20:44 Pulse Rate 90 11/17/20 20:44 Respiratory Rate 18 11/17/20 20:44 Blood Pressure 123/77 11/17/20 20:44 O2 Sat by Pulse Oximetry 99 11/17/20 20:44 Pain Scale Pain Intensity 0 - Physical Exam General Appearance: no apparent distress, alert Eye Exam: PERRL/EOMI, eyes nml inspection Ears, Nose, Throat Exam: normal ENT inspection, moist mucous membranes Neck Exam: normal inspection, non-tender, supple, full range of motion Respiratory Exam: normal breath sounds, lungs clear, airway intact, No chest tenderness, No respiratory distress Cardiovascular Exam: regular rate/rhythm, normal heart sounds, normal peripheral pulses Gastrointestinal/Abdomen Exam: soft, normal bowel sounds, No tenderness Pelvic Exam: not done Rectal Exam: not done Back Exam: normal inspection, normal range of motion, No CVA tenderness, No vertebral tenderness Extremity Exam: normal inspection, normal range of motion, pelvis stable Neurologic Exam: alert, oriented x 3, cooperative, doll repairer II-XII nml as tested, normal mood/affect Skin Exam: normal color, warm, dry Lymphatic Exam: No adenopathy SpO2 Interpretation: normal SpO2: 99 O2 Delivery: Room Air - Course Nursing assessment & vital signs reviewed: Yes Ordered Tests: Active Orders 24 hr Category Date Time Status Corporate Learning Consultant STAT Care 11/17/20 20:50 Active IV Insertion STAT Care 11/17/20 20:49 Active POCT Glucose Check STAT Care 11/17/20 20:49 Active HEAD WITHOUT CONTRAST [CT] Stat Exams 11/17/20 20:51 Taken CBC W DIFF Stat Lab 11/17/20 21:30 Completed CMP Stat Lab 11/17/20 21:30 Completed Lactic Acid Urgent Lab 11/17/20 21:30 Completed POCT GLUCOSE Stat Lab 11/17/20 20:56 Completed POCT GLUCOSE Stat Lab 11/17/20 22:35 Completed POCT GLUCOSE Stat Lab 11/17/20 23:31 Completed POCT GLUCOSE Stat Lab 11/18/20 01:48 Completed UA W/RFX UR CULTURE Stat Lab 11/17/20 21:06 Completed Urine Triage Profile Stat Lab 11/17/20 23:10 Completed Medication Summary Generic Name Dose Route Start Last Admin Trade Name Freq PRN Reason Stop Dose Admin Sodium Chloride 1,000 mls @ 100 mls/hr 11/17/20 21:00 11/17/20 21:20 Sodium Chloride 0.9% 1000 Ml IV 12/17/20 20:59 100 mls/hr .Q10H INGA Administration Discontinued Medications Generic Name Dose Route Start Last Admin Trade Name Freq PRN Reason Stop Dose Admin Dextrose 50 ml 11/17/20 20:49 11/17/20 21:20 D50w 50 Ml Abboject IV 11/17/20 20:50 50 ml STAT ONE Administration Dextrose Confirm 11/17/20 21:15 D50w 50 Ml Abboject Administered 11/17/20 21:16 Dose 50 ml IV .STK-MED ONE Ondansetron HCl 4 mg 11/17/20 20:49 11/17/20 21:20 Zofran 4 Mg/2 Ml Vial IV 11/17/20 20:50 4 mg STAT ONE Administration Ondansetron HCl Confirm 11/17/20 21:14 Zofran 4 Mg/2 Ml Vial Administered 11/17/20 21:15 Dose 4 mg .ROUTE .STK-MED ONE Lab/Rad Data: Laboratory Result Diagrams 11/17/20 21:30 11/17/20 21:30 Laboratory Results 11/18/20 11/17/20 11/17/20 Range/Units 01:48 23:31 23:10 WBC (4.0-10.5) K/mm3 RBC (4.1-5.4) M/mm3 Hgb (12.0-16.0) gm/dl Hct (35-47) % MCV (78-100) fl MCH (26-32) pg MCHC (32-36) g/dl RDW (11.5-14.0) % Plt Count (150-450) K/mm3 MPV (7.5-11.0) fl Gran % (36.0-66.0) % Eos # (Auto) (0-0.5) Absolute Lymphs (auto) (1.0-4.6) Absolute Monos (auto) (0.0-1.3) Lymphocytes % (24.0-44.0) % Monocytes % (0.0-12.0) % Eosinophils % (0.00-5.0) % Basophils % (0.0-0.4) % Absolute Granulocytes (1.4-6.9) Basophils # (0-0.4) Sodium (137-145) mmol/L Potassium (3.5-5.1) mmol/L Chloride (98-107) mmol/L Carbon Dioxide (22-30) mmol/L Anion Gap (5-15) MEQ/L BUN (7-17) mg/dL Creatinine (0.52-1.04) mg/dL Estimated GFR ML/MIN Glucose (74-106) mg/dL POC Glucometer 332 H 87 (74 to 106) mg/dL Lactic Acid (0.4-2.0) Calcium (8.4-10.2) mg/dL Total Bilirubin (0.2-1.3) mg/dL AST (14-36) U/L ALT (0-35) U/L Alkaline Phosphatase (38-126) U/L Serum Total Protein (6.3-8.2) g/dL Albumin (3.5-5.0) g/dL Urine Color (YELLOW) Urine Appearance (CLEAR) Urine pH (5-6) Ur Specific Mclean (1.005-1.025) Urine Protein (Negative) Urine Ketones (NEGATIVE) Urine Blood (0-5) Shashank/ul Urine Nitrite (NEGATIVE) Urine Bilirubin (NEGATIVE) Urine Urobilinogen (0-1) mg/dL Ur Leukocyte Esterase (NEGATIVE) Urine WBC (Auto) (0-5) /HPF Urine RBC (Auto) (0-2) /HPF U Epithel Cells (Auto) (FEW) /HPF Urine Culture Reflexed (NO) Urine Glucose (NEGATIVE) mg/dL Urine Opiates Level NEGATIVE (NEGATIVE) Ur Methadone NEGATIVE (NEGATIVE) Urine Barbiturates NEGATIVE (NEGATIVE) Ur Phencyclidine (PCP) NEGATIVE (NEGATIVE) Urine Amphetamine NEGATIVE (NEGATIVE) U Benzodiazepine Level NEGATIVE (NEGATIVE) Urine Cocaine NEGATIVE (NEGATIVE) Urine Marijuana (THC) NEGATIVE (NEGATIVE) 11/17/20 11/17/20 11/17/20 Range/Units 22:35 21:30 21:30 WBC (4.0-10.5) K/mm3 RBC (4.1-5.4) M/mm3 Hgb (12.0-16.0) gm/dl Hct (35-47) % MCV (78-100) fl MCH (26-32) pg MCHC (32-36) g/dl RDW (11.5-14.0) % Plt Count (150-450) K/mm3 MPV (7.5-11.0) fl Gran % (36.0-66.0) % Eos # (Auto) (0-0.5) Absolute Lymphs (auto) (1.0-4.6) Absolute Monos (auto) (0.0-1.3) Lymphocytes % (24.0-44.0) % Monocytes % (0.0-12.0) % Eosinophils % (0.00-5.0) % Basophils % (0.0-0.4) % Absolute Granulocytes (1.4-6.9) Basophils # (0-0.4) Sodium 133 L (137-145) mmol/L Potassium 3.7 (3.5-5.1) mmol/L Chloride 102 (98-107) mmol/L Carbon Dioxide 20 L (22-30) mmol/L Anion Gap 14.2 (5-15) MEQ/L BUN 13 (7-17) mg/dL Creatinine 0.71 (0.52-1.04) mg/dL Estimated GFR > 60.0 ML/MIN Glucose 47 L* (74-106) mg/dL POC Glucometer 79 (74 to 106) mg/dL Lactic Acid 1.6 (0.4-2.0) Calcium 8.6 (8.4-10.2) mg/dL Total Bilirubin 0.20 (0.2-1.3) mg/dL AST 20 (14-36) U/L ALT 9 (0-35) U/L Alkaline Phosphatase 62 (38-126) U/L Serum Total Protein 6.7 (6.3-8.2) g/dL Albumin 4.2 (3.5-5.0) g/dL Urine Color (YELLOW) Urine Appearance (CLEAR) Urine pH (5-6) Ur Specific Mclean (1.005-1.025) Urine Protein (Negative) Urine Ketones (NEGATIVE) Urine Blood (0-5) Shash[place]/ul Urine Nitrite (NEGATIVE) Urine Bilirubin (NEGATIVE) Urine Urobilinogen (0-1) mg/dL Ur Leukocyte Esterase (NEGATIVE) Urine WBC (Auto) (0-5) /HPF Urine RBC (Auto) (0-2) /HPF U Epithel Cells (Auto) (FEW) /HPF Urine Culture Reflexed (NO) Urine Glucose (NEGATIVE) mg/dL Urine Opiates Level (NEGATIVE) Ur Methadone (NEGATIVE) Urine Barbiturates (NEGATIVE) Ur Phencyclidine (PCP) (NEGATIVE) Urine Amphetamine (NEGATIVE) U Benzodiazepine Level (NEGATIVE) Urine Cocaine (NEGATIVE) Urine Marijuana (THC) (NEGATIVE) 11/17/20 11/17/20 11/17/20 Range/Units 21:30 21:06 20:56 WBC 7.1 (4.0-10.5) K/mm3 RBC 4.75 (4.1-5.4) M/mm3 Hgb 12.3 (12.0-16.0) gm/dl Hct 37.5 (35-47) % MCV 78.9 (78-100) fl MCH 25.9 L (26-32) pg MCHC 32.8 (32-36) g/dl RDW 13.9 (11.5-14.0) % Plt Count 281 (150-450) K/mm3 MPV 10.5 (7.5-11.0) fl Gran % 71.6 H (36.0-66.0) % Eos # (Auto) 0.01 (0-0.5) Absolute Lymphs (auto) 1.35 (1.0-4.6) Absolute Monos (auto) 0.66 (0.0-1.3) Lymphocytes % 19.0 L (24.0-44.0) % Monocytes % 9.3 (0.0-12.0) % Eosinophils % 0.1 (0.00-5.0) % Basophils % 0.0 (0.0-0.4) % Absolute Granulocytes 5.10 (1.4-6.9) Basophils # 0 (0-0.4) Sodium (137-145) mmol/L Potassium (3.5-5.1) mmol/L Chloride (98-107) mmol/L Carbon Dioxide (22-30) mmol/L Anion Gap (5-15) MEQ/L BUN (7-17) mg/dL Creatinine (0.52-1.04) mg/dL Estimated GFR ML/MIN Glucose (74-106) mg/dL POC Glucometer 93 (74 to 106) mg/dL Lactic Acid (0.4-2.0) Calcium (8.4-10.2) mg/dL Total Bilirubin (0.2-1.3) mg/dL AST (14-36) U/L ALT (0-35) U/L Alkaline Phosphatase (38-126) U/L Serum Total Protein (6.3-8.2) g/dL Albumin (3.5-5.0) g/dL Urine Color YELLOW (YELLOW) Urine Appearance SLIGHTLY CLOUDY (CLEAR) Urine pH 7.0 (5-6) Ur Specific Mclean 1.018 (1.005-1.025) Urine Protein 30 (Negative) Urine Ketones NEGATIVE (NEGATIVE) Urine Blood NEGATIVE (0-5) Shashank/ul Urine Nitrite NEGATIVE (NEGATIVE) Urine Bilirubin NEGATIVE (NEGATIVE) Urine Urobilinogen NEGATIVE (0-1) mg/dL Ur Leukocyte Esterase NEGATIVE (NEGATIVE) Urine WBC (Auto) 0-2 (0-5) /HPF Urine RBC (Auto) NONE (0-2) /HPF U Epithel Cells (Auto) RARE (FEW) /HPF Urine Culture Reflexed NO (NO) Urine Glucose >=500 (NEGATIVE) mg/dL Urine Opiates Level (NEGATIVE) Ur Methadone (NEGATIVE) Urine Barbiturates (NEGATIVE) Ur Phencyclidine (PCP) (NEGATIVE) Urine Amphetamine (NEGATIVE) U Benzodiazepine Level (NEGATIVE) Urine Cocaine (NEGATIVE) Urine Marijuana (THC) (NEGATIVE) - Progress Progress: improved Progress Note: 11/17/20 22:16 Patient states that she is feeling much better. She desires to go home. I did tell her that if her work-up is negative for any acute/emergent issues I was okay for her being discharged to home once she is tolerating a diet well and her blood sugar stays in the high normal range. CAT scan of the head without contrast shows no acute intracranial process or abnormality 11/18/20 02:07 Patient states that she is feeling well. Her blood sugar is elevated at 332. We will discharge her to home. She will keep her insulin pump off and use her sliding scale insulin to control her blood sugar levels. Counseled pt/family regarding: lab results, diagnosis, need for follow-up, rad results - Departure Departure Disposition: Home Clinical Impression: Hypoglycemia Condition: Stable Critical Care Time: No Referrals: DOCTOR,NO FAMILY [Primary Care Provider] - Additional Instructions: Keep your insulin pump off and use sliding scale insulin to control your blood sugar. Follow-up with your prescribing physician for further management of your blood sugar issues. Make sure you are eating well.
[2020-11-17] MEDS ORDERED: Zofran 4 MG/2 ML VIAL ONE (21:14)
[2020-11-17] MEDS ORDERED: Sodium Chloride 0.9% 1000 ML 1,000 ML ONE (21:15)
[2020-11-17 21:31] LABS: Appearance SLIGHTLY CLOUDY (CLEAR); Bilirubin NEGATIVE (NEGATIVE); Blood NEGATIVE Ery/ul (0-5); Epithelial Cells RARE /HPF (FEW); Glucose >=500 mg/dL (NEGATIVE); Ketones NEGATIVE (NEGATIVE); Leukocyte Esterase NEGATIVE (NEGATIVE); Nitrite NEGATIVE (NEGATIVE); Protein,Urine Dip 30 (Negative); Specific Gravity 1.018 (1.005-1.025); Urobilinogen NEGATIVE mg/dL (0-1); WBC 0-2 /HPF (0-5)
[2020-11-17 21:39] LABS: Basophil (Absolute #) 0 (0-0.4); Eosinophil % 0.1 % (0.00-5.0); Eosinophil (Absolute #) 0.01 (0-0.5); Hematocrit 37.5 % (35-47); Hemoglobin 12.3 gm/dl (12.0-16.0); Lymphocyte (Absolute #) 1.35 (1.0-4.6); Mean Cell Volume 78.9 fl (78-100); Mean Corpuscular Hemoglobin 25.9 pg (26-32); Mean Corpuscular Hgb Concent. 32.8 g/dl (32-36); Mean Platelet Volume 10.5 fl (7.5-11.0); Monocyte (Absolute #) 0.66 (0.0-1.3); Monocytes % 9.3 % (0.0-12.0); Neutrophil % 71.6 % (36.0-66.0); Platelet Count 281 K/mm3 (150-450); Red Blood Count 4.75 M/mm3 (4.1-5.4); Red Cell Distribution Width 13.9 % (11.5-14.0); White Blood Count 7.1 K/mm3 (4.0-10.5)
[2020-11-17 21:47] LABS: ALBUMIN 4.2 g/dL (3.5-5.0); ALKALINE PHOSPHATASE 62 U/L (38-126); ANION GAP 14.2 MEQ/L (5-15); BLOOD UREA NITROGEN 13 mg/dL (7-17); CHLORIDE 102 mmol/L (98-107); Calcium 8.6 mg/dL (8.4-10.2); Carbon Dioxide 20 mmol/L (22-30); Creatinine 1 0.71 mg/dL (0.52-1.04); EST GLOMERULAR FILTRATION RATE > 60.0 ML/MIN; Potassium 3.7 mmol/L (3.5-5.1); SGOT/AST 20 U/L (14-36); SGPT/ALT 9 U/L (0-35); SODIUM 133 mmol/L (137-145); Total Protein 6.7 g/dL (6.3-8.2)
[2020-11-17 21:58] LABS: Glucose 47 mg/dL (74-106)
[2020-11-17 23:30] LABS: Amphetamine,Urine NEGATIVE (NEGATIVE); Barbiturate,Urine NEGATIVE (NEGATIVE); Benzodiazepine,Urine NEGATIVE (NEGATIVE); Cocaine,Urine NEGATIVE (NEGATIVE); Methadone,Urine NEGATIVE (NEGATIVE); Opiate,Urine NEGATIVE (NEGATIVE); PCP,Urine NEGATIVE (NEGATIVE); THC,Urine NEGATIVE (NEGATIVE)
[2020-11-18 02:11] VITALS: O2SAT 99
[2020-11-18 02:12] VITALS: BP 117/58; PULSE 76
--- NOTE | 2020-11-18 08:43 | XRAY ---
Indication: Seizure with headache. Fall. Multiple contiguous axial images obtained through the head without contrast. Comparison: February 19, 2020. There are again multiple bilateral external ear jewelry which patient refused to remove again producing beam artifact. Again no gross acute intracranial hemorrhage, abnormal extra-axial fluid collection, or mass effect. Fourth ventricle is midline without hydrocephalus. Jain-white matter differentiation preserved. Bony calvarium intact. Visualized paranasal sinuses and mastoid air cells are clear. Impression: Continued grossing normal CT head without contrast exam.
== END 2020-11-18 02:20 | disposition home or self-care (01) ==
LOC: ED 20:42
DX: E10.649 Type 1 diabetes mellitus with hypoglycemia without coma (principal); E03.9 Hypothyroidism, unspecified; F31.9 Bipolar disorder, unspecified; Z79.899 Other long term (current) drug therapy
CPT/HCPCS: 36000; 36415; 70450; 80053; 80307; 81001; 82947; 83605; 85025; 93041; 96360; 96361; 96374; 96375; 99285; J2405

== ENCOUNTER 2021-04-08 00:29 | Emergency (ER) | payer OTHER ==
[2021-04-08] MEDS ORDERED: TETRACAINE 0.5% STERI-UNIT SOL OP ONE (00:48)
[2021-04-08] MEDS ORDERED: Fluor-I-Strip/Ful-Flo OP ONE ×2 (00:48→01:18)
[2021-04-08] MEDS ORDERED: PERCOCET TABLET 5/325MG PO ONE (01:03)
[2021-04-08] MEDS ORDERED: PERCOCET TABLET 5/325MG ONE (01:05)
--- NOTE | 2021-04-08 01:12 | ERPHSYRPT ---
- History of Present Illness Time Seen by Provider: 04/08/21 01:03 Source: patient Exam Limitations: no limitations Patient Subjective Stated Complaint: pt states "I put contact truck cleaner in my eye instead of artifical tear. My contacts was dry and I was trying to moisten th em." Triage Nursing Assessment: pt ambulated into the er; pt is grasping rt eye; pt is axo x4; c/o rt eye injury; pt denies pain and states burning to rt eye; pt states she thought she put artifical tears in her eyes but put contact lense truck cleaner instead; pt states that she has soft contact lenses; pt states that cleanser is for gas permeable lenses; pt rt eye is red; clear discharge present to rt eye; clear mucus discharge to rt eye; pt states blurred vision to rt eye; pupils 2 mm and PERRL; rt eye washed out at time of assessment for 5 minutes; vitals wnl Physician History: 35 years old female using contact lenses was about to take them out and felt dry, wanted to put artificial tears but accidentally put a drop of contact truck cleaner solution [place] red Prior to arrival with moderate to severe burning and watering and redness all over. Denies any blurry vision. Increased sensitivity to bright light. Up-to-date with tetanus. Allergies/Adverse Reactions: No Known Drug Allergies Allergy (Verified 04/08/21 00:35) Home Medications: Insulin Lispro [Admelog Solostar] 1 unit SQ DAILY 01/28/19 [History] Quetiapine Fumarate 100 mg [Seroquel 100 MG] 100 mg PO DAILY 12/25/19 [History] Quetiapine Fumarate 100 mg [Seroquel 100 MG] 300 mg PO HS 12/25/19 [History] Fluvoxamine Maleate 50 mg PO HS 08/11/20 [History] Hx Tetanus, Diphtheria Vaccination/Date Given: Yes Hx Influenza Vaccination/Date Given: No Hx Pneumococcal Vaccination/Date Given: No Travel Risk - International Travel Have you traveled outside of the country in past 3 weeks: No - Coronavirus Screening Close contact with a COVID-19 positive Pt in past 14-21 Days: No - Vaccine Status Have you recieved a Covid-19 vaccination: No - Review of Systems Constitutional: No Symptoms Eyes: Eye Pain, Eye Redness, Itchy, Photophobia, Tearing Ears, Nose, & Throat: No Symptoms Respiratory: No Symptoms Cardiac: No Symptoms Neurological: No Symptoms Psychological: No Symptoms Endocrine: No Symptoms - Past Medical History Pertinent Past Medical History: Yes Neurological History: Seizures ENT History: No Pertinent History Cardiac History: No Pertinent History Respiratory History: No Pertinent History Endocrine Medical History: Diabetes Type I, Hypothyroidism Musculoskeletal History: No Pertinent History GI Medical History: No Pertinent History History: No Pertinent History Psycho-Social History: Anxiety, Bipolar, Depression Female Reproductive Disorders: No Pertinent History Other Medical History: HAS BEEN TYPE 1 SINCE 11 MONTHS OLD. - Past Surgical History Past Surgical History: Yes Neuro Surgical History: No Pertinent History Cardiac: No Pertinent History Respiratory: No Pertinent History Gastrointestinal: No Pertinent History Genitourinary: No Pertinent History Musculoskeletal: Orthopedic Surgery Female Surgical History: Section, Tubal Ligation Other Surgical History: HX X 4. HX Carpal Tunnel Surgery - Social History Smoking Status: Never smoker Exposure to second hand smoke: No Drug Use: none Patient Lives Alone: No - Female History Hx Now: No - Nursing Vital Signs Nursing Vital Signs: Initial Vital Signs Temperature 97.8 F 04/08/21 00:38 Pulse Rate 71 04/08/21 00:38 Respiratory Rate 16 04/08/21 00:38 Blood Pressure 123/81 04/08/21 00:38 O2 Sat by Pulse Oximetry 95 04/08/21 00:38 Pain Scale Pain Intensity 0 - Physical Exam General Appearance: no apparent distress, alert Vision Acuity Degree Evaluation Phase: Uncorrected Vision Acuity Right Eye: unable to assess (Difficulty keeping right eye open) Eye Exam: right eye: erythema (Conjunctival), left eye: normal inspection, bilateral eye: PERRL, EOMI Ears, Nose, Throat Exam: normal ENT inspection, TMs normal, pharynx normal Neck Exam: normal inspection Respiratory Exam: normal breath sounds, lungs clear Cardiovascular Exam: regular rate/rhythm, normal heart sounds Neurologic: alert, oriented x 3, cooperative, press setup operator II-XII nml as tested Skin Exam: normal color SpO2 Interpretation: normal SpO2: 95 O2 Delivery: Room Air Ordered Tests: Medication Summary Discontinued Medications Generic Name Dose Route Start Last Admin Trade Name Freq PRN Reason Stop Dose Admin Fluorescein Sodium Confirm 04/08/21 00:48 Fluorescein Sodium 1 Mg/Strip Strip Administered 04/08/21 00:49 Dose 1 mg OP .STK-MED ONE Fluorescein Sodium 1 mg 04/08/21 01:18 04/08/21 01:19 Fluorescein Sodium 1 Mg/Strip Strip OP 04/08/21 01:19 1 mg STAT ONE Administration Lactated Ringer's Confirm 04/08/21 01:21 Lactated Ringers Administered 04/08/21 01:22 Dose 1,000 mls @ ud IV .STK-MED ONE Oxycodone/Acetaminophen 1 tab 04/08/21 01:03 04/08/21 01:06 Oxycodone Hcl/Apap 5 Mg/325 Mg Tablet PO 04/08/21 01:04 1 tab STAT ONE Administration Oxycodone/Acetaminophen Confirm 04/08/21 01:05 Oxycodone Hcl/Apap 5 Mg/325 Mg Tablet Administered 04/08/21 01:06 Dose 1 tab .ROUTE .STK-MED ONE Tetracaine HCl Confirm 04/08/21 00:48 Tetracaine Hcl/Pf 4 Ml Bottle Administered 04/08/21 00:49 Dose 4 ml OP .STK-MED ONE Tetracaine HCl 4 ml 04/08/21 01:18 04/08/21 01:20 Tetracaine Hcl/Pf 4 Ml Bottle OP 04/08/21 01:19 4 ml STAT STA Administration - Progress Progress: improved Progress Note: thoroughly cleaned/irrigated with water flush for almost 25 minutes. pH is 7.0 measured at ER. Did not appreciate any corneal abrasion on Dial lamp exam. Given symptomatic treatment for pain. Recommended not putting the lens back and follow-up with her primary manager asset/supervisor boiler repair in the morning. 04/08/21 01:31 Counseled pt/family regarding: diagnosis, need for follow-up - Departure Departure Disposition: Home Clinical Impression: Chemical exposure of eye Condition: Stable Critical Care Time: No Referrals: DOCTOR,NO FAMILY [Primary Care Provider] - Instructions: Chemical Eye Injury (DC) Additional Instructions: Do not put your lens back until you have been evaluated by manager asset/supervisor boiler repair in the morning. Use artificial tears. Take Tylenol/ibuprofen as needed.
[2021-04-08] MEDS ORDERED: TETRACAINE 0.5% STERI-UNIT SOL OP STA (01:18)
[2021-04-08] MEDS ORDERED: Lactated Ringers 0 ML IV ONE (01:21)
[2021-04-08 01:37] VITALS: BP 117/78; PULSE 70; O2SAT 100
== END 2021-04-08 01:36 | disposition home or self-care (01) ==
LOC: ED 00:29
DX: T75.89XA Other specified effects of external causes, initial encounter (principal); S05.8X1A Other injuries of right eye and orbit, initial encounter; X58.XXXA Exposure to other specified factors, initial encounter; Y93.89 Activity, other specified; Y92.89 Other specified places as the place of occurrence of the external cause
CPT/HCPCS: 99283; A9270-GY

== ENCOUNTER 2021-05-19 13:07 | Emergency (ER) | payer OTHER ==
--- NOTE | 2021-05-19 13:15 | ERPHSYRPT ---
- History of Present Illness Time Seen by Provider: 05/19/21 13:15 Historian: patient Exam Limitations: no limitations Physician History: This is a 35-year-old white female who is insulin-dependent diabetic, hypothyroid and has a history of seizure disorder, anxiety and bipolar disorder and presents with 3 to 4-day history of dysuria and mild right flank pain. She was seen by a primary care provider, diagnosed with a urinary tract infection and placed on Augmentin approximately 2 to 3 days ago. Her symptoms have not improved. She has no nausea vomiting or diarrhea. She has no fever. She has been taking Azo [id number] product intermittently in the last few days. Patient says Augmentin does not appear to be helping. She states that Cipro seems to work well for her. Timing/Duration: day(s) (3 to 4 days) Activities at Onset: none Quality: burning (With urination) Pain Radiation: no radiation Severity of Pain-Max: mild Severity of Pain-Current: mild Modifying Factors: Improves With: urinating (Painful) Associated Symptoms: denies symptoms Previous symptoms: same symptoms as today, recently seen, recently treated Allergies/Adverse Reactions: No Known Drug Allergies Allergy (Verified 04/08/21 00:35) Home Medications: Insulin Lispro [Admelog Solostar] 1 unit SQ DAILY 01/28/19 [History] Quetiapine Fumarate 100 mg [Seroquel 100 MG] 100 mg PO DAILY 12/25/19 [History] Quetiapine Fumarate 100 mg [Seroquel 100 MG] 300 mg PO HS 12/25/19 [History] Fluvoxamine Maleate 50 mg PO HS 08/11/20 [History] Hx Tetanus, Diphtheria Vaccination/Date Given: Yes Hx Influenza Vaccination/Date Given: No Hx Pneumococcal Vaccination/Date Given: No Travel Risk - International Travel Have you traveled outside of the country in past 3 weeks: No - Coronavirus Screening Are you exhibiting any of the following symptoms?: No Close contact with a COVID-19 positive Pt in past 14-21 Days: No - Vaccine Status Have you recieved a Covid-19 vaccination: No - Review of Systems Constitutional: No Symptoms Eyes: No Symptoms Ears, Nose, & Throat: No Symptoms Respiratory: No Symptoms Cardiac: No Symptoms Abdominal/Gastrointestinal: Abdominal Pain (Mild suprapubic) Genitourinary Symptoms: Dysuria, Flank Pain (Mild right side) Musculoskeletal: No Symptoms Skin: No Symptoms Neurological: No Symptoms Psychological: No Symptoms Endocrine: No Symptoms Hematologic/Lymphatic: No Symptoms Immunological/Allergic: No Symptoms All Other Systems: Reviewed and Negative - Past Medical History Pertinent Past Medical History: Yes Neurological History: Seizures ENT History: No Pertinent History Cardiac History: No Pertinent History Respiratory History: No Pertinent History Endocrine Medical History: Diabetes Type I, Hypothyroidism Musculoskeletal History: No Pertinent History GI Medical History: No Pertinent History History: No Pertinent History Psycho-Social History: Anxiety, Bipolar, Depression Female Reproductive Disorders: No Pertinent History Other Medical History: HAS BEEN TYPE 1 SINCE 11 MONTHS OLD. - Past Surgical History Past Surgical History: Yes Neuro Surgical History: No Pertinent History Cardiac: No Pertinent History Respiratory: No Pertinent History Gastrointestinal: No Pertinent History Genitourinary: No Pertinent History Musculoskeletal: Orthopedic Surgery Female Surgical History: Section, Tubal Ligation Other Surgical History: HX X 4. HX Carpal Tunnel Surgery - Social History Smoking Status: Never smoker Exposure to second hand smoke: No Drug Use: none Patient Lives Alone: No - Nursing Vital Signs Nursing Vital Signs: Initial Vital Signs Temperature 98.3 F 05/19/21 13:17 Pulse Rate 79 05/19/21 13:17 Respiratory Rate 16 05/19/21 13:17 Blood Pressure 136/83 05/19/21 13:17 O2 Sat by Pulse Oximetry 98 05/19/21 13:17 Pain Scale Pain Intensity 9 - Physical Exam General Appearance: no apparent distress, alert, anxiety Eye Exam: PERRL/EOMI, eyes nml inspection Ears, Nose, Throat Exam: normal ENT inspection, moist mucous membranes Neck Exam: normal inspection, non-tender, supple, full range of motion Respiratory Exam: normal breath sounds, lungs clear, airway intact, No chest tenderness, No respiratory distress Cardiovascular Exam: regular rate/rhythm, normal heart sounds, normal peripheral pulses Gastrointestinal/Abdomen Exam: soft, normal bowel sounds, tenderness (Mild to deep palpation), No guarding, No rebound Pelvic Exam: not done Rectal Exam: not done Back Exam: normal inspection, normal range of motion, No CVA tenderness, No vertebral tenderness Extremity Exam: normal inspection, normal range of motion, pelvis stable Neurologic Exam: alert, oriented x 3, cooperative, 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, normal mood/affect, nml cerebellar function, nml station & gait, sensation nml Skin Exam: normal color, warm, dry Lymphatic Exam: No adenopathy SpO2 Interpretation: normal O2 Delivery: Room Air - Course Nursing assessment & vital signs reviewed: Yes Ordered Tests: Active Orders 24 hr Category Date Time Status CULTURE,URINE Stat Lab 05/19/21 13:25 Received UA W/RFX UR CULTURE Stat Lab 05/19/21 13:25 Completed Medication Summary Discontinued Medications Generic Name Dose Route Start Last Admin Trade Name Luzmaria PRN Reason Stop Dose Admin Ceftriaxone Sodium 1,000 mg 05/19/21 13:50 Ceftriaxone Sodium 1000 Mg Inj Vial IM 05/19/21 13:51 STAT ONE Lab/Rad Data: Laboratory Results 05/19/21 Range/Units 13:25 Urine Color LINN (YELLOW) Urine Appearance CLEAR (CLEAR) Urine pH 5.0 (5-6) Ur Specific [place] 1.015 (1.005-1.025) Urine Protein NEGATIVE (Negative) Urine Ketones NEGATIVE (NEGATIVE) Urine Blood NEGATIVE (0-5) Shashank/ul Urine Nitrite POSITIVE (NEGATIVE) Urine Bilirubin NEGATIVE (NEGATIVE) Urine Urobilinogen 2 (0-1) mg/dL Ur Leukocyte Esterase TRACE (NEGATIVE) Urine WBC (Auto) 26-50 (0-5) /HPF Urine RBC (Auto) 6-10 (0-2) /HPF U Epithel Cells (Auto) FEW (FEW) /HPF Urine Bacteria (Auto) MODERATE (NEGATIVE) /HPF Urine Mucus (Auto) SLIGHT (NEGATIVE) /HPF Urine Culture Reflexed YES (NO) Urine Glucose >=500 (NEGATIVE) mg/dL - Departure Departure Disposition: Home Clinical Impression: UTI (urinary tract infection) Condition: Stable Critical Care Time: No Referrals: DOCTOR,NO FAMILY [Primary Care Provider] - Follow up/PCP as directed Additional Instructions: Drink plenty of fluids. Stop your Augmentin. Use Tylenol and ibuprofen for pain control and fever control. Follow-up with your primary care provider for persistent symptoms. Prescriptions: Ciprofloxacin [Cipro 500 MG] 500 mg PO BID #14 tablet Phenazopyridine HCl 200 mg [Pyridium 200 mg] 200 mg PO TID #6 tablet
[2021-05-19 13:28] VITALS: BP 136/83
[2021-05-19 13:47] LABS: Appearance CLEAR (CLEAR); Bacteria MODERATE /HPF (NEGATIVE); Bilirubin NEGATIVE (NEGATIVE); Blood NEGATIVE Ery/ul (0-5); Epithelial Cells FEW /HPF (FEW); Glucose >=500 mg/dL (NEGATIVE); Ketones NEGATIVE (NEGATIVE); Leukocyte Esterase TRACE (NEGATIVE); Mucus SLIGHT /HPF (NEGATIVE); Nitrite POSITIVE (NEGATIVE); Protein,Urine Dip NEGATIVE (Negative); Specific Gravity 1.015 (1.005-1.025); Urobilinogen 2 mg/dL (0-1); WBC 26-50 /HPF (0-5)
[2021-05-19] MEDS ORDERED: Rocephin 1000 MG INJ IM ONE (13:50)
[2021-05-19] MEDS ORDERED: XYLOCAINE 1% HCL 20 ML MDV ONE (13:55)
[2021-05-19] MEDS ORDERED: Rocephin 1000 MG INJ ONE (13:55)
[2021-05-19 14:12] VITALS: PULSE 72; O2SAT 96
== END 2021-05-19 14:12 | disposition home or self-care (01) ==
LOC: ED 13:07
DX: N39.0 Urinary tract infection, site not specified (principal); R30.0 Dysuria; E10.8 Type 1 diabetes mellitus with unspecified complications; Z79.4 Long term (current) use of insulin
CPT/HCPCS: 81001; 87086; 96372; 99284; J0696

== ENCOUNTER 2021-07-27 22:33 | Emergency (ER) | payer OTHER ==
--- NOTE | 2021-07-27 23:07 | ERPHSYRPT ---
- History of Present Illness Source: patient Exam Limitations: other (Kristin Historian) Patient Subjective Stated Complaint: C/O sore throat that started yesterday. States she was treated for Strep a few weeks ago. States pain increases when she swallows. Patient also states, "I know I have a UTI too. Will you please check my urine for me?" Triage Nursing Assessment: Patient ambulated back to ED. She is alert and oriented and answering questions appropriately. No SOB noted. Patient is very talkative. Mouth/Throat examined with no abnormal redness or sore noted. Physician History: 35 yo wf w cough/coryza/ST/L flank pain/urinary frequency x 2 days wo dysuria/N/V/D. Timing/Duration: day(s) (2 days) Cough Quality/Degree: dry cough Possible Cause: frequent episodes (Freq UTI) Modifying Factors: Improves With: coughing Associated Symptoms: cough, earache, nasal congestion, nasal drainage, sore throat, No fever, No chills, No chest pain/soreness, No dizziness, No facial pain, No headache, No lightheadedness, No muscle aches, No shortness of breath, No sinus infection, No wheezing Allergies/Adverse Reactions: amoxicillin Adverse Reaction (Verified 07/28/21 00:15) Patient states, "causes yeast infections" and wanted it added to list. Home Medications: Insulin Lispro [Admelog Solostar] 1 unit SQ DAILY 01/28/19 [History] Quetiapine Fumarate 100 mg [Seroquel 100 MG] 100 mg PO DAILY 12/25/19 [History] Quetiapine Fumarate 100 mg [Seroquel 100 MG] 300 mg PO HS 12/25/19 [History] Fluvoxamine Maleate 50 mg PO HS 08/11/20 [History] Dextroamphetamine/Amphetamine [Adderall Xr 30 mg Capsule] 1 tab PO DAILY 07/27/21 [History] Guanfacine HCl [Guanfacine HCl ER] 1 tab PO DAILY 07/27/21 [History] Hx Tetanus, Diphtheria Vaccination/Date Given: Yes Hx Influenza Vaccination/Date Given: No Hx Pneumococcal Vaccination/Date Given: No Immunizations Up to Date: Yes Travel Risk - International Travel Have you traveled outside of the country in past 3 weeks: No - Coronavirus Screening Are you exhibiting any of the following symptoms?: Yes Symptoms: Headaches/Body Aches/Fatigue Close contact with a COVID-19 positive Pt in past 14-21 Days: Yes - Vaccine Status Have you recieved a Covid-19 vaccination: No - Review of Systems Constitutional: No Symptoms, Malaise Eyes: No Symptoms Ears, Nose, & Throat: No Symptoms, Nose Congestion, Nose Discharge, Throat Pain Respiratory: No Symptoms, Cough Cardiac: No Symptoms Abdominal/Gastrointestinal: No Symptoms Genitourinary Symptoms: No Symptoms, Frequency, Other (L flank pain) Musculoskeletal: No Symptoms Skin: No Symptoms Neurological: No Symptoms Psychological: No Symptoms Endocrine: No Symptoms Hematologic/Lymphatic: No Symptoms Immunological/Allergic: No Symptoms - Past Medical History Pertinent Past Medical History: Yes Neurological History: Seizures ENT History: No Pertinent History Cardiac History: No Pertinent History Respiratory History: No Pertinent History Endocrine Medical History: Diabetes Type I, Hypothyroidism Musculoskeletal History: No Pertinent History GI Medical History: No Pertinent History History: No Pertinent History Psycho-Social History: Anxiety, Bipolar, Depression Female Reproductive Disorders: No Pertinent History Other Medical History: HAS BEEN TYPE 1 SINCE 11 MONTHS OLD. - Past Surgical History Past Surgical History: Yes Neuro Surgical History: No Pertinent History Cardiac: No Pertinent History Respiratory: No Pertinent History Gastrointestinal: No Pertinent History Genitourinary: No Pertinent History Musculoskeletal: Orthopedic Surgery Female Surgical History: Section, Tubal Ligation Other Surgical History: HX X 4. HX Carpal Tunnel Surgery - Social History Smoking Status: Never smoker Exposure to second hand smoke: No Drug Use: none Patient Lives Alone: No Significant Family History: no pertinent family hx - Female History Hx Last Menstrual Period: APPROX 3 WEEKS AGO Hx Now: No - Nursing Vital Signs Nursing Vital Signs: Initial Vital Signs Temperature 99.9 F 07/27/21 22:45 Pulse Rate 98 H 07/27/21 22:45 Respiratory Rate 18 07/27/21 22:45 Blood Pressure 154/85 07/27/21 22:45 O2 Sat by Pulse Oximetry 99 07/27/21 22:45 Pain Scale Pain Intensity [Throat] 7 Pain Intensity 7 Hypertensive - Physical Exam General Appearance: no apparent distress Eye Exam: PERRL/EOMI, eyes nml inspection Ears, Nose, Throat Exam: normal ENT inspection, TMs normal, pharynx normal, moist mucous membranes Neck Exam: normal inspection, non-tender, supple, full range of motion, No meningismus, No mass, No Brudzinski, No Kernig's Respiratory Exam: normal breath sounds, lungs clear, airway intact Cardiovascular Exam: regular rate/rhythm, normal heart sounds, capillary refill <2 sec, No murmur Gastrointestinal/Abdomen Exam: soft, normal bowel sounds, No tenderness Back Exam: normal inspection, CVA tenderness (Very mild L) Extremity Exam: normal inspection, normal range of motion Neurologic Exam: alert, oriented x 3, cooperative, 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, normal mood/affect, nml cerebellar function, nml station & gait, sensation nml Skin Exam: normal color Lymphatic Exam: adenopathy SpO2 Interpretation: normal SpO2: 99 O2 Delivery: Room Air Ordered Tests: Active Orders 24 hr Category Date Time Status COVID AG-BINAX NOW RAPID TEST Stat Lab 07/27/21 23:25 Completed INFLUENZA A+B LETTY Stat Lab 07/27/21 23:25 Completed UA W/RFX UR CULTURE Stat Lab 07/27/21 22:58 Completed Medication Summary Discontinued Medications Generic Name Dose Route Start Last Admin Trade Name Freq PRN Reason Stop Dose Admin Cephalexin HCl 500 mg 07/28/21 00:12 07/28/21 00:13 Cephalexin Mh500 Mg Capsule PO 07/28/21 00:13 500 mg STAT ONE Administration Cephalexin HCl Confirm 07/28/21 00:12 Cephalexin Mh500 Mg Capsule Administered 07/28/21 00:13 Dose 500 mg .ROUTE .STK-MED ONE Lab/Rad Data: Laboratory Results 07/27/21 07/27/21 07/27/21 Range/Units 23:25 23:25 23:25 Urine Color (YELLOW) Urine Appearance (CLEAR) Urine pH (5-6) Ur Specific [place] (1.005-1.025) Urine Protein (Negative) Urine Ketones (NEGATIVE) Urine Blood (0-5) Shashank/ul Urine Nitrite (NEGATIVE) Urine Bilirubin (NEGATIVE) Urine Urobilinogen (0-1) mg/dL Ur Leukocyte Esterase (NEGATIVE) Urine WBC (Auto) (0-5) /HPF Urine RBC (Auto) (0-2) /HPF U Epithel Cells (Auto) (FEW) /HPF Urine Bacteria (Auto) (NEGATIVE) /HPF Urine Culture Reflexed (NO) Urine Glucose (NEGATIVE) mg/dL Influenza Type A Ag NEGATIVE (NEGATIVE) Influenza Type B Ag NEGATIVE (NEGATIVE) SARS-CoV-2 Ag (Rapid) NEGATIVE (NEGATIVE) Group A Strep Antibody DETECTED (NEGATIVE) 07/27/21 Range/Units 22:58 Urine Color STRAW (YELLOW) Urine Appearance CLEAR (CLEAR) Urine pH 6.0 (5-6) Ur Specific [place] 1.014 (1.005-1.025) Urine Protein NEGATIVE (Negative) Urine Ketones NEGATIVE (NEGATIVE) Urine Blood NEGATIVE (0-5) Shashank/ul Urine Nitrite NEGATIVE (NEGATIVE) Urine Bilirubin NEGATIVE (NEGATIVE) Urine Urobilinogen NEGATIVE (0-1) mg/dL Ur Leukocyte Esterase TRACE (NEGATIVE) Urine WBC (Auto) 3-5 (0-5) /HPF Urine RBC (Auto) NONE (0-2) /HPF U Epithel Cells (Auto) RARE (FEW) /HPF Urine Bacteria (Auto) NONE (NEGATIVE) /HPF Urine Culture Reflexed NO (NO) Urine Glucose >=500 (NEGATIVE) mg/dL Influenza Type A Ag (NEGATIVE) Influenza Type B Ag (NEGATIVE) SARS-CoV-2 Ag (Rapid) (NEGATIVE) Group A Strep Antibody (NEGATIVE) - Progress Progress Note: 07/28/21 00:12 500mg po Keflex Counseled pt/family regarding: lab results, diagnosis, need for follow-up - Departure Departure Disposition: Home Clinical Impression: Strep pharyngitis Condition: Stable Critical Care Time: No Referrals: DOCTOR,NO FAMILY [Primary Care Provider] - Follow up/PCP as directed Instructions: Strep Throat (DC) Forms: Work/School Release Form Prescriptions: Cephalexin Mh 500 mg [Keflex 500 mg] 500 mg PO TID 10 Days #30 cap
[2021-07-27 23:22] LABS: Appearance CLEAR (CLEAR); Bilirubin NEGATIVE (NEGATIVE); Blood NEGATIVE Ery/ul (0-5); Epithelial Cells RARE /HPF (FEW); Glucose >=500 mg/dL (NEGATIVE); Ketones NEGATIVE (NEGATIVE); Leukocyte Esterase TRACE (NEGATIVE); Nitrite NEGATIVE (NEGATIVE); Protein,Urine Dip NEGATIVE (Negative); Specific Gravity 1.014 (1.005-1.025); Urobilinogen NEGATIVE mg/dL (0-1)
[2021-07-27 23:56] LABS: INFLUENZA A NEGATIVE (NEGATIVE); INFLUENZA B NEGATIVE (NEGATIVE)
[2021-07-27 23:57] LABS: COVID AG -BINAX NOW RAPID TEST NEGATIVE (NEGATIVE)
[2021-07-28] MEDS ORDERED: KEFLEX 500 MG ONE (00:12)
[2021-07-28] MEDS ORDERED: KEFLEX 500 MG PO ONE (00:12)
[2021-07-28 00:23] VITALS: BP 140/76; PULSE 94
[2021-07-28 05:06] VITALS: O2SAT 99
== END 2021-07-28 00:25 | disposition home or self-care (01) ==
LOC: ED 22:33
DX: J02.0 Streptococcal pharyngitis (principal); B95.0 Streptococcus, group A, as the cause of diseases classified elsewhere; R05.1 Acute cough; R09.81 Nasal congestion; R10.9 Unspecified abdominal pain; E10.9 Type 1 diabetes mellitus without complications; Z79.4 Long term (current) use of insulin
CPT/HCPCS: 81001; 87400; 87651; 99000; 99283; A9270-GY

== ENCOUNTER 2021-10-13 22:55 | Emergency (ER) | payer OTHER ==
--- NOTE | 2021-10-14 00:08 | ERPHSYRPT ---
- History of Present Illness Time Seen by Provider: 10/13/21 22:55 Source: patient Exam Limitations: no limitations Patient Subjective Stated Complaint: pt states she started on ozempic and has been feeling ill for two weeks. states she feels nauseated all the time and her blood sugar is everywhere. Triage Nursing Assessment: pt is alert and oriented and states that she has pain in her back for 1 week and states she feels that she may have a UTI. Physician History: Patient a 36-year-old female history of diabetes presents to our ED for evaluation of feeling unwell. Patient started Ozempic approximately 2 weeks ag o. Since then she has been feeling unwell. Symptoms are nonspecific. No chest pain or shortness of breath. Patient has been feeling ill and nauseated. No trauma. No fever. No diarrhea. No rash. Symptoms are mild to moderate in intensity. No specific worsening improving factors. Patient voices no other complaint or concerns at this time. Timing/Duration: week(s) (2 weeks) Severity: moderate Modifying Factors: Improves With: nothing Associated Symptoms: nausea, vomiting, No abdominal pain, No shortness of breath, No heartburn, No chest pain, No headaches, No loss of appetite, No sync ope, No weakness Allergies/Adverse Reactions: amoxicillin Adverse Reaction (Verified 07/28/21 00:15) Patient states, "causes yeast infections" and wanted it added to list. semaglutide [From Ozempic] Adverse Reaction (Verified 10/14/21 02:41) CAUSES NAUSEA AND VOMITING Home Medications: Insulin Lispro [Admelog Solostar] 1 unit SQ DAILY 01/28/19 [History] Quetiapine Fumarate 100 mg [Seroquel 100 MG] 100 mg PO DAILY 12/25/19 [Hi story] Quetiapine Fumarate 100 mg [Seroquel 100 MG] 300 mg PO HS 12/25/19 [History] Fluvoxamine Maleate 50 mg PO HS 08/11/20 [History] Dextroamphetamine/Amphetamine [Adderall Xr 30 mg Capsule] 1 tab PO DAILY 07/27/21 [History] Guanfacine HCl [Guanfacine HCl ER] 1 tab PO DAILY 07/27/21 [History] Hx Tetanus, Diphtheria Vaccination/Date Given: Yes Hx Influenza Vaccination/Date Given: No Hx Pneumococcal Vaccination/Date Given: No Travel Risk - International Travel Have you traveled outside of the country in past 3 weeks: No - Coronavirus Screening Are you exhibiting any of the following symptoms?: No Close contact with a COVID-19 positive Pt in past 14-21 Days: No - Vaccine Status Have you recieved a Covid-19 vaccination: No - Review of Systems Constitutional: No Symptoms, No Fever, No Chills Eyes: No Symptoms Ears, Nose, & Throat: No Symptoms Respiratory: No Symptoms, No Cough, No Dyspnea Cardiac: No Symptoms, No Chest Pain, No Edema, No Syncope Abdominal/Gastrointestinal: No Symptoms, No Abdominal Pain, No Nausea, No Vomiting, No Diarrhea Genitourinary Symptoms: No Symptoms, No Dysuria Musculoskeletal: No Symptoms, No Back Pain, No Neck Pain Skin: No Symptoms, No Rash Neurological: No Symptoms, No Dizziness, No Focal Weakness, No Sensory Changes Psychological: No Symptoms Endocrine: No Symptoms Hematologic/Lymphatic: No Symptoms Immunological/Allergic: No Symptoms All Other Systems: Reviewed and Negative - Past Medical History Pertinent Past Medical History: Yes Neurological History: Seizures ENT History: No Pertinent History Cardiac History: No Pertinent History Respiratory History: No Pertinent History Endocrine Medical History: Diabetes Type I, Hypothyroidism Musculoskeletal History: No Pertinent History GI Medical History: No Pertinent History History: No Pertinent History Psycho-Social History: Anxiety, Bipolar, Depression Female Reproductive Disorders: No Pertinent History Other Medical History: HAS BEEN TYPE 1 SINCE 11 MONTHS OLD. - Past Surgical History Past Surgical History: Yes Neuro Surgical History: No Pertinent History Cardiac: No Pertinent History Respiratory: No Pertinent History Gastrointestinal: No Pertinent History Genitourinary: No Pertinent History Musculoskeletal: Orthopedic Surgery Female Surgical History: Section, Tubal Ligation Other Surgical History: HX X 4. HX Carpal Tunnel Surgery - Social History Smoking Status: Never smoker Exposure to second hand smoke: No Drug Use: none Patient Lives Alone: No Significant Family History: no pertinent family hx - Female History Hx Last Menstrual Period: 09/28/21 Hx Now: No - Nursing Vital Signs Nursing Vital Signs: Initial Vital Signs Temperature 97.6 F 10/13/21 23:43 Pulse Rate 82 10/13/21 23:43 Respiratory Rate 18 10/13/21 23:43 Blood Pressure 127/90 10/13/21 23:43 O2 Sat by Pulse Oximetry 96 10/13/21 23:43 Pain Scale Pain Intensity 8 - Physical Exam General Appearance: no apparent distress, alert Eye Exam: PERRL/EOMI, eyes nml inspection Ears, Nose, Throat Exam: normal ENT inspection, TMs normal, pharynx normal, moist mucous membranes Neck Exam: normal inspection, non-tender, supple, full range of motion Respiratory Exam: normal breath sounds, lungs clear, airway intact, No respiratory distress Cardiovascular Exam: regular rate/rhythm, normal heart sounds, normal peripheral pulses Gastrointestinal/Abdomen Exam: soft, normal bowel sounds, No tenderness, No mass Back Exam: normal inspection, normal range of motion, No CVA tenderness, No vertebral tenderness Extremity Exam: normal inspection, normal range of motion, pelvis stable Neurologic Exam: alert, oriented x 3, cooperative, normal mood/affect, nml cerebellar function, nml station & gait, sensation nml, No motor deficits Skin Exam: normal color, warm, dry, No rash Lymphatic Exam: No adenopathy SpO2 Interpretation: normal SpO2: 96 O2 Delivery: Room Air - Course Nursing assessment & vital signs reviewed: Yes EKG Interpreted by Me: RATE (78), Sinus Rhythm, NORMAL AXIS, NORMAL INTERVALS Ordered Tests: Active Orders 24 hr Category Date Time Status Geophysics Teacher STAT Care 10/14/21 00:02 Active EKG-ER Only STAT Care 10/14/21 00:02 Active IV Insertion STAT Care 10/14/21 00:02 Active Pulse Oximetry (ED) STAT Care 10/14/21 00:02 Active CBC W DIFF Stat Lab 10/14/21 00:15 Completed CMP Stat Lab 10/14/21 00:15 Completed CULTURE,URINE Stat Lab 10/14/21 01:50 Received MAGNESIUM Stat Lab 10/14/21 00:15 Completed POCT GLUCOSE Stat Lab 10/14/21 00:02 Completed TROPONIN Q3H Lab 10/14/21 00:15 Completed TROPONIN Q3H Lab 10/14/21 03:15 Ordered TROPONIN Q3H Lab 10/14/21 06:15 Ordered TROPONIN Q3H Lab 10/14/21 09:15 Ordered TROPONIN Q3H Lab 10/14/21 12:15 Ordered UA W/RFX CULTURE Stat Lab 10/14/21 01:50 Completed Medication Summary Discontinued Medications Generic Name Dose Route Start Last Admin Trade Name Freq PRN Reason Stop Dose Admin Acetaminophen 975 mg 10/14/21 02:43 10/14/21 02:49 Acetaminophen 325 Mg Tablet PO 10/14/21 02:44 Not Given STAT ONE Sodium Chloride 1,000 mls @ 999 mls/hr 10/14/21 01:08 10/14/21 02:43 Sodium Chloride 0.9% 1000 Ml IV 10/14/21 02:08 Infused .Q1H1M STA Infusion Sodium Chloride Confirm 10/14/21 01:09 Sodium Chloride 0.9% 1000 Ml Administered 10/14/21 01:10 Dose 1,000 mls @ ud .ROUTE .STK-MED ONE Ketorolac Tromethamine Confirm 10/14/21 02:48 Ketorolac Tromethamine 30 Mg/Ml Inj Administered 10/14/21 02:49 Dose 30 mg .ROUTE .STK-MED ONE Ketorolac Tromethamine 30 mg 10/14/21 02:54 10/14/21 02:56 Ketorolac Tromethamine 30 Mg/Ml Inj IV 10/14/21 02:55 30 mg STAT ONE Administration Levofloxacin 500 mg 10/14/21 02:35 10/14/21 02:44 Levofloxacin 500 Mg Tablet PO 10/14/21 02:36 500 mg STAT ONE Administration Levofloxacin Confirm 10/14/21 02:42 Levofloxacin 500 Mg Tablet Administered 10/14/21 02:43 Dose 500 mg .ROUTE .STK-MED ONE Ondansetron HCl 4 mg 10/14/21 01:14 10/14/21 01:16 Ondansetron Hcl 4 Mg/2 Ml Vial IV 10/14/21 01:15 4 mg STAT ONE Administration Ondansetron HCl Confirm 10/14/21 01:15 Ondansetron Hcl 4 Mg/2 Ml Vial Administered 10/14/21 01:16 Dose 4 mg .ROUTE .STK-MED ONE Lab/Rad Data: Laboratory Result Diagrams 10/14/21 00:15 10/14/21 00:15 Laboratory Results 10/14/21 10/14/21 10/14/21 Range/Units 01:50 00:15 00:15 WBC (4.0-10.5) K/mm3 RBC (4.1-5.4) M/mm3 Hgb (12.0-16.0) gm/dl Hct (35-47) % MCV (78-100) fl MCH (26-32) pg MCHC (32-36) g/dl RDW (11.5-14.0) % Plt Count (150-450) K/mm3 MPV (7.5-11.0) fl Gran % (36.0-66.0) % Eos # (Auto) (0-0.5) Absolute Lymphs (auto) (1.0-4.6) Absolute Monos (auto) (0.0-1.3) Lymphocytes % (24.0-44.0) % Monocytes % (0.0-12.0) % Eosinophils % (0.00-5.0) % Basophils % (0.0-0.4) % Absolute Granulocytes (1.4-6.9) Basophils # (0-0.4) Sodium 134 L (137-145) mmol/L Potassium 4.7 (3.5-5.1) mmol/L Chloride 97 L (98-107) mmol/L Carbon Dioxide 26 (22-30) mmol/L Anion Gap 16.6 H (5-15) MEQ/L BUN 14 (7-17) mg/dL Creatinine 0.91 (0.52-1.04) mg/dL Estimated GFR > 60.0 ML/MIN Glucose 81 (74-106) mg/dL POC Glucometer (74 to 106) mg/dL Calcium 9.2 (8.4-10.2) mg/dL Magnesium 1.8 (1.6-2.3) mg/dL Total Bilirubin 1.10 (0.2-1.3) mg/dL AST 28 (14-36) U/L ALT 15 (0-35) U/L Alkaline Phosphatase 68 (38-126) U/L Troponin I < 0.012 (0.000-0.034) ng/mL Serum Total Protein 8.2 (6.3-8.2) g/dL Albumin 4.7 (3.5-5.0) g/dL Urinalys Dipstick Clnc MAIN LAB Urine Color YELLOW (YELLOW) Urine Appearance SLIGHTLY CLOUDY (CLEAR) Urine pH 6.0 (5-6) Ur Specific [place] 1.015 (1.005-1.025) POC Urine Protein Conf NEGATIVE (Negative) Urine Ketones NEGATIVE (NEGATIVE) Urine Nitrite NEGATIVE (NEGATIVE) Urine Bilirubin NEGATIVE (NEGATIVE) Urine Urobilinogen 0.2 (0-1) mg/dL Urine Leukocytes SMALL (NEGATIVE) Urine WBC (Auto) >100 (0-5) /HPF Urine RBC (Auto) 0-2 (0-2) /HPF U Epithel Cells (Auto) NONE (FEW) /HPF Urine Bacteria (Auto) FEW (NEGATIVE) /HPF Urine RBC TRACE-INTACT (0-5) Shashank/ul Urine Mucus (Auto) SLIGHT (NEGATIVE) /HPF Ur Culture Indicated? YES Urine Glucose NEGATIVE (NEGATIVE) mg/dL 10/14/21 10/14/21 Range/Units 00:15 00:02 WBC 8.9 (4.0-10.5) K/mm3 RBC 5.63 H (4.1-5.4) M/mm3 Hgb 14.5 (12.0-16.0) gm/dl Hct 45.2 (35-47) % MCV 80.3 (78-100) fl MCH 25.8 L (26-32) pg MCHC 32.1 (32-36) g/dl RDW 14.5 H (11.5-14.0) % Plt Count 355 (150-450) K/mm3 MPV 10.4 (7.5-11.0) fl Gran % 67.3 H (36.0-66.0) % Eos # (Auto) 0.07 (0-0.5) Absolute Lymphs (auto) 2.18 (1.0-4.6) Absolute Monos (auto) 0.67 (0.0-1.3) Lymphocytes % 24.4 (24.0-44.0) % Monocytes % 7.5 (0.0-12.0) % Eosinophils % 0.8 (0.00-5.0) % Basophils % 0.0 (0.0-0.4) % Absolute Granulocytes 6.00 (1.4-6.9) Basophils # 0 (0-0.4) Sodium (137-145) mmol/L Potassium (3.5-5.1) mmol/L Chloride (98-107) mmol/L Carbon Dioxide (22-30) mmol/L Anion Gap (5-15) MEQ/L BUN (7-17) mg/dL Creatinine (0.52-1.04) mg/dL Estimated GFR ML/MIN Glucose (74-106) mg/dL POC Glucometer 87 (74 to 106) mg/dL Calcium (8.4-10.2) mg/dL Magnesium (1.6-2.3) mg/dL Total Bilirubin (0.2-1.3) mg/dL AST (14-36) U/L ALT (0-35) U/L Alkaline Phosphatase (38-126) U/L Troponin I (0.000-0.034) ng/mL Serum Total Protein (6.3-8.2) g/dL Albumin (3.5-5.0) g/dL Urinalys Dipstick Clnc Urine Color (YELLOW) Urine Appearance (CLEAR) Urine pH (5-6) Ur Specific [place] (1.005-1.025) POC Urine Protein Conf (Negative) Urine Ketones (NEGATIVE) Urine Nitrite (NEGATIVE) Urine Bilirubin (NEGATIVE) Urine Urobilinogen (0-1) mg/dL Urine Leukocytes (NEGATIVE) Urine WBC (Auto) (0-5) /HPF Urine RBC (Auto) (0-2) /HPF U Epithel Cells (Auto) (FEW) /HPF Urine Bacteria (Auto) (NEGATIVE) /HPF Urine RBC (0-5) Shashank/ul Urine Mucus (Auto) (NEGATIVE) /HPF Ur Culture Indicated? Urine Glucose (NEGATIVE) mg/dL - Progress Progress: improved Progress Note: Patient reassessed. She feels well. Vital stable. Patient's nausea and vomiting is related to the new oral hypoglycemic medication. We included this medication in her allergy/adverse event profile. Patient has a follow-up visit with her prescribing provider this week. Patient reassessed. She feels well. Nausea resolved. Patient tolerated p.o. Patient requesting discharge. Work-up reveals a urinary tract infection. Patient received a dose of Cipro floxacillin per patient's request. Patient has had a UTI in the past and states that ciprofloxacin has been successful in treating her urinary tract infections. Patient agrees to follow-up with her primary care provider within 48 hours for evaluation. Patient voices no other complaints or concerns at this time. Portions of this note were created with voice recognition technology. There may be grammatical, spelling, punctuation or sound alike errors 10/14/21 02:41 Counseled pt/family regarding: lab results, diagnosis, need for follow-up - Departure Departure Disposition: Home Clinical Impression: UTI (urinary tract infection), Dehydration, Adverse reaction to oral hypoglycemic drug, Nausea and vomiting Condition: Stable Critical Care Time: No Referrals: ALEX KAISER MD [Primary Care Provider] - Follow up/PCP as directed Additional Instructions: Discharge/Care Plan VEE GAMBLE was seen on 10/14/21 in the Emergency Room. The patient was counseled regarding Diagnosis,Lab results, Imaging studies, need for follow up and when to return to the Emergency Room. Prescriptions given: Discharge Note I have spoken with the patient and/or caregivers. I have explained the patient's condition, diagnosis and treatment plan based on the information available to me at this time. I have answered the patient's and/or caregiver's questions and addressed any concerns. The patient and/or caregivers have as good understanding of the patient's diagnosis, condition and treatment plan as can be expected at this point. The vital signs have been stable. The patient's condition is stable and appropriate for discharge from the emergency department. The patient will pursue further outpatient evaluation with the primary care physician or other designated or consulting physician as outlined in the dis charge instructions. The patient and/or caregivers are agreeable to this plan of care and follow-up instructions have been explained in detail. The patient and/or caregivers have received these instruction. The patient/and or caregivers are aware that any significant change in condition or worsening of symptoms should prompt an immediate return to this or the closest emergency department or call 911. Prescriptions: Nitrofurantoin Macro 100 mg [Macrobid 100MG Capsule] 100 mg PO BID 7 Days #14 tab
[2021-10-14 00:27] LABS: Basophil (Absolute #) 0 (0-0.4); Eosinophil % 0.8 % (0.00-5.0); Eosinophil (Absolute #) 0.07 (0-0.5); Hematocrit 45.2 % (35-47); Hemoglobin 14.5 gm/dl (12.0-16.0); Lymphocyte (Absolute #) 2.18 (1.0-4.6); Lymphocytes % 24.4 % (24.0-44.0); Mean Cell Volume 80.3 fl (78-100); Mean Corpuscular Hemoglobin 25.8 pg (26-32); Mean Corpuscular Hgb Concent. 32.1 g/dl (32-36); Mean Platelet Volume 10.4 fl (7.5-11.0); Monocyte (Absolute #) 0.67 (0.0-1.3); Monocytes % 7.5 % (0.0-12.0); Neutrophil % 67.3 % (36.0-66.0); Platelet Count 355 K/mm3 (150-450); Red Blood Count 5.63 M/mm3 (4.1-5.4); Red Cell Distribution Width 14.5 % (11.5-14.0); White Blood Count 8.9 K/mm3 (4.0-10.5)
[2021-10-14 00:39] LABS: ALBUMIN 4.7 g/dL (3.5-5.0); ALKALINE PHOSPHATASE 68 U/L (38-126); ANION GAP 16.6 MEQ/L (5-15); BLOOD UREA NITROGEN 14 mg/dL (7-17); CHLORIDE 97 mmol/L (98-107); Calcium 9.2 mg/dL (8.4-10.2); Carbon Dioxide 26 mmol/L (22-30); Creatinine 1 0.91 mg/dL (0.52-1.04); EST GLOMERULAR FILTRATION RATE > 60.0 ML/MIN; Glucose 81 mg/dL (74-106); MAGNESIUM 1.8 mg/dL (1.6-2.3); Potassium 4.7 mmol/L (3.5-5.1); SGOT/AST 28 U/L (14-36); SGPT/ALT 15 U/L (0-35); SODIUM 134 mmol/L (137-145); Total Protein 8.2 g/dL (6.3-8.2)
[2021-10-14] MEDS ORDERED: Sodium Chloride 0.9% 1000 ML 1,000 ML IV STA (01:08)
[2021-10-14] MEDS ORDERED: Sodium Chloride 0.9% 1000 ML 1,000 ML ONE (01:09)
[2021-10-14] MEDS ORDERED: Zofran 4 MG/2 ML VIAL IV ONE (01:14)
[2021-10-14] MEDS ORDERED: Zofran 4 MG/2 ML VIAL ONE (01:15)
[2021-10-14 02:03] LABS: Bacteria FEW /HPF (NEGATIVE); Mucus SLIGHT /HPF (NEGATIVE); RBC 0-2 /HPF (0-2); WBC >100 /HPF (0-5)
[2021-10-14 02:04] LABS: Appearance SLIGHTLY CLOUDY (CLEAR); Bilirubin NEGATIVE (NEGATIVE); Dipstick done @ ? MAIN LAB; Glucose NEGATIVE (NEGATIVE); Ketones NEGATIVE (NEGATIVE); Nitrite NEGATIVE (NEGATIVE); Protein,Urine Dip NEGATIVE (Negative); RBC TRACE-INTACT Ery/ul (0-5); Specific Gravity 1.015 (1.005-1.025); Urobilinogen 0.2 mg/dL (0-1)
[2021-10-14 02:05] LABS: Urine Cultured Indicated? YES
[2021-10-14] MEDS ORDERED: Levofloxacin 500 MG Tablet PO ONE (02:35)
[2021-10-14] MEDS ORDERED: Levofloxacin 500 MG Tablet ONE (02:42)
[2021-10-14] MEDS ORDERED: TYLENOL 325 MG PO ONE (02:43)
[2021-10-14] MEDS ORDERED: TORAdol 30 mg Injection ONE (02:48)
[2021-10-14] MEDS ORDERED: TORAdol 30 mg Injection IV ONE (02:54)
[2021-10-14 03:17] VITALS: BP 101/58; PULSE 78; O2SAT 98
== END 2021-10-14 03:17 | disposition home or self-care (01) ==
LOC: ED 22:55
DX: N39.0 Urinary tract infection, site not specified (principal); E86.0 Dehydration; R11.2 Nausea with vomiting, unspecified; T38.3X5A Adverse effect of insulin and oral hypoglycemic [antidiabetic] drugs, initial encounter; E10.9 Type 1 diabetes mellitus without complications; Z79.4 Long term (current) use of insulin; Z79.899 Other long term (current) drug therapy
CPT/HCPCS: 36000; 36415; 80053; 81015; 82947; 83735; 84484; 85025; 87077; 87086; 87186; 93005; 93041; 94760; 96374; 96375; 99284; J1885; J2405; A9270-GY

== ENCOUNTER 2022-01-13 04:10 | Emergency (ER) | payer OTHER ==
[2022-01-13] MEDS ORDERED: ZOFRAN ODT 4 MG PO ONE (04:31)
[2022-01-13] MEDS ORDERED: TYLENOL EXTRA STRENGTH 500 MG PO ONE (04:32)
[2022-01-13] MEDS ORDERED: ZOFRAN ODT 4 MG ONE (04:34)
[2022-01-13] MEDS ORDERED: TYLENOL EXTRA STRENGTH 500 MG ONE (04:34)
[2022-01-13 05:06] LABS: Epithelial Cells RARE /HPF (FEW); Mucus SLIGHT /HPF (NEGATIVE); WBC 0-2 /HPF (0-5)
[2022-01-13 05:07] LABS: Appearance CLEAR (CLEAR); Bilirubin NEGATIVE (NEGATIVE); Dipstick done @ ? MAIN LAB; Glucose 100 mg/dL (NEGATIVE); Ketones NEGATIVE (NEGATIVE); Nitrite NEGATIVE (NEGATIVE); Protein,Urine Dip NEGATIVE (Negative); RBC NEGATIVE Ery/ul (0-5); Specific Gravity 1.025 (1.005-1.025); Urine Cultured Indicated? NO; Urobilinogen 0.2 mg/dL (0-1)
[2022-01-13 05:11] VITALS: O2SAT 97
[2022-01-13 05:39] LABS: INFLUENZA A NEGATIVE (NEGATIVE); INFLUENZA B NEGATIVE (NEGATIVE); RESPIRATORY SYNCTIAL VIRUS NEGATIVE (Negative); SARS-CoV-2 Xpert Express NEGATIVE (NEGATIVE)
[2022-01-13] MEDS ORDERED: TORAdol 30 mg Injection IM ONE (05:50)
[2022-01-13] MEDS ORDERED: TORAdol 30 mg Injection ONE (05:53)
--- NOTE | 2022-01-13 06:05 | ERPHSYRPT ---
- History of Present Illness Time Seen by Provider: 01/13/22 04:52 Source: patient Exam Limitations: no limitations Patient Subjective Stated Complaint: pt states "I got my covid shot yesterday and I feel like crap." Triage Nursing Assessment: Pt ambulatory to bed by self, pt alert and oriented x3, pt c/o body aches, headache, and fever. Pt had covid vaccine yesterday, pt last took motrin at 1300, pt is tachycardiac and moaning on the cot in room Physician History: 36-year-old female with history of diabetes mellitus presented to the ER with chief complaint of generalized body ache fatigue tiredness, back pain since yesterday after receiving COVID-19 vaccine first time. Reports having back pain and thinks she has UTI. Patient also reports having headache and feeling mildly dizzy and lightheaded without nausea vomiting, numbness tingling or focal weakness. Also have subjective feeling of fever and chills. Has been taking [id number] medication for symptomatic relief. Patient reports she is not able to sleep because of aches and pains all over her hand needs some help. Timing/Duration: yesterday, constant, gradual onset, worse Severity: moderate Modifying Factors: Improves With: ibuprofen Associated Symptoms: chills, fever, headaches, malaise, weakness, No vomiting, No abdominal pain, No shortness of breath, No heartburn, No cough Allergies/Adverse Reactions: amoxicillin Adverse Reaction (Verified 01/13/22 04:19) Patient states, "causes yeast infections" and wanted it added to list. semaglutide [From Ozempic] Adverse Reaction (Verified 01/13/22 04:19) CAUSES NAUSEA AND VOMITING Home Medications: Insulin Lispro [Admelog Solostar] 1 unit SQ DAILY 01/28/19 [History] Fluvoxamine Maleate 50 mg PO HS 08/11/20 [History] Dextroamphetamine/Amphetamine [Adderall Xr 30 mg Capsule] 1 tab PO DAILY 07/27/21 [History] Guanfacine HCl [Guanfacine HCl ER] 1 tab PO DAILY 07/27/21 [History] Glucagon [Baqsimi] 3 mg PO PRN 01/13/22 [History] Levothyroxine Sodium 75 Mcg [Synthroid 75 Mcg] 75 mcg PO DAILY 01/13/22 [History] Hx Tetanus, Diphtheria Vaccination/Date Given: Yes Hx Influenza Vaccination/Date Given: No Hx Pneumococcal Vaccination/Date Given: No Immunizations Up to Date: Yes Travel Risk - International Travel Have you traveled outside of the country in past 3 weeks: No - Coronavirus Screening Are you exhibiting any of the following symptoms?: Yes Symptoms: Fever Close contact with a COVID-19 positive Pt in past 14-21 Days: No - Vaccine Status Have you recieved a Covid-19 vaccination: Yes [employer]: [employer] - Review of Systems Constitutional: Fever, Chills, Fatigue, Weakness Eyes: No Symptoms Ears, Nose, & Throat: No Symptoms Respiratory: No Symptoms Cardiac: No Symptoms Abdominal/Gastrointestinal: No Symptoms Genitourinary Symptoms: No Symptoms Musculoskeletal: Back Pain, Myalgias Skin: No Symptoms Neurological: Dizziness, Headache Psychological: No Symptoms Endocrine: No Symptoms Hematologic/Lymphatic: No Symptoms Immunological/Allergic: No Symptoms - Past Medical History Pertinent Past Medical History: Yes Neurological History: Seizures ENT History: No Pertinent History Cardiac History: No Pertinent History Respiratory History: No Pertinent History Endocrine Medical History: Diabetes Type I, Hypothyroidism Musculoskeletal History: No Pertinent History GI Medical History: No Pertinent History History: No Pertinent History Psycho-Social History: Anxiety, Bipolar, Depression Female Reproductive Disorders: No Pertinent History Other Medical History: HAS BEEN TYPE 1 SINCE 11 MONTHS OLD. - Past Surgical History Past Surgical History: Yes Neuro Surgical History: No Pertinent History Cardiac: No Pertinent History Respiratory: No Pertinent History Gastrointestinal: No Pertinent History Genitourinary: No Pertinent History Musculoskeletal: Orthopedic Surgery Female Surgical History: Section, Tubal Ligation Other Surgical History: HX X 4. HX Carpal Tunnel Surgery - Social History Smoking Status: Never smoker Exposure to second hand smoke: No Drug Use: none Patient Lives Alone: No Significant Family History: no pertinent family hx - Female History Hx Last Menstrual Period: 12/28/2021 Hx Now: No - Nursing Vital Signs Nursing Vital Signs: Initial Vital Signs Temperature 100.1 F 01/13/22 04:20 Pulse Rate 124 H 01/13/22 04:20 Respiratory Rate 18 01/13/22 04:20 Blood Pressure 144/81 01/13/22 04:20 O2 Sat by Pulse Oximetry 100 01/13/22 04:20 Pain Scale Pain Intensity 10 - Physical Exam General Appearance: no apparent distress, alert Eye Exam: PERRL/EOMI, eyes nml inspection Ears, Nose, Throat Exam: normal ENT inspection, TMs normal, pharynx normal, moist mucous membranes Neck Exam: normal inspection, non-tender, supple, full range of motion, No meni ngismus Respiratory Exam: normal breath sounds, lungs clear Cardiovascular Exam: normal heart sounds, tachycardia Gastrointestinal/Abdomen Exam: soft, normal bowel sounds, No tenderness Back Exam: normal inspection, normal range of motion Extremity Exam: normal inspection, normal range of motion Neurologic Exam: alert, oriented x 3, cooperative, journalism internship II-XII nml as tested, nml cerebellar function, sensation nml, No motor deficits Skin Exam: normal color SpO2 Interpretation: normal SpO2: 97 O2 Delivery: Room Air Ordered Tests: Active Orders 24 hr Category Date Time Status UA W/RFX CULTURE Stat Lab 01/13/22 04:33 Completed Medication Summary Discontinued Medications Generic Name Dose Route Start Last Admin Trade Name Freq PRN Reason Stop Dose Admin Acetaminophen 1,000 mg 01/13/22 04:32 01/13/22 04:34 Acetaminophen 500 Mg Tablet PO 01/13/22 04:33 1,000 mg STAT ONE Administration Acetaminophen Confirm 01/13/22 04:34 Acetaminophen 500 Mg Tablet Administered 01/13/22 04:35 Dose 1,000 mg .ROUTE .STK-MED ONE Ketorolac Tromethamine 30 mg 01/13/22 05:50 Ketorolac Tromethamine 30 Mg/Ml Inj IM 01/13/22 05:51 STAT ONE Ondansetron HCl 4 mg 01/13/22 04:31 01/13/22 04:34 Zofran 4 Mg/Udtablet Orally Disintegrating PO 01/13/22 04:32 4 mg STAT ONE Administration Ondansetron HCl Confirm 01/13/22 04:34 Zofran 4 Mg/Udtablet Orally Disintegrating Administered 01/13/22 04:35 Dose 4 mg .ROUTE .STK-MED ONE Lab/Rad Data: Laboratory Results 01/13/22 01/13/22 Range/Units 05:00 04:33 Urinalys Dipstick Clnc MAIN LAB Urine Color YELLOW (YELLOW) Urine Appearance CLEAR (CLEAR) Urine pH 7.0 (5-6) Ur Specific [place] 1.025 (1.005-1.025) POC Urine Protein Conf NEGATIVE (Negative) Urine Ketones NEGATIVE (NEGATIVE) Urine Nitrite NEGATIVE (NEGATIVE) Urine Bilirubin NEGATIVE (NEGATIVE) Urine Urobilinogen 0.2 (0-1) mg/dL Urine Leukocytes NEGATIVE (NEGATIVE) Urine WBC (Auto) 0-2 (0-5) /HPF Urine RBC (Auto) NONE (0-2) /HPF U Epithel Cells (Auto) RARE (FEW) /HPF Urine Bacteria (Auto) NONE (NEGATIVE) /HPF Urine RBC NEGATIVE (0-5) Shashank/ul Other Casts (Auto) NEGATIVE (NEGATIVE) /LPF Urine Mucus (Auto) SLIGHT (NEGATIVE) /HPF Ur Culture Indicated? NO Urine Glucose 100 (NEGATIVE) mg/dL Influenza Type A Ag NEGATIVE (NEGATIVE) Influenza Type B Ag NEGATIVE (NEGATIVE) RSV (PCR) NEGATIVE (Negative) SARS-CoV-2 (PCR) NEGATIVE (NEGATIVE) - Progress Progress: improved, pain not gone completely, re-examined Progress Note: 01/13/22 06:06 She is given Tylenol and Toradol for symptomatic relief. COVID-19 is negative. He has no acute UTI. Lungs bilateral clear to auscultation. Abdominal exam soft nontender. Do not think he needs any other work-up. Recommended supportive care at this could be routine side effect of COVID-19 immunization. Discussed signs symptoms of worsening needing return to ER which she seems understanding. Counseled pt/family regarding: lab results, diagnosis, need for follow-up - Departure Departure Disposition: Home Clinical Impression: Systemic adverse effect of COVID-19 vaccine Condition: Stable Critical Care Time: No Referrals: ALEX KAISER MD [Primary Care Provider] - Follow up/PCP as directed (1-2 days for reevaluation) Instructions: Viral Syndrome (DC) Additional Instructions: Take Tylenol/ibuprofen as needed for aches and pains. Drink plenty of fluids to keep yourself well-hydrated. Follow-up with primary care for reevaluation. Return to ER for any worsening.
[2022-01-13 06:08] VITALS: BP 117/66; PULSE 99
== END 2022-01-13 06:27 | disposition home or self-care (01) ==
LOC: ED 04:10
DX: M79.10 Myalgia, unspecified site (principal); T50.B95A Adverse effect of other viral vaccines, initial encounter; R53.83 Other fatigue; R51.9 Headache, unspecified; R42 Dizziness and giddiness; E10.9 Type 1 diabetes mellitus without complications; Z79.4 Long term (current) use of insulin; Z79.899 Other long term (current) drug therapy
CPT/HCPCS: 0241U; 81015; 96372; 99283; J1885; Q0162; A9270-GY

== ENCOUNTER 2022-03-05 04:13 | Emergency (ER) | payer OTHER ==
[2022-03-05 04:30] VITALS: BP 138/85; PULSE 82; O2SAT 98
[2022-03-05] MEDS ORDERED: TORAdol 30 mg Injection IM ONE (04:38)
[2022-03-05] MEDS ORDERED: TORAdol 30 mg Injection ONE (04:40)
--- NOTE | 2022-03-05 04:48 | ERPHSYRPT ---
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 She was having pain for the last couple of days and yesterday while at work it got worse with a throbbing pain more with movement/palpation and no significant relieving factor and noticed mild swelling around left wrist. No obvious known direct trauma. No numbness tingling or weakness in the fingers. Occurred: days ago (2) Method of Injury: unknown Quality: sharpness, throbbing Severity of Pain-Max: moderate Severity of Pain-Current: moderate Extremities Pain Location: wrist: left Modifying Factors: Improves With: immobilization. Worsens With: movement Associated Symptoms: none Allergies/Adverse Reactions: amoxicillin Adverse Reaction (Verified 03/05/22 04:18) Patient states, "causes yeast infections" and wanted it added to list. semaglutide [From Ozempic] Adverse Reaction (Verified 03/05/22 04:18) CAUSES NAUSEA AND VOMITING Home Medications: Insulin Lispro [Admelog Solostar] 1 unit SQ DAILY 01/28/19 [History] Fluvoxamine Maleate 50 mg PO HS 08/11/20 [History] Dextroamphetamine/Amphetamine [Adderall Xr 30 mg Capsule] 1 tab PO DAILY 07/27/21 [History] Guanfacine HCl [Guanfacine HCl ER] 1 tab PO DAILY 07/27/21 [History] Glucagon [Baqsimi] 3 mg PO PRN 01/13/22 [History] Levothyroxine Sodium 75 Mcg [Synthroid 75 Mcg] 75 mcg PO DAILY 01/13/22 [History] Hx Tetanus, Diphtheria Vaccination/Date Given: Yes Hx Influenza Vaccination/Date Given: No Hx Pneumococcal Vaccination/Date Given: No Travel Risk - International Travel Have you traveled outside of the country in past 3 weeks: No - Coronavirus Screening Are you exhibiting any of the following symptoms?: No Close contact with a COVID-19 positive Pt in past 14-21 Days: No - Vaccine Status Have you recieved a Covid-19 vaccination: Yes First Assist: [employer] - Review of Systems Constitutional: No Symptoms Ears, Nose, & Throat: No Symptoms Respiratory: No Symptoms Cardiac: No Symptoms Abdominal/Gastrointestinal: No Symptoms Musculoskeletal: Joint Pain Neurological: No Symptoms Psychological: No Symptoms Hematologic/Lymphatic: No Symptoms Immunological/Allergic: No Symptoms - Past Medical History Pertinent Past Medical History: Yes Neurological History: Seizures ENT History: No Pertinent History Cardiac History: No Pertinent History Respiratory History: No Pertinent History Endocrine Medical History: Diabetes Type I, Hypothyroidism Musculoskeletal History: No Pertinent History GI Medical History: No Pertinent History History: No Pertinent History Psycho-Social History: Anxiety, Bipolar, Depression Female Reproductive Disorders: No Pertinent History Other Medical History: HAS BEEN TYPE 1 SINCE 11 MONTHS OLD. - Past Surgical History Past Surgical History: Yes Neuro Surgical History: No Pertinent History Cardiac: No Pertinent History Respiratory: No Pertinent History Gastrointestinal: No Pertinent History Genitourinary: No Pertinent History Musculoskeletal: Orthopedic Surgery Female Surgical History: Section, Tubal Ligation Other Surgical History: HX X 4. HX Carpal Tunnel Surgery - Social History Smoking Status: Never smoker Exposure to second hand smoke: No Drug Use: none Patient Lives Alone: No Significant Family History: no pertinent family hx - Female History Hx Now: No - Nursing Vital Signs Nursing Vital Signs: Initial Vital Signs Temperature 97.3 F 03/05/22 04:19 Pulse Rate 82 03/05/22 04:19 Respiratory Rate 16 03/05/22 04:19 Blood Pressure 138/85 03/05/22 04:19 O2 Sat by Pulse Oximetry 98 03/05/22 04:19 Pain Scale Pain Intensity 8 - Physical Exam General Appearance: no apparent distress, alert Neck Exam: normal inspection, supple, full range of motion Cardiovascular/Respiratory Exam: normal breath sounds, regular rate/rhythm Elbow/Forearm Exam: normal inspection, non-tender, no evidence of injury, normal ROM Wrist Exam: normal inspection, no evidence of injury, bone tenderness (Distal radius left) Hand Exam: normal inspection, non-tender, no evidence of injury Neuro/Tendon Exam: normal sensation, normal motor functions Mental Status Exam: alert, oriented x 3, cooperative Skin Exam: normal color SpO2 Interpretation: normal SpO2: 98 O2 Delivery: Room Air Ordered Tests: Active Orders 24 hr Category Date Time Status WRIST (MIN 3 VIEWS) Stat Exams 03/05/22 04:31 Taken Medication Summary Discontinued Medications Generic Name Dose Route Start Last Admin Trade Name Laytonq PRN Reason Stop Dose Admin Ketorolac Tromethamine 30 mg 03/05/22 04:38 Ketorolac Tromethamine 30 Mg/Ml Inj IM 03/05/22 04:39 STAT ONE - Progress Progress: pain not gone completely Progress Note: 03/05/22 04:46 She is given Toradol for symptomatic relief. X-rays negative for any acute fracture dislocation reviewed by me, official report is pending. Placed in Velcro splint and recommended NSAIDs and outpatient follow-up. Counseled pt/family regarding: diagnosis, need for follow-up, rad results - Departure Departure Disposition: Home Clinical Impression: Other wrist sprain and strain Condition: Stable Critical Care Time: No Referrals: ALEX KAISER MD [Primary Care Provider] - Follow Up with PCP/3 days ORTHO - HANK ESTRADA NP [NON-STAFF PHY W/O PRIVILEGES] - Follow up/PCP as directed (In 2 to 3 days for reevaluation) Instructions: Common Wrist Injuries (DC) Additional Instructions: Take Tylenol/NSAIDs as needed for pain. Follow-up with primary care/Ortho for reevaluation. Avoid exertional activities. Return to ER for increasing pain swelling/difficulty movements etc. Prescriptions: Diclofenac Sodium 50 mg PO TID PRN 7 Days #20 tab PRN Reason: Pain
--- NOTE | 2022-03-05 06:52 | XRAY ---
Indication: Pain. No known injury. Repetitive movement at work. Comparison: none 3 view left wrist obtained. No bony, articular, or soft tissue abnormalities.
== END 2022-03-05 04:58 | disposition home or self-care (01) ==
LOC: ED 04:13
DX: S63.592A Other specified sprain of left wrist, initial encounter (principal); X50.3XXA Overexertion from repetitive movements, initial encounter; X50.0XXA Overexertion from strenuous movement or load, initial encounter; Y93.F2 Activity, caregiving, lifting; Y99.0 Civilian activity done for income or pay; M25.532 Pain in left wrist; E10.9 Type 1 diabetes mellitus without complications; Z79.4 Long term (current) use of insulin; Z79.899 Other long term (current) drug therapy
CPT/HCPCS: 73110; 96372; 99283; J1885; L3908

== ENCOUNTER 2023-06-15 16:48 | Emergency (ER) | payer OTHER ==
--- NOTE | 2023-06-15 17:09 | ERPHSYRPT ---
- History of Present Illness Time Seen by Provider: 06/15/23 17:09 Historian: patient Exam Limitations: no limitations Physician History: This is a 37-year-old white female patient Dr. Kaiser who presents with vomiting, nausea and diarrhea as well as body aches, lower back pain and mild diffuse abdominal pain. Symptoms began this morning. Patient also complains of a mild headache. She has no visual changes or light sensitivity. Patient denies chest pain. Patient denies shortness of breath. Patient is an insulin-dependent diabetic, and has hypothyroidism, seizure disorder, anxiety and depression issues. Timing/Duration: today Quality: cramping (Mild diffuse) Abdominal Pain Onset Location: generalized abdomen Pain Radiation: no radiation Severity of Pain-Max: mild Severity of Pain-Current: mild Modifying Factors: Improves With: vomiting Associated Symptoms: diarrhea, headache, loss of appetite, nausea, vomiting, No chest pain, No shortness of breath Previous symptoms: no prior history, no recent treatment Allergies/Adverse Reactions: amoxicillin Adverse Reaction (Verified 06/15/23 17:12) Patient states, "causes yeast infections" and wanted it added to list. semaglutide [From Ozempic] Adverse Reaction (Verified 06/15/23 17:12) CAUSES NAUSEA AND VOMITING Home Medications: Insulin Lispro [Admelog Solostar] 1 unit SQ DAILY 01/28/19 [History] Fluvoxamine Maleate 50 mg PO HS 08/11/20 [History] Dextroamphetamine/Amphetamine [Adderall Xr 30 mg Capsule] 1 tab PO DAILY 07/27/21 [History] Guanfacine HCl [Guanfacine HCl ER] 1 tab PO DAILY 07/27/21 [History] Glucagon [Baqsimi] 3 mg PO PRN 01/13/22 [History] Levothyroxine Sodium 75 Mcg [Synthroid 75 Mcg] 75 mcg PO DAILY 01/13/22 [History] Hx Tetanus, Diphtheria Vaccination/Date Given: Yes Hx Influenza Vaccination/Date Given: No Hx Pneumococcal Vaccination/Date Given: No Travel Risk - International Travel Have you traveled outside of the country in past 3 weeks: No - Coronavirus Screening Are you exhibiting any of the following symptoms?: Yes Symptoms: Vomiting/Diarrhea, Headaches/Body Aches/Fatigue Close contact with a COVID-19 positive Pt in past 14-21 Days: No - Vaccine Status Have you recieved a Covid-19 vaccination: Yes Community Development Specialist: [employer] - Review of Systems Constitutional: Weakness Eyes: No Symptoms Ears, Nose, & Throat: No Symptoms Respiratory: No Symptoms Cardiac: No Symptoms Abdominal/Gastrointestinal: Abdominal Pain, Nausea, Vomiting, Diarrhea, Appetite Changes Genitourinary Symptoms: No Symptoms Musculoskeletal: No Symptoms Skin: No Symptoms Neurological: No Symptoms Psychological: No Symptoms Endocrine: No Symptoms Hematologic/Lymphatic: No Symptoms Immunological/Allergic: No Symptoms All Other Systems: Reviewed and Negative - Past Medical History Pertinent Past Medical History: Yes Neurological History: Seizures ENT History: No Pertinent History Cardiac History: No Pertinent History Respiratory History: No Pertinent History Endocrine Medical History: Diabetes Type I, Hypothyroidism Musculoskeletal History: No Pertinent History GI Medical History: No Pertinent History History: No Pertinent History Psycho-Social History: Anxiety, Bipolar, Depression Female Reproductive Disorders: No Pertinent History Other Medical History: HAS BEEN TYPE 1 SINCE 11 MONTHS OLD. - Past Surgical History Past Surgical History: Yes Neuro Surgical History: No Pertinent History Cardiac: No Pertinent History Respiratory: No Pertinent History Gastrointestinal: No Pertinent History Genitourinary: No Pertinent History Musculoskeletal: Orthopedic Surgery Female Surgical History: Section, Tubal Ligation Other Surgical History: HX X 4. HX Carpal Tunnel Surgery - Social History Smoking Status: Never smoker Exposure to second hand smoke: No Drug Use: none Patient Lives Alone: No Significant Family History: no pertinent family hx - Nursing Vital Signs Nursing Vital Signs: Initial Vital Signs Temperature 97.1 F 06/15/23 17:13 Pulse Rate 113 H 06/15/23 17:13 Respiratory Rate 20 06/15/23 17:13 Blood Pressure 113/82 06/15/23 17:13 O2 Sat by Pulse Oximetry 100 06/15/23 17:13 Pain Scale Pain Intensity 8 - Physical Exam General Appearance: mild distress, alert, anxiety Eye Exam: PERRL/EOMI, eyes nml inspection Ears, Nose, Throat Exam: normal ENT inspection, moist mucous membranes Neck Exam: normal inspection, non-tender, supple, full range of motion Respiratory Exam: normal breath sounds, lungs clear, airway intact, No chest tenderness, No respiratory distress Cardiovascular Exam: tachycardia Gastrointestinal/Abdomen Exam: soft, normal bowel sounds, tenderness (Mild diffuse with palpation), guarding (Mild diffuse with palpation) Pelvic Exam: not done Rectal Exam: not done Back Exam: normal inspection, normal range of motion, No CVA tenderness, No vertebral tenderness Extremity Exam: normal inspection, normal range of motion, pelvis stable Neurologic Exam: alert, oriented x 3, cooperative, 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 Skin Exam: normal color, warm, dry Lymphatic Exam: No adenopathy SpO2 Interpretation: normal O2 Delivery: Room Air - Course Nursing assessment & vital signs reviewed: Yes Ordered Tests: Active Orders 24 hr Category Date Time Status IV Insertion STAT Care 06/15/23 17:38 Active ABDOMEN AND PELVIS W/0 CONTRAS [CT] Stat Exams 06/15/23 17:39 Taken AMYLASE Stat Lab 06/15/23 17:46 Completed CBC W DIFF Stat Lab 06/15/23 17:46 Completed CMP Stat Lab 06/15/23 17:46 Completed LIPASE Stat Lab 06/15/23 17:46 Completed MONO SCREEN Stat Lab 06/15/23 17:46 Completed UA W/RFX UR CULTURE Stat Lab 06/15/23 17:46 Completed Medication Summary Generic Name Dose Route Start Last Admin Trade Name Freq PRN Reason Stop Dose Admin Sodium Chloride 1,000 mls @ 999 mls/hr 06/15/23 19:07 Sodium Chloride 0.9% 1000 Ml IV 06/15/23 20:07 .Q1H1M STA Discontinued Medications Generic Name Dose Route Start Last Admin Trade Name Freq PRN Reason Stop Dose Admin Hydromorphone HCl 1 mg 06/15/23 17:38 06/15/23 17:46 Hydromorphone 1 Mg/1ml Inj IV 06/15/23 17:39 1 mg STAT ONE Administration Hydromorphone HCl Confirm 06/15/23 17:42 Hydromorphone 1 Mg/1ml Inj Administered 06/15/23 17:43 Dose 1 mg .ROUTE .STK-MED ONE Sodium Chloride 1,000 mls @ 999 mls/hr 06/15/23 17:38 06/15/23 18:54 Sodium Chloride 0.9% 1000 Ml IV 06/15/23 18:38 Infused .Q1H1M STA Infusion Sodium Chloride Confirm 06/15/23 17:42 Sodium Chloride 0.9% 1000 Ml Administered 06/15/23 17:43 Dose 1,000 mls @ ud .ROUTE .STK-MED ONE Ondansetron HCl 4 mg 06/15/23 17:38 06/15/23 17:44 Ondansetron Hcl 4 Mg/2 Ml Vial IV 06/15/23 17:39 4 mg STAT ONE Administration Ondansetron HCl Confirm 06/15/23 17:42 Ondansetron Hcl 4 Mg/2 Ml Vial Administered 06/15/23 17:43 Dose 4 mg .ROUTE .STK-MED ONE Lab/Rad Data: Laboratory Result Diagrams 06/15/23 17:46 06/15/23 17:46 Laboratory Results 06/15/23 06/15/23 06/15/23 Range/Units 17:59 17:46 17:46 WBC (4.0-10.5) x10^3/uL RBC (4.1-5.4) x10^6/uL Hgb (12.0-16.0) g/dL Hct (35-47) % MCV (78-100) fL MCH (26-32) pg MCHC (32-36) g/dL RDW (11.5-14.0) % Plt Count (150-450) x10^3/uL MPV (7.5-11.0) fL Gran % (36.0-66.0) % Immature Gran % (Auto) (0.00-0.4) % Nucleat RBC Rel Count (0.00-0.1) % Eos # (Auto) (0-0.5) x10^3/uL Immature Gran # (Auto) (0.00-0.03) x10^3u/L Absolute Lymphs (auto) (1.0-4.6) x10^3/uL Absolute Monos (auto) (0.0-1.3) x10^3/uL Absolute Nucleated RBC (0.00-0.01) x10^3u/L Lymphocytes % (24.0-44.0) % Monocytes % (0.0-12.0) % Eosinophils % (0.00-5.0) % Basophils % (0.0-0.4) % Absolute Granulocytes (1.4-6.9) x10^3/uL Basophils # (0-0.4) x10^3/uL Sodium 132 L (137-145) mmol/L Potassium 4.3 (3.5-5.1) mmol/L Chloride 102 (98-107) mmol/L Carbon Dioxide 24 (22-30) mmol/L Anion Gap 10.3 (5-15) MEQ/L BUN 12 (7-17) mg/dL Creatinine 0.58 (0.52-1.04) mg/dL Estimated GFR 118.7 ML/MIN Glucose 216 H (74-106) mg/dL Calcium 8.0 L (8.4-10.2) mg/dL Total Bilirubin 1.20 (0.2-1.3) mg/dL AST 18 (14-36) U/L ALT 14 (0-35) U/L Alkaline Phosphatase 69 (38-126) U/L Serum Total Protein 6.5 (6.3-8.2) g/dL Albumin 3.7 (3.5-5.0) g/dL Amylase 52 (30-110) U/L Lipase 28 (23-300) U/L Urine Color (Yellow) Urine Appearance (Clear) Urine pH (4.6-8.0) Ur Specific [place] (1.005-1.030) Urine Protein (Negative) Urine Glucose (UA) (Negative) mg/dL Urine Ketones (Negative) Urine Blood (Negative) Urine Nitrite (Negative) Urine Bilirubin (Negative) Urine Urobilinogen (0.2) mg/dL Ur Leukocyte Esterase (Negative) U Hyaline Cast (Auto) (0-2) /LPF Urine Microscopic RBC (0-5) /HPF Urine Microscopic WBC (0-5) /HPF Ur Epithelial Cells (None Seen) /HPF Urine Bacteria (None Seen) /HPF Urine Culture Reflexed (NO) Monoscreen NEGATIVE (NEGATIVE) Influenza Type A Ag NEGATIVE (NEGATIVE) Influenza Type B Ag NEGATIVE (NEGATIVE) RSV (PCR) NEGATIVE (NEGATIVE) SARS-CoV-2 (PCR) POSITIVE A (NEGATIVE) 06/15/23 06/15/23 Range/Units 17:46 17:46 WBC 11.8 H (4.0-10.5) x10^3/uL RBC 5.85 H (4.1-5.4) x10^6/uL Hgb 15.7 (12.0-16.0) g/dL Hct 50.1 H (35-47) % MCV 85.6 (78-100) fL MCH 26.8 (26-32) pg MCHC 31.3 L (32-36) g/dL RDW 12.3 (11.5-14.0) % Plt Count 344 (150-450) x10^3/uL MPV 10.7 (7.5-11.0) fL Gran % 88.9 H (36.0-66.0) % Immature Gran % (Auto) 0.4 (0.00-0.4) % Nucleat RBC Rel Count 0.0 (0.00-0.1) % Eos # (Auto) 0.15 (0-0.5) x10^3/uL Immature Gran # (Auto) 0.05 H (0.00-0.03) x10^3u/L Absolute Lymphs (auto) 0.66 L (1.0-4.6) x10^3/uL Absolute Monos (auto) 0.41 (0.0-1.3) x10^3/uL Absolute Nucleated RBC 0.00 (0.00-0.01) x10^3u/L Lymphocytes % 5.6 L (24.0-44.0) % Monocytes % 3.5 (0.0-12.0) % Eosinophils % 1.3 (0.00-5.0) % Basophils % 0.3 (0.0-0.4) % Absolute Granulocytes 10.45 H (1.4-6.9) x10^3/uL Basophils # 0.04 (0-0.4) x10^3/uL Sodium (137-145) mmol/L Potassium (3.5-5.1) mmol/L Chloride (98-107) mmol/L Carbon Dioxide (22-30) mmol/L Anion Gap (5-15) MEQ/L BUN (7-17) mg/dL Creatinine (0.52-1.04) mg/dL Estimated GFR ML/MIN Glucose (74-106) mg/dL Calcium (8.4-10.2) mg/dL Total Bilirubin (0.2-1.3) mg/dL AST (14-36) U/L ALT (0-35) U/L Alkaline Phosphatase (38-126) U/L Serum Total Protein (6.3-8.2) g/dL Albumin (3.5-5.0) g/dL Amylase (30-110) U/L Lipase (23-300) U/L Urine Color Yellow (Yellow) Urine Appearance Clear (Clear) Urine pH 5.5 (4.6-8.0) Ur Specific [place] 1.025 (1.005-1.030) Urine Protein Trace A (Negative) Urine Glucose (UA) >=1000 A (Negative) mg/dL Urine Ketones Trace A (Negative) Urine Blood Negative (Negative) Urine Nitrite Negative (Negative) Urine Bilirubin Negative (Negative) Urine Urobilinogen 0.2 (0.2) mg/dL Ur Leukocyte Esterase Negative (Negative) U Hyaline Cast (Auto) NONE SEEN (0-2) /LPF Urine Microscopic RBC 0-2 (0-5) /HPF Urine Microscopic WBC 3-5 (0-5) /HPF Ur Epithelial Cells Few (None Seen) /HPF Urine Bacteria None Seen (None Seen) /HPF Urine Culture Reflexed NO (NO) Monoscreen (NEGATIVE) Influenza Type A Ag (NEGATIVE) Influenza Type B Ag (NEGATIVE) RSV (PCR) (NEGATIVE) SARS-CoV-2 (PCR) (NEGATIVE) - Progress Progress: improved, re-examined Progress Note: 06/15/23 19:10 This patient's medical issue is 1 of moderate complexity. The level complex in the workup performed is based on review of the patient's past medical history, review of the patient's drug allergy list, review of the patient's medication list, history present illness and physical findings on examination. The workup in this patient includes placement of intravenous line, infusion of normal saline solution, infusion of Zofran antiemetic medication, CBC, CMP, amylase, lipase, urinalysis, CT scan of the abdomen pelvis, viral swabs, mono swab. I reviewed and interpreted the results of the laboratory data. Patient is positive for COVID-19 infection. This is likely the cause of the patient's symptoms. CT scan of the abdomen pelvis was interpreted by the radiologist and I reviewed the impression. The impression states normal appendix. New mild fluid di stended jejunal/ileal bowel loops with colon and fluid leveling. Ileus versus enterocolitis. Counseled pt/family regarding: lab results, diagnosis, need for follow-up, rad results - Departure Departure Disposition: Home Clinical Impression: COVID-19 virus infection, Enterocolitis, Mild dehydration, Vomiting and diarrhea Condition: Stable Critical Care Time: No Referrals: ALEX KAISER MD [Primary Care Provider] - Follow up/PCP as directed Additional Instructions: Drink plenty of clear liquids. Do not advance your diet beyond clear liquids until you are tolerating clear liquids very well. Avoid fatty greasy spicy foods. Take your antibiotics as prescribed. Follow-up with the emergency de partment as needed if symptoms worsen. Prescriptions: Ondansetron ODT 4 MG [Zofran Odt 4 mg] 4 mg PO Q6H PRN PRN #10 tablet PRN Reason: Vomiting Metronidazole 500 mg [Flagyl 500 MG] 500 mg PO TID #21 tablet
[2023-06-15 17:29] VITALS: TEMP 97.1
[2023-06-15] MEDS ORDERED: Hydromorphone 1 mg/ml Injection IV ONE ×2 (17:38→20:35)
[2023-06-15] MEDS ORDERED: Sodium Chloride 0.9% 1000 ML 1,000 ML IV STA ×2 (17:38→19:07)
[2023-06-15] MEDS ORDERED: Zofran 4 MG/2 ML VIAL IV ONE ×2 (17:38→20:35)
[2023-06-15] MEDS ORDERED: Zofran 4 MG/2 ML VIAL ONE ×2 (17:42→20:37)
[2023-06-15] MEDS ORDERED: Hydromorphone 1 mg/ml Injection ONE ×2 (17:42→20:37)
[2023-06-15] MEDS ORDERED: Sodium Chloride 0.9% 1000 ML 1,000 ML ONE ×2 (17:42→19:17)
[2023-06-15 17:50] LABS: Absolute Neutrophil Ct (ANC) 10.45 x10^3/uL (1.4-6.9); BASOPHIL % 0.3 % (0.0-0.4); Basophil (Absolute #) 0.04 x10^3/uL (0-0.4); Eosinophil % 1.3 % (0.00-5.0); Eosinophil (Absolute #) 0.15 x10^3/uL (0-0.5); Hematocrit 50.1 % (35-47); Hemoglobin 15.7 g/dL (12.0-16.0); IMMATURE GRAN # 0.05 x10^3u/L (0.00-0.03); IMMATURE GRAN % 0.4 % (0.00-0.4); Lymphocyte (Absolute #) 0.66 x10^3/uL (1.0-4.6); Lymphocytes % 5.6 % (24.0-44.0); Mean Cell Volume 85.6 fL (78-100); Mean Corpuscular Hemoglobin 26.8 pg (26-32); Mean Corpuscular Hgb Concent. 31.3 g/dL (32-36); Mean Platelet Volume 10.7 fL (7.5-11.0); Monocyte (Absolute #) 0.41 x10^3/uL (0.0-1.3); Monocytes % 3.5 % (0.0-12.0); Neutrophil % 88.9 % (36.0-66.0); Platelet Count 344 x10^3/uL (150-450); Red Blood Count 5.85 x10^6/uL (4.1-5.4); Red Cell Distribution Width 12.3 % (11.5-14.0); White Blood Count 11.8 x10^3/uL (4.0-10.5)
[2023-06-15 17:59] LABS: Appearance Clear (Clear); Bacteria None Seen /HPF (None Seen); Bilirubin Negative (Negative); Blood Negative (Negative); Epithelial Cells Few /HPF (None Seen); Glucose, Urine >=1000 mg/dL (Negative); Hyaline Casts NONE SEEN /LPF (0-2); Ketones Trace (Negative); Leukocyte Esterase Negative (Negative); Nitrite Negative (Negative); Ph 5.5 (4.6-8.0); Protein,Urine Dip Trace (Negative); RBC 0-2 /HPF (0-5); Specific Gravity 1.025 (1.005-1.030); Urobilinogen 0.2 mg/dL (0.2)
[2023-06-15 18:01] LABS: ADD URINE CULTURE? NO (NO)
[2023-06-15 18:37] LABS: INFLUENZA A NEGATIVE (NEGATIVE); INFLUENZA B NEGATIVE (NEGATIVE); RESPIRATORY SYNCTIAL VIRUS NEGATIVE (NEGATIVE)
[2023-06-15 18:41] LABS: SARS-CoV-2 Xpert Express POSITIVE (NEGATIVE)
[2023-06-15 18:42] LABS: ALBUMIN 3.7 g/dL (3.5-5.0); ANION GAP 10.3 MEQ/L (5-15); BILIRUBIN,TOTAL 1.2 mg/dL (0.2-1.3); Creatinine 1 0.58 mg/dL (0.52-1.04); EST GLOMERULAR FILTRATION RATE 118.7 ML/MIN; Potassium 4.3 mmol/L (3.5-5.1); Total Protein 6.5 g/dL (6.3-8.2)
[2023-06-15] MEDS ORDERED: FLAGYL 500 MG IVPB 500 MG/100 ML BAG IV STA (19:15)
[2023-06-15 19:17] VITALS: O2SAT 99
[2023-06-15] MEDS ORDERED: FLAGYL 500 MG IVPB 500 MG/100 ML BAG IV ONE (19:17)
--- NOTE | 2023-06-15 20:13 | XRAY ---
Indication: Abdomen/flank pain. Nausea, vomiting, diarrhea. Multiple contiguous axial images obtained through the abdomen and pelvis without contrast. Comparison: March 12, 2018 Lung bases again demonstrates right base calcified granuloma. No infiltrate or effusion. Heart not enlarged. Noncontrasted stomach and bowel loops appear nonobstructed. Several jejunal/ileal bowel loops and colon are now mildly fluid distended with fluid level in, ileus versus enterocolitis. Normal appendix. Again a few tiny calcified splenic granulomas. No free fluid/air. Remaining liver, gallbladder, pancreas, spleen, adrenal glands, kidneys, ureters, bladder, uterus, and aorta are unremarkable for noncontrast exam. Osseous structures intact. Impression: 1. New mild fluid distended small bowel loops and colon with fluid leveling, ileus versus enterocolitis. 2. Again incidental old granulomatous disease.
[2023-06-15 21:03] VITALS: BP 119/74; PULSE 97; RESP 20
== END 2023-06-15 21:00 | disposition home or self-care (01) ==
LOC: ED 16:48
DX: U07.1 COVID-19 (principal); K52.9 Noninfective gastroenteritis and colitis, unspecified; E86.0 Dehydration; R11.2 Nausea with vomiting, unspecified; M79.10 Myalgia, unspecified site; M54.50 Low back pain, unspecified; R10.84 Generalized abdominal pain; R51.9 Headache, unspecified; E10.9 Type 1 diabetes mellitus without complications; Z79.4 Long term (current) use of insulin; Z79.899 Other long term (current) drug therapy
CPT/HCPCS: 0241U; 36000; 36415; 74176; 80053; 81001; 82150; 83690; 85025; 86308; 96360; 96365; 96374; 96375; 96376; 99284; J1170; J2405

== ENCOUNTER 2023-12-02 04:16 | Emergency (ER) | payer OTHER ==
--- NOTE | 2023-12-02 04:45 | ERPHSYRPT ---
- History of Present Illness Time Seen by Provider: 12/02/23 04:35 Source: patient Exam Limitations: no limitations Physician History: This is a 38-year-old white female patient of Dr. Kaiser who presents with 1 cm laceration left mandaen region and abrasion to chin after accidentally falling when getting up this morning at home. She did not lose consciousness. Her tetanus status is up-to-date. Patient has a history of insulin-dependent diabetes, anxiety, hypothyroidism, bipolar disorder and seizure disorder Timing/Duration: today Quality: painful Severity: mild Location: face Allergies/Adverse Reactions: amoxicillin Adverse Reaction (Verified 12/02/23 04:37) Patient states, "causes yeast infections" and wanted it added to list. semaglutide [From Ozempic] Adverse Reaction (Verified 12/02/23 04:37) CAUSES NAUSEA AND VOMITING Home Medications: Insulin Lispro [Humalog] 10 units SQ UD 12/02/23 [History] Hx Tetanus, Diphtheria Vaccination/Date Given: Yes Hx Influenza Vaccination/Date Given: No Hx Pneumococcal Vaccination/Date Given: No Travel Risk - International Travel Have you traveled outside of the country in past 3 weeks: No - Emerging Infectious Disease Are you exhibiting symptoms associated with any current EIDs: No - Review of Systems Constitutional: No Symptoms Eyes: No Symptoms Ears, Nose, & Throat: No Symptoms Respiratory: No Symptoms Cardiac: No Symptoms Abdominal/Gastrointestinal: No Symptoms Genitourinary Symptoms: No Symptoms Musculoskeletal: No Symptoms Skin: Other (Patient to chin and 1 cm laceration left mandaen just lateral to the left eyebrow) Neurological: No Symptoms Psychological: No Symptoms Endocrine: No Symptoms Hematologic/Lymphatic: No Symptoms Immunological/Allergic: No Symptoms All Other Systems: Reviewed and Negative - Past Medical History Pertinent Past Medical History: Yes Neurological History: Seizures ENT History: No Pertinent History Cardiac History: No Pertinent History Respiratory History: No Pertinent History Endocrine Medical History: Diabetes Type I, Hypothyroidism Musculoskeletal History: No Pertinent History GI Medical History: No Pertinent History History: No Pertinent History Psycho-Social History: Anxiety, Bipolar, Depression Female Reproductive Disorders: No Pertinent History Other Medical History: HAS BEEN TYPE 1 SINCE 10 MONTHS OLD. - Past Surgical History Past Surgical History: Yes Neuro Surgical History: No Pertinent History Cardiac: No Pertinent History Respiratory: No Pertinent History Gastrointestinal: No Pertinent History Genitourinary: No Pertinent History Musculoskeletal: Orthopedic Surgery Female Surgical History: Section, Tubal Ligation Other Surgical History: HX X 4. HX Carpal Tunnel Surgery Significant Family History: no pertinent family hx - Female History Hx Last Menstrual Period: DECEMBER 2012 - Social History Smoking Status: Never smoker Exposure to second hand smoke: No Drug Use: none Patient Lives Alone: No - Nursing Vital Signs Nursing Vital Signs: Initial Vital Signs Temperature 98.2 F 12/02/23 04:37 Pulse Rate 90 12/02/23 04:37 Respiratory Rate 18 12/02/23 04:37 Blood Pressure 148/76 12/02/23 04:37 O2 Sat by Pulse Oximetry 99 12/02/23 04:37 Pain Scale Pain Intensity 8 - Physical Exam General Appearance: no apparent distress, alert, anxiety Eye Exam: PERRL/EOMI Ears, Nose, Throat Exam: normal ENT inspection, moist mucous membranes Neck Exam: normal inspection, non-tender, supple, full range of motion Respiratory Exam: airway intact, No chest tenderness, No respiratory distress Gastrointestinal/Abdomen Exam: No tenderness Pelvic Exam: not done Rectal Exam: not done Back Exam: normal inspection, normal range of motion, No CVA tenderness, No vertebral tenderness Extremity Exam: normal inspection, normal range of motion, pelvis stable Neurologic Exam: alert, oriented x 3, cooperative, casino games dealer II-XII nml as tested, normal mood/affect, nml cerebellar function, nml station & gait, sensation nml Skin Exam: abrasion (Chin), laceration (1 cm just lateral to the left eyebrow. No foreign body. No active bleeding. Skin laceration approximates well on its own) Lymphatic Exam: No adenopathy SpO2 Interpretation: normal O2 Delivery: Room Air Procedures - Laceration/Wound Repair Left Lateral Eye Time of Procedure: 04:55 Wound Location: Left, face (Just lateral to the left eyebrow) Wound Length (cm): 1 Wound's Depth, Shape: superficial, linear Wound Explored: clean (Wound explored to the base in a bloodless field and no foreign body noted) Irrigated: Yes Hibiclens Prep: Yes Wound Repaired With: Steri-strips, Dermabond - Course Nursing assessment & vital signs reviewed: Yes Ordered Tests: Active Orders 24 hr Category Date Time Status POCT GLUCOSE Stat Lab 12/02/23 04:51 Completed Lab/Rad Data: Laboratory Results 12/02/23 Range/Units 04:51 POC Glucometer 233 H (74 to 106) mg/dL - Progress Progress: improved Progress Note: 12/02/23 05:13 My medical decision making and the assignment of low complexity to this patient's medical issue today is based on review of the patient's past medical history, review of the patient's medication list, review of the patient's drug allergy list, history present illness and physical findings on examination. The workup in this patient does not require laboratory radiographic studies. I offered the patient a CT scan of the head. We discussed the risk benefits and alternatives of performing a CAT scan of the head. She has opted not to have a CAT scan of her head performed. She will sign a refusal of CT scan of the head. We discussed the closure of this laceration site with sutures or with Dermabond glue and Steri-Strips. I discussed the risks and benefits of both and she has opted for Dermabond glue and Steri-Strip application. Counseled pt/family regarding: diagnosis Medical Desision Making - Diagnostic Testing Diagnostic test were ordered, analyzed, and reviewed by me: No - Risk of complications Minimal Risk: Minimal risk of morbidity - Departure Departure Disposition: Home Clinical Impression: Fall, Facial laceration, Chin abrasion, non-infected Condition: Stable Critical Care Time: No Referrals: ALEX KAISER MD [Primary Care Provider] - Follow up/PCP as directed Additional Instructions: Continue your medications as prescribed. After 24 hours, may allow soap and water to run over the Steri-Strip laceration closure site and chin. Blot dry use a chair maker. Keep the Steri-Strips in place and trim them as they curl up in approximately 5 to 7 days.
[2023-12-02 04:49] VITALS: RESP 18; TEMP 98.2
[2023-12-02 05:11] VITALS: BP 132/73
[2023-12-02 05:20] VITALS: PULSE 85; O2SAT 99
== END 2023-12-02 05:30 | disposition home or self-care (01) ==
LOC: ED 04:16
DX: S01.81XA Laceration without foreign body of other part of head, initial encounter (principal); S00.81XA Abrasion of other part of head, initial encounter; W19.XXXA Unspecified fall, initial encounter; E10.9 Type 1 diabetes mellitus without complications
CPT/HCPCS: 12011; 82947; 99282

== ENCOUNTER 2025-03-03 09:00 | Observation (INO) | payer OTHER ==
--- NOTE | 2025-03-03 09:02 | ERPHSYRPT ---
- History of Present Illness Time Seen by Provider: 03/03/25 09:02 Historian: patient, family Exam Limitations: no limitations Physician History: This is a 39-year-old white female patient brought to the emergency department private vehicle accompanied by her spouse and is a patient of Dr. Kaiser with 2- day history of abdominal pain vomiting. Patient is an insulin-dependent diabetic and has hypothyroidism. Patient states her glucose sensor monitor came out yesterday. Patient also has a history of anxiety and bipolar disorder. Timing/Duration: day(s) (2) Activities at Onset: none Quality: aching Abdominal Pain Onset Location: generalized abdomen Severity of Pain-Max: moderate Severity of Pain-Current: moderate Modifying Factors: Improves With: vomiting Associated Symptoms: loss of appetite, nausea, vomiting, weakness Previous symptoms: no prior history, no recent treatment Allergies/Adverse Reactions: amoxicillin Adverse Reaction (Verified 12/02/23 04:37) Patient states, "causes yeast infections" and wanted it added to list. semaglutide [From Ozempic] Adverse Reaction (Verified 12/02/23 04:37) CAUSES NAUSEA AND VOMITING Home Medications: Insulin Lispro [Humalog] 10 units SQ UD 12/02/23 [History] Hx Tetanus, Diphtheria Vaccination/Date Given: Yes Hx Influenza Vaccination/Date Given: No Hx Pneumococcal Vaccination/Date Given: No Travel Risk - International Travel Have you traveled outside of the country in past 3 weeks: No - Emerging Infectious Disease Are you exhibiting symptoms associated with any current EIDs: No - Review of Systems Constitutional: Weakness Eyes: No Symptoms Ears, Nose, & Throat: No Symptoms Respiratory: No Symptoms Cardiac: No Symptoms Abdominal/Gastrointestinal: No Symptoms Genitourinary Symptoms: No Symptoms Musculoskeletal: No Symptoms Skin: No Symptoms Neurological: No Symptoms Psychological: No Symptoms Endocrine: No Symptoms Hematologic/Lymphatic: No Symptoms Immunological/Allergic: No Symptoms All Other Systems: Reviewed and Negative - Past Medical History Pertinent Past Medical History: Yes Neurological History: Seizures ENT History: No Pertinent History Cardiac History: No Pertinent History Respiratory History: No Pertinent History Endocrine Medical History: Diabetes Type I, Hypothyroidism Musculoskeletal History: No Pertinent History GI Medical History: No Pertinent History History: No Pertinent History Psycho-Social History: Anxiety, Bipolar, Depression Female Reproductive Disorders: No Pertinent History Other Medical History: HAS BEEN TYPE 1 SINCE 10 MONTHS OLD. - Past Surgical History Past Surgical History: Yes Neuro Surgical History: No Pertinent History Cardiac: No Pertinent History Respiratory: No Pertinent History Gastrointestinal: No Pertinent History Genitourinary: No Pertinent History Musculoskeletal: Orthopedic Surgery Female Surgical History: Section, Tubal Ligation Other Surgical History: HX X 4. HX Carpal Tunnel Surgery Significant Family History: no pertinent family hx - Female History Hx Last Menstrual Period: DECEMBER 2012 - Social History Smoking Status: Never smoker Exposure to second hand smoke: No Drug Use: none Patient Lives Alone: No - Social Determinants of Health Will the patient participate in the screening: Yes Do you worry about a steady place to live?: No In the past 12 months,have you had to go without utilities?: No Transportation Issues: No Has anyone in your support network made you feel unsafe?: No Have you or anyone in your house had to go w/o enough food: No - Nursing Vital Signs Nursing Vital Signs: Initial Vital Signs Temperature 97.9 F 03/03/25 09:13 Pulse Rate 105 H 03/03/25 09:13 Respiratory Rate 20 03/03/25 09:13 Blood Pressure 122/70 03/03/25 09:13 O2 Sat by Pulse Oximetry 98 03/03/25 09:13 Pain Scale Pain Intensity 9 - Physical Exam General Appearance: mild distress, alert, anxiety Eye Exam: PERRL/EOMI, eyes nml inspection Ears, Nose, Throat Exam: dry mucous membranes Neck Exam: normal inspection, non-tender, supple, full range of motion Respiratory Exam: normal breath sounds, lungs clear, airway intact, No chest tenderness, No respiratory distress Cardiovascular Exam: normal peripheral pulses, tachycardia Gastrointestinal/Abdomen Exam: soft, normal bowel sounds, tenderness (Generalized), guarding (Generalized) Pelvic Exam: not done Rectal Exam: not done Back Exam: normal inspection, normal range of motion, No CVA tenderness, No vertebral tenderness Extremity Exam: normal inspection, normal range of motion, pelvis stable Neurologic Exam: alert, oriented x 3, cooperative, bottle feeder II-XII nml as tested, nml cerebellar function, nml station & gait, sensation nml Skin Exam: normal color, warm, dry Lymphatic Exam: No adenopathy SpO2 Interpretation: normal O2 Delivery: Room Air - Course Nursing assessment & vital signs reviewed: Yes EKG Interpreted by Me: RATE (101), Sinus Tach, NORMAL AXIS, NORMAL INTERVALS, NORMAL QRS, Other (QTc is 418. No evidence of acute ischemia on today's twelve- lead EKG.) Ordered Tests: Active Orders 24 hr Category Date Time Status EKG-ER Only STAT Care 03/03/25 10:12 Active IV Insertion STAT Care 03/03/25 09:22 Active ABDOMEN AND PELVIS W/0 CONTRAS [CT] Stat Exams 03/03/25 09:23 Completed ABG [ARTERIAL BLOOD GASES] Stat Lab 03/03/25 12:39 Completed AMYLASE Stat Lab 03/03/25 09:35 Completed CBC W DIFF Stat Lab 03/03/25 09:35 Completed CMP Stat Lab 03/03/25 09:35 Completed LIPASE Stat Lab 03/03/25 09:35 Completed Lactic Acid Stat Lab 03/03/25 09:22 Completed Lactic Acid Stat Lab 03/03/25 11:54 Completed MAGNESIUM Stat Lab 03/03/25 09:35 Completed POCT GLUCOSE Stat Lab 03/03/25 09:12 Completed POCT GLUCOSE Stat Lab 03/03/25 10:19 Completed POCT GLUCOSE Stat Lab 03/03/25 11:47 Received POCT GLUCOSE Stat Lab 03/03/25 11:48 Completed UA W/RFX UR CULTURE Stat Lab 03/03/25 11:24 Completed VBG [VENOUS BLOOD GAS] Stat Lab 03/03/25 09:52 Completed Medication Summary Generic Name Dose Route Start Last Admin Trade Name Freq PRN Reason Stop Dose Admin INSULIN REGULAR IN 0.9 % NACL 100 unit in 100 mls @ 7.33 mls/hr 03/03/25 11:43 03/03/25 11:56 Myxredlin 100 Unit/100 Ml Bag IV 04/02/25 11:42 0.1 unit/kg/hr .[id number] PRN 7.33 mls/hr HYPERGLYCEMIA Administration Protocol 0.1 UNIT/KG/HR Discontinued Medications Generic Name Dose Route Start Last Admin Trade Name Freq PRN Reason Stop Dose Admin Hydromorphone HCl 1 mg 03/03/25 09:22 03/03/25 09:59 Hydromorphone 1 Mg/1ml Inj IV 03/03/25 09:23 1 mg STAT ONE Administration Hydromorphone HCl Confirm 03/03/25 09:36 Hydromorphone 1 Mg/1ml Inj Administered 03/03/25 09:37 Dose 1 mg .ROUTE .STK-MED ONE Sodium Chloride 1,000 mls @ 999 mls/hr 03/03/25 09:22 03/03/25 11:03 Sodium Chloride 0.9% 1000 Ml IV 03/03/25 10:22 Infused .Q1H1M STA Infusion Sodium Chloride Confirm 03/03/25 09:36 Sodium Chloride 0.9% 1000 Ml Administered 03/03/25 09:37 Dose 1,000 mls @ ud .ROUTE .STK-MED ONE Lactated Ringer's 1,000 mls @ 999 mls/hr 03/03/25 10:13 03/03/25 12:37 Lactated Ringers IV 03/03/25 11:13 Infused .Q1H1M ONE Infusion Lactated Ringer's Confirm 03/03/25 11:26 Lactated Ringers Administered 03/03/25 11:27 Dose 1,000 mls @ ud IV .STK-MED ONE Insulin Human Regular 15 unit 03/03/25 09:23 03/03/25 10:01 Insulin Regular, Human 1 Unit IV 03/03/25 09:24 15 unit STAT ONE Administration Insulin Human Regular Confirm 03/03/25 09:37 Insulin Regular, Human 1 Unit Administered 03/03/25 09:38 Dose 15 unit .ROUTE .STK-MED ONE Ondansetron HCl 4 mg 03/03/25 09:22 03/03/25 09:59 Ondansetron Hcl 4 Mg/2 Ml Vial IV 03/03/25 09:23 4 mg STAT ONE Administration Ondansetron HCl Confirm 03/03/25 09:36 Ondansetron Hcl 4 Mg/2 Ml Vial Administered 03/03/25 09:37 Dose 4 mg .ROUTE .STK-MED ONE Lab/Rad Data: Laboratory Result Diagrams 03/03/25 09:35 03/03/25 09:35 Laboratory Results 03/03/25 03/03/25 03/03/25 Range/Units 12:39 11:54 11:48 WBC (3.98-10.04) x10^3/uL RBC (3.93-5.22) x10^6/uL Hgb (11.2-15.7) g/dL Hct (34.1-44.9) % MCV (79.4-94.8) fL MCH (25.6-32.2) pg MCHC (32.2-35.5) g/dL RDW (11.7-14.4) % Plt Count (182-369) x10^3/uL MPV (9.4-12.3) fL Gran % (34.0-71.1) % Immature Gran % (Auto) (0.001-0.429) % Nucleat RBC Rel Count (0.00-0.2) % Eos # (Auto) (0.04-0.36) x10^3/uL Immature Gran # (Auto) (0.001-0.031) x10^3u/L Absolute Lymphs (auto) (1.18-3.74) x10^3/uL Absolute Monos (auto) (0.24-0.86) x10^3/uL Absolute Nucleated RBC (0.00-0.012) x10^3u/L Lymphocytes % (19.3-51.7) % Monocytes % (4.7-12.5) % Eosinophils % (0.7-5.8) % Basophils % (0.1-1.2) % Absolute Granulocytes (1.56-6.13) x10^3/uL Basophils # (0.01-0.08) x10^3/uL Puncture Site LEFT RADIAL pCO2 28 L (35-45) mmHg pO2 99 (75-100) mmHg pO2/FiO2 Ratio % Base Excess -14.4 L (-2.0-2.0) O2 Saturation 97.2 (94-100) g/dF ABG pH 7.23 L* (7.35-7.45) ABG HCO3 11.7 L* (22-28) ABG O2 Sat (Measured) 99.0 (95-100) % Ruel Test yes VBG pH (7.32-7.42) VBG pCO2 at Pat Temp (42-55) mm/Hg VBG pO2 at Pat Temp (25-40) mm/Hg VBG HCO3 (22-28) meq/L VBG O2 Sat (Kali) (95-100) VBG Base Excess (-2.0-2.0) VBG Hemoglobin VBG Carboxyhemoglobin (0.0-6.9) % T HGB A-a Gradient 16 a/A Ratio 0.86 Hemoglobin 12.6 Carboxyhemoglobin 1.1 (0.0-6.9) % THgb Methemoglobin 0.7 L (1.4-1.5) % POC Potassium (3.5-5.1) Temperature 37.0 C POC O2 Flow Rate 21 % Sodium (135-145) mmol/L Potassium 4.6 (3.5-5.1) mmol/L Chloride (98-107) mmol/L Carbon Dioxide (22-30) mmol/L BUN (7-17) mg/dL Creatinine (0.52-1.04) mg/dL Estimated GFR ML/MIN Glucose (74-106) mg/dL POC Glucometer 435 H (50 to 500) mg/dL Lactic Acid 1.9 (0.4-2.0) Calcium (8.4-10.2) mg/dL Magnesium (1.6-2.3) mg/dL Total Bilirubin (0.2-1.3) mg/dL AST (14-36) U/L ALT (0-35) U/L Alkaline Phosphatase (38-126) U/L Serum Total Protein (6.3-8.2) g/dL Albumin (3.5-5.0) g/dL Amylase (30-110) U/L Lipase (23-300) U/L Urine Color (Yellow) Urine Appearance (Clear) Urine pH (4.6-8.0) Ur Specific [place] (1.005-1.030) Urine Protein (Negative) Urine Glucose (UA) (Negative) mg/dL Urine Ketones (Negative) Urine Blood (Negative) Urine Nitrite (Negative) Urine Bilirubin (Negative) Urine Urobilinogen (0.2) mg/dL Ur Leukocyte Esterase (Negative) U Hyaline Cast (Auto) (0-2) /LPF Urine Microscopic RBC (0-5) /HPF Urine Microscopic WBC (0-5) /HPF Ur Epithelial Cells (None Seen) /HPF Urine Bacteria (None Seen) /HPF Urine Culture Reflexed (NO) Slides for Path Review 03/03/25 03/03/25 03/03/25 Range/Units 11:24 10:19 09:52 WBC (3.98-10.04) x10^3/uL RBC (3.93-5.22) x10^6/uL Hgb (11.2-15.7) g/dL Hct (34.1-44.9) % MCV (79.4-94.8) fL MCH (25.6-32.2) pg MCHC (32.2-35.5) g/dL RDW (11.7-14.4) % Plt Count (182-369) x10^3/uL MPV (9.4-12.3) fL Gran % (34.0-71.1) % Immature Gran % (Auto) (0.001-0.429) % Nucleat RBC Rel Count (0.00-0.2) % Eos # (Auto) (0.04-0.36) x10^3/uL Immature Gran # (Auto) (0.001-0.031) x10^3u/L Absolute Lymphs (auto) (1.18-3.74) x10^3/uL Absolute Monos (auto) (0.24-0.86) x10^3/uL Absolute Nucleated RBC (0.00-0.012) x10^3u/L Lymphocytes % (19.3-51.7) % Monocytes % (4.7-12.5) % Eosinophils % (0.7-5.8) % Basophils % (0.1-1.2) % Absolute Granulocytes (1.56-6.13) x10^3/uL Basophils # (0.01-0.08) x10^3/uL Puncture Site pCO2 (35-45) mmHg pO2 (75-100) mmHg pO2/FiO2 Ratio 21.0 % Base Excess (-2.0-2.0) O2 Saturation (94-100) g/dF ABG pH (7.35-7.45) ABG HCO3 (22-28) ABG O2 Sat (Measured) (95-100) % Ruel Test VBG pH 7.23 L* (7.32-7.42) VBG pCO2 at Pat Temp 25 L (42-55) mm/Hg VBG pO2 at Pat Temp 44 H (25-40) mm/Hg VBG HCO3 10.5 L* (22-28) meq/L VBG O2 Sat (Kali) 77.3 L (95-100) VBG Base Excess -15.3 L (-2.0-2.0) VBG Hemoglobin 13.9 VBG Carboxyhemoglobin 5.3 (0.0-6.9) % T HGB A-a Gradient a/A Ratio Hemoglobin Carboxyhemoglobin (0.0-6.9) % THgb Methemoglobin (1.4-1.5) % POC Potassium 5.7 H (3.5-5.1) Temperature C POC O2 Flow Rate % Sodium (135-145) mmol/L Potassium (3.5-5.1) mmol/L Chloride (98-107) mmol/L Carbon Dioxide (22-30) mmol/L BUN (7-17) mg/dL Creatinine (0.52-1.04) mg/dL Estimated GFR ML/MIN Glucose (74-106) mg/dL POC Glucometer 552 H* (50 to 500) mg/dL Lactic Acid (0.4-2.0) Calcium (8.4-10.2) mg/dL Magnesium (1.6-2.3) mg/dL Total Bilirubin (0.2-1.3) mg/dL AST (14-36) U/L ALT (0-35) U/L Alkaline Phosphatase (38-126) U/L Serum Total Protein (6.3-8.2) g/dL Albumin (3.5-5.0) g/dL Amylase (30-110) U/L Lipase (23-300) U/L Urine Color Yellow (Yellow) Urine Appearance Clear (Clear) Urine pH 5.0 (4.6-8.0) Ur Specific [place] 1.025 (1.005-1.030) Urine Protein Negative (Negative) Urine Glucose (UA) >=1000 A (Negative) mg/dL Urine Ketones >=160 A (Negative) Urine Blood Negative (Negative) Urine Nitrite Negative (Negative) Urine Bilirubin Negative (Negative) Urine Urobilinogen 0.2 (0.2) mg/dL Ur Leukocyte Esterase Negative (Negative) U Hyaline Cast (Auto) 3-5 A (0-2) /LPF Urine Microscopic RBC 0-2 (0-5) /HPF Urine Microscopic WBC 0-2 (0-5) /HPF Ur Epithelial Cells None Seen (None Seen) /HPF Urine Bacteria None Seen (None Seen) /HPF Urine Culture Reflexed NO (NO) Slides for Path Review 03/03/25 03/03/2525 Range/Units 09:35 09:35 09:22 WBC 19.6 H (3.98-10.04) x10^3/uL RBC 4.98 (3.93-5.22) x10^6/uL Hgb 13.2 (11.2-15.7) g/dL Hct 42.9 (34.1-44.9) % MCV 86.1 (79.4-94.8) fL MCH 26.5 (25.6-32.2) pg MCHC 30.8 L (32.2-35.5) g/dL RDW 12.8 (11.7-14.4) % Plt Count 201 (182-369) x10^3/uL MPV 11.6 (9.4-12.3) fL Gran % 91.0 H (34.0-71.1) % Immature Gran % (Auto) 0.7 H (0.001-0.429) % Nucleat RBC Rel Count 0.0 (0.00-0.2) % Eos # (Auto) 0 L (0.04-0.36) x10^3/uL Immature Gran # (Auto) 0.14 H (0.001-0.031) x10^3u/L Absolute Lymphs (auto) 0.53 L (1.18-3.74) x10^3/uL Absolute Monos (auto) 1.03 H (0.24-0.86) x10^3/uL Absolute Nucleated RBC 0.00 (0.00-0.012) x10^3u/L Lymphocytes % 2.7 L (19.3-51.7) % Monocytes % 5.3 (4.7-12.5) % Eosinophils % 0.0 L (0.7-5.8) % Basophils % 0.3 (0.1-1.2) % Absolute Granulocytes 17.84 H (1.56-6.13) x10^3/uL Basophils # 0.06 (0.01-0.08) x10^3/uL Puncture Site pCO2 (35-45) mmHg pO2 (75-100) mmHg pO2/FiO2 Ratio % Base Excess (-2.0-2.0) O2 Saturation (94-100) g/dF ABG pH (7.35-7.45) ABG HCO3 (22-28) ABG O2 Sat (Measured) (95-100) % Ruel Test VBG pH (7.32-7.42) VBG pCO2 at Pat Temp (42-55) mm/Hg VBG pO2 at Pat Temp (25-40) mm/Hg VBG HCO3 (22-28) meq/L VBG O2 Sat (Kali) (95-100) VBG Base Excess (-2.0-2.0) VBG Hemoglobin VBG Carboxyhemoglobin (0.0-6.9) % T HGB A-a Gradient a/A Ratio Hemoglobin Carboxyhemoglobin (0.0-6.9) % THgb Methemoglobin (1.4-1.5) % POC Potassium (3.5-5.1) Temperature C POC O2 Flow Rate % Sodium 129 L (135-145) mmol/L Potassium 5.6 H (3.5-5.1) mmol/L Chloride 97 L (98-107) mmol/L Carbon Dioxide < 5 L* (22-30) mmol/L BUN 23 H (7-17) mg/dL Creatinine 1.23 H (0.52-1.04) mg/dL Estimated GFR 57.0 ML/MIN Glucose 635 H* (74-106) mg/dL POC Glucometer (50 to 500) mg/dL Lactic Acid 3.7 H (0.4-2.0) Calcium 9.4 (8.4-10.2) mg/dL Magnesium 2.4 H (1.6-2.3) mg/dL Total Bilirubin 1.30 (0.2-1.3) mg/dL AST 22 (14-36) U/L ALT 17 (0-35) U/L Alkaline Phosphatase 125 (38-126) U/L Serum Total Protein 7.1 (6.3-8.2) g/dL Albumin 4.5 (3.5-5.0) g/dL Amylase 48 (30-110) U/L Lipase 25 (23-300) U/L Urine Color (Yellow) Urine Appearance (Clear) Urine pH (4.6-8.0) Ur Specific [place] (1.005-1.030) Urine Protein (Negative) Urine Glucose (UA) (Negative) mg/dL Urine Ketones (Negative) Urine Blood (Negative) Urine Nitrite (Negative) Urine Bilirubin (Negative) Urine Urobilinogen (0.2) mg/dL Ur Leukocyte Esterase (Negative) U Hyaline Cast (Auto) (0-2) /LPF Urine Microscopic RBC (0-5) /HPF Urine Microscopic WBC (0-5) /HPF Ur Epithelial Cells (None Seen) /HPF Urine Bacteria (None Seen) /HPF Urine Culture Reflexed (NO) Slides for Path Review YES 03/03/25 Range/Units 09:12 WBC (3.98-10.04) x10^3/uL RBC (3.93-5.22) x10^6/uL Hgb (11.2-15.7) g/dL Hct (34.1-44.9) % MCV (79.4-94.8) fL MCH (25.6-32.2) pg MCHC (32.2-35.5) g/dL RDW (11.7-14.4) % Plt Count (182-369) x10^3/uL MPV (9.4-12.3) fL Gran % (34.0-71.1) % Immature Gran % (Auto) (0.001-0.429) % Nucleat RBC Rel Count (0.00-0.2) % Eos # (Auto) (0.04-0.36) x10^3/uL Immature Gran # (Auto) (0.001-0.031) x10^3u/L Absolute Lymphs (auto) (1.18-3.74) x10^3/uL Absolute Monos (auto) (0.24-0.86) x10^3/uL Absolute Nucleated RBC (0.00-0.012) x10^3u/L Lymphocytes % (19.3-51.7) % Monocytes % (4.7-12.5) % Eosinophils % (0.7-5.8) % Basophils % (0.1-1.2) % Absolute Granulocytes (1.56-6.13) x10^3/uL Basophils # (0.01-0.08) x10^3/uL Puncture Site pCO2 (35-45) mmHg pO2 (75-100) mmHg pO2/FiO2 Ratio % Base Excess (-2.0-2.0) O2 Saturation (94-100) g/dF ABG pH (7.35-7.45) ABG HCO3 (22-28) ABG O2 Sat (Measured) (95-100) % Ruel Test VBG pH (7.32-7.42) VBG pCO2 at Pat Temp (42-55) mm/Hg VBG pO2 at Pat Temp (25-40) mm/Hg VBG HCO3 (22-28) meq/L VBG O2 Sat (Kali) (95-100) VBG Base Excess (-2.0-2.0) VBG Hemoglobin VBG Carboxyhemoglobin (0.0-6.9) % T HGB A-a Gradient a/A Ratio Hemoglobin Carboxyhemoglobin (0.0-6.9) % THgb Methemoglobin (1.4-1.5) % POC Potassium (3.5-5.1) Temperature C POC O2 Flow Rate % Sodium (135-145) mmol/L Potassium (3.5-5.1) mmol/L Chloride (98-107) mmol/L Carbon Dioxide (22-30) mmol/L BUN (7-17) mg/dL Creatinine (0.52-1.04) mg/dL Estimated GFR ML/MIN Glucose (74-106) mg/dL POC Glucometer 555 H* (50 to 500) mg/dL Lactic Acid (0.4-2.0) Calcium (8.4-10.2) mg/dL Magnesium (1.6-2.3) mg/dL Total Bilirubin (0.2-1.3) mg/dL AST (14-36) U/L ALT (0-35) U/L Alkaline Phosphatase (38-126) U/L Serum Total Protein (6.3-8.2) g/dL Albumin (3.5-5.0) g/dL Amylase (30-110) U/L Lipase (23-300) U/L Urine Color (Yellow) Urine Appearance (Clear) Urine pH (4.6-8.0) Ur Specific [place] (1.005-1.030) Urine Protein (Negative) Urine Glucose (UA) (Negative) mg/dL Urine Ketones (Negative) Urine Blood (Negative) Urine Nitrite (Negative) Urine Bilirubin (Negative) Urine Urobilinogen (0.2) mg/dL Ur Leukocyte Esterase (Negative) U Hyaline Cast (Auto) (0-2) /LPF Urine Microscopic RBC (0-5) /HPF Urine Microscopic WBC (0-5) /HPF Ur Epithelial Cells (None Seen) /HPF Urine Bacteria (None Seen) /HPF Urine Culture Reflexed (NO) Slides for Path Review - Progress Progress: improved, re-examined Progress Note: 03/03/25 09:42 My medical decision making and the assignment of moderate to high complexity of this patient's medical issue today is based on review of the patient's past medical history, review the patient's medication list, reviewed patient drug allergy list, history present illness and physical findings on examination. The workup in this patient includes placement of an intravenous line, infusion of crystalloid solution, infusion of Dilaudid, infusion of Zofran, infusion of regular insulin, urinalysis, CBC, CMP, magnesium level, amylase, lipase and CT scan of the abdomen pelvis without contrast. Differential diagnosis includes but is not limited to hyperglycemia, DKA, pancreatitis, dehydration, urinary tract infection 03/03/25 12:35 I interpreted the patient's laboratory data results. Based on laboratory data results with patient has leukocytosis, hyponatremia, significantly low CO2, ketones in her urine. This pattern is consistent with diabetic ketoacidosis. CT scan of the abdomen and pelvis without contrast was interpreted by the radiologist and I reviewed the impression. The impression states chronic findings of fatty liver. Remainder of the CT scan of the abdomen pelvis without contrast is negative The nursing staff has reported to me that the patient does not want to stay to be placed in any hospital setting. She is feeling better and wishes to go home. I have reviewed the results of the CT scan as well as the laboratory data results with her. The nursing staff has reviewed the importance of staying in the hospital setting for continued monitoring and medical intervention. The patient states that she will make a decision based on how she is feeling and the results of the studies. She will let us know 03/03/25 12:50 The patient has decided to be placed in observation. I have spoken with Dr. Hammond. I have reviewed the patient history, physical findings on examination, primary complaint in the results of our workup clinically and the results of the lab and radiographic studies. We will place her in the ICU setting under observation status as she will be having an insulin drip in place. Counseled pt/family regarding: lab results, diagnosis, rad results Medical Desision Making - Independent Historian Additional History obtained from: Family - Diagnostic Testing Diagnostic test were ordered, analyzed, and reviewed by me: Yes Radiological Interpretation: Reviewed by me, Teleradiologist Report - Risk of complications The pt has a high risk of morbidity or mortality based on: Decision regarding hospitilization or escalation of hosp level of care - Departure Departure Disposition: Observation Clinical Impression: DKA (diabetic ketoacidosis), Hyponatremia Condition: Fair Critical Care Time: Yes Critical Care Time(excluding separately billable procedures): Critical 30-74 mins (45) Referrals: ALEX KAISER MD [Primary Care Provider, [facility]] - Follow up/PCP as directed
[2025-03-03] MEDS ORDERED: Hydromorphone 1 mg/ml Injection ONE ×2 (09:36→13:05)
[2025-03-03] MEDS ORDERED: Zofran 4 MG/2 ML VIAL ONE (09:36)
[2025-03-03] MEDS ORDERED: HUMULIN R ONE (09:37)
[2025-03-03 09:44] LABS: BASOPHIL % 0.3 % (0.1-1.2); Basophil (Absolute #) 0.06 x10^3/uL (0.01-0.08); Eosinophil (Absolute #) 0 x10^3/uL (0.04-0.36); Hematocrit 42.9 % (34.1-44.9); Hemoglobin 13.2 g/dL (11.2-15.7); IMMATURE GRAN # 0.14 x10^3u/L (0.001-0.031); IMMATURE GRAN % 0.7 % (0.001-0.429); Lymphocyte (Absolute #) 0.53 x10^3/uL (1.18-3.74); Mean Corpuscular Hemoglobin 26.5 pg (25.6-32.2); Mean Corpuscular Hgb Concent. 30.8 g/dL (32.2-35.5); Monocyte (Absolute #) 1.03 x10^3/uL (0.24-0.86); NUCLEATED RBC # 0.00 x10^3u/L (0.00-0.012); NUCLEATED RBC % 0.0 % (0.00-0.2); Platelet Count 201 x10^3/uL (182-369); Red Blood Count 4.98 x10^6/uL (3.93-5.22); White Blood Count 19.6 x10^3/uL (3.98-10.04)
[2025-03-03 09:56] LABS: Calcium 9.4 mg/dL (8.4-10.2); Creatinine 1 1.23 mg/dL (0.52-1.04); EST GLOMERULAR FILTRATION RATE 57.0 ML/MIN; SGOT/AST 22 U/L (14-36); SGPT/ALT 17 U/L (0-35); Total Protein 7.1 g/dL (6.3-8.2)
[2025-03-03] MEDS: Hydromorphone 1 mg/ml Injection IV ONE ×2 (09:59→13:05)
[2025-03-03] MEDS: Zofran 4 MG/2 ML VIAL IV ONE (09:59)
[2025-03-03 10:00] LABS: VBG BASE EXCESS -15.3 (-2.0-2.0); VBG CARBOXYHEMOGLOBIN 5.3 % T HGB (0.0-6.9); VBG FIO2 21.0 %; VBG HCO3- 10.5 meq/L (22-28); VBG HEMOGLOBIN 13.9; VBG O2 SATURATION 77.3 (95-100); VBG PCO2 25.0 mm/Hg (42-55); VBG PO2 44.0 mm/Hg (25-40); VBG POTASSIUM 5.7 (3.5-5.1)
[2025-03-03] MEDS: HUMULIN R IV ONE (10:01)
[2025-03-03 10:05] LABS: Carbon Dioxide < 5 mmol/L (22-30); Glucose 635 mg/dL (74-106)
[2025-03-03 10:06] LABS: Potassium 5.6 mmol/L (3.5-5.1)
[2025-03-03 10:43] LABS: Slide Review 1 YES
[2025-03-03] MEDS ORDERED: Lactated Ringers 1,000 ML IV ONE (11:26)
[2025-03-03] MEDS: Lactated Ringers 1,000 ML IV ONE (11:27)
[2025-03-03 11:31] LABS: Glucose, Urine >=1000 mg/dL (Negative); Protein,Urine Dip Negative (Negative); RBC 0-2 /HPF (0-5); WBC 0-2 /HPF (0-5)
[2025-03-03] MEDS: MYXREDLIN 100 UNIT/100 ML BAG 100 UNIT/100 ML PLAST..BAG IV PRN (11:56)
--- NOTE | 2025-03-03 12:24 | XRAY ---
Indication: Nausea and vomiting. Multiple contiguous axial images obtained through the abdomen and pelvis without contrast. Comparison: June 15, 2023 Lung bases remain clear again with incidental tiny right base calcified granuloma. Heart not enlarged. New incompletely visualized bilateral breast implants. Noncontrasted stomach and bowel loops appear nonobstructed with normal appendix . Mild diffuse fatty liver and incidental tiny splenic calcified granulomas. No free fluid/air. Remaining liver, gallbladder, pancreas, spleen, adrenal glands, kidneys, ureters, bladder, uterus, and aorta are unremarkable for noncontrast exam. Osseous structures intact. Impression: 1. Chronic findings including fatty liver and old granulomatous disease. 2. Remaining CT abdomen/pelvis without contrast exam continues to be normal.
[2025-03-03 12:43] LABS: A-aADO2 16; ABG HEMOGLOBIN 12.6; ABG POTASSIUM 4.6 (3.5-5.1); ARTERIAL BLD GAS O2 SATURATION 99.0 % (95-100); ARTERIAL BLOOD GAS BASE EXCESS -14.4 (-2.0-2.0); ARTERIAL BLOOD GAS FIO2 21 %; ARTERIAL BLOOD GAS PCO2 28 mmHg (35-45); ARTERIAL BLOOD GAS PO2 99 mmHg (75-100); ARTERIAL BLOOD GAS TEMPERATURE 37.0 C; HCO3- 11.7 (22-28); HGB O2 SAT 97.2 g/dF (94-100); Methhemoglobin 0.7 % (1.4-1.5); paO2 pAO1 0.86
[2025-03-03 12:44] LABS: ABG SITE LEFT RADIAL; ALLEN TEST OK? yes
[2025-03-03] MEDS ORDERED: TYLENOL 325 MG PO PRN ×2 (13:49→15:25)
--- NOTE | 2025-03-03 14:15 | PCM.HP ---
History of Present Illness - Chief Complaint Chief Complaint: DKA Date: 03/03/25 History of Present Illness: is a 39 year old female with pmhx of seizures, type I DM, hypothyroidism, anxiety, depression, bipolar. Pt reports [place] was [place] [employer] [place] this [place] and riding rides and became ill. She has not felt well since then. She has in insulin pump in place and it is currently paused. On admission to ER she ws c/o Abd pain from vomiting, H/A, and elevated glucose. CT abd/pelvis so no acute findings. Repeat labs ordered on arrival to IP/ICU bed. Continue DKA protocol and IVF for now until labs are back. She is refusing tylenol for a H/A as she states she she does not want to take any pills at this time. - Review of Systems Constitutional: No Fever, No Chills Eyes: No Symptoms Ears, Nose, & Throat: No Symptoms Respiratory: No Cough, No Short Of Breath Cardiac: No Chest Pain, No Edema, No Syncope Abdominal/Gastrointestinal: Abdominal Pain, Nausea, Vomiting, No Diarrhea Genitourinary Symptoms: No Dysuria Musculoskeletal: Myalgias, No Back Pain, No Neck Pain Skin: No Rash Neurological: No Dizziness, No Focal Weakness, No Sensory Changes Psychological: No Symptoms Endocrine: No Symptoms Hematologic/Lymphatic: No Symptoms Immunological/Allergic: No Symptoms Medications & Allergies Home Medications: Home Medication List Insulin Lispro [Humalog] 10 units SQ UD 12/02/23 [History Confirmed 03/03/25] Allergies/Adverse Reactions: Allergies Allergy/AdvReac Type Severity Reaction Status Date / Time amoxicillin AdvReac Verified 03/03/25 13:52 semaglutide [From Ozempic] AdvReac Verified 03/03/25 13:52 - Past Medical History Past Medical History: Yes Neurological History: Seizures ENT History: No Pertinent History Cardiac History: No Pertinent History Respiratory History: No Pertinent History Endocrine Medical History: Diabetes Type I, Hypothyroidism Musculoskelatal History: No Pertinent History GI Medical History: No Pertinent History History: No Pertinent History Pyscho-Social History: Anxiety, Bipolar, Depression Reproductive Disorders: No Pertinent History Comment: HAS BEEN TYPE 1 SINCE 10 MONTHS OLD. - Female History Hx Last Menstrual Period: DECEMBER 2012 - Past Surgical History Past Surgical History: Yes Neuro Surgical History: No Pertinent History Cardiac History: No Pertinent History Respiratory Surgery: No Pertinent History GI Surgical History: No Pertinent History Genitourinary Surgical Hx: No Pertinent History Musculskeletal Surgical Hx: Orthopedic Surgery Female Surgical History: Section, Tubal Ligation, Other Other Surgical History: HX X 4, breast augmentation 2024, HX Carpal Tunnel Surgery Significant Family History: no pertinent family hx - Social History Smoking Status: Never smoker Exposure to second hand smoke: No Alcohol: None Drug Use: none - Social Determinants of Health Will the patient participate in the screening: Yes Do you worry about a steady place to live?: No Do you have any problems with any of the following?: No known problems In the past 12 months,have you had to go without utilities?: No Have you or anyone in your house had to go without enough: No Transportation Issues: No Has anyone in your support network made you feel unsafe?: No - Physical Exam Vital Signs: Vital Signs - 24 hr Temp Pulse Resp BP BP Pulse Ox 03/03/25 13:52 115 H 22 119/66 99 03/03/25 13:51 115 H 17 03/03/25 13:30 112/70 03/03/25 13:00 123 H 13 114/65 99 03/03/25 12:59 110 H 20 03/03/25 12:50 110 H 17 03/03/25 12:40 102 H 20 100 03/03/25 12:32 106 H 17 99 03/03/25 12:00 98 H 17 116/79 99 03/03/25 11:30 97 H 18 117/72 100 03/03/25 11:06 106 H 16 141/72 99 03/03/25 11:00 119/63 03/03/25 10:30 109 H 18 112/63 98 03/03/25 10:01 113 H 19 111/72 99 03/03/25 09:57 102 H 18 112/52 03/03/25 09:56 99 H 18 03/03/25 09:50 108 H 16 03/03/25 09:40 107 H 21 98 03/03/25 09:32 103 H 24 03/03/25 09:14 103 H 14 122/70 03/03/25 09:13 97.9 F 105 H 20 122/70 98 General Appearance: no apparent distress, alert Neurologic Exam: alert, oriented x 3, cooperative, normal mood/affect, nml cerebellar function, nml station & gait, sensation nml, No motor deficits Eye Exam: PERRL/EOMI, eyes nml inspection Ears, Nose, Throat Exam: normal ENT inspection, TMs normal, pharynx normal, moist mucous membranes Neck Exam: normal inspection, non-tender, supple, full range of motion Respiratory Exam: normal breath sounds, lungs clear, No respiratory distress Cardiovascular Exam: regular rate/rhythm, normal heart sounds, normal peripheral pulses, tachycardia Gastrointestinal/Abdomen Exam: soft, normal bowel sounds, No tenderness, No mass Back Exam: normal inspection, normal range of motion, No CVA tenderness, No vertebral tenderness Extremity Exam: normal inspection, normal range of motion, pelvis stable Skin Exam: normal color, warm, dry, No rash Lymphatic Exam: No adenopathy Results - Labs Lab/Micro Results: Lab Results-Last 24 Hours 03/03/25 03/03/25 03/03/25 Range/Units 09:12 09:22 09:35 WBC 19.6 H (3.98-10.04) x10^3/uL RBC 4.98 (3.93-5.22) x10^6/uL Hgb 13.2 (11.2-15.7) g/dL Hct 42.9 (34.1-44.9) % MCV 86.1 (79.4-94.8) fL MCH 26.5 (25.6-32.2) pg MCHC 30.8 L (32.2-35.5) g/dL RDW 12.8 (11.7-14.4) % Plt Count 201 (182-369) x10^3/uL MPV 11.6 (9.4-12.3) fL Gran % 91.0 H (34.0-71.1) % Immature Gran % (Auto) 0.7 H (0.001-0.429) % Nucleat RBC Rel Count 0.0 (0.00-0.2) % Eos # (Auto) 0 L (0.04-0.36) x10^3/uL Immature Gran # (Auto) 0.14 H (0.001-0.031) x10^3u/L Absolute Lymphs (auto) 0.53 L (1.18-3.74) x10^3/uL Absolute Monos (auto) 1.03 H (0.24-0.86) x10^3/uL Absolute Nucleated RBC 0.00 (0.00-0.012) x10^3u/L Lymphocytes % 2.7 L (19.3-51.7) % Monocytes % 5.3 (4.7-12.5) % Eosinophils % 0.0 L (0.7-5.8) % Basophils % 0.3 (0.1-1.2) % Absolute Granulocytes 17.84 H (1.56-6.13) x10^3/uL Basophils # 0.06 (0.01-0.08) x10^3/uL Puncture Site pCO2 (35-45) mmHg pO2 (75-100) mmHg pO2/FiO2 Ratio % Base Excess (-2.0-2.0) O2 Saturation (94-100) g/dF ABG pH (7.35-7.45) ABG HCO3 (22-28) ABG O2 Sat (Measured) (95-100) % Ruel Test VBG pH (7.32-7.42) VBG pCO2 at Pat Temp (42-55) mm/Hg VBG pO2 at Pat Temp (25-40) mm/Hg VBG HCO3 (22-28) meq/L VBG O2 Sat (Kali) (95-100) VBG Base Excess (-2.0-2.0) VBG Hemoglobin VBG Carboxyhemoglobin (0.0-6.9) % T HGB A-a Gradient a/A Ratio Hemoglobin Carboxyhemoglobin (0.0-6.9) % THgb Methemoglobin (1.4-1.5) % POC Potassium (3.5-5.1) Temperature C POC O2 Flow Rate % Sodium (135-145) mmol/L Potassium (3.5-5.1) mmol/L Chloride (98-107) mmol/L Carbon Dioxide (22-30) mmol/L BUN (7-17) mg/dL Creatinine (0.52-1.04) mg/dL Estimated GFR ML/MIN Glucose (74-106) mg/dL POC Glucometer 555 H* (50 to 500) mg/dL Lactic Acid 3.7 H (0.4-2.0) Calcium (8.4-10.2) mg/dL Magnesium (1.6-2.3) mg/dL Total Bilirubin (0.2-1.3) mg/dL AST (14-36) U/L ALT (0-35) U/L Alkaline Phosphatase (38-126) U/L Serum Total Protein (6.3-8.2) g/dL Albumin (3.5-5.0) g/dL Amylase (30-110) U/L Lipase (23-300) U/L Urine Color (Yellow) Urine Appearance (Clear) Urine pH (4.6-8.0) Ur Specific Peel (1.005-1.030) Urine Protein (Negative) Urine Glucose (UA) (Negative) mg/dL Urine Ketones (Negative) Urine Blood (Negative) Urine Nitrite (Negative) Urine Bilirubin (Negative) Urine Urobilinogen (0.2) mg/dL Ur Leukocyte Esterase (Negative) U Hyaline Cast (Auto) (0-2) /LPF Urine Microscopic RBC (0-5) /HPF Urine Microscopic WBC (0-5) /HPF Ur Epithelial Cells (None Seen) /HPF Urine Bacteria (None Seen) /HPF Urine Culture Reflexed (NO) Slides for Path Review YES 03/03/25 03/03/25 03/03/25 Range/Units 09:35 09:52 10:19 WBC (3.98-10.04) x10^3/uL RBC (3.93-5.22) x10^6/uL Hgb (11.2-15.7) g/dL Hct (34.1-44.9) % MCV (79.4-94.8) fL MCH (25.6-32.2) pg MCHC (32.2-35.5) g/dL RDW (11.7-14.4) % Plt Count (182-369) x10^3/uL MPV (9.4-12.3) fL Gran % (34.0-71.1) % Immature Gran % (Auto) (0.001-0.429) % Nucleat RBC Rel Count (0.00-0.2) % Eos # (Auto) (0.04-0.36) x10^3/uL Immature Gran # (Auto) (0.001-0.031) x10^3u/L Absolute Lymphs (auto) (1.18-3.74) x10^3/uL Absolute Monos (auto) (0.24-0.86) x10^3/uL Absolute Nucleated RBC (0.00-0.012) x10^3u/L Lymphocytes % (19.3-51.7) % Monocytes % (4.7-12.5) % Eosinophils % (0.7-5.8) % Basophils % (0.1-1.2) % Absolute Granulocytes (1.56-6.13) x10^3/uL Basophils # (0.01-0.08) x10^3/uL Puncture Site pCO2 (35-45) mmHg pO2 (75-100) mmHg pO2/FiO2 Ratio 21.0 % Base Excess (-2.0-2.0) O2 Saturation (94-100) g/dF ABG pH (7.35-7.45) ABG HCO3 (22-28) ABG O2 Sat (Measured) (95-100) % Ruel Test VBG pH 7.23 L* (7.32-7.42) VBG pCO2 at Pat Temp 25 L (42-55) mm/Hg VBG pO2 at Pat Temp 44 H (25-40) mm/Hg VBG HCO3 10.5 L* (22-28) meq/L VBG O2 Sat (Kali) 77.3 L (95-100) VBG Base Excess -15.3 L (-2.0-2.0) VBG Hemoglobin 13.9 VBG Carboxyhemoglobin 5.3 (0.0-6.9) % T HGB A-a Gradient a/A Ratio Hemoglobin Carboxyhemoglobin (0.0-6.9) % THgb Methemoglobin (1.4-1.5) % POC Potassium 5.7 H (3.5-5.1) Temperature C POC O2 Flow Rate % Sodium 129 L (135-145) mmol/L Potassium 5.6 H (3.5-5.1) mmol/L Chloride 97 L (98-107) mmol/L Carbon Dioxide < 5 L* (22-30) mmol/L BUN 23 H (7-17) mg/dL Creatinine 1.23 H (0.52-1.04) mg/dL Estimated GFR 57.0 ML/MIN Glucose 635 H* (74-106) mg/dL POC Glucometer 552 H* (50 to 500) mg/dL Lactic Acid (0.4-2.0) Calcium 9.4 (8.4-10.2) mg/dL Magnesium 2.4 H (1.6-2.3) mg/dL Total Bilirubin 1.30 (0.2-1.3) mg/dL AST 22 (14-36) U/L ALT 17 (0-35) U/L Alkaline Phosphatase 125 (38-126) U/L Serum Total Protein 7.1 (6.3-8.2) g/dL Albumin 4.5 (3.5-5.0) g/dL Amylase 48 (30-110) U/L Lipase 25 (23-300) U/L Urine Color (Yellow) Urine Appearance (Clear) Urine pH (4.6-8.0) Ur Specific Peel (1.005-1.030) Urine Protein (Negative) Urine Glucose (UA) (Negative) mg/dL Urine Ketones (Negative) Urine Blood (Negative) Urine Nitrite (Negative) Urine Bilirubin (Negative) Urine Urobilinogen (0.2) mg/dL Ur Leukocyte Esterase (Negative) U Hyaline Cast (Auto) (0-2) /LPF Urine Microscopic RBC (0-5) /HPF Urine Microscopic WBC (0-5) /HPF Ur Epithelial Cells (None Seen) /HPF Urine Bacteria (None Seen) /HPF Urine Culture Reflexed (NO) Slides for Path Review 03/03/25 03/03/25 03/03/25 Range/Units 11:24 11:48 11:54 WBC (3.98-10.04) x10^3/uL RBC (3.93-5.22) x10^6/uL Hgb (11.2-15.7) g/dL Hct (34.1-44.9) % MCV (79.4-94.8) fL MCH (25.6-32.2) pg MCHC (32.2-35.5) g/dL RDW (11.7-14.4) % Plt Count (182-369) x10^3/uL MPV (9.4-12.3) fL Gran % (34.0-71.1) % Immature Gran % (Auto) (0.001-0.429) % Nucleat RBC Rel Count (0.00-0.2) % Eos # (Auto) (0.04-0.36) x10^3/uL Immature Gran # (Auto) (0.001-0.031) x10^3u/L Absolute Lymphs (auto) (1.18-3.74) x10^3/uL Absolute Monos (auto) (0.24-0.86) x10^3/uL Absolute Nucleated RBC (0.00-0.012) x10^3u/L Lymphocytes % (19.3-51.7) % Monocytes % (4.7-12.5) % Eosinophils % (0.7-5.8) % Basophils % (0.1-1.2) % Absolute Granulocytes (1.56-6.13) x10^3/uL Basophils # (0.01-0.08) x10^3/uL Puncture Site pCO2 (35-45) mmHg pO2 (75-100) mmHg pO2/FiO2 Ratio % Base Excess (-2.0-2.0) O2 Saturation (94-100) g/dF ABG pH (7.35-7.45) ABG HCO3 (22-28) ABG O2 Sat (Measured) (95-100) % Ruel Test VBG pH (7.32-7.42) VBG pCO2 at Pat Temp (42-55) mm/Hg VBG pO2 at Pat Temp (25-40) mm/Hg VBG HCO3 (22-28) meq/L VBG O2 Sat (Kali) (95-100) VBG Base Excess (-2.0-2.0) VBG Hemoglobin VBG Carboxyhemoglobin (0.0-6.9) % T HGB A-a Gradient a/A Ratio Hemoglobin Carboxyhemoglobin (0.0-6.9) % THgb Methemoglobin (1.4-1.5) % POC Potassium (3.5-5.1) Temperature C POC O2 Flow Rate % Sodium (135-145) mmol/L Potassium (3.5-5.1) mmol/L Chloride (98-107) mmol/L Carbon Dioxide (22-30) mmol/L BUN (7-17) mg/dL Creatinine (0.52-1.04) mg/dL Estimated GFR ML/MIN Glucose (74-106) mg/dL POC Glucometer 435 H (50 to 500) mg/dL Lactic Acid 1.9 (0.4-2.0) Calcium (8.4-10.2) mg/dL Magnesium (1.6-2.3) mg/dL Total Bilirubin (0.2-1.3) mg/dL AST (14-36) U/L ALT (0-35) U/L Alkaline Phosphatase (38-126) U/L Serum Total Protein (6.3-8.2) g/dL Albumin (3.5-5.0) g/dL Amylase (30-110) U/L Lipase (23-300) U/L Urine Color Yellow (Yellow) Urine Appearance Clear (Clear) Urine pH 5.0 (4.6-8.0) Ur Specific Peel 1.025 (1.005-1.030) Urine Protein Negative (Negative) Urine Glucose (UA) >=1000 A (Negative) mg/dL Urine Ketones >=160 A (Negative) Urine Blood Negative (Negative) Urine Nitrite Negative (Negative) Urine Bilirubin Negative (Negative) Urine Urobilinogen 0.2 (0.2) mg/dL Ur Leukocyte Esterase Negative (Negative) U Hyaline Cast (Auto) 3-5 A (0-2) /LPF Urine Microscopic RBC 0-2 (0-5) /HPF Urine Microscopic WBC 0-2 (0-5) /HPF Ur Epithelial Cells None Seen (None Seen) /HPF Urine Bacteria None Seen (None Seen) /HPF Urine Culture Reflexed NO (NO) Slides for Path Review 03/03/25 03/03/25 Range/Units 12:39 12:55 WBC (3.98-10.04) x10^3/uL RBC (3.93-5.22) x10^6/uL Hgb (11.2-15.7) g/dL Hct (34.1-44.9) % MCV (79.4-94.8) fL MCH (25.6-32.2) pg MCHC (32.2-35.5) g/dL RDW (11.7-14.4) % Plt Count (182-369) x10^3/uL MPV (9.4-12.3) fL Gran % (34.0-71.1) % Immature Gran % (Auto) (0.001-0.429) % Nucleat RBC Rel Count (0.00-0.2) % Eos # (Auto) (0.04-0.36) x10^3/uL Immature Gran # (Auto) (0.001-0.031) x10^3u/L Absolute Lymphs (auto) (1.18-3.74) x10^3/uL Absolute Monos (auto) (0.24-0.86) x10^3/uL Absolute Nucleated RBC (0.00-0.012) x10^3u/L Lymphocytes % (19.3-51.7) % Monocytes % (4.7-12.5) % Eosinophils % (0.7-5.8) % Basophils % (0.1-1.2) % Absolute Granulocytes (1.56-6.13) x10^3/uL Basophils # (0.01-0.08) x10^3/uL Puncture Site LEFT RADIAL pCO2 28 L (35-45) mmHg pO2 99 (75-100) mmHg pO2/FiO2 Ratio % Base Excess -14.4 L (-2.0-2.0) O2 Saturation 97.2 (94-100) g/dF ABG pH 7.23 L* (7.35-7.45) ABG HCO3 11.7 L* (22-28) ABG O2 Sat (Measured) 99.0 (95-100) % Ruel Test yes VBG pH (7.32-7.42) VBG pCO2 at Pat Temp (42-55) mm/Hg VBG pO2 at Pat Temp (25-40) mm/Hg VBG HCO3 (22-28) meq/L VBG O2 Sat (Kali) (95-100) VBG Base Excess (-2.0-2.0) VBG Hemoglobin VBG Carboxyhemoglobin (0.0-6.9) % T HGB A-a Gradient 16 a/A Ratio 0.86 Hemoglobin 12.6 Carboxyhemoglobin 1.1 (0.0-6.9) % THgb Methemoglobin 0.7 L (1.4-1.5) % POC Potassium (3.5-5.1) Temperature 37.0 C POC O2 Flow Rate 21 % Sodium (135-145) mmol/L Potassium 4.6 (3.5-5.1) mmol/L Chloride (98-107) mmol/L Carbon Dioxide (22-30) mmol/L BUN (7-17) mg/dL Creatinine (0.52-1.04) mg/dL Estimated GFR ML/MIN Glucose (74-106) mg/dL POC Glucometer 398 H (50 to 500) mg/dL Lactic Acid (0.4-2.0) Calcium (8.4-10.2) mg/dL Magnesium (1.6-2.3) mg/dL Total Bilirubin (0.2-1.3) mg/dL AST (14-36) U/L ALT (0-35) U/L Alkaline Phosphatase (38-126) U/L Serum Total Protein (6.3-8.2) g/dL Albumin (3.5-5.0) g/dL Amylase (30-110) U/L Lipase (23-300) U/L Urine Color (Yellow) Urine Appearance (Clear) Urine pH (4.6-8.0) Ur Specific Peel (1.005-1.030) Urine Protein (Negative) Urine Glucose (UA) (Negative) mg/dL Urine Ketones (Negative) Urine Blood (Negative) Urine Nitrite (Negative) Urine Bilirubin (Negative) Urine Urobilinogen (0.2) mg/dL Ur Leukocyte Esterase (Negative) U Hyaline Cast (Auto) (0-2) /LPF Urine Microscopic RBC (0-5) /HPF Urine Microscopic WBC (0-5) /HPF Ur Epithelial Cells (None Seen) /HPF Urine Bacteria (None Seen) /HPF Urine Culture Reflexed (NO) Slides for Path Review Accuchecks Date 03/03/25 Date 03/03/25 Date 03/03/25 Time 12:57 Time 11:40 Time 11:49 - Radiology Impressions Radiology Exams & Impressions: Radiology Procedures Category Date Time Status ABDOMEN AND PELVIS W/0 CONTRAS [CT] Stat Exams 03/03/25 09:23 Completed Assessment/Plan (1) DKA (diabetic ketoacidosis) Current Visit: Yes Status: Acute Assessment & Plan: - DKA protocol - IVF - NPO - I&O's Code(s): E11.10 - TYPE 2 DIABETES MELLITUS WITH KETOACIDOSIS WITHOUT COMA (2) Abdominal pain Current Visit: Yes Status: Acute Assessment & Plan: - CT abd/pelvis: Impression: 1. Chronic findings including fatty liver and old granulomatous disease. 2. Remaining CT abdomen/pelvis without contrast exam continues to be normal. - Repeat CBC, CMP ordered - Pt reports 2:2 Vomiting - Zofran PRN Code(s): R10.9 - UNSPECIFIED ABDOMINAL PAIN (3) Type 1 diabetes mellitus Current Visit: No Status: Chronic Assessment & Plan: - A1C pending - Insulin pump to be restarted when able (4) Nausea and vomiting Current Visit: No Status: Acute Onset Date: ~03/12/18 Assessment & Plan: - Zofran PRN - Resolved since admission Code(s): R11.2 - NAUSEA WITH VOMITING, UNSPECIFIED (5) Depression with anxiety Current Visit: Yes Status: Chronic Assessment & Plan: - Pt reports not currently taking any meds for this. VTE: Lovenox PPI: Protonix Code status: Full Next of KIN: Parent- Jacky D/C plan: 1-2 days Plan of care time > 45 minutes Code(s): F41.8 - OTHER SPECIFIED ANXIETY DISORDERS Telemedicine Encounter - Telemedicine Encounter Telemedicine Encounter: "The entirety of this encounter was performed via Telemedicine" This visit was performed using real-time audio and video connection between my location and thepatients locationwith the assistance of a surrogateat the patients location. Written or verbal consent was obtained from the patient/guardian to perform this visit [facility]. Any patient questions regarding the telemedicine interaction were answered.
[2025-03-03] MEDS: Zofran 4 MG/2 ML VIAL IV PRN (14:30)
[2025-03-03 14:55] LABS: Hematocrit 36.4 % (34.1-44.9); Hemoglobin 11.9 g/dL (11.2-15.7); Mean Corpuscular Hemoglobin 26.3 pg (25.6-32.2); Mean Corpuscular Hgb Concent. 32.7 g/dL (32.2-35.5); Platelet Count 400 x10^3/uL (182-369); Red Blood Count 4.53 x10^6/uL (3.93-5.22); White Blood Count 17.7 x10^3/uL (3.98-10.04)
[2025-03-03 15:03] LABS: Calcium 8.6 mg/dL (8.4-10.2); Carbon Dioxide 17.0 mmol/L (22-30); Creatinine 1 0.99 mg/dL (0.52-1.04); EST GLOMERULAR FILTRATION RATE 73.9 ML/MIN; Glucose 194.0 mg/dL (74-106); Potassium 4.3 mmol/L (3.5-5.1); SGOT/AST 26.0 U/L (14-36); SGPT/ALT 20.0 U/L (0-35); Total Protein 6.6 g/dL (6.3-8.2)
[2025-03-03] MEDS: D5W/0.45NS W/ 20mEq KCl 1000 ML 1,000 ML IV SCH (16:20)
[2025-03-03] MEDS ORDERED: D50W 50 ml Abboject IV ONE (17:16)
[2025-03-03] MEDS: MAGNESIUM SULF 2 G/50 ML BAG 2 GM/50 ML PIGGYBACK IV ONE (17:20)
[2025-03-03] MEDS: PROTONIX 40 MG IV IV SCH (17:26)
[2025-03-03] MEDS: ENOXAPARIN SODIUM SQ SCH (17:27)
[2025-03-03 17:32] LABS: VBG BASE EXCESS -3.2 (-2.0-2.0); VBG CARBOXYHEMOGLOBIN 4.7 % T HGB (0.0-6.9); VBG FIO2 21.0 %; VBG HCO3- 22.7 meq/L (22-28); VBG HEMOGLOBIN 12.1; VBG O2 SATURATION 96.6 (95-100); VBG PCO2 43.0 mm/Hg (42-55); VBG PO2 70.0 mm/Hg (25-40); VBG POTASSIUM 4.6 (3.5-5.1)
[2025-03-03 20:06] LABS: Calcium 8.2 mg/dL (8.4-10.2); Carbon Dioxide 22.0 mmol/L (22-30); Creatinine 1 0.78 mg/dL (0.52-1.04); EST GLOMERULAR FILTRATION RATE 98.4 ML/MIN; Glucose 130.0 mg/dL (74-106); Potassium 4.8 mmol/L (3.5-5.1)
[2025-03-03] MEDS: Lantus Insulin SQ ONE (20:40)
[2025-03-03] MEDS ORDERED: CHLORASEPTIC SPRAY 180 ML ONE (21:40)
[2025-03-03] MEDS: CHLORASEPTIC SPRAY 180 ML PO PRN (21:53)
[2025-03-03 23:52] LABS: Calcium 7.6 mg/dL (8.4-10.2); Carbon Dioxide 22.0 mmol/L (22-30); Creatinine 1 0.77 mg/dL (0.52-1.04); EST GLOMERULAR FILTRATION RATE 99.9 ML/MIN; Glucose 204.0 mg/dL (74-106)
[2025-03-03 23:54] LABS: Potassium 5.9 mmol/L (3.5-5.1)
[2025-03-04] MEDS: HUMALOG SQ PRN ×2 (00:48→14:05)
[2025-03-04 05:04] LABS: Hematocrit 34.7 % (34.1-44.9); Hemoglobin 11.2 g/dL (11.2-15.7); Mean Corpuscular Hemoglobin 26.4 pg (25.6-32.2); Mean Corpuscular Hgb Concent. 32.3 g/dL (32.2-35.5); Platelet Count 357 x10^3/uL (182-369); Red Blood Count 4.25 x10^6/uL (3.93-5.22); White Blood Count 13.8 x10^3/uL (3.98-10.04)
[2025-03-04 05:33] LABS: Calcium 8.0 mg/dL (8.4-10.2); Carbon Dioxide 22.0 mmol/L (22-30); Creatinine 1 0.81 mg/dL (0.52-1.04); EST GLOMERULAR FILTRATION RATE 94.1 ML/MIN; Glucose 142.0 mg/dL (74-106); Potassium 4.5 mmol/L (3.5-5.1); SGOT/AST 18.0 U/L (14-36); SGPT/ALT 11.0 U/L (0-35); Total Protein 6.1 g/dL (6.3-8.2)
[2025-03-04 05:34] LABS: NT PRO BNPII 468.0 pg/mL (<300)
[2025-03-04 09:15] VITALS: O2SAT 99
[2025-03-04] MEDS: Neutra-Phos Packet PO ONE (09:55)
--- NOTE | 2025-03-04 11:29 | PCM.DS ---
Discharge Summary Date of Admission: 03/03/25 13:46 Date of Discharge: 03/04/25 Admitting Physician: PIYUSH FARIAS MD Primary Care Provider: ALEX KAISER Allergies Allergies amoxicillin Adverse Reaction (Verified 03/03/25 13:52) Patient states, "causes yeast infections" and wanted it added to list. semaglutide [From Ozempic] Adverse Reaction (Verified 03/03/25 13:52) CAUSES NAUSEA AND VOMITING Hospital Summary - Hospital Course Hospital Course: is a 39-year-old female with a past medical history of seizures, type I diabetes mellitus, hypothyroidism, anxiety, depression, and bipolar disorder was admitted after presenting to the emergency department with abdominal pain, vomiting, headache, and hyperglycemia following an episode of illness [place] a local [employer] [place]. She was noted to have an insulin pump in place that was paused on arrival. Initial evaluation was consistent with diabetic ketoacidosis (DKA), and she was started on DKA protocol with IV fluids and insulin infusion. CT abdomen/pelvis showed no acute findings. She was transitioned off the insulin drip on 03/04 and resumed on her home insulin regimen with good glycemic control. She tolerated diet well with stable oral intake. Laboratory evaluation revealed phosphorus of 2.4, which was repleted, and calcium of 7.9, for which she was started on calcium carbonate (Tums) twice daily to continue for a few days with [id number] supplementation. On the day of discharge, she denied chest pain, shortness of breath, abdominal pain, nausea, vomiting, or diarrhea. She was clinically stable and discharged home in improved condition with instructions to continue her insulin regimen, calcium supplementation, and close outpatient follow-up. - Vitals & Intake/Output Vital Signs: Vital Signs Temperature 98.7 F 03/04/25 09:00 Pulse Rate 106 H 03/04/25 10:00 Respiratory Rate 22 03/04/25 10:00 Blood Pressure 135/86 03/04/25 10:00 O2 Sat by Pulse Oximetry 99 03/04/25 09:00 Intake & Output: Intake & Output 03/01/25 03/02/25 03/03/25 03/04/25 11:59 11:59 11:59 11:59 Intake Total 4742 Balance 4742 Weight 73.3 kg 73 kg - Lab Result Diagrams: 03/04/25 04:13 03/04/25 04:13 Lab Results-Last 24 Hrs: Lab Results-Last 24 Hours 03/03/25 03/03/25 03/03/25 Range/Units 09:42 11:24 11:48 WBC (3.98-10.04) x10^3/uL RBC (3.93-5.22) x10^6/uL Hgb (11.2-15.7) g/dL Hct (34.1-44.9) % MCV (79.4-94.8) fL MCH (25.6-32.2) pg MCHC (32.2-35.5) g/dL RDW (11.7-14.4) % Plt Count (182-369) x10^3/uL MPV (9.4-12.3) fL Puncture Site pCO2 (35-45) mmHg pO2 (75-100) mmHg pO2/FiO2 Ratio % Base Excess (-2.0-2.0) O2 Saturation (94-100) g/dF ABG pH (7.35-7.45) ABG HCO3 (22-28) ABG O2 Sat (Measured) (95-100) % Ruel Test VBG pH (7.32-7.42) VBG pCO2 at Pat Temp (42-55) mm/Hg VBG pO2 at Pat Temp (25-40) mm/Hg VBG HCO3 (22-28) meq/L VBG O2 Sat (Kali) (95-100) VBG Base Excess (-2.0-2.0) VBG Hemoglobin VBG Carboxyhemoglobin (0.0-6.9) % T HGB A-a Gradient a/A Ratio Hemoglobin Carboxyhemoglobin (0.0-6.9) % THgb Methemoglobin (1.4-1.5) % Potassium (3.5-5.1) POC Potassium (3.5-5.1) Temperature C POC O2 Flow Rate % Sodium (135-145) mmol/L Chloride (98-107) mmol/L Carbon Dioxide (22-30) mmol/L Anion Gap (5-15) MEQ/L BUN (7-17) mg/dL Creatinine (0.52-1.04) mg/dL Estimated GFR ML/MIN Glucose (74-106) mg/dL POC Glucometer 435 H (74 to 106) mg/dL Hemoglobin A1c 7.21 H (4.5-6.0) % Lactic Acid (0.4-2.0) Calcium (8.4-10.2) mg/dL Phosphorus (2.5-4.5) mg/dL Magnesium (1.6-2.3) mg/dL Total Bilirubin (0.2-1.3) mg/dL AST (14-36) U/L ALT (0-35) U/L Alkaline Phosphatase (38-126) U/L NT-Pro-B Natriuret Pep (<300) pg/mL Serum Total Protein (6.3-8.2) g/dL Albumin (3.5-5.0) g/dL Urine Color Yellow (Yellow) Urine Appearance Clear (Clear) Urine pH 5.0 (4.6-8.0) Ur Specific [place] 1.025 (1.005-1.030) Urine Protein Negative (Negative) Urine Glucose (UA) >=1000 A (Negative) mg/dL Urine Ketones >=160 A (Negative) Urine Blood Negative (Negative) Urine Nitrite Negative (Negative) Urine Bilirubin Negative (Negative) Urine Urobilinogen 0.2 (0.2) mg/dL Ur Leukocyte Esterase Negative (Negative) U Hyaline Cast (Auto) 3-5 A (0-2) /LPF Urine Microscopic RBC 0-2 (0-5) /HPF Urine Microscopic WBC 0-2 (0-5) /HPF Ur Epithelial Cells None Seen (None Seen) /HPF Urine Bacteria None Seen (None Seen) /HPF Urine Culture Reflexed NO (NO) Ethyl Alcohol (0-10) mg/dL 03/03/25 03/03/25 03/03/25 Range/Units 11:54 12:39 12:55 WBC (3.98-10.04) x10^3/uL RBC (3.93-5.22) x10^6/uL Hgb (11.2-15.7) g/dL Hct (34.1-44.9) % MCV (79.4-94.8) fL MCH (25.6-32.2) pg MCHC (32.2-35.5) g/dL RDW (11.7-14.4) % Plt Count (182-369) x10^3/uL MPV (9.4-12.3) fL Puncture Site LEFT RADIAL pCO2 28 L (35-45) mmHg pO2 99 (75-100) mmHg pO2/FiO2 Ratio % Base Excess -14.4 L (-2.0-2.0) O2 Saturation 97.2 (94-100) g/dF ABG pH 7.23 L* (7.35-7.45) ABG HCO3 11.7 L* (22-28) ABG O2 Sat (Measured) 99.0 (95-100) % Ruel Test yes VBG pH (7.32-7.42) VBG pCO2 at Pat Temp (42-55) mm/Hg VBG pO2 at Pat Temp (25-40) mm/Hg VBG HCO3 (22-28) meq/L VBG O2 Sat (Kali) (95-100) VBG Base Excess (-2.0-2.0) VBG Hemoglobin VBG Carboxyhemoglobin (0.0-6.9) % T HGB A-a Gradient 16 a/A Ratio 0.86 Hemoglobin 12.6 Carboxyhemoglobin 1.1 (0.0-6.9) % THgb Methemoglobin 0.7 L (1.4-1.5) % Potassium 4.6 (3.5-5.1) POC Potassium (3.5-5.1) Temperature 37.0 C POC O2 Flow Rate 21 % Sodium (135-145) mmol/L Chloride (98-107) mmol/L Carbon Dioxide (22-30) mmol/L Anion Gap (5-15) MEQ/L BUN (7-17) mg/dL Creatinine (0.52-1.04) mg/dL Estimated GFR ML/MIN Glucose (74-106) mg/dL POC Glucometer 398 H (74 to 106) mg/dL Hemoglobin A1c (4.5-6.0) % Lactic Acid 1.9 (0.4-2.0) Calcium (8.4-10.2) mg/dL Phosphorus (2.5-4.5) mg/dL Magnesium (1.6-2.3) mg/dL Total Bilirubin (0.2-1.3) mg/dL AST (14-36) U/L ALT (0-35) U/L Alkaline Phosphatase (38-126) U/L NT-Pro-B Natriuret Pep (<300) pg/mL Serum Total Protein (6.3-8.2) g/dL Albumin (3.5-5.0) g/dL Urine Color (Yellow) Urine Appearance (Clear) Urine pH (4.6-8.0) Ur Specific [place] (1.005-1.030) Urine Protein (Negative) Urine Glucose (UA) (Negative) mg/dL Urine Ketones (Negative) Urine Blood (Negative) Urine Nitrite (Negative) Urine Bilirubin (Negative) Urine Urobilinogen (0.2) mg/dL Ur Leukocyte Esterase (Negative) U Hyaline Cast (Auto) (0-2) /LPF Urine Microscopic RBC (0-5) /HPF Urine Microscopic WBC (0-5) /HPF Ur Epithelial Cells (None Seen) /HPF Urine Bacteria (None Seen) /HPF Urine Culture Reflexed (NO) Ethyl Alcohol (0-10) mg/dL 03/03/25 03/03/25 03/03/25 Range/Units 14:15 14:45 14:45 WBC 17.7 H (3.98-10.04) x10^3/uL RBC 4.53 (3.93-5.22) x10^6/uL Hgb 11.9 (11.2-15.7) g/dL Hct 36.4 (34.1-44.9) % MCV 80.4 D (79.4-94.8) fL MCH 26.3 (25.6-32.2) pg MCHC 32.7 (32.2-35.5) g/dL RDW 12.8 (11.7-14.4) % Plt Count 400 H D (182-369) x10^3/uL MPV 10.2 (9.4-12.3) fL Puncture Site pCO2 (35-45) mmHg pO2 (75-100) mmHg pO2/FiO2 Ratio % Base Excess (-2.0-2.0) O2 Saturation (94-100) g/dF ABG pH (7.35-7.45) ABG HCO3 (22-28) ABG O2 Sat (Measured) (95-100) % Ruel Test VBG pH (7.32-7.42) VBG pCO2 at Pat Temp (42-55) mm/Hg VBG pO2 at Pat Temp (25-40) mm/Hg VBG HCO3 (22-28) meq/L VBG O2 Sat (Kali) (95-100) VBG Base Excess (-2.0-2.0) VBG Hemoglobin VBG Carboxyhemoglobin (0.0-6.9) % T HGB A-a Gradient a/A Ratio Hemoglobin Carboxyhemoglobin (0.0-6.9) % THgb Methemoglobin (1.4-1.5) % Potassium 4.3 D (3.5-5.1) POC Potassium (3.5-5.1) Temperature C POC O2 Flow Rate % Sodium 131 L (135-145) mmol/L Chloride 102 (98-107) mmol/L Carbon Dioxide 17 L (22-30) mmol/L Anion Gap 17.1 H (5-15) MEQ/L BUN 21 H (7-17) mg/dL Creatinine 0.99 (0.52-1.04) mg/dL Estimated GFR 73.9 ML/MIN Glucose 194 H (74-106) mg/dL POC Glucometer 233 H (74 to 106) mg/dL Hemoglobin A1c (4.5-6.0) % Lactic Acid (0.4-2.0) Calcium 8.6 (8.4-10.2) mg/dL Phosphorus 4.2 (2.5-4.5) mg/dL Magnesium 1.8 (1.6-2.3) mg/dL Total Bilirubin 0.50 (0.2-1.3) mg/dL AST 26 (14-36) U/L ALT 20 (0-35) U/L Alkaline Phosphatase 76 (38-126) U/L NT-Pro-B Natriuret Pep (<300) pg/mL Serum Total Protein 6.6 (6.3-8.2) g/dL Albumin 4.0 (3.5-5.0) g/dL Urine Color (Yellow) Urine Appearance (Clear) Urine pH (4.6-8.0) Ur Specific [place] (1.005-1.030) Urine Protein (Negative) Urine Glucose (UA) (Negative) mg/dL Urine Ketones (Negative) Urine Blood (Negative) Urine Nitrite (Negative) Urine Bilirubin (Negative) Urine Urobilinogen (0.2) mg/dL Ur Leukocyte Esterase (Negative) U Hyaline Cast (Auto) (0-2) /LPF Urine Microscopic RBC (0-5) /HPF Urine Microscopic WBC (0-5) /HPF Ur Epithelial Cells (None Seen) /HPF Urine Bacteria (None Seen) /HPF Urine Culture Reflexed (NO) Ethyl Alcohol (0-10) mg/dL 03/03/25 03/03/25 03/03/25 Range/Units 14:48 15:57 16:41 WBC (3.98-10.04) x10^3/uL RBC (3.93-5.22) x10^6/uL Hgb (11.2-15.7) g/dL Hct (34.1-44.9) % MCV (79.4-94.8) fL MCH (25.6-32.2) pg MCHC (32.2-35.5) g/dL RDW (11.7-14.4) % Plt Count (182-369) x10^3/uL MPV (9.4-12.3) fL Puncture Site pCO2 (35-45) mmHg pO2 (75-100) mmHg pO2/FiO2 Ratio % Base Excess (-2.0-2.0) O2 Saturation (94-100) g/dF ABG pH (7.35-7.45) ABG HCO3 (22-28) ABG O2 Sat (Measured) (95-100) % Ruel Test VBG pH (7.32-7.42) VBG pCO2 at Pat Temp (42-55) mm/Hg VBG pO2 at Pat Temp (25-40) mm/Hg VBG HCO3 (22-28) meq/L VBG O2 Sat (Kali) (95-100) VBG Base Excess (-2.0-2.0) VBG Hemoglobin VBG Carboxyhemoglobin (0.0-6.9) % T HGB A-a Gradient a/A Ratio Hemoglobin Carboxyhemoglobin (0.0-6.9) % THgb Methemoglobin (1.4-1.5) % Potassium (3.5-5.1) POC Potassium (3.5-5.1) Temperature C POC O2 Flow Rate % Sodium (135-145) mmol/L Chloride (98-107) mmol/L Carbon Dioxide (22-30) mmol/L Anion Gap (5-15) MEQ/L BUN (7-17) mg/dL Creatinine (0.52-1.04) mg/dL Estimated GFR ML/MIN Glucose (74-106) mg/dL POC Glucometer 149 H 102 (74 to 106) mg/dL Hemoglobin A1c (4.5-6.0) % Lactic Acid (0.4-2.0) Calcium (8.4-10.2) mg/dL Phosphorus (2.5-4.5) mg/dL Magnesium (1.6-2.3) mg/dL Total Bilirubin (0.2-1.3) mg/dL AST (14-36) U/L ALT (0-35) U/L Alkaline Phosphatase (38-126) U/L NT-Pro-B Natriuret Pep (<300) pg/mL Serum Total Protein (6.3-8.2) g/dL Albumin (3.5-5.0) g/dL Urine Color (Yellow) Urine Appearance (Clear) Urine pH (4.6-8.0) Ur Specific [place] (1.005-1.030) Urine Protein (Negative) Urine Glucose (UA) (Negative) mg/dL Urine Ketones (Negative) Urine Blood (Negative) Urine Nitrite (Negative) Urine Bilirubin (Negative) Urine Urobilinogen (0.2) mg/dL Ur Leukocyte Esterase (Negative) U Hyaline Cast (Auto) (0-2) /LPF Urine Microscopic RBC (0-5) /HPF Urine Microscopic WBC (0-5) /HPF Ur Epithelial Cells (None Seen) /HPF Urine Bacteria (None Seen) /HPF Urine Culture Reflexed (NO) Ethyl Alcohol < 10 (0-10) mg/dL 03/03/25 03/03/25 03/03/25 Range/Units 17:15 17:34 18:30 WBC (3.98-10.04) x10^3/uL RBC (3.93-5.22) x10^6/uL Hgb (11.2-15.7) g/dL Hct (34.1-44.9) % MCV (79.4-94.8) fL MCH (25.6-32.2) pg MCHC (32.2-35.5) g/dL RDW (11.7-14.4) % Plt Count (182-369) x10^3/uL MPV (9.4-12.3) fL Puncture Site pCO2 (35-45) mmHg pO2 (75-100) mmHg pO2/FiO2 Ratio 21.0 % Base Excess (-2.0-2.0) O2 Saturation (94-100) g/dF ABG pH (7.35-7.45) ABG HCO3 (22-28) ABG O2 Sat (Measured) (95-100) % Ruel Test VBG pH 7.33 (7.32-7.42) VBG pCO2 at Pat Temp 43 (42-55) mm/Hg VBG pO2 at Pat Temp 70 H (25-40) mm/Hg VBG HCO3 22.7 (22-28) meq/L VBG O2 Sat (Kali) 96.6 (95-100) VBG Base Excess -3.2 L (-2.0-2.0) VBG Hemoglobin 12.1 VBG Carboxyhemoglobin 4.7 (0.0-6.9) % T HGB A-a Gradient a/A Ratio Hemoglobin Carboxyhemoglobin (0.0-6.9) % THgb Methemoglobin (1.4-1.5) % Potassium (3.5-5.1) POC Potassium 4.6 (3.5-5.1) Temperature C POC O2 Flow Rate % Sodium (135-145) mmol/L Chloride (98-107) mmol/L Carbon Dioxide (22-30) mmol/L Anion Gap (5-15) MEQ/L BUN (7-17) mg/dL Creatinine (0.52-1.04) mg/dL Estimated GFR ML/MIN Glucose (74-106) mg/dL POC Glucometer 107 H 117 H (74 to 106) mg/dL Hemoglobin A1c (4.5-6.0) % Lactic Acid (0.4-2.0) Calcium (8.4-10.2) mg/dL Phosphorus (2.5-4.5) mg/dL Magnesium (1.6-2.3) mg/dL Total Bilirubin (0.2-1.3) mg/dL AST (14-36) U/L ALT (0-35) U/L Alkaline Phosphatase (38-126) U/L NT-Pro-B Natriuret Pep (<300) pg/mL Serum Total Protein (6.3-8.2) g/dL Albumin (3.5-5.0) g/dL Urine Color (Yellow) Urine Appearance (Clear) Urine pH (4.6-8.0) Ur Specific [place] (1.005-1.030) Urine Protein (Negative) Urine Glucose (UA) (Negative) mg/dL Urine Ketones (Negative) Urine Blood (Negative) Urine Nitrite (Negative) Urine Bilirubin (Negative) Urine Urobilinogen (0.2) mg/dL Ur Leukocyte Esterase (Negative) U Hyaline Cast (Auto) (0-2) /LPF Urine Microscopic RBC (0-5) /HPF Urine Microscopic WBC (0-5) /HPF Ur Epithelial Cells (None Seen) /HPF Urine Bacteria (None Seen) /HPF Urine Culture Reflexed (NO) Ethyl Alcohol (0-10) mg/dL 03/03/25 03/03/25 03/03/25 Range/Units 19:35 19:40 20:39 WBC (3.98-10.04) x10^3/uL RBC (3.93-5.22) x10^6/uL Hgb (11.2-15.7) g/dL Hct (34.1-44.9) % MCV (79.4-94.8) fL MCH (25.6-32.2) pg MCHC (32.2-35.5) g/dL RDW (11.7-14.4) % Plt Count (182-369) x10^3/uL MPV (9.4-12.3) fL Puncture Site pCO2 (35-45) mmHg pO2 (75-100) mmHg pO2/FiO2 Ratio % Base Excess (-2.0-2.0) O2 Saturation (94-100) g/dF ABG pH (7.35-7.45) ABG HCO3 (22-28) ABG O2 Sat (Measured) (95-100) % Ruel Test VBG pH (7.32-7.42) VBG pCO2 at Pat Temp (42-55) mm/Hg VBG pO2 at Pat Temp (25-40) mm/Hg VBG HCO3 (22-28) meq/L VBG O2 Sat (Kali) (95-100) VBG Base Excess (-2.0-2.0) VBG Hemoglobin VBG Carboxyhemoglobin (0.0-6.9) % T HGB A-a Gradient a/A Ratio Hemoglobin Carboxyhemoglobin (0.0-6.9) % THgb Methemoglobin (1.4-1.5) % Potassium 4.8 (3.5-5.1) POC Potassium (3.5-5.1) Temperature C POC O2 Flow Rate % Sodium 125 L (135-145) mmol/L Chloride 103 (98-107) mmol/L Carbon Dioxide 22 (22-30) mmol/L Anion Gap 5.6 (5-15) MEQ/L BUN 17 (7-17) mg/dL Creatinine 0.78 (0.52-1.04) mg/dL Estimated GFR 98.4 ML/MIN Glucose 130 H (74-106) mg/dL POC Glucometer 113 H 130 H (74 to 106) mg/dL Hemoglobin A1c (4.5-6.0) % Lactic Acid (0.4-2.0) Calcium 8.2 L (8.4-10.2) mg/dL Phosphorus 3.7 (2.5-4.5) mg/dL Magnesium 2.5 H (1.6-2.3) mg/dL Total Bilirubin (0.2-1.3) mg/dL AST (14-36) U/L ALT (0-35) U/L Alkaline Phosphatase (38-126) U/L NT-Pro-B Natriuret Pep (<300) pg/mL Serum Total Protein (6.3-8.2) g/dL Albumin (3.5-5.0) g/dL Urine Color (Yellow) Urine Appearance (Clear) Urine pH (4.6-8.0) Ur Specific [place] (1.005-1.030) Urine Protein (Negative) Urine Glucose (UA) (Negative) mg/dL Urine Ketones (Negative) Urine Blood (Negative) Urine Nitrite (Negative) Urine Bilirubin (Negative) Urine Urobilinogen (0.2) mg/dL Ur Leukocyte Esterase (Negative) U Hyaline Cast (Auto) (0-2) /LPF Urine Microscopic RBC (0-5) /HPF Urine Microscopic WBC (0-5) /HPF Ur Epithelial Cells (None Seen) /HPF Urine Bacteria (None Seen) /HPF Urine Culture Reflexed (NO) Ethyl Alcohol (0-10) mg/dL 03/03/25 03/03/25 03/03/25 Range/Units 21:51 22:42 23:35 WBC (3.98-10.04) x10^3/uL RBC (3.93-5.22) x10^6/uL Hgb (11.2-15.7) g/dL Hct (34.1-44.9) % MCV (79.4-94.8) fL MCH (25.6-32.2) pg MCHC (32.2-35.5) g/dL RDW (11.7-14.4) % Plt Count (182-369) x10^3/uL MPV (9.4-12.3) fL Puncture Site pCO2 (35-45) mmHg pO2 (75-100) mmHg pO2/FiO2 Ratio % Base Excess (-2.0-2.0) O2 Saturation (94-100) g/dF ABG pH (7.35-7.45) ABG HCO3 (22-28) ABG O2 Sat (Measured) (95-100) % Ruel Test VBG pH (7.32-7.42) VBG pCO2 at Pat Temp (42-55) mm/Hg VBG pO2 at Pat Temp (25-40) mm/Hg VBG HCO3 (22-28) meq/L VBG O2 Sat (Kali) (95-100) VBG Base Excess (-2.0-2.0) VBG Hemoglobin VBG Carboxyhemoglobin (0.0-6.9) % T HGB A-a Gradient a/A Ratio Hemoglobin Carboxyhemoglobin (0.0-6.9) % THgb Methemoglobin (1.4-1.5) % Potassium (3.5-5.1) POC Potassium (3.5-5.1) Temperature C POC O2 Flow Rate % Sodium (135-145) mmol/L Chloride (98-107) mmol/L Carbon Dioxide (22-30) mmol/L Anion Gap (5-15) MEQ/L BUN (7-17) mg/dL Creatinine (0.52-1.04) mg/dL Estimated GFR ML/MIN Glucose (74-106) mg/dL POC Glucometer 116 H 183 H 202 H (74 to 106) mg/dL Hemoglobin A1c (4.5-6.0) % Lactic Acid (0.4-2.0) Calcium (8.4-10.2) mg/dL Phosphorus (2.5-4.5) mg/dL Magnesium (1.6-2.3) mg/dL Total Bilirubin (0.2-1.3) mg/dL AST (14-36) U/L ALT (0-35) U/L Alkaline Phosphatase (38-126) U/L NT-Pro-B Natriuret Pep (<300) pg/mL Serum Total Protein (6.3-8.2) g/dL Albumin (3.5-5.0) g/dL Urine Color (Yellow) Urine Appearance (Clear) Urine pH (4.6-8.0) Ur Specific [place] (1.005-1.030) Urine Protein (Negative) Urine Glucose (UA) (Negative) mg/dL Urine Ketones (Negative) Urine Blood (Negative) Urine Nitrite (Negative) Urine Bilirubin (Negative) Urine Urobilinogen (0.2) mg/dL Ur Leukocyte Esterase (Negative) U Hyaline Cast (Auto) (0-2) /LPF Urine Microscopic RBC (0-5) /HPF Urine Microscopic WBC (0-5) /HPF Ur Epithelial Cells (None Seen) /HPF Urine Bacteria (None Seen) /HPF Urine Culture Reflexed (NO) Ethyl Alcohol (0-10) mg/dL 03/03/25 03/04/25 03/04/25 Range/Units 23:37 00:44 02:09 WBC (3.98-10.04) x10^3/uL RBC (3.93-5.22) x10^6/uL Hgb (11.2-15.7) g/dL Hct (34.1-44.9) % MCV (79.4-94.8) fL MCH (25.6-32.2) pg MCHC (32.2-35.5) g/dL RDW (11.7-14.4) % Plt Count (182-369) x10^3/uL MPV (9.4-12.3) fL Puncture Site pCO2 (35-45) mmHg pO2 (75-100) mmHg pO2/FiO2 Ratio % Base Excess (-2.0-2.0) O2 Saturation (94-100) g/dF ABG pH (7.35-7.45) ABG HCO3 (22-28) ABG O2 Sat (Measured) (95-100) % Ruel Test VBG pH (7.32-7.42) VBG pCO2 at Pat Temp (42-55) mm/Hg VBG pO2 at Pat Temp (25-40) mm/Hg VBG HCO3 (22-28) meq/L VBG O2 Sat (Kali) (95-100) VBG Base Excess (-2.0-2.0) VBG Hemoglobin VBG Carboxyhemoglobin (0.0-6.9) % T HGB A-a Gradient a/A Ratio Hemoglobin Carboxyhemoglobin (0.0-6.9) % THgb Methemoglobin (1.4-1.5) % Potassium 5.9 H D (3.5-5.1) POC Potassium (3.5-5.1) Temperature C POC O2 Flow Rate % Sodium 126 L (135-145) mmol/L Chloride 100 (98-107) mmol/L Carbon Dioxide 22 (22-30) mmol/L Anion Gap 10.4 (5-15) MEQ/L BUN 14 (7-17) mg/dL Creatinine 0.77 (0.52-1.04) mg/dL Estimated GFR 99.9 ML/MIN Glucose 204 H (74-106) mg/dL POC Glucometer 315 H 162 H (74 to 106) mg/dL Hemoglobin A1c (4.5-6.0) % Lactic Acid (0.4-2.0) Calcium 7.6 L (8.4-10.2) mg/dL Phosphorus (2.5-4.5) mg/dL Magnesium (1.6-2.3) mg/dL Total Bilirubin (0.2-1.3) mg/dL AST (14-36) U/L ALT (0-35) U/L Alkaline Phosphatase (38-126) U/L NT-Pro-B Natriuret Pep (<300) pg/mL Serum Total Protein (6.3-8.2) g/dL Albumin (3.5-5.0) g/dL Urine Color (Yellow) Urine Appearance (Clear) Urine pH (4.6-8.0) Ur Specific [place] (1.005-1.030) Urine Protein (Negative) Urine Glucose (UA) (Negative) mg/dL Urine Ketones (Negative) Urine Blood (Negative) Urine Nitrite (Negative) Urine Bilirubin (Negative) Urine Urobilinogen (0.2) mg/dL Ur Leukocyte Esterase (Negative) U Hyaline Cast (Auto) (0-2) /LPF Urine Microscopic RBC (0-5) /HPF Urine Microscopic WBC (0-5) /HPF Ur Epithelial Cells (None Seen) /HPF Urine Bacteria (None Seen) /HPF Urine Culture Reflexed (NO) Ethyl Alcohol (0-10) mg/dL 03/04/25 03/04/25 03/04/25 Range/Units 04:11 04:13 04:13 WBC 13.8 H (3.98-10.04) x10^3/uL RBC 4.25 (3.93-5.22) x10^6/uL Hgb 11.2 (11.2-15.7) g/dL Hct 34.7 (34.1-44.9) % MCV 81.6 (79.4-94.8) fL MCH 26.4 (25.6-32.2) pg MCHC 32.3 (32.2-35.5) g/dL RDW 12.9 (11.7-14.4) % Plt Count 357 (182-369) x10^3/uL MPV 10.9 (9.4-12.3) fL Puncture Site pCO2 (35-45) mmHg pO2 (75-100) mmHg pO2/FiO2 Ratio % Base Excess (-2.0-2.0) O2 Saturation (94-100) g/dF ABG pH (7.35-7.45) ABG HCO3 (22-28) ABG O2 Sat (Measured) (95-100) % Ruel Test VBG pH (7.32-7.42) VBG pCO2 at Pat Temp (42-55) mm/Hg VBG pO2 at Pat Temp (25-40) mm/Hg VBG HCO3 (22-28) meq/L VBG O2 Sat (Kali) (95-100) VBG Base Excess (-2.0-2.0) VBG Hemoglobin VBG Carboxyhemoglobin (0.0-6.9) % T HGB A-a Gradient a/A Ratio Hemoglobin Carboxyhemoglobin (0.0-6.9) % THgb Methemoglobin (1.4-1.5) % Potassium 4.5 D (3.5-5.1) POC Potassium (3.5-5.1) Temperature C POC O2 Flow Rate % Sodium 130 L (135-145) mmol/L Chloride 101 (98-107) mmol/L Carbon Dioxide 22 (22-30) mmol/L Anion Gap 11.2 (5-15) MEQ/L BUN 13 (7-17) mg/dL Creatinine 0.81 (0.52-1.04) mg/dL Estimated GFR 94.1 ML/MIN Glucose 142 H (74-106) mg/dL POC Glucometer 147 H (74 to 106) mg/dL Hemoglobin A1c (4.5-6.0) % Lactic Acid (0.4-2.0) Calcium 8.0 L (8.4-10.2) mg/dL Phosphorus (2.5-4.5) mg/dL Magnesium (1.6-2.3) mg/dL Total Bilirubin 0.70 (0.2-1.3) mg/dL AST 18 (14-36) U/L ALT 11 (0-35) U/L Alkaline Phosphatase 80 (38-126) U/L NT-Pro-B Natriuret Pep 468 (<300) pg/mL Serum Total Protein 6.1 L (6.3-8.2) g/dL Albumin 3.6 (3.5-5.0) g/dL Urine Color (Yellow) Urine Appearance (Clear) Urine pH (4.6-8.0) Ur Specific [place] (1.005-1.030) Urine Protein (Negative) Urine Glucose (UA) (Negative) mg/dL Urine Ketones (Negative) Urine Blood (Negative) Urine Nitrite (Negative) Urine Bilirubin (Negative) Urine Urobilinogen (0.2) mg/dL Ur Leukocyte Esterase (Negative) U Hyaline Cast (Auto) (0-2) /LPF Urine Microscopic RBC (0-5) /HPF Urine Microscopic WBC (0-5) /HPF Ur Epithelial Cells (None Seen) /HPF Urine Bacteria (None Seen) /HPF Urine Culture Reflexed (NO) Ethyl Alcohol (0-10) mg/dL 03/04/25 03/04/25 03/04/25 Range/Units 04:13 06:23 08:09 WBC (3.98-10.04) x10^3/uL RBC (3.93-5.22) x10^6/uL Hgb (11.2-15.7) g/dL Hct (34.1-44.9) % MCV (79.4-94.8) fL MCH (25.6-32.2) pg MCHC (32.2-35.5) g/dL RDW (11.7-14.4) % Plt Count (182-369) x10^3/uL MPV (9.4-12.3) fL Puncture Site pCO2 (35-45) mmHg pO2 (75-100) mmHg pO2/FiO2 Ratio % Base Excess (-2.0-2.0) O2 Saturation (94-100) g/dF ABG pH (7.35-7.45) ABG HCO3 (22-28) ABG O2 Sat (Measured) (95-100) % Ruel Test VBG pH (7.32-7.42) VBG pCO2 at Pat Temp (42-55) mm/Hg VBG pO2 at Pat Temp (25-40) mm/Hg VBG HCO3 (22-28) meq/L VBG O2 Sat (Kali) (95-100) VBG Base Excess (-2.0-2.0) VBG Hemoglobin VBG Carboxyhemoglobin (0.0-6.9) % T HGB A-a Gradient a/A Ratio Hemoglobin Carboxyhemoglobin (0.0-6.9) % THgb Methemoglobin (1.4-1.5) % Potassium (3.5-5.1) POC Potassium (3.5-5.1) Temperature C POC O2 Flow Rate % Sodium (135-145) mmol/L Chloride (98-107) mmol/L Carbon Dioxide (22-30) mmol/L Anion Gap (5-15) MEQ/L BUN (7-17) mg/dL Creatinine (0.52-1.04) mg/dL Estimated GFR ML/MIN Glucose (74-106) mg/dL POC Glucometer 264 H 210 H (74 to 106) mg/dL Hemoglobin A1c (4.5-6.0) % Lactic Acid (0.4-2.0) Calcium (8.4-10.2) mg/dL Phosphorus 2.4 L (2.5-4.5) mg/dL Magnesium 2.3 (1.6-2.3) mg/dL Total Bilirubin (0.2-1.3) mg/dL AST (14-36) U/L ALT (0-35) U/L Alkaline Phosphatase (38-126) U/L NT-Pro-B Natriuret Pep (<300) pg/mL Serum Total Protein (6.3-8.2) g/dL Albumin (3.5-5.0) g/dL Urine Color (Yellow) Urine Appearance (Clear) Urine pH (4.6-8.0) Ur Specific [place] (1.005-1.030) Urine Protein (Negative) Urine Glucose (UA) (Negative) mg/dL Urine Ketones (Negative) Urine Blood (Negative) Urine Nitrite (Negative) Urine Bilirubin (Negative) Urine Urobilinogen (0.2) mg/dL Ur Leukocyte Esterase (Negative) U Hyaline Cast (Auto) (0-2) /LPF Urine Microscopic RBC (0-5) /HPF Urine Microscopic WBC (0-5) /HPF Ur Epithelial Cells (None Seen) /HPF Urine Bacteria (None Seen) /HPF Urine Culture Reflexed (NO) Ethyl Alcohol (0-10) mg/dL // Range/Units 10:09 WBC (3.98-10.04) x10^3/uL RBC (3.93-5.22) x10^6/uL Hgb (11.2-15.7) g/dL Hct (34.1-44.9) % MCV (79.4-94.8) fL MCH (25.6-32.2) pg MCHC (32.2-35.5) g/dL RDW (11.7-14.4) % Plt Count (182-369) x10^3/uL MPV (9.4-12.3) fL Puncture Site pCO2 (35-45) mmHg pO2 (75-100) mmHg pO2/FiO2 Ratio % Base Excess (-2.0-2.0) O2 Saturation (94-100) g/dF ABG pH (7.35-7.45) ABG HCO3 (22-28) ABG O2 Sat (Measured) (95-100) % Ruel Test VBG pH (7.32-7.42) VBG pCO2 at Pat Temp (42-55) mm/Hg VBG pO2 at Pat Temp (25-40) mm/Hg VBG HCO3 (22-28) meq/L VBG O2 Sat (Kali) (95-100) VBG Base Excess (-2.0-2.0) VBG Hemoglobin VBG Carboxyhemoglobin (0.0-6.9) % T HGB A-a Gradient a/A Ratio Hemoglobin Carboxyhemoglobin (0.0-6.9) % THgb Methemoglobin (1.4-1.5) % Potassium (3.5-5.1) POC Potassium (3.5-5.1) Temperature C POC O2 Flow Rate % Sodium (135-145) mmol/L Chloride (98-107) mmol/L Carbon Dioxide (22-30) mmol/L Anion Gap (5-15) MEQ/L BUN (7-17) mg/dL Creatinine (0.52-1.04) mg/dL Estimated GFR ML/MIN Glucose (74-106) mg/dL POC Glucometer 221 H (74 to 106) mg/dL Hemoglobin A1c (4.5-6.0) % Lactic Acid (0.4-2.0) Calcium (8.4-10.2) mg/dL Phosphorus (2.5-4.5) mg/dL Magnesium (1.6-2.3) mg/dL Total Bilirubin (0.2-1.3) mg/dL AST (14-36) U/L ALT (0-35) U/L Alkaline Phosphatase (38-126) U/L NT-Pro-B Natriuret Pep (<300) pg/mL Serum Total Protein (6.3-8.2) g/dL Albumin (3.5-5.0) g/dL Urine Color (Yellow) Urine Appearance (Clear) Urine pH (4.6-8.0) Ur Specific [place] (1.005-1.030) Urine Protein (Negative) Urine Glucose (UA) (Negative) mg/dL Urine Ketones (Negative) Urine Blood (Negative) Urine Nitrite (Negative) Urine Bilirubin (Negative) Urine Urobilinogen (0.2) mg/dL Ur Leukocyte Esterase (Negative) U Hyaline Cast (Auto) (0-2) /LPF Urine Microscopic RBC (0-5) /HPF Urine Microscopic WBC (0-5) /HPF Ur Epithelial Cells (None Seen) /HPF Urine Bacteria (None Seen) /HPF Urine Culture Reflexed (NO) Ethyl Alcohol (0-10) mg/dL Micro Results-Entire Visit: Accuchecks Date 03/04/2503/04/2503/04/2503/04/2503/04/2503/04/25 Date 03/03/25 Date 03/03/25 Date 03/03/25 Date 03/03/25 Date 03/03/2503/03/2503/03/2503/03/25 Date 03/03/2503/03/25 Date 03/03/25 Date 03/03/25 Time 10:16 Time 08:13 Time 06:28 Time 04:11 Time 02:09 Time 00:44 Time 23:35 Time 22:42 Time 21:51 Time 20:39 Time 19:40 Time 14:15 Time 12:57 Time 11:40 Time 11:49 - Radiology Exams Ordered Rad Exams-Entire Visit: Radiology Procedures Category Date Time Status ABDOMEN AND PELVIS W/0 CONTRAS [CT] Stat Exams 03/03/25 09:23 Completed Discharge Exam General Appearance: no apparent distress, alert Neurologic Exam: alert, oriented x 3, cooperative, normal mood/affect, nml cerebellar function, sensation nml, No motor deficits Eye Exam: PERRL, EOMI, eyes nml inspection Ears, Nose, Throat Exam: normal ENT inspection, pharynx normal, moist mucous membranes Neck Exam: normal inspection, non-tender, supple, full range of motion Respiratory Exam: normal breath sounds, lungs clear, No respiratory distress Cardiovascular Exam: regular rate/rhythm, normal heart sounds Gastrointestinal/Abdomen Exam: soft, No tenderness, No mass Pelvic Exam: deferred Rectal Exam: deferred Back Exam: normal inspection, normal range of motion, No CVA tenderness, No vertebral tenderness Extremity Exam: normal inspection, normal range of motion Skin Exam: normal color, warm, dry Final Diagnosis/Problem List - Final Discharge Diagnosis/Problem (1) DKA (diabetic ketoacidosis) Current Visit: Yes Status: Resolved Code(s): E11.10 - TYPE 2 DIABETES MELLITUS WITH KETOACIDOSIS WITHOUT COMA (2) Abdominal pain Current Visit: Yes Status: Resolved Code(s): R10.9 - UNSPECIFIED ABDOMINAL PAIN (3) Type 1 diabetes mellitus Current Visit: No Status: Chronic (4) Nausea and vomiting Current Visit: No Status: Resolved Onset Date: ~03/12/18 Assessment & Plan: (1) DKA (diabetic ketoacidosis) Current Visit: Yes Status: Acute Assessment & Plan: - DKA protocol - IVF - NPO - I&O's 03/04 - Resolved - Started back on insulin pump, glucose well controlled - A1C 7.21- uncontrolled- goal < 6 - F/U OP with PCP Code(s): E11.10 - TYPE 2 DIABETES MELLITUS WITH KETOACIDOSIS WITHOUT COMA (2) Abdominal pain Current Visit: Yes Status: Acute Assessment & Plan: - CT abd/pelvis: Impression: 1. Chronic findings including fatty liver and old granulomatous disease. 2. Remaining CT abdomen/pelvis without contrast exam continues to be normal. - Repeat CBC, CMP ordered - Pt reports 2:2 Vomiting - Zofran PRN 03/04 - Resolved - Eating and drinking well Code(s): R10.9 - UNSPECIFIED ABDOMINAL PAIN (3) Type 1 diabetes mellitus Current Visit: No Status: Chronic Assessment & Plan: - A1C pending - Insulin pump to be restarted when able (4) Nausea and vomiting Current Visit: No Status: Acute Onset Date: ~03/12/18 Assessment & Plan: - Zofran PRN - Resolved since admission Code(s): R11.2 - NAUSEA WITH VOMITING, UNSPECIFIED (5) Depression with anxiety Current Visit: Yes Status: Chronic Assessment & Plan: - Pt reports not currently taking any meds for this. Code(s): R11.2 - NAUSEA WITH VOMITING, UNSPECIFIED (5) Depression with anxiety Current Visit: Yes Status: Chronic Code(s): F41.8 - OTHER SPECIFIED ANXIETY DISORDERS - Discharge Discharge Date: 03/04/25 Disposition: Home, Self-Care Condition: Fair Prescriptions: Continue Insulin Lispro [Humalog] 10 units SQ UD Additional Instructions: Take tums twice a day x3 days for low calcium. Follow up with PCP for lab recheck. Follow up with: ALEX KAISER MD [Primary Care Provider, [facility]] - 03/11/25 11:00 am PAPITO MATOS [NON-STAFF PHY W/O PRIVILEGES, UNKNOWN] - 03/09/25 10:15 am Referral Note: [id number] Caryn Quezada [address] right, [address]. [address]
--- NOTE | 2025-03-04 13:13 | PCM.NOTE ---
Per nurse pt states her insulin pump is reading occluded and pt sent family home for new supplies. High dose s/s and stat order of 12 units of humalog ordered for glucose of 400. Pt can d/c this afternoon only if insulin pump is working correctly and glucose controlled.
[2025-03-04] MEDS: Tums EX 750 MG PO SCH (14:14)
[2025-03-04] MEDS: HUMALOG SQ ONE (15:14)
[2025-03-04] MEDS ORDERED: MAG-OX 400 PO ONE (15:20)
[2025-03-04 18:45] VITALS: BP 125/71; PULSE 102; RESP 16; TEMP 97.9
== END 2025-03-04 18:59 | disposition home or self-care (01) ==
LOC: ED 09:00 → ICU 13:46
PROVIDERS: ADMIT Internal Medicine; ATTEND Internal Medicine
DX: E11.10 Type 2 diabetes mellitus with ketoacidosis without coma (principal); R10.9 Unspecified abdominal pain; R11.2 Nausea with vomiting, unspecified; F41.8 Other specified anxiety disorders; E03.9 Hypothyroidism, unspecified; Z79.899 Other long term (current) drug therapy
CPT/HCPCS: 36415; 36600; 74176; 80048; 80053; 81001; 82077; 82150; 82375; 82803; 82805; 82947; 83036; 83605; 83690; 83735; 83880; 84100; 85025; 85027; 93005; 93268; 96360; 96375; 99291; G0378; Q3014